=== PATIENT | male | born 1955 | race Two or more races ===

== ENCOUNTER 2016-03-08 10:57 | Inpatient (IN) | payer OTHER, BC ==
--- NOTE | 2016-03-08 11:03 | PDOC ---
History of Present Illness - General History Source: Family Exam Limitations: Dementia - History of Present Illness Initial Comments: 03/08/16 11:40 Patient is a 60-year-old male with history of Ulcerative Colitis, dementia, advanced Parkinson's, nonverbal and bedbound, who presents to the ED accompanied with family, for shortness of breath. Patient was on Levaquin for 7 days and is now on day 3 of prednisone. History is limited because patient is nonverbal at baseline. Patient is DNR/DNI Patient is a former smoker. PCP: Dr. East <Jose Luis Westbrook - Last Filed: 03/08/16 12:18> <Kirti Koroma - Last Filed: 03/08/16 17:04> - General Chief Complaint: Shortness of Breath Stated Complaint: SOB Time Seen by Provider: 03/08/16 11:01 Past History <Jose Luis Westbrook - Last Filed: 03/08/16 12:18> - Past Medical History CVA: No Dementia: Yes GI Disorders: Yes (colitis) Disorders: Yes (BPH w/ urinary retention) Seizures: Yes - Psycho/Social/Smoking Cessation Hx Anxiety: No Suicidal Ideation: No Smoking Status: No Smoking History: Former smoker Have you smoked in the past 12 months: No Number of Cigarettes Smoked Daily: 0 Hx Alcohol Use: No Drug/Substance Use Hx: No Substance Use Type: None Hx Substance Use Treatment: No <Kirti Koroma - Last Filed: 03/08/16 17:04> - Past Medical History Allergies/Adverse Reactions: Allergies Allergy/AdvReac Type Severity Reaction Status Date / Time No Known Allergies Allergy Verified 03/08/16 11:04 Home Medications: Ambulatory Orders Azathioprine 150 mg GT DAILY 06/29/13 Amino Acids/Protein Hydrolys [Prostat Sugar-Free Packet -] 30 ml GT BID Ascorbic Acid [Vitamin C -] 250 mg GT DAILY #30 tablet 02/12/15 Miscellaneous Medical Supply [Outpatient Order] 1 each ASDIR #1 misc Escitalopram Oxalate [Lexapro 5mg/5mL Oral Solution -] 10 mg GT DAILY 05/17/15 Lactobacillus Acidophilus [Bacid -] 1 tab GT DAILY 05/17/15 Levetiracetam [Keppra Oral Solution -] 250 mg GT BID 05/17/15 Polyethylene Glycol 3350 [Miralax 119 gm Btl -] 17 gm GT DAILY 05/17/15 Senna Oral Solution - [Senokot Oral Solution -] 8.8 mg GT BID 05/17/15 Levetiracetam [Keppra] 250 mg PO BID 03/08/16 Levofloxacin [Levaquin] 500 mg PO DAILY 03/08/16 Prednisone [Deltasone -] 40 mg PO DAILY 03/08/16 Zinc Oxide [Triple Paste] 56.7 gm TP DAILY 03/08/16 Review of Systems - Review of Systems Able to Perform ROS?: No Comments:: 03/08/16 11:40 Patient is nonverbal at baseline. <Jose Luis Westbrook - Last Filed: 03/08/16 12:18> *Physical Exam - Vital Signs Last Vital Signs Temp Pulse Resp BP Pulse Ox 101.2 F H 125 H 28 H 111/93 87 L 03/08/16 11:00 03/08/16 11:00 03/08/16 11:00 03/08/16 11:00 03/08/16 11:00 <Jose Luis Westbrook - Last Filed: 03/08/16 12:18> - Physical Exam Comments: GENERAL: Nonverbal. +Tachypnea. Appears ill. HEAD: No signs of trauma EYES: PERRLA, EOMI, sclera anicteric, conjunctiva clear ENT: Auricles normal inspection, hearing grossly normal, nares patent, oropharynx clear without exudates. Moist mucosa NECK: Normal ROM, supple, no lymphadenopathy, JVD, or masses LUNGS: Diffuse rhonchi, retractions. Labored breathing. HEART: Tachycardic. ABDOMEN: Soft, nontender, normoactive bowel sounds. No guarding, no rebound. No masses EXTREMITIES: Normal range of motion, no edema. No clubbing or cyanosis. No cords, erythema, or tenderness NEUROLOGICAL: Limited by dementia. SKIN: Warm, Dry, normal turgor, no rashes or lesions noted. <Kirti Koroma - Last Filed: 03/08/16 17:04> Heart Score/ECG Review - ECG Impressions Comment:: EKG read 11:23- Sinus tach 124 bpm, no acute ST/T changes <Kirti Koroma - Last Filed: 03/08/16 17:04> ED Treatment Course - LABORATORY CBC & Chemistry Diagram: 03/08/16 11:30 03/08/16 11:30 - RADIOLOGY Radiology Studies Ordered: 03/08/16 12:18 Chest x-ray: History Provided: Rule out pneumonia. A single frontal portable projection of the chest at 11:17 AM is submitted. The study is limited due to a very poor inspiration effort. Patchy consolidation/atelectasis is noted at the left lung base. There could be some pleural fluid present as well. There is elevation the right hemidiaphragm with a mild degree of atelectasis. Impression: Limited study with left basilar consilidation. <Jose Luis Westbrook - Last Filed: 03/08/16 12:18> - LABORATORY CBC & Chemistry Diagram: 03/08/16 11:30 03/08/16 11:30 <Kirti Koroma - Last Filed: 03/08/16 17:04> Medical Decision Making - Medical Decision Making 03/08/16 11:[address] East (PCP). Discussed case with Dr. Vitale. <Jose Luis Westbrook - Last Filed: 03/08/16 12:18> - Medical Decision Making 03/08/16 11:37 Discussed with Winifred Hdez, and Claritza. I have written for broad spectrum antibiotic coverage. I have placed patient on BiPAP for comfort, to decrease work of breathing. I have started nebs as well. Will admit to the ICU. <Kirti Koroma - Last Filed: 03/08/16 17:04> *DC/Admit/Observation/Transfer - Attestations Scribe Attestion: 03/08/16 11:41 Documentation prepared by Jose Luis Westbrook, acting as medical assistant internal medicine for Kirti Koroma MD, MD. <Jose Luis Westbrook - Last Filed: 03/08/16 12:18> - Discharge Dispostion Admit: Yes <Kirti Koroma - Last Filed: 03/08/16 17:04> Diagnosis at time of Disposition: Pneumonia Qualifiers: Pneumonia type: due to unspecified organism Laterality: unspecified laterality Lung location: unspecified part of lung Qualified Code(s): J18.9 - Pneumonia, unspecified organism - Discharge Dispostion Condition at time of disposition: Critical - Referrals
[2016-03-08] MEDS ORDERED: ALBUTEROL SO4 2.5/IPRATROPIUM 0.5 INH SOL 3 ML VIAL.NEB. NEB ONE (11:35)
[2016-03-08] MEDS ORDERED: CEFEPIME HCL 2 GM VIAL (RESTRICTED TO ID) IVPB ONE (11:36)
[2016-03-08] MEDS ORDERED: VANCOMYCIN 1,000 MG in DEXTROSE 5%-WATER - 250 ML IVPB ONE (11:36)
[2016-03-08] MEDS ORDERED: LEVOFLOXACIN 750 MG IVPB 150 ML IVPB ONE (11:37)
[2016-03-08 11:45] LABS: BASOPHIL 0.8 % (0-2.0); EOSINOPHIL 0.2 % (0-4.5); MCH 29.9 pg (25.7-33.7); MCHC 32.3 g/dl (32.0-35.9); MEAN CELL VOLUME 92.7 fl (80-96); MEAN PLT VOLUME 10.5 fl (7.5-11.1); NEUTROPHILS 85.8 % (42.8-82.8); PLATELET COUNT 353 K/MM3 (134-434); RDW 15.5 % (11.9-15.9)
[2016-03-08] MEDS: ALBUTEROL SO4 2.5/IPRATROPIUM 0.5 INH SOL 3 ML VIAL.NEB. NEB SCH ×3 (11:45→12:15)
[2016-03-08] MEDS ORDERED: ACETAMINOPHEN 1000 MG/100 ML VIAL (NON FORMULARY) IVPB ONE (11:47)
[2016-03-08] MEDS ORDERED: ACETAMINOPHEN INJECTION 100 ML IVPB ONE (11:48)
[2016-03-08] MEDS ORDERED: PIPERACILLIN/TAZOB 4.5 GM 4.5 GM in DEXTROSE 5%-WATER - 100 ML IVPB ONE (11:59)
--- NOTE | 2016-03-08 12:07 | PN ---
Progress Note, Physician Chief Complaint: ID Consult full noted dictated - Current Medication List Current Medications: Active Medications Albuterol/Ipratropium (Duoneb -) 1 amp NEB Q15M TALHA Stop: 03/08/16 12:16 Vancomycin HCl 1,000 mg/ (Dextrose) 250 mls @ 250 mls/hr IVPB ONCE ONE Stop: 03/08/16 12:35 Piperacillin Sod/Tazobactam (Sod 4.5 gm/ Dextrose) 100 mls @ 200 mls/hr IVPB ONCE ONE Stop: 03/08/16 12:28 - Objective Vital Signs: Vital Signs Temperature 101.2 F H 03/08/16 11:00 Pulse Rate 125 H 03/08/16 11:00 Respiratory Rate 28 H 03/08/16 11:00 Blood Pressure 111/93 03/08/16 11:00 O2 Sat by Pulse Oximetry (%) 87 L 03/08/16 11:00 Cardiovascular: Yes: S1, S2 Respiratory: Yes: Diminished Gastrointestinal: Yes: Soft Edema: No Labs: CBC, BMP 03/08/16 11:30 Problem List - Problems (1) Pneumonia Code(s): J18.9 - PNEUMONIA, UNSPECIFIED ORGANISM Qualifiers: Pneumonia type: due to unspecified organism Laterality: unspecified laterality Lung location: unspecified part of lung Qualified Code(s): J18.9 - Pneumonia, unspecified organism (2) Lewy body dementia Code(s): G31.83 - DEMENTIA WITH LEWY BODIES F02.80 - DEMENTIA IN OTH DISEASES CLASSD ELSWHR W/O BEHAVRL DISTURB Assessment/Plan Laboratory Tests 03/08/16 11:30 WBC 17.0 H D Hgb 15.5 D Plt Count 353 Assessment Pneumonia with aspiration of mouth bartolo ? tooth Recent Levoflox Plan Cultures Influenza screening Vanco and Zosyn to cover the mouth Claritza EISENBERG
[2016-03-08 12:22] LABS: ANION GAP 10 (8-16); CALCIUM 9.6 mg/dL (8.5-10.1); CO2 31 mmol/L (21-32); CREATININE 1.2 mg/dL (0.7-1.3); GLUCOSE,RANDOM 191 mg/dL (74-106); SGOT/AST 36 U/L (15-37); SGPT/ALT 44 U/L (12-78); TOT PROT 7.6 g/dl (6.4-8.2)
[2016-03-08 12:23] LABS: ALK PHOS 70 U/L (45-117)
--- NOTE | 2016-03-08 12:30 | EKG ---
Test Reason : Blood Pressure : / mmHG Vent. Rate : 124 BPM Atrial Rate : 124 BPM P-R Int : 152 ms QRS Dur : 080 ms QT Int : 310 ms P-R-T Axes : 041 -21 -10 degrees QTc Int : 445 ms SINUS TACHYCARDIA OTHERWISE NORMAL ECG WHEN COMPARED WITH ECG OF 17-MAY-2015 18:59, NO SIGNIFICANT CHANGE WAS FOUND Confirmed by ANGIE CARLSON MD ([id number]) on 03/08/2016 12:30:22 PM Referred By: Confirmed By:ANGIE CARLSON MD
[2016-03-08] MEDS ORDERED: PIPERACILLIN/TAZOB 4.5 GM 100 ML IVPB ONE (12:40)
[2016-03-08] MEDS ORDERED: VANCOMYCIN 1 GRAM (PRE-DOCKED) 250 ML IVPB ONE (12:41)
[2016-03-08] MEDS: VANCOMYCIN 1,250 MG in DEXTROSE 5%-WATER - 250 ML IVPB SCH ×2 (13:57→16:56)
[2016-03-08 15:45] LABS: URINE APPEARANCE SLCLOUDY; URINE BILIRUBIN NEGATIVE (NEGATIVE); URINE BLOOD NEGATIVE (NEGATIVE); URINE COLOR AMBER; URINE GLUCOSE (UA) NEGATIVE (NEGATIVE); URINE KETONE TRACE (NEGATIVE); URINE LEUK ESTERASE NEGATIVE (NEGATIVE); URINE NITRITE NEGATIVE (NEGATIVE); URINE UROBILINOGEN NEGATIVE E.U./dl (0.2-1.0)
[2016-03-08 15:51] LABS: URINE PROTEIN 2+ (NEGATIVE)
[2016-03-08 15:52] LABS: URINE BACTERIA RARE /hpf (NONE SEEN); URINE RBC 31 /hpf (0-3); URINE WBC 15 /hpf (3-5)
--- NOTE | 2016-03-08 16:15 | CONSULT ---
Consult Consult Specialty:: PULM/CCM Referred by:: HARVEY Reason for Consultation:: Respiratory distress - History of Present Illness Chief Complaint: Fever / SOB / respiratory distress History of Present Illness: 61 M, well known to me from multiple previous admissions. Previous multiple episodes of PNA and aspiration. Recent suspected respiratory tract infection. 7 days of Levaquin 500mg. Prednisone over the past few days. Today, developed worsening SOB, hypoxemia, and respiratory distress. In the ER placed on NIPPV with some improvement in his respiratory distress. There is also a concern of his poor dentition / (?) aspiration. Patient is not able to provide a history. 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 Gastrointestinal: Yes: Ulcerative Colitis Musculoskeletal: Yes: Other (HISTORY IF B/L HIP FRACTURES) - Alcohol/Substance Use Hx Alcohol Use: No - Smoking History Smoking history: Former smoker Have you smoked in the past 12 months: No Aproximately how many cigarettes per day: 0 Home Medications - Allergies Allergies/Adverse Reactions: Allergies Allergy/AdvReac Type Severity Reaction Status Date / Time No Known Allergies Allergy Verified 03/08/16 11:04 - Home Medications Home Medications: Ambulatory Orders Azathioprine 150 mg GT DAILY 06/29/13 Amino Acids/Protein Hydrolys [Prostat Sugar-Free Packet -] 30 ml GT BID Ascorbic Acid [Vitamin C -] 250 mg GT DAILY #30 tablet 02/12/15 Miscellaneous Medical Supply [Outpatient Order] 1 each ASDIR #1 misc Escitalopram Oxalate [Lexapro 5mg/5mL Oral Solution -] 10 mg GT DAILY 05/17/15 Lactobacillus Acidophilus [Bacid -] 1 tab GT DAILY 05/17/15 Levetiracetam [Keppra Oral Solution -] 250 mg GT BID 05/17/15 Polyethylene Glycol 3350 [Miralax 119 gm Btl -] 17 gm GT DAILY 05/17/15 Senna Oral Solution - [Senokot Oral Solution -] 8.8 mg GT BID 05/17/15 Levetiracetam [Keppra] 250 mg PO BID 03/08/16 Levofloxacin [Levaquin] 500 mg PO DAILY 03/08/16 Prednisone [Deltasone -] 40 mg PO DAILY 03/08/16 Zinc Oxide [Triple Paste] 56.7 gm TP DAILY 03/08/16 Review of Systems Unable to obtain ROS, reason: Not able to provide Physical Exam Vital Signs: Vital Signs Temperature 101.2 F H 03/08/16 11:00 Pulse Rate 118 H 03/08/16 15:17 Respiratory Rate 21 03/08/16 13:00 Blood Pressure 124/96 03/08/16 13:00 O2 Sat by Pulse Oximetry (%) 100 03/08/16 15:17 Constitutional: Yes: Severe Distress Eyes: Yes: Conjunctiva Clear HENT: Yes: Atraumatic, Normocephalic Neck: Yes: Supple, Trachea Midline Cardiovascular: Yes: Tachycardia Respiratory: Yes: Accessory Muscle Use, Cough, On BiPap, Poor Air Entry, Rhonchi , Tachypnea. No: Stridor, Wheezes Gastrointestinal: Yes: Normal Bowel Sounds, Soft, Other (PEG) ...Rectal Exam: Yes: Deferred Renal/: Yes: WNL Musculoskeletal: Yes: Joint Stiffness, Muscle Weakness Extremities: Yes: Cool Edema: No Peripheral Pulses WNL: Yes Integumentary: Yes: WNL Neurological: Yes: Confusion. No: Seizure Imaging - Results Chest X-ray: Report Reviewed, Image Reviewed (LLL consolidation) Problem List - Problems (1) Pneumonia Code(s): J18.9 - PNEUMONIA, UNSPECIFIED ORGANISM Qualifiers: Pneumonia type: due to unspecified organism Laterality: unspecified laterality Lung location: unspecified part of lung Qualified Code(s): J18.9 - Pneumonia, unspecified organism (2) BPH (benign prostatic hypertrophy) Code(s): N40.0 - BENIGN PROSTATIC HYPERPLASIA WITHOUT LOWER URINRY TRACT SYMP Qualifiers: Prostatic enlargement morphology: unspecified morphology Lower urinary tract symptom presence: symptoms present Qualified Code(s): N40.1 - Enlarged prostate with lower urinary tract symptoms (3) CVA (cerebrovascular accident) Code(s): I63.9 - CEREBRAL INFARCTION, UNSPECIFIED (4) Colitis Code(s): K52.9 - NONINFECTIVE GASTROENTERITIS AND COLITIS, UNSPECIFIED (5) Dehydration Code(s): E86.0 - DEHYDRATION (6) Dementia Code(s): F03.90 - UNSPECIFIED DEMENTIA WITHOUT BEHAVIORAL DISTURBANCE (7) Dysphagia Code(s): R13.10 - DYSPHAGIA, UNSPECIFIED (8) Foreign body alimentary tract Code(s): T18.9XXA - FOREIGN BODY OF ALIMENTARY TRACT, PART UNSP, INIT ENCNTR Qualifiers: Encounter type: initial encounter Qualified Code(s): T18.9XXA - Foreign body of alimentary tract, part unspecified, initial encounter (9) History of ulcerative colitis Code(s): Z87.19 - PERSONAL HISTORY OF OTHER DISEASES OF THE DIGESTIVE SYSTEM (10) Hypoxemia Code(s): R09.02 - HYPOXEMIA (11) Lewy body dementia Code(s): G31.83 - DEMENTIA WITH LEWY BODIES F02.80 - DEMENTIA IN OTH DISEASES CLASSD ELSWHR W/O BEHAVRL DISTURB (12) Respiratory failure Code(s): J96.90 - RESPIRATORY FAILURE, UNSP, UNSP W HYPOXIA OR HYPERCAPNIA (13) Sepsis Code(s): A41.9 - SEPSIS, UNSPECIFIED ORGANISM Qualifiers: Sepsis type: sepsis due to unspecified organism Qualified Code(s): A41.9 - Sepsis, unspecified organism Assessment/Plan PLAN: NIPPV Le-culture Broad ABX BD TX IVF HOB elevation Oral care ICU monitoring DNR/DNI Thank you. Dr Vitale CCTime 35"
[2016-03-08] MEDS ORDERED: ACETAMINOPHEN 325 MG TABLET (FP) PO PRN (17:17)
--- NOTE | 2016-03-08 18:28 | CONS ---
DATE OF CONSULTATION: DATE OF DICTATION: 03/08/2016 INFECTIOUS DISEASE CONSULTATION HISTORY OF PRESENT ILLNESS: This is a 61-year-old male with multiple prior admissions, a known diagnosis of Parkinson disease and Lewy body disease, admitted for shortness of breath and fever to 101. [address] East, he had been seen over a week ago by Dr. Vitale for respiratory symptoms. Concern was raised for possible aspiration, even aspiration of a tooth, as the patient is known to have poor dental hygiene. He was given levofloxacin, which he took for a week. He was also given prednisone. He has been hospitalized in the past for treatment of pneumonia. Here he was 101, and I am asked to see him for further evaluation and treatment. PAST MEDICAL HISTORY: Includes ulcerative colitis, dementia, and advanced Parkinson disease. MEDICATION: At home include azathioprine, lexapro, Miralax, Reglan. ALLERGIES: None known. SOCIAL HISTORY: Former smoker. No history of alcohol. Lives with his family at home, well cared for. FAMILY HISTORY: Reviewed and noncontributory. REVIEW OF SYSTEMS: Respiratory: Shortness of breath. No cough noted, no hemoptysis. Cardiac: No history of chest pain, palpitations, syncope, heart murmur. Gastrointestinal: History of ulcerative colitis. No abdominal pain. Appetite has been good. No vomiting, diarrhea. Genitourinary: Incontinent of urine. No gross hematuria noted. PHYSICAL EXAMINATION: Vital signs: Temperature 101.2, pulse 125, blood pressure 111/93, respirations 28, and O2 oximetry 87%, and 93% on a BiPAP mask. Neck: Limited range of motion. Lungs: Diminished breath sounds bilaterally. Heart: S1, S2. Regular rhythm. Tachycardic. No murmur. Abdomen: Soft. Nontender. No hepatosplenomegaly. Extremities: Without clubbing, cyanosis, or edema. LABORATORY: The white count is 17,000. Hemoglobin 15.5, platelets of 353. Chest x-ray reviewed, with increased markings at the left base. ASSESSMENT: A 61-year-old male with Parkinson disease, Lewy body disease, and history of pneumonia in the past, admitted now with respiratory distress and sepsis syndrome. After recent course of levofloxacin, the possibility of aspiration pneumonia is considered. The patient's dental hygiene is poor. Must consider aspiration of mouth floor including anaerobes. As discussed with Dr. Vitale and Dr. Koroma in the emergency room, he will be given vancomycin and Zosyn pending cultures, influenza screening will be done. He already appears more comfortable as compared to when he first arrived, according to the inspector penetrant, and the case was discussed with his family. TOYA CARVALHO M.D. HIRAM/[id number]
[2016-03-08] MEDS: LACTATED RINGERS SOLUTION 1,000 ML IV SCH (20:55)
[2016-03-08] MEDS: PIPERACILLIN/TAZOB 4.5 GM 100 ML IVPB SCH (21:00)
[2016-03-08 21:22] LABS: ALLENS TEST POSITIVE; ART PUNCT SITE RIGHT RADIAL; ARTERIAL BLD GAS O2 SATURATION 99.6 % (90-98.9); ARTERIAL BLOOD GAS BASE EXCESS 2.8 meq/l (-2-2); ARTERIAL BLOOD GAS HCO3 26.9 meq/L (22-26); ARTERIAL BLOOD GAS pH 7.43 (7.35-7.45); LPM/O2% 100%; PT. ON O2? YES; TYPE OF O2 BIPAP; VENT RATE 14
[2016-03-08 21:31] VITALS: BMI 25.5
[2016-03-08 21:49] LABS: BASOPHIL 0.4 % (0-2.0); MCH 29.1 pg (25.7-33.7); MCHC 31.7 g/dl (32.0-35.9); MEAN CELL VOLUME 91.9 fl (80-96); MEAN PLT VOLUME 10.7 fl (7.5-11.1); NEUTROPHILS 84.9 % (42.8-82.8); PLATELET COUNT 359 K/MM3 (134-434); RDW 15.4 % (11.9-15.9); WHITE BLOOD COUNT 17.2 K/mm3 (4.0-10.0)
[2016-03-08] MEDS ORDERED: levETIRAcetam 250 MG TABLET (FP) PO SCH (22:00)
[2016-03-08] MEDS: AMINO ACIDS/PROTEIN HYDROLYS SUGAR-FREE 30 ML PACKET GT SCH (22:02)
[2016-03-08] MEDS: levETIRAcetam 500 MG/5 ML ORAL SOLUTION (UNIT-DOSE CUPS) GT SCH (22:02)
[2016-03-08] MEDS: SENNOSIDES 8.8 MG/5 ML BULK BOTTLE GT SCH (22:03)
[2016-03-08 22:08] LABS: INR 1.25 (0.82-1.09); PROTHROMBIN TIME (PATIENT) 13.8 SEC (9.98-11.88)
[2016-03-08 22:10] LABS: ACTIVATED PTT 25.7 SECONDS (26.9-34.4)
[2016-03-08 22:39] LABS: ALBUMIN 2.5 g/dl (3.4-5.0); ANION GAP 9 (8-16); CALCIUM 8.4 mg/dL (8.5-10.1); CO2 29 mmol/L (21-32); GLUCOSE,RANDOM 207 mg/dL (74-106); MAGNESIUM 2.4 mg/dL (1.8-2.4)
[2016-03-08 22:43] LABS: ALK PHOS 66 U/L (45-117); CREATININE 1.2 mg/dL (0.7-1.3); SGOT/AST 25 U/L (15-37); SGPT/ALT 39 U/L (12-78); TOT PROT 6.9 g/dl (6.4-8.2); TROPONIN I < 0.02 ng/ml (0.00-0.05)
[2016-03-08] MEDS ORDERED: SODIUM CHLORIDE 250 ML IV STA (23:11)
[2016-03-08] MEDS ORDERED: LACTATED RINGERS SOLUTION 250 ML IV STA (23:24)
[2016-03-09] MEDS: VANCOMYCIN 1,250 MG in DEXTROSE 5%-WATER - 250 ML IVPB SCH ×2 (02:57→14:41)
[2016-03-09] MEDS: PIPERACILLIN/TAZOB 4.5 GM 100 ML IVPB SCH ×3 (02:59→16:59)
[2016-03-09 06:09] LABS: BASOPHIL 0.4 % (0-2.0); EOSINOPHIL 0.2 % (0-4.5); MCH 29.3 pg (25.7-33.7); MCHC 31.5 g/dl (32.0-35.9); MEAN CELL VOLUME 92.9 fl (80-96); MEAN PLT VOLUME 10.9 fl (7.5-11.1); NEUTROPHILS 82.4 % (42.8-82.8); PLATELET COUNT 357 K/MM3 (134-434); RDW 15.7 % (11.9-15.9); WHITE BLOOD COUNT 16.8 K/mm3 (4.0-10.0)
[2016-03-09 06:42] LABS: ALBUMIN 2.4 g/dl (3.4-5.0); ANION GAP 8 (8-16); CALCIUM 8.8 mg/dL (8.5-10.1); CO2 31 mmol/L (21-32); CREATININE 1.2 mg/dL (0.7-1.3); GLUCOSE,RANDOM 211 mg/dL (74-106); SGOT/AST 24 U/L (15-37); SGPT/ALT 33 U/L (12-78)
[2016-03-09 06:43] LABS: ALK PHOS 58 U/L (45-117); BILIRUBIN,TOTAL 1.4 mg/dL (0.2-1.0); TOT PROT 6.6 g/dl (6.4-8.2)
[2016-03-09] MEDS: LACTATED RINGERS SOLUTION 1,000 ML IV SCH (09:45)
[2016-03-09] MEDS: AMINO ACIDS/PROTEIN HYDROLYS SUGAR-FREE 30 ML PACKET GT SCH ×2 (09:49→22:24)
[2016-03-09] MEDS: ESCITALOPRAM OXALATE 5 MG/5 ML GT SCH (09:49)
[2016-03-09] MEDS: levETIRAcetam 500 MG/5 ML ORAL SOLUTION (UNIT-DOSE CUPS) GT SCH ×2 (09:51→22:25)
[2016-03-09] MEDS: LACTOBACILLUS ACIDOPHILUS 1 EACH TAB (FP) GT SCH (09:51)
[2016-03-09] MEDS: BACITRACIN 30 GM TUBE TOPICAL OINTMENT TP SCH (09:52)
[2016-03-09] MEDS: POLYETHYLENE GLYCOL 3350 119 GM BTL GT SCH (09:52)
[2016-03-09] MEDS: SENNOSIDES 8.8 MG/5 ML BULK BOTTLE GT SCH ×2 (09:53→22:25)
[2016-03-09] MEDS ORDERED: ASCORBIC ACID 250 MG TABLET (FP) GT SCH (10:00)
[2016-03-09] MEDS ORDERED: predniSONE 20 MG TABLET (UD) GT SCH (10:00)
[2016-03-09] MEDS ORDERED: ASCORBIC ACID 500 MG/5 ML UNIT DOSE CUP GT SCH (10:29)
--- NOTE | 2016-03-09 11:18 | PN ---
Progress Note, Physician History of Present Illness: Awake on bipap Breathing non-labored Temps down- afebrile WBC slightly improved Influenza swab negative Blod c/s pending - Current Medication List Current Medications: Active Medications Acetaminophen (Tylenol -) 650 mg PO Q6H PRN PRN Reason: FEVER OR PAIN Amino Acids (Prostat Sugar-Free Packet -) 30 ml GT BID [facility] Last Admin: 03/09/16 09:49 Dose: 30 ml Ascorbic Acid (Vitamin C Oral Solution -) 250 mg GT DAILY [facility] Azathioprine (Imuran -) 150 mg GT DAILY [facility] Bacitracin (Bacitracin -) 1 applic TP DAILY [facility] Last Admin: 03/09/16 09:52 Dose: 1 applic Escitalopram Oxalate (Lexapro Oral Solution -) 10 mg GT DAILY [facility] Last Admin: 03/09/16 09:49 Dose: 10 mg Vancomycin HCl 1,250 mg/ (Dextrose) 250 mls @ 166.667 mls/hr IVPB BID@0100, 1300 [facility] Last Admin: 03/09/16 02:57 Dose: 166.667 mls/hr Piperacillin Sod/Tazobactam Sod (Zosyn 4.5gm Ivpb (Pre-Docked)) 100 mls @ 200 mls/hr IVPB Q8H-IV [facility] Last Admin: 03/09/16 09:44 Dose: 200 mls/hr Lactated Ringer's (Lactated Ringers Solution) 1,000 mls @ 50 mls/hr IV ASDIR [facility] Last Admin: 03/09/16 09:45 Dose: 50 mls/hr Lactobacillus Acidophilus (Bacid -) 1 tab GT DAILY [facility] Last Admin: 03/09/16 09:51 Dose: 1 tab Levetiracetam (Keppra Oral Solution -) 250 mg GT BID [facility] Last Admin: 03/09/16 09:51 Dose: 250 mg Multi-Ingredient Ointment (Zinc Oxide) 1 applic TP DAILY [facility] Polyethylene Glycol (Miralax (For Daily Use) -) 17 gm GT DAILY [facility] Last Admin: 03/09/16 09:52 Dose: 17 gm Prednisone (Deltasone -) 40 mg GT DAILY [facility] Last Admin: 03/09/16 09:51 Dose: 40 mg Senna (Senna Oral Solution -) 8.8 mg GT BID [facility] Last Admin: 03/09/16 09:53 Dose: 8.8 mg - Objective Vital Signs: Vital Signs Temperature 99.6 F 03/09/16 10:00 Pulse Rate 96 H 03/09/16 10:00 Respiratory Rate 15 03/09/16 10:00 Blood Pressure 105/72 03/09/16 10:00 O2 Sat by Pulse Oximetry (%) 96 03/09/16 10:00 Constitutional: Yes: No Distress Eyes: Yes: Conjunctiva Clear Cardiovascular: Yes: Regular Rate and Rhythm, S1, S2 Respiratory: Yes: Diminished Gastrointestinal: Yes: Normal Bowel Sounds, Soft. No: Tenderness Edema: No Labs: CBC, BMP 03/09/16 05:05 03/09/16 05:05 INR, PTT INR 1.25 (0.82-1.09) H 03/08/16 20:30 Assessment/Plan Resp insufficiency Possible aspiration pneumonia Fever/ leukocytosis- improved Lewy body dementia Continue empiric zosyn/ vancomycin Discussed with family at bedside
--- NOTE | 2016-03-09 12:58 | CONSULT ---
Consult Consult Specialty:: Nephrology Reason for Consultation:: BREANA - History of Present Illness Chief Complaint: shortness of breath History of Present Illness: Pt is a 61 year old gentleman with history of ulcerative colitis, lewy body dementia, dysphagia, and parkinsons who was admitted with fever and shortness of breath. He was treated with levofloxacin and prednisone as outpt without improvement. He was admitted to the ICU for possible aspiration PNA. I was called was called to evaluate him for BREANA and lactic acidosis. He is non verbal and unable to give history. Pt is well known to me. 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 Gastrointestinal: Yes: Ulcerative Colitis Musculoskeletal: Yes: Other (HISTORY IF B/L HIP FRACTURES) - Past Surgical History Additional Surgical History: peg tube - Alcohol/Substance Use Hx Alcohol Use: No - Smoking History Smoking history: Former smoker Have you smoked in the past 12 months: No Aproximately how many cigarettes per day: 0 Home Medications - Allergies Allergies/Adverse Reactions: Allergies Allergy/AdvReac Type Severity Reaction Status Date / Time No Known Allergies Allergy Verified 03/08/16 11:04 - Home Medications Home Medications: Ambulatory Orders Azathioprine 150 mg GT DAILY 06/29/13 Amino Acids/Protein Hydrolys [Prostat Sugar-Free Packet -] 30 ml GT BID Ascorbic Acid [Vitamin C -] 250 mg GT DAILY #30 tablet 02/12/15 Miscellaneous Medical Supply [Outpatient Order] 1 each ASDIR #1 misc Escitalopram Oxalate [Lexapro 5mg/5mL Oral Solution -] 10 mg GT DAILY 05/17/15 Lactobacillus Acidophilus [Bacid -] 1 tab GT DAILY 05/17/15 Levetiracetam [Keppra Oral Solution -] 250 mg GT BID 05/17/15 Polyethylene Glycol 3350 [Miralax 119 gm Btl -] 17 gm GT DAILY 05/17/15 Senna Oral Solution - [Senokot Oral Solution -] 8.8 mg GT BID 05/17/15 Levetiracetam [Keppra] 250 mg PO BID 03/08/16 Levofloxacin [Levaquin] 500 mg PO DAILY 03/08/16 Prednisone [Deltasone -] 40 mg PO DAILY 03/08/16 Zinc Oxide [Triple Paste] 56.7 gm TP DAILY 03/08/16 Family Disease History - Family Disease History Family History: Unremarkable Review of Systems Unable to obtain ROS, reason: pt has dementia Physical Exam Vital Signs: Vital Signs Temperature 99.6 F 03/09/16 10:00 Pulse Rate 98 H 03/09/16 12:00 Respiratory Rate 15 03/09/16 12:00 Blood Pressure 104/73 03/09/16 12:00 O2 Sat by Pulse Oximetry (%) 97 03/09/16 11:45 Constitutional: Yes: Calm Eyes: Yes: Conjunctiva Clear HENT: Yes: Atraumatic Neck: Yes: Supple Cardiovascular: Yes: S1, S2 Respiratory: Yes: On BiPap Gastrointestinal: Yes: Soft Renal/: Yes: Incontinence Musculoskeletal: Yes: Muscle Weakness Edema: No Neurological: Yes: Pre-Existing Deficit Labs: CBC, BMP 03/09/16 05:05 03/09/16 05:05 Laboratory Tests 05/21/15 05/28/15 03/08/16 06:20 07:00 11:30 WBC 17.0 H D Hgb ABG pH ABG pCO2 at Pt Temp ABG pO2 at Pt Temp ABG HCO3 ABG O2 Sat (Measured) Sodium Potassium Chloride Carbon Dioxide Anion Gap BUN Creatinine 0.7 Lactic Acid Magnesium 2.0 Total Bilirubin Creatine Kinase Urine Color Urine Appearance Urine pH Ur Specific [place] Urine Protein Urine Glucose (UA) Urine Ketones Urine Blood Urine Nitrite Urine Bilirubin Urine Urobilinogen Ur Leukocyte Esterase 03/08/16 03/08/16 03/08/16 11:30 15:30 20:30 WBC 17.2 H Hgb ABG pH ABG pCO2 at Pt Temp ABG pO2 at Pt Temp ABG HCO3 ABG O2 Sat (Measured) Sodium Potassium Chloride Carbon Dioxide Anion Gap BUN Creatinine 1.2 D Lactic Acid Magnesium Total Bilirubin Creatine Kinase Urine Color No Urine Appearance Slcloudy Urine pH 5.0 D Ur Specific [place] 1.044 H Urine Protein 2+ H Urine Glucose (UA) Negative Urine Ketones Trace H Urine Blood Negative Urine Nitrite Negative Urine Bilirubin Negative Urine Urobilinogen Negative Ur Leukocyte Esterase Negative 03/08/16 03/08/16 03/08/16 20:30 20:30 20:30 WBC Hgb ABG pH ABG pCO2 at Pt Temp ABG pO2 at Pt Temp ABG HCO3 ABG O2 Sat (Measured) Sodium 156 H Potassium 4.1 Chloride 118 H Carbon Dioxide 29 Anion Gap 9 BUN 31 H D Creatinine 1.2 Lactic Acid 4.126 H* Magnesium Total Bilirubin Creatine Kinase 477 H D Urine Color Urine Appearance Urine pH Ur Specific [place] Urine Protein Urine Glucose (UA) Urine Ketones Urine Blood Urine Nitrite Urine Bilirubin Urine Urobilinogen Ur Leukocyte Esterase 03/08/16 03/09/16 03/09/16 21:09 05:05 05:05 WBC 16.8 H Hgb 13.1 ABG pH 7.43 ABG pCO2 at Pt Temp 41.2 ABG pO2 at Pt Temp 246.0 H* ABG HCO3 26.9 H ABG O2 Sat (Measured) 99.6 H* Sodium 154 H Potassium 3.4 L Chloride 115 H Carbon Dioxide 31 Anion Gap 8 BUN 33 H Creatinine 1.2 Lactic Acid Magnesium Total Bilirubin 1.4 H D Creatine Kinase Urine Color Urine Appearance Urine pH Ur Specific [place] Urine Protein Urine Glucose (UA) Urine Ketones Urine Blood Urine Nitrite Urine Bilirubin Urine Urobilinogen Ur Leukocyte Esterase 03/09/16 05:05 WBC Hgb ABG pH ABG pCO2 at Pt Temp ABG pO2 at Pt Temp ABG HCO3 ABG O2 Sat (Measured) Sodium Potassium Chloride Carbon Dioxide Anion Gap BUN Creatinine Lactic Acid 3.387 H* Magnesium Total Bilirubin Creatine Kinase Urine Color Urine Appearance Urine pH Ur Specific [place] Urine Protein Urine Glucose (UA) Urine Ketones Urine Blood Urine Nitrite Urine Bilirubin Urine Urobilinogen Ur Leukocyte Esterase Imaging - Results Chest X-ray: Report Reviewed (small pleural effusion) Problem List - Problems (1) Pneumonia Code(s): J18.9 - PNEUMONIA, UNSPECIFIED ORGANISM Qualifiers: Pneumonia type: due to unspecified organism Laterality: unspecified laterality Lung location: unspecified part of lung Qualified Code(s): J18.9 - Pneumonia, unspecified organism (2) BPH (benign prostatic hypertrophy) Code(s): N40.0 - BENIGN PROSTATIC HYPERPLASIA WITHOUT LOWER URINRY TRACT SYMP Qualifiers: Prostatic enlargement morphology: unspecified morphology Lower urinary tract symptom presence: symptoms present Qualified Code(s): N40.1 - Enlarged prostate with lower urinary tract symptoms (3) Hypokalemia Code(s): E87.6 - HYPOKALEMIA (4) Respiratory failure Code(s): J96.90 - RESPIRATORY FAILURE, UNSP, UNSP W HYPOXIA OR HYPERCAPNIA (5) Seizure disorder Code(s): G40.909 - EPILEPSY, UNSP, NOT INTRACTABLE, WITHOUT STATUS EPILEPTICUS (6) Sepsis Code(s): A41.9 - SEPSIS, UNSPECIFIED ORGANISM Qualifiers: Sepsis type: sepsis due to unspecified organism Qualified Code(s): A41.9 - Sepsis, unspecified organism (7) BREANA (acute kidney injury) Code(s): N17.9 - ACUTE KIDNEY FAILURE, UNSPECIFIED Assessment/Plan Current Medications Generic Name Dose Route Start Last Admin Trade Name Freq PRN Reason Stop Dose Admin Acetaminophen 650 mg 03/08/16 17:17 Tylenol - PO Q6H PRN FEVER OR PAIN Albuterol/Ipratropium 1 amp 03/09/16 18:00 Duoneb - NEB QIDR TALHA Amino Acids 30 ml 03/08/16 22:00 03/09/16 09:49 Prostat Sugar-Free Packet - GT 30 ml BID TALHA Administration Ascorbic Acid 250 mg 03/09/16 10:29 Vitamin C Oral Solution - GT DAILY T[facility]HA Azathioprine 150 mg 03/09/16 10:00 Imuran - GT DAILY T[facility]HA Bacitracin 1 applic 03/09/16 10:00 03/09/16 09:52 Bacitracin - TP 1 applic DAILY TALHA Administration Escitalopram Oxalate 10 mg 03/09/16 10:00 03/09/16 09:49 Lexapro Oral Solution - GT 10 mg DAILY TALHA Administration Vancomycin HCl 1,250 mg/ 250 mls @ 166.667 mls/hr 03/08/16 13:00 03/09/16 02:57 Dextrose IVPB 166.667 mls/hr BID@0100,1300 TALHA Administration Piperacillin Sod/Tazobactam Sod 100 mls @ 200 mls/hr 03/08/16 18:00 03/09/16 09 :44 Zosyn 4.5gm Ivpb (Pre-Docked) IVPB 200 mls/hr Q8H-IV TALHA Administration Lactobacillus Acidophilus 1 tab 03/09/16 10:00 03/09/16 09:51 Bacid - GT 1 tab DAILY [facility]ALHA Administration Levetiracetam 250 mg 03/08/16 22:00 03/09/16 09:51 Keppra Oral Solution - GT 250 mg BID TALHA Administration Multi-Ingredient Ointment 1 applic 03/09/16 10:00 Zinc Oxide TP DAILY [facility] Polyethylene Glycol 17 gm 03/09/16 10:00 03/09/16 09:52 Miralax (For Daily Use) - GT 17 gm DAILY [facility] Administration Prednisone 40 mg 03/09/16 10:00 03/09/16 09:51 Deltasone - GT 40 mg DAILY TALHA Administration Senna 8.8 mg 03/08/16 22:00 03/09/16 09:53 Senna Oral Solution - GT 8.8 mg BID TALHA Administration Impression 1. BREANA - pt has a baseline creatinine of about 0.7 2. respiratory failure requiring BiPap 3. parkinsons 4. ulcerative colitis 5. dementia 6. aspiration PNA 7. sepsis 8. hypernatremia 9. 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
--- NOTE | 2016-03-09 13:27 | PN ---
Teaching Attending Note Name of Resident: Abdiel Cuevas ATTENDING PHYSICIAN STATEMENT I saw and evaluated the patient. I reviewed the resident's note and discussed the case with the resident. I agree with the resident's findings and plan as documented. SUBJECTIVE: Patient seen and examined in the ICU. More awake and responsive. Remains on NIPPV support. No pressors. Intake & Output 03/06/16 03/07/16 03/08/16 03/09/16 23:59 23:59 23:59 23:59 Intake Total 450 700 Balance 450 700 Weight 173 lb 173 lb Last Vital Signs Temp Pulse Resp BP Pulse Ox 99.6 F 98 H 15 104/73 97 03/09/16 10:00 03/09/16 12:00 03/09/16 12:00 03/09/16 12:00 03/09/16 11:45 Active Medications Acetaminophen (Tylenol -) 650 mg PO Q6H PRN PRN Reason: FEVER OR PAIN Albuterol/Ipratropium (Duoneb -) 1 amp NEB QIDR [facility] Amino Acids (Prostat Sugar-Free Packet -) 30 ml GT BID [facility] Last Admin: 03/09/16 09:49 Dose: 30 ml Ascorbic Acid (Vitamin C Oral Solution -) 250 mg GT DAILY [facility] Azathioprine (Imuran -) 150 mg GT DAILY [facility] Bacitracin (Bacitracin -) 1 applic TP DAILY [facility] Last Admin: 03/09/16 09:52 Dose: 1 applic Escitalopram Oxalate (Lexapro Oral Solution -) 10 mg GT DAILY [facility] Last Admin: 03/09/16 09:49 Dose: 10 mg Vancomycin HCl 1,250 mg/ (Dextrose) 250 mls @ 166.667 mls/hr IVPB BID@0100, 1300 [facility] Last Admin: 03/09/16 02:57 Dose: 166.667 mls/hr Piperacillin Sod/Tazobactam Sod (Zosyn 4.5gm Ivpb (Pre-Docked)) 100 mls @ 200 mls/hr IVPB Q8H-IV [facility] Last Admin: 03/09/16 09:44 Dose: 200 mls/hr Lactobacillus Acidophilus (Bacid -) 1 tab GT DAILY [facility] Last Admin: 03/09/16 09:51 Dose: 1 tab Levetiracetam (Keppra Oral Solution -) 250 mg GT BID [facility] Last Admin: 03/09/16 09:51 Dose: 250 mg Multi-Ingredient Ointment (Zinc Oxide) 1 applic TP DAILY [facility] Polyethylene Glycol (Miralax (For Daily Use) -) 17 gm GT DAILY [facility] Last Admin: 03/09/16 09:52 Dose: 17 gm Prednisone (Deltasone -) 40 mg GT DAILY [facility] Last Admin: 03/09/16 09:51 Dose: 40 mg Senna (Senna Oral Solution -) 8.8 mg GT BID [facility] Last Admin: 03/09/16 09:53 Dose: 8.8 mg Constitutional: Yes: NAD on NIPPV Eyes: Yes: Conjunctiva Clear HENT: Yes: Atraumatic, Normocephalic Neck: Yes: Supple, Trachea Midline Cardiovascular: Yes: Tachycardia Respiratory: Yes: Accessory Muscle Use, Cough, On BiPap, Poor Air Entry, Rhonchi , Tachypnea. No: Stridor, Wheezes Gastrointestinal: Yes: Normal Bowel Sounds, Soft, Other (PEG) ...Rectal Exam: Yes: Deferred Renal/: Yes: WNL Musculoskeletal: Yes: Joint Stiffness, Muscle Weakness Extremities: Yes: Cool Edema: No Peripheral Pulses WNL: Yes Integumentary: Yes: WNL Neurological: Yes: Confusion. No: Seizure Laboratory Results - last 24 hr 03/08/16 03/08/16 03/08/16 15:30 16:40 20:30 WBC 17.2 H RBC 4.70 Hgb 13.7 D Hct 43.2 MCV 91.9 MCHC 31.7 L RDW 15.4 Plt Count 359 MPV 10.7 Neutrophils % 84.9 H Lymphocytes % 10.8 Monocytes % 3.9 Eosinophils % 0.0 D Basophils % 0.4 INR PTT (Actin FS) Puncture Site ABG pH ABG pCO2 at Pt Temp ABG pO2 at Pt Temp ABG HCO3 ABG O2 Sat (Measured) ABG O2 Content ABG Base Excess Kelvin Test O2 Delivery Device Oxygen Flow Rate Vent Mode Vent Rate PEEP Pressure Support Vent Sodium Potassium Chloride Carbon Dioxide Anion Gap BUN Creatinine Creat Clearance w eGFR Random Glucose Lactic Acid 4.641 H* Calcium Phosphorus Magnesium Total Bilirubin AST ALT Alkaline Phosphatase Creatine Kinase Creatine Kinase Index CK-MB (CK-2) CK-MB (CK-2) Rel Index Troponin I Total Protein Albumin Urine Color No Urine Appearance Slcloudy Urine pH 5.0 D Ur Specific [place] 1.044 H Urine Protein 2+ H Urine Glucose (UA) Negative Urine Ketones Trace H Urine Blood Negative Urine Nitrite Negative Urine Bilirubin Negative Urine Urobilinogen Negative Ur Leukocyte Esterase Negative Urine RBC 31 Urine WBC 15 Urine Bacteria Rare 03/08/16 03/08/16 03/08/16 20:30 20:30 20:30 WBC RBC Hgb Hct MCV MCHC RDW Plt Count MPV Neutrophils % Lymphocytes % Monocytes % Eosinophils % Basophils % INR 1.25 H PTT (Actin FS) 25.7 L Puncture Site ABG pH ABG pCO2 at Pt Temp ABG pO2 at Pt Temp ABG HCO3 ABG O2 Sat (Measured) ABG O2 Content ABG Base Excess Kelvin Test O2 Delivery Device Oxygen Flow Rate Vent Mode Vent Rate PEEP Pressure Support Vent Sodium 156 H Potassium 4.1 Chloride 118 H Carbon Dioxide 29 Anion Gap 9 BUN 31 H D Creatinine 1.2 Creat Clearance w eGFR > 60 Random Glucose 207 H Lactic Acid 4.126 H* Calcium 8.4 L Phosphorus Magnesium Total Bilirubin 1.0 AST 25 D ALT 39 Alkaline Phosphatase 66 Creatine Kinase Creatine Kinase Index CK-MB (CK-2) CK-MB (CK-2) Rel Index Troponin I Total Protein 6.9 Albumin 2.5 L Urine Color Urine Appearance Urine pH Ur Specific [place] Urine Protein Urine Glucose (UA) Urine Ketones Urine Blood Urine Nitrite Urine Bilirubin Urine Urobilinogen Ur Leukocyte Esterase Urine RBC Urine WBC Urine Bacteria 03/08/16 03/08/16 03/08/16 20:30 20:30 21:09 WBC RBC Hgb Hct MCV MCHC RDW Plt Count MPV Neutrophils % Lymphocytes % Monocytes % Eosinophils % Basophils % INR PTT (Actin FS) Puncture Site Right radial ABG pH 7.43 ABG pCO2 at Pt Temp 41.2 ABG pO2 at Pt Temp 246.0 H* ABG HCO3 26.9 H ABG O2 Sat (Measured) 99.6 H* ABG O2 Content 19.4 ABG Base Excess 2.8 H Kelvin Test Positive O2 Delivery Device Bipap Oxygen Flow Rate 100% Vent Mode S/t Vent Rate 14 PEEP 0.0 Pressure Support Vent 10/6 Sodium Potassium Chloride Carbon Dioxide Anion Gap BUN Creatinine Creat Clearance w eGFR Random Glucose Lactic Acid Calcium Phosphorus 3.0 Magnesium 2.4 Total Bilirubin AST ALT Alkaline Phosphatase Creatine Kinase 477 H D Creatine Kinase Index Cancelled CK-MB (CK-2) < 1.000 CK-MB (CK-2) Rel Index Cancelled Troponin I < 0.02 Total Protein Albumin Urine Color Urine Appearance Urine pH Ur Specific [place] Urine Protein Urine Glucose (UA) Urine Ketones Urine Blood Urine Nitrite Urine Bilirubin Urine Urobilinogen Ur Leukocyte Esterase Urine RBC Urine WBC Urine Bacteria 03/09/16 03/09/16 03/09/16 05:05 05:05 05:05 WBC 16.8 H RBC 4.49 Hgb 13.1 Hct 41.7 MCV 92.9 MCHC 31.5 L RDW 15.7 Plt Count 357 MPV 10.9 Neutrophils % 82.4 Lymphocytes % 13.6 D Monocytes % 3.4 L Eosinophils % 0.2 D Basophils % 0.4 INR PTT (Actin FS) Puncture Site ABG pH ABG pCO2 at Pt Temp ABG pO2 at Pt Temp ABG HCO3 ABG O2 Sat (Measured) ABG O2 Content ABG Base Excess Kelvin Test O2 Delivery Device Oxygen Flow Rate Vent Mode Vent Rate PEEP Pressure Support Vent Sodium 154 H Potassium 3.4 L Chloride 115 H Carbon Dioxide 31 Anion Gap 8 BUN 33 H Creatinine 1.2 Creat Clearance w eGFR > 60 Random Glucose 211 H Lactic Acid 3.387 H* Calcium 8.8 Phosphorus Magnesium Total Bilirubin 1.4 H D AST 24 ALT 33 Alkaline Phosphatase 58 Creatine Kinase Creatine Kinase Index CK-MB (CK-2) CK-MB (CK-2) Rel Index Troponin I Total Protein 6.6 Albumin 2.4 L Urine Color Urine Appearance Urine pH Ur Specific [place] Urine Protein Urine Glucose (UA) Urine Ketones Urine Blood Urine Nitrite Urine Bilirubin Urine Urobilinogen Ur Leukocyte Esterase Urine RBC Urine WBC Urine Bacteria Problem List - Problems (1) Pneumonia Code(s): J18.9 - PNEUMONIA, UNSPECIFIED ORGANISM Qualifiers: Pneumonia type: due to unspecified organism Laterality: unspecified laterality Lung location: unspecified part of lung Qualified Code(s): J18.9 - Pneumonia, unspecified organism (2) BPH (benign prostatic hypertrophy) Code(s): N40.0 - BENIGN PROSTATIC HYPERPLASIA WITHOUT LOWER URINRY TRACT SYMP Qualifiers: Prostatic enlargement morphology: unspecified morphology Lower urinary tract symptom presence: symptoms present Qualified Code(s): N40.1 - Enlarged prostate with lower urinary tract symptoms (3) CVA (cerebrovascular accident) Code(s): I63.9 - CEREBRAL INFARCTION, UNSPECIFIED (4) Colitis Code(s): K52.9 - NONINFECTIVE GASTROENTERITIS AND COLITIS, UNSPECIFIED (5) Dehydration Code(s): E86.0 - DEHYDRATION (6) Dementia Code(s): F03.90 - UNSPECIFIED DEMENTIA WITHOUT BEHAVIORAL DISTURBANCE (7) Dysphagia Code(s): R13.10 - DYSPHAGIA, UNSPECIFIED (8) Foreign body alimentary tract Code(s): T18.9XXA - FOREIGN BODY OF ALIMENTARY TRACT, PART UNSP, INIT ENCNTR Qualifiers: Encounter type: initial encounter Qualified Code(s): T18.9XXA - Foreign body of alimentary tract, part unspecified, initial encounter (9) History of ulcerative colitis Code(s): Z87.19 - PERSONAL HISTORY OF OTHER DISEASES OF THE DIGESTIVE SYSTEM (10) Hypoxemia Code(s): R09.02 - HYPOXEMIA (11) Lewy body dementia Code(s): G31.83 - DEMENTIA WITH LEWY BODIES F02.80 - DEMENTIA IN OTH DISEASES CLASSD ELSWHR W/O BEHAVRL DISTURB (12) Respiratory failure Code(s): J96.90 - RESPIRATORY FAILURE, UNSP, UNSP W HYPOXIA OR HYPERCAPNIA (13) Sepsis Code(s): A41.9 - SEPSIS, UNSPECIFIED ORGANISM Qualifiers: Sepsis type: sepsis due to unspecified organism Qualified Code(s): A41.9 - Sepsis, unspecified organism Assessment/Plan VM O2 as tolerated NIPPV as needed Follow cultures ABX per ID BD TX IVF HOB elevation Oral care DNR/DNI Dr Vitale CCTime 35" Problem List - Problems (1) Pneumonia Code(s): J18.9 - PNEUMONIA, UNSPECIFIED ORGANISM Qualifiers: Pneumonia type: due to unspecified organism Laterality: unspecified laterality Lung location: unspecified part of lung Qualified Code(s): J18.9 - Pneumonia, unspecified organism (2) BPH (benign prostatic hypertrophy) Code(s): N40.0 - BENIGN PROSTATIC HYPERPLASIA WITHOUT LOWER URINRY TRACT SYMP Qualifiers: Prostatic enlargement morphology: unspecified morphology Lower urinary tract symptom presence: symptoms present Qualified Code(s): N40.1 - Enlarged prostate with lower urinary tract symptoms (3) CVA (cerebrovascular accident) Code(s): I63.9 - CEREBRAL INFARCTION, UNSPECIFIED (4) Colitis Code(s): K52.9 - NONINFECTIVE GASTROENTERITIS AND COLITIS, UNSPECIFIED (5) Dehydration Code(s): E86.0 - DEHYDRATION (6) Dementia Code(s): F03.90 - UNSPECIFIED DEMENTIA WITHOUT BEHAVIORAL DISTURBANCE (7) Dysphagia Code(s): R13.10 - DYSPHAGIA, UNSPECIFIED (8) Foreign body alimentary tract Code(s): T18.9XXA - FOREIGN BODY OF ALIMENTARY TRACT, PART UNSP, INIT ENCNTR Qualifiers: Encounter type: initial encounter Qualified Code(s): T18.9XXA - Foreign body of alimentary tract, part unspecified, initial encounter (9) History of ulcerative colitis Code(s): Z87.19 - PERSONAL HISTORY OF OTHER DISEASES OF THE DIGESTIVE SYSTEM (10) Hypoxemia Code(s): R09.02 - HYPOXEMIA (11) Lewy body dementia Code(s): G31.83 - DEMENTIA WITH LEWY BODIES F02.80 - DEMENTIA IN OTH DISEASES CLASSD ELSWHR W/O BEHAVRL DISTURB (12) Respiratory failure Code(s): J96.90 - RESPIRATORY FAILURE, UNSP, UNSP W HYPOXIA OR HYPERCAPNIA (13) Sepsis Code(s): A41.9 - SEPSIS, UNSPECIFIED ORGANISM Qualifiers: Sepsis type: sepsis due to unspecified organism Qualified Code(s): A41.9 - Sepsis, unspecified organism
[2016-03-09] MEDS: ZINC OXIDE 20% TOPICAL OINTMENT 30 GM TUBE TP SCH ×2 (14:27→14:42)
[2016-03-09] MEDS: azaTHIOprine 50 MG TABLET GT SCH (14:43)
--- NOTE | 2016-03-09 15:25 | PN ---
Physical Exam: SUBJECTIVE: Patient seen and examined at bedside. Patient is non-verbal at baseline. Currently more awake and alert than yesterday. On BiPap OBJECTIVE: Vital Signs Period Temp Pulse Resp BP Sys/Martinez Pulse Ox Last 24 Hr 98.3 F-100 F 92-118 15-21 92-125/64-98 96-100 GENERAL: The patient is awake, alert, on BIpap HEAD: Normal with no signs of trauma. EYES: PERRL,sclera anicteric, conjunctiva clear. No ptosis. ENT: nares patent, moist mucous membranes. NECK: supple no JVD LUNGS: On BiPap, Tachypnea, poor inspirtory effort. Some use of accessory muscles. HEART: Tachycardic, S1, S2 without murmur, rub or gallop. ABDOMEN: Soft, nontender, nondistended, PEG (patent) EXTREMITIES:Contracted and weak. NEUROLOGICAL: awake , some jerking movement PSYCH: unable to assess SKIN: Warm, dry, normal turgor, no rashes or lesions noted Laboratory Results - last 24 hr 03/08/16 03/08/16 03/08/16 15:30 16:40 20:30 WBC 17.2 H RBC 4.70 Hgb 13.7 D Hct 43.2 MCV 91.9 MCHC 31.7 L RDW 15.4 Plt Count 359 MPV 10.7 Neutrophils % 84.9 H Lymphocytes % 10.8 Monocytes % 3.9 Eosinophils % 0.0 D Basophils % 0.4 INR PTT (Actin FS) Puncture Site ABG pH ABG pCO2 at Pt Temp ABG pO2 at Pt Temp ABG HCO3 ABG O2 Sat (Measured) ABG O2 Content ABG Base Excess Kelvin Test O2 Delivery Device Oxygen Flow Rate Vent Mode Vent Rate PEEP Pressure Support Vent Sodium Potassium Chloride Carbon Dioxide Anion Gap BUN Creatinine Creat Clearance w eGFR Random Glucose Lactic Acid 4.641 H* Calcium Phosphorus Magnesium Total Bilirubin AST ALT Alkaline Phosphatase Creatine Kinase Creatine Kinase Index CK-MB (CK-2) CK-MB (CK-2) Rel Index Troponin I Total Protein Albumin Urine Color No Urine Appearance Slcloudy Urine pH 5.0 D Ur Specific [place] 1.044 H Urine Protein 2+ H Urine Glucose (UA) Negative Urine Ketones Trace H Urine Blood Negative Urine Nitrite Negative Urine Bilirubin Negative Urine Urobilinogen Negative Ur Leukocyte Esterase Negative Urine RBC 31 Urine WBC 15 Urine Bacteria Rare 03/08/16 03/08/16 03/08/16 20:30 20:30 20:30 WBC RBC Hgb Hct MCV MCHC RDW Plt Count MPV Neutrophils % Lymphocytes % Monocytes % Eosinophils % Basophils % INR 1.25 H PTT (Actin FS) 25.7 L Puncture Site ABG pH ABG pCO2 at Pt Temp ABG pO2 at Pt Temp ABG HCO3 ABG O2 Sat (Measured) ABG O2 Content ABG Base Excess Kelvin Test O2 Delivery Device Oxygen Flow Rate Vent Mode Vent Rate PEEP Pressure Support Vent Sodium 156 H Potassium 4.1 Chloride 118 H Carbon Dioxide 29 Anion Gap 9 BUN 31 H D Creatinine 1.2 Creat Clearance w eGFR > 60 Random Glucose 207 H Lactic Acid 4.126 H* Calcium 8.4 L Phosphorus Magnesium Total Bilirubin 1.0 AST 25 D ALT 39 Alkaline Phosphatase 66 Creatine Kinase Creatine Kinase Index CK-MB (CK-2) CK-MB (CK-2) Rel Index Troponin I Total Protein 6.9 Albumin 2.5 L Urine Color Urine Appearance Urine pH Ur Specific [place] Urine Protein Urine Glucose (UA) Urine Ketones Urine Blood Urine Nitrite Urine Bilirubin Urine Urobilinogen Ur Leukocyte Esterase Urine RBC Urine WBC Urine Bacteria 03/08/16 03/08/16 03/08/16 20:30 20:30 21:09 WBC RBC Hgb Hct MCV MCHC RDW Plt Count MPV Neutrophils % Lymphocytes % Monocytes % Eosinophils % Basophils % INR PTT (Actin FS) Puncture Site Right radial ABG pH 7.43 ABG pCO2 at Pt Temp 41.2 ABG pO2 at Pt Temp 246.0 H* ABG HCO3 26.9 H ABG O2 Sat (Measured) 99.6 H* ABG O2 Content 19.4 ABG Base Excess 2.8 H Kelvin Test Positive O2 Delivery Device Bipap Oxygen Flow Rate 100% Vent Mode S/t Vent Rate 14 PEEP 0.0 Pressure Support Vent 10/6 Sodium Potassium Chloride Carbon Dioxide Anion Gap BUN Creatinine Creat Clearance w eGFR Random Glucose Lactic Acid Calcium Phosphorus 3.0 Magnesium 2.4 Total Bilirubin AST ALT Alkaline Phosphatase Creatine Kinase 477 H D Creatine Kinase Index Cancelled CK-MB (CK-2) < 1.000 CK-MB (CK-2) Rel Index Cancelled Troponin I < 0.02 Total Protein Albumin Urine Color Urine Appearance Urine pH Ur Specific [place] Urine Protein Urine Glucose (UA) Urine Ketones Urine Blood Urine Nitrite Urine Bilirubin Urine Urobilinogen Ur Leukocyte Esterase Urine RBC Urine WBC Urine Bacteria 03/09/16 03/09/16 03/09/16 05:05 05:05 05:05 WBC 16.8 H RBC 4.49 Hgb 13.1 Hct 41.7 MCV 92.9 MCHC 31.5 L RDW 15.7 Plt Count 357 MPV 10.9 Neutrophils % 82.4 Lymphocytes % 13.6 D Monocytes % 3.4 L Eosinophils % 0.2 D Basophils % 0.4 INR PTT (Actin FS) Puncture Site ABG pH ABG pCO2 at Pt Temp ABG pO2 at Pt Temp ABG HCO3 ABG O2 Sat (Measured) ABG O2 Content ABG Base Excess Kelvin Test O2 Delivery Device Oxygen Flow Rate Vent Mode Vent Rate PEEP Pressure Support Vent Sodium 154 H Potassium 3.4 L Chloride 115 H Carbon Dioxide 31 Anion Gap 8 BUN 33 H Creatinine 1.2 Creat Clearance w eGFR > 60 Random Glucose 211 H Lactic Acid 3.387 H* Calcium 8.8 Phosphorus Magnesium Total Bilirubin 1.4 H D AST 24 ALT 33 Alkaline Phosphatase 58 Creatine Kinase Creatine Kinase Index CK-MB (CK-2) CK-MB (CK-2) Rel Index Troponin I Total Protein 6.6 Albumin 2.4 L Urine Color Urine Appearance Urine pH Ur Specific [place] Urine Protein Urine Glucose (UA) Urine Ketones Urine Blood Urine Nitrite Urine Bilirubin Urine Urobilinogen Ur Leukocyte Esterase Urine RBC Urine WBC Urine Bacteria Active Medications Generic Name Dose Route Start Last Admin Trade Name Freq PRN Reason Stop Dose Admin Acetaminophen 650 mg 03/08/16 17:17 Tylenol - PO Q6H PRN FEVER OR PAIN Albuterol/Ipratropium 1 amp 03/09/16 18:00 Duoneb - NEB QIDR TALHA Amino Acids 30 ml 03/08/16 22:00 03/09/16 09:49 Prostat Sugar-Free Packet - GT 30 ml BID TALHA Administration Ascorbic Acid 250 mg 03/09/16 10:29 Vitamin C Oral Solution - GT DAILY TALHA Azathioprine 150 mg 03/09/16 10:00 03/09/16 14:43 Imuran - GT 150 mg DAILY TALHA Administration Bacitracin 1 applic 03/09/16 10:00 03/09/16 09:52 Bacitracin - TP 1 applic DAILY TALHA Administration Escitalopram Oxalate 10 mg 03/09/16 10:00 03/09/16 09:49 Lexapro Oral Solution - GT 10 mg DAILY TALHA Administration Vancomycin HCl 1,250 mg/ 250 mls @ 166.667 mls/hr 03/08/16 13:00 03/09/16 14:41 Dextrose IVPB 166.667 mls/hr BID@0100,1300 TALHA Administration Piperacillin Sod/Tazobactam Sod 100 mls @ 200 mls/hr 03/08/16 18:00 03/09/16 09 :44 Zosyn 4.5gm Ivpb (Pre-Docked) IVPB 200 mls/hr Q8H-IV TALHA Administration Lactobacillus Acidophilus 1 tab 03/09/16 10:00 03/09/16 09:51 Bacid - GT 1 tab DAILY TALHA Administration Levetiracetam 250 mg 03/08/16 22:00 03/09/16 09:51 Keppra Oral Solution - GT 250 mg BID TALHA Administration Methylprednisolone Sodium Succinate 40 mg 03/10/16 10:00 Solu-Medrol - IVPB DAILY T[facility] Multi-Ingredient Ointment 1 applic 03/09/16 10:00 03/09/16 14:42 Zinc Oxide TP 1 applic DAILY [facility] Administration Polyethylene Glycol 17 gm 03/09/16 10:00 03/09/16 09:52 Miralax (For Daily Use) - GT 17 gm DAILY [facility] Administration Senna 8.8 mg 03/08/16 22:00 03/09/16 09:53 Senna Oral Solution - GT 8.8 mg BID TALHA Administration ASSESSMENT/PLAN: 61 yo M with advanced parkinson's, Ulcerative Colitis, dementia, nonverbal and bedbound admitted to ICU for management of acute respiratory failure requiring NIPPV. Neuro: * patient is non verbal at baseline * more awake and alert today. * Siezure prophylax- Levetiracetam (Keppra Oral Solution -) 250 mg GT BID * will continue to monitor Pulm: * NAD on BiPap * will switch to 50% Venti Mask * HOB elevated * Oral care. * Maintain O2 > 90% * Duonebs QID and albuterol PRN * Solumedrol 40mg daily * Urine antigen pending. * Repeat ABG and CXR in AM CV: * Continue BP monitoring ID: * C/S pending * Started on zosyn and vanco. GI: Ulcerative Colitis. * Azathioprine (Imuran -) 150 mg GT Prophylaxis: * Heparin SQ 5000 U BID * Protonix 40 mg IV HS F/E/N * NO IVF at this time * Repeat AM labs. * will start Volume by PEG. DISPO: Will continue to monitor in ICU. Visit type - Emergency Visit Emergency Visit: Yes ED Registration Date: 03/08/16 Care time: The patient presented to the Emergency Department on the above date and was hospitalized for further evaluation of their emergent condition. - New Patient This patient is new to me today: Yes Date on this admission: 03/09/16 - Critical Care Critical Care patient: Yes Total Critical Care Time (in minutes): 33 Critical Care Statement: The care of this patient involved high complexity decision making to prevent further life threatening deterioration of the patient 's condition and/or to evalute & treat vital organ system(s) failure or risk of failure.
--- NOTE | 2016-03-09 15:50 | HP ---
Admitting History and Physical - Primary Care Physician PCP: [facility] - Admission Chief Complaint: dyspnea/resp distress History of Present Illness: 61 Y/O MALE WITH PARKINSON'S DEMENTIA/BPH/S/P HIP FRACTURE AND PELVIC FRACTURE NON-AMBULATORY, HERE WITH PNEUMONIA FAILED ON PO ABX OUTPATIENT FOR 7 DAYS, HERE WITH 02 SATURATION OF 81%. STARTED ON BIPAP AND SENT TO ICU. History Source: Family Member, Medical Record - Past Medical History CREDIT AUTHORIZER: Yes: Dementia, Parkinson's Gastrointestinal: Yes: Ulcerative Colitis Musculoskeletal: Yes: Other (HISTORY IF B/L HIP FRACTURES) - Smoking History Smoking history: Former smoker Have you smoked in the past 12 months: No Aproximately how many cigarettes per day: 0 - Alcohol/Substance Use Hx Alcohol Use: No Home Medications - Allergies Allergies/Adverse Reactions: Allergies Allergy/AdvReac Type Severity Reaction Status Date / Time No Known Allergies Allergy Verified 03/08/16 11:04 - Home Medications Home Medications: Ambulatory Orders Azathioprine 150 mg GT DAILY 06/29/13 Amino Acids/Protein Hydrolys [Prostat Sugar-Free Packet -] 30 ml GT BID Ascorbic Acid [Vitamin C -] 250 mg GT DAILY #30 tablet 02/12/15 Miscellaneous Medical Supply [Outpatient Order] 1 each ASDIR #1 misc Escitalopram Oxalate [Lexapro 5mg/5mL Oral Solution -] 10 mg GT DAILY 05/17/15 Lactobacillus Acidophilus [Bacid -] 1 tab GT DAILY 05/17/15 Levetiracetam [Keppra Oral Solution -] 250 mg GT BID 05/17/15 Polyethylene Glycol 3350 [Miralax 119 gm Btl -] 17 gm GT DAILY 05/17/15 Senna Oral Solution - [Senokot Oral Solution -] 8.8 mg GT BID 05/17/15 Levetiracetam [Keppra] 250 mg PO BID 03/08/16 Levofloxacin [Levaquin] 500 mg PO DAILY 03/08/16 Prednisone [Deltasone -] 40 mg PO DAILY 03/08/16 Zinc Oxide [Triple Paste] 56.7 gm TP DAILY 03/08/16 Review of Systems Findings/Remarks: RESP DISTRESS NON-VERBAL - Review of Systems Constitutional: reports: Loss of Appetite, Weakness Eyes: reports: No Symptoms HENT: reports: No Symptoms Neck: reports: No Symptoms Cardiovascular: reports: Shortness of Breath Respiratory: reports: SOB Gastrointestinal: reports: No Symptoms Genitourinary: reports: No Symptoms Musculoskeletal: reports: Muscle Weakness Neurological: reports: Confusion, Pre-Existing Deficit Endocrine: reports: No Symptoms Hematology/Lymphatic: reports: No Symptoms Psychiatric: reports: Other Physical Examination Vital Signs: Vital Signs Temperature 100 F H 03/09/16 14:00 Pulse Rate 101 H 03/09/16 14:00 Respiratory Rate 16 03/09/16 14:00 Blood Pressure 92/64 03/09/16 14:00 O2 Sat by Pulse Oximetry (%) 97 03/09/16 11:45 Constitutional: Yes: Moderate Distress Eyes: Yes: WNL HENT: Yes: WNL Neck: Yes: WNL Cardiovascular: Yes: WNL Respiratory: Yes: Cough, On BiPap, Rhonchi Gastrointestinal: Yes: WNL Renal/: Yes: Incontinence Musculoskeletal: Yes: Muscle Weakness Extremities: Yes: Deformity Edema: No Peripheral Pulses WNL: Yes Integumentary: Yes: WNL Wound/Incision: Yes: Clean/Dry, Open to air Neurological: Yes: Pre-Existing Deficit ...Motor Strength: LLE, RLE Psychiatric: Yes: Other Labs: CBC, BMP 03/09/16 05:05 03/09/16 05:05 Imaging - Results Chest X-ray: Report Reviewed Problem List - Problems (1) Pneumonia Code(s): J18.9 - PNEUMONIA, UNSPECIFIED ORGANISM Qualifiers: Pneumonia type: due to unspecified organism Laterality: unspecified laterality Lung location: unspecified part of lung Qualified Code(s): J18.9 - Pneumonia, unspecified organism (2) BPH (benign prostatic hypertrophy) Code(s): N40.0 - BENIGN PROSTATIC HYPERPLASIA WITHOUT LOWER URINRY TRACT SYMP Qualifiers: Prostatic enlargement morphology: unspecified morphology Lower urinary tract symptom presence: symptoms present Qualified Code(s): N40.1 - Enlarged prostate with lower urinary tract symptoms (3) Dementia Code(s): F03.90 - UNSPECIFIED DEMENTIA WITHOUT BEHAVIORAL DISTURBANCE (4) Dysphagia Code(s): R13.10 - DYSPHAGIA, UNSPECIFIED (5) Foreign body alimentary tract Code(s): T18.9XXA - FOREIGN BODY OF ALIMENTARY TRACT, PART UNSP, INIT ENCNTR Qualifiers: Encounter type: initial encounter Qualified Code(s): T18.9XXA - Foreign body of alimentary tract, part unspecified, initial encounter (6) History of ulcerative colitis Code(s): Z87.19 - PERSONAL HISTORY OF OTHER DISEASES OF THE DIGESTIVE SYSTEM (7) Lewy body dementia Code(s): G31.83 - DEMENTIA WITH LEWY BODIES F02.80 - DEMENTIA IN OTH DISEASES CLASSD ELSWHR W/O BEHAVRL DISTURB (8) Malnutrition Code(s): E46 - UNSPECIFIED PROTEIN-CALORIE MALNUTRITION (9) Parkinson disease Code(s): G20 - PARKINSON'S DISEASE (10) Respiratory failure Code(s): J96.90 - RESPIRATORY FAILURE, UNSP, UNSP W HYPOXIA OR HYPERCAPNIA (11) Seizure disorder Code(s): G40.909 - EPILEPSY, UNSP, NOT INTRACTABLE, WITHOUT STATUS EPILEPTICUS (12) Sepsis Code(s): A41.9 - SEPSIS, UNSPECIFIED ORGANISM Qualifiers: Sepsis type: sepsis due to unspecified organism Qualified Code(s): A41.9 - Sepsis, unspecified organism Assessment/Plan AGREE WITH BIPAP FOR RESP SUPPORT CAN CHANGE TO 02 MASK NEEDED IV ABX TUBE FEEDS RESTARTED DVT PROPHYLAXIS ID AND PULM EVAL APPRECIATED CHECK LABS DENTAL CONSULT
[2016-03-09] MEDS: ALBUTEROL SO4 2.5/IPRATROPIUM 0.5 INH SOL 3 ML VIAL.NEB. NEB SCH (17:38)
[2016-03-09] MEDS ORDERED: PANTOPRAZOLE SODIUM 100 ML IVPB SCH (22:00)
[2016-03-09] MEDS: HEPARIN NA (PORCINE) 5,000 UNITS/ML 1ML VIAL SQ SCH (22:24)
[2016-03-10] MEDS: PIPERACILLIN/TAZOB 4.5 GM 100 ML IVPB SCH ×3 (01:18→17:43)
[2016-03-10] MEDS: VANCOMYCIN 1,250 MG in DEXTROSE 5%-WATER - 250 ML IVPB SCH (01:19)
[2016-03-10] MEDS: ALBUTEROL SO4 2.5/IPRATROPIUM 0.5 INH SOL 3 ML VIAL.NEB. NEB SCH ×5 (06:51→23:54)
[2016-03-10 07:01] LABS: BASOPHIL 0.4 % (0-2.0); EOSINOPHIL 1.4 % (0-4.5); MCH 29.8 pg (25.7-33.7); MCHC 32.1 g/dl (32.0-35.9); MEAN CELL VOLUME 92.8 fl (80-96); NEUTROPHILS 75.5 % (42.8-82.8); PLATELET COUNT 337 K/MM3 (134-434); RDW 15.5 % (11.9-15.9); WHITE BLOOD COUNT 14.8 K/mm3 (4.0-10.0)
--- NOTE | 2016-03-10 07:13 | PN ---
Progress Note, Physician Chief Complaint: ID ID/ICU follow up for this 61 year old spanish man with Lewy body dementia brought to ER with respiratory distress. Previously had been seen at home visit with trial of Levofloxacin and steroids given. Concern raised about possible aspiration of a tooth given poor dental condition of teeth. Seen originally in Er with diagnosis of sepsis syndrome and pneumonia and brought to ICU. Currently doing better. Antibiotics include Vancomycina and Zosyn - Current Medication List Current Medications: Active Medications Acetaminophen (Tylenol -) 650 mg PO Q6H PRN PRN Reason: FEVER OR PAIN Last Admin: 03/09/16 23:19 Dose: 650 mg Albuterol/Ipratropium (Duoneb -) 1 amp NEB QIDR [facility] Last Admin: 03/10/16 06:51 Dose: 1 amp Amino Acids (Prostat Sugar-Free Packet -) 30 ml GT BID [facility] Last Admin: 03/09/16 22:24 Dose: 30 ml Ascorbic Acid (Vitamin C Oral Solution -) 250 mg GT DAILY [facility] Azathioprine (Imuran -) 150 mg GT DAILY [facility] Last Admin: 03/09/16 14:43 Dose: 150 mg Bacitracin (Bacitracin -) 1 applic TP DAILY [facility] Last Admin: 03/09/16 09:52 Dose: 1 applic Escitalopram Oxalate (Lexapro Oral Solution -) 10 mg GT DAILY [facility] Last Admin: 03/09/16 09:49 Dose: 10 mg Heparin Sodium (Porcine) (Heparin -) 5,000 unit SQ BID [facility] Last Admin: 03/09/16 22:24 Dose: 5,000 unit Vancomycin HCl 1,250 mg/ (Dextrose) 250 mls @ 166.667 mls/hr IVPB BID@0100, 1300 [facility] Last Admin: 03/10/16 01:19 Dose: 166.667 mls/hr Piperacillin Sod/Tazobactam Sod (Zosyn 4.5gm Ivpb (Pre-Docked)) 100 mls @ 200 mls/hr IVPB Q8H-IV [facility] Last Admin: 03/10/16 01:18 Dose: 200 mls/hr Pantoprazole Sodium (Protonix 40mg Ivpb (Pre-Docked)) 100 mls @ 200 mls/hr IVPB HS [facility] Last Admin: 03/09/16 22:25 Dose: 200 mls/hr Lactobacillus Acidophilus (Bacid -) 1 tab GT DAILY [facility] Last Admin: 03/09/16 09:51 Dose: 1 tab Levetiracetam (Keppra Oral Solution -) 250 mg GT BID [facility] Last Admin: 03/09/16 22:25 Dose: 250 mg Methylprednisolone Sodium Succinate (Solu-Medrol -) 40 mg IVPB DAILY [facility] Multi-Ingredient Ointment (Zinc Oxide) 1 applic TP DAILY [facility] Last Admin: 03/09/16 14:42 Dose: 1 applic Polyethylene Glycol (Miralax (For Daily Use) -) 17 gm GT DAILY [facility] Last Admin: 03/09/16 09:52 Dose: 17 gm Senna (Senna Oral Solution -) 8.8 mg GT BID [facility] Last Admin: 03/09/16 22:25 Dose: 8.8 mg - Objective Vital Signs: Vital Signs Temperature 98.3 F 03/10/16 05:00 Pulse Rate 95 H 03/10/16 06:00 Respiratory Rate 15 03/10/16 06:00 Blood Pressure 98/66 03/10/16 06:00 O2 Sat by Pulse Oximetry (%) 97 03/09/16 22:00 Constitutional: Yes: No Distress Cardiovascular: Yes: Regular Rate and Rhythm, S1, S2. No: Murmur Respiratory: Yes: WNL, Regular, CTA Bilaterally. No: Rhonchi Gastrointestinal: Yes: WNL, Normal Bowel Sounds, Soft, Distention. No: Tenderness, Tenderness, Rebound Extremities: No: Cool, Cyanosis, Erythema Edema: No Labs: INR, PTT INR 1.25 (0.82-1.09) H 03/08/16 20:30 Problem List - Problems (1) Pneumonia Code(s): J18.9 - PNEUMONIA, UNSPECIFIED ORGANISM Qualifiers: Pneumonia type: due to unspecified organism Laterality: unspecified laterality Lung location: unspecified part of lung Qualified Code(s): J18.9 - Pneumonia, unspecified organism (2) Lewy body dementia Code(s): G31.83 - DEMENTIA WITH LEWY BODIES F02.80 - DEMENTIA IN OTH DISEASES CLASSD ELSWHR W/O BEHAVRL DISTURB (3) Parkinson disease Code(s): G20 - PARKINSON'S DISEASE Assessment/Plan Microbiology 03/08/16 12:00 Nasopharyngeal Swab Influenza Types A,B Antigen (JONA) - Final 03/08/16 12:00 Nasopharyngeal Swab - Final 03/08/16 12:00 Nasopharyngeal Swab Respiratory Virus Panel - Preliminary 03/08/16 11:30 Blood - Peripheral Venous Blood Culture - Preliminary NO GROWTH OBTAINED AFTER 24 HOURS, INCUBATION TO CONTINUE FOR 4 DAYS. 03/08/16 11:30 Blood - Peripheral Venous Blood Culture - Preliminary NO GROWTH OBTAINED AFTER 24 HOURS, INCUBATION TO CONTINUE FOR 4 DAYS. Laboratory Tests 03/08/16 03/08/16 03/08/16 20:30 20:30 21:09 WBC Hgb Hct Plt Count INR 1.25 H ABG pH 7.43 ABG pCO2 at Pt Temp 41.2 ABG pO2 at Pt Temp 246.0 H* Oxygen Flow Rate 100% BUN Creatinine Lactic Acid 4.126 H* ALT Alkaline Phosphatase 03/09/16 03/09/16 03/09/16 05:05 05:05 05:05 WBC 16.8 H Hgb 13.1 Hct 41.7 Plt Count 357 INR ABG pH ABG pCO2 at Pt Temp ABG pO2 at Pt Temp Oxygen Flow Rate BUN 33 H Creatinine 1.2 Lactic Acid 3.387 H* ALT 33 Alkaline Phosphatase 58 03/10/16 05:20 WBC Hgb Hct Plt Count INR ABG pH ABG pCO2 at Pt Temp ABG pO2 at Pt Temp Oxygen Flow Rate BUN Pending Creatinine Pending Lactic Acid ALT Alkaline Phosphatase Assessment Lewy body disease/ dementia Respiratory distress improved Sepsis syndrome Pneumonia thus far unspecified History of CVA Poor dentition Plan At this point can stop vancomycin while continueing Zosyn day 3 as ordered Critical care time spent in ICU reviewing above Claritza EISENBER[facility]
[2016-03-10 07:21] LABS: ALBUMIN 2.3 g/dl (3.4-5.0); ANION GAP 9 (8-16); BILIRUBIN,TOTAL 0.8 mg/dL (0.2-1.0); CALCIUM 8.2 mg/dL (8.5-10.1); CO2 31 mmol/L (21-32); CREATININE 1.2 mg/dL (0.7-1.3); GLUCOSE,RANDOM 150 mg/dL (74-106); MAGNESIUM 2.7 mg/dL (1.8-2.4); PHOSPHOROUS 2.5 mg/dL (2.5-4.9); SGOT/AST 26 U/L (15-37); SGPT/ALT 29 U/L (12-78); TOT PROT 6.6 g/dl (6.4-8.2)
[2016-03-10 07:22] LABS: ALK PHOS 63 U/L (45-117)
[2016-03-10 07:27] LABS: ALLENS TEST POSITIVE; ART PUNCT SITE RIGHT RADIAL; ARTERIAL BLD GAS O2 SATURATION 97.9 % (90-98.9); ARTERIAL BLOOD GAS BASE EXCESS 5.1 meq/l (-2-2); ARTERIAL BLOOD GAS HCO3 29.6 meq/L (22-26); ARTERIAL BLOOD GAS pH 7.43 (7.35-7.45); LPM/O2% 50%; PT. ON O2? YES; TYPE OF O2 VENTI MASK
[2016-03-10] MEDS ORDERED: D5-1/2NS+40 MEQ KCL - 1,000 ML IV SCH (08:30)
[2016-03-10] MEDS ORDERED: PT OWN MED DRAWER 7, Y5N ONE (09:22)
[2016-03-10] MEDS: LACTOBACILLUS ACIDOPHILUS 1 EACH TAB (FP) GT SCH (09:23)
[2016-03-10] MEDS: azaTHIOprine 50 MG TABLET GT SCH (09:25)
[2016-03-10] MEDS: levETIRAcetam 500 MG/5 ML ORAL SOLUTION (UNIT-DOSE CUPS) GT SCH ×2 (09:30→22:17)
[2016-03-10] MEDS: ESCITALOPRAM OXALATE 5 MG/5 ML GT SCH (09:32)
[2016-03-10] MEDS: AMINO ACIDS/PROTEIN HYDROLYS SUGAR-FREE 30 ML PACKET GT SCH (09:33)
[2016-03-10] MEDS: POLYETHYLENE GLYCOL 3350 119 GM BTL GT SCH (09:33)
[2016-03-10] MEDS: SENNOSIDES 8.8 MG/5 ML BULK BOTTLE GT SCH ×2 (09:34→22:17)
[2016-03-10] MEDS ORDERED: methylPREDNISolone NA SUCC 40 MG/1 ML VIAL IVPB SCH (10:00)
--- NOTE | 2016-03-10 10:19 | PN ---
Progress Note, Physician Chief Complaint: NONVERBAL NO DISTRESS - Current Medication List Current Medications: Active Medications Acetaminophen (Tylenol -) 650 mg PO Q6H PRN PRN Reason: FEVER OR PAIN Last Admin: 03/09/16 23:19 Dose: 650 mg Albuterol/Ipratropium (Duoneb -) 1 amp NEB QIDR [facility] Last Admin: 03/10/16 06:51 Dose: 1 amp Amino Acids (Prostat Sugar-Free Packet -) 30 ml GT BID [facility] Last Admin: 03/10/16 09:33 Dose: 30 ml Ascorbic Acid (Vitamin C Oral Solution -) 250 mg GT DAILY [facility] Last Admin: 03/10/16 09:35 Dose: 250 mg Azathioprine (Imuran -) 150 mg GT DAILY [facility] Last Admin: 03/10/16 09:25 Dose: 150 mg Bacitracin (Bacitracin -) 1 applic TP DAILY [facility] Last Admin: 03/09/16 09:52 Dose: 1 applic Escitalopram Oxalate (Lexapro Oral Solution -) 10 mg GT DAILY [facility] Last Admin: 03/10/16 09:32 Dose: 10 mg Heparin Sodium (Porcine) (Heparin -) 5,000 unit SQ BID [facility] Last Admin: 03/09/16 22:24 Dose: 5,000 unit Piperacillin Sod/Tazobactam Sod (Zosyn 4.5gm Ivpb (Pre-Docked)) 100 mls @ 200 mls/hr IVPB Q8H-IV [facility] Last Admin: 03/10/16 09:35 Dose: 200 mls/hr Pantoprazole Sodium (Protonix 40mg Ivpb (Pre-Docked)) 100 mls @ 200 mls/hr IVPB HS [facility] Last Admin: 03/09/16 22:25 Dose: 200 mls/hr Dextrose/Sodium Chloride (D5-1/2ns+40 Meq Kcl -) 1,000 mls @ 75 mls/hr IV ASDIR [facility] Last Admin: 03/10/16 09:10 Dose: 75 mls/hr Lactobacillus Acidophilus (Bacid -) 1 tab GT DAILY [facility] Last Admin: 03/10/16 09:23 Dose: 1 tab Levetiracetam (Keppra Oral Solution -) 250 mg GT BID [facility] Last Admin: 03/10/16 09:30 Dose: 250 mg Methylprednisolone Sodium Succinate (Solu-Medrol -) 40 mg IVPB DAILY [facility] Last Admin: 03/10/16 10:01 Dose: 40 mg Multi-Ingredient Ointment (Zinc Oxide) 1 applic TP DAILY [facility] Last Admin: 03/09/16 14:42 Dose: 1 applic Polyethylene Glycol (Miralax (For Daily Use) -) 17 gm GT DAILY [facility] Last Admin: 03/10/16 09:33 Dose: 17 gm Senna (Senna Oral Solution -) 8.8 mg GT BID [facility] Last Admin: 03/10/16 09:34 Dose: 8.8 mg - Objective Vital Signs: Vital Signs Temperature 98.9 F 03/10/16 08:00 Pulse Rate 87 03/10/16 09:30 Respiratory Rate 15 03/10/16 08:00 Blood Pressure 104/71 03/10/16 08:00 O2 Sat by Pulse Oximetry (%) 93 L 03/10/16 09:35 Constitutional: Yes: Calm Cardiovascular: Yes: Regular Rate and Rhythm, S1, S2 Respiratory: Yes: CTA Bilaterally Gastrointestinal: Yes: Normal Bowel Sounds, Soft Edema: No Labs: CBC, BMP 03/10/16 05:20 03/10/16 05:20 INR, PTT INR 1.25 (0.82-1.09) H 03/08/16 20:30 Problem List - Problems (1) BPH (benign prostatic hypertrophy) Code(s): N40.0 - BENIGN PROSTATIC HYPERPLASIA WITHOUT LOWER URINRY TRACT SYMP Qualifiers: Prostatic enlargement morphology: unspecified morphology Lower urinary tract symptom presence: symptoms present Qualified Code(s): N40.1 - Enlarged prostate with lower urinary tract symptoms (2) Dementia Code(s): F03.90 - UNSPECIFIED DEMENTIA WITHOUT BEHAVIORAL DISTURBANCE (3) Dysphagia Code(s): R13.10 - DYSPHAGIA, UNSPECIFIED (4) Foreign body alimentary tract Code(s): T18.9XXA - FOREIGN BODY OF ALIMENTARY TRACT, PART UNSP, INIT ENCNTR Qualifiers: Encounter type: initial encounter Qualified Code(s): T18.9XXA - Foreign body of alimentary tract, part unspecified, initial encounter (5) History of ulcerative colitis Code(s): Z87.19 - PERSONAL HISTORY OF OTHER DISEASES OF THE DIGESTIVE SYSTEM (6) Malnutrition Code(s): E46 - UNSPECIFIED PROTEIN-CALORIE MALNUTRITION (7) Parkinson disease Code(s): G20 - PARKINSON'S DISEASE (8) Pneumonia Code(s): J18.9 - PNEUMONIA, UNSPECIFIED ORGANISM Qualifiers: Pneumonia type: due to unspecified organism Laterality: unspecified laterality Lung location: unspecified part of lung Qualified Code(s): J18.9 - Pneumonia, unspecified organism (9) Respiratory failure Code(s): J96.90 - RESPIRATORY FAILURE, UNSP, UNSP W HYPOXIA OR HYPERCAPNIA (10) Seizure disorder Code(s): G40.909 - EPILEPSY, UNSP, NOT INTRACTABLE, WITHOUT STATUS EPILEPTICUS (11) Sepsis Code(s): A41.9 - SEPSIS, UNSPECIFIED ORGANISM Qualifiers: Sepsis type: sepsis due to unspecified organism Qualified Code(s): A41.9 - Sepsis, unspecified organism Assessment/Plan (1) Pneumonia Code(s): J18.9 - PNEUMONIA, UNSPECIFIED ORGANISM Qualifiers: Pneumonia type: due to unspecified organism Laterality: unspecified laterality Lung location: unspecified part of lung Qualified Code(s): J18.9 - Pneumonia, unspecified organism (2) BPH (benign prostatic hypertrophy) Code(s): N40.0 - BENIGN PROSTATIC HYPERPLASIA WITHOUT LOWER URINRY TRACT SYMP Qualifiers: Prostatic enlargement morphology: unspecified morphology Lower urinary tract symptom presence: symptoms present Qualified Code(s): N40.1 - Enlarged prostate with lower urinary tract symptoms (3) Dementia Code(s): F03.90 - UNSPECIFIED DEMENTIA WITHOUT BEHAVIORAL DISTURBANCE (4) Dysphagia Code(s): R13.10 - DYSPHAGIA, UNSPECIFIED (5) Foreign body alimentary tract Code(s): T18.9XXA - FOREIGN BODY OF ALIMENTARY TRACT, PART UNSP, INIT ENCNTR Qualifiers: Encounter type: initial encounter Qualified Code(s): T18.9XXA - Foreign body of alimentary tract, part unspecified, initial encounter (6) History of ulcerative colitis Code(s): Z87.19 - PERSONAL HISTORY OF OTHER DISEASES OF THE DIGESTIVE SYSTEM (7) Lewy body dementia Code(s): G31.83 - DEMENTIA WITH LEWY BODIES F02.80 - DEMENTIA IN OTH DISEASES CLASSD ELSWHR W/O BEHAVRL DISTURB (8) Malnutrition Code(s): E46 - UNSPECIFIED PROTEIN-CALORIE MALNUTRITION (9) Parkinson disease Code(s): G20 - PARKINSON'S DISEASE (10) Respiratory failure Code(s): J96.90 - RESPIRATORY FAILURE, UNSP, UNSP W HYPOXIA OR HYPERCAPNIA (11) Seizure disorder Code(s): G40.909 - EPILEPSY, UNSP, NOT INTRACTABLE, WITHOUT STATUS EPILEPTICUS (12) Sepsis Code(s): A41.9 - SEPSIS, UNSPECIFIED ORGANISM Qualifiers: Sepsis type: sepsis due to unspecified organism Qualified Code(s): A41.9 - Sepsis, unspecified organism Assessment/Plan AGREE WITH BIPAP FOR RESP SUPPORT CAN CHANGE TO 02 MASK NEEDED IV ABX TUBE FEEDS RESTARTED DVT PROPHYLAXIS ID AND PULM EVAL APPRECIATED DENTAL CONSULT HYPERNATREMIA & ABNL LYTES CORRECTED -> F/U LABS RENAL ON CASE PASTOR ESTRADA
[2016-03-10] MEDS: HEPARIN NA (PORCINE) 5,000 UNITS/ML 1ML VIAL SQ SCH ×2 (10:30→22:09)
[2016-03-10] MEDS: ZINC OXIDE 20% TOPICAL OINTMENT 30 GM TUBE TP SCH (10:30)
[2016-03-10 12:45] LABS: BASOPHIL 0.5 % (0-2.0); EOSINOPHIL 0.8 % (0-4.5); MCH 29.6 pg (25.7-33.7); MEAN CELL VOLUME 92.5 fl (80-96); MEAN PLT VOLUME 10.3 fl (7.5-11.1); NEUTROPHILS 84.6 % (42.8-82.8); PLATELET COUNT 286 K/MM3 (134-434); RDW 15.7 % (11.9-15.9); WHITE BLOOD COUNT 12.7 K/mm3 (4.0-10.0)
--- NOTE | 2016-03-10 12:58 | PN ---
Teaching Attending Note Name of Resident: Abdiel Cuevas ATTENDING PHYSICIAN STATEMENT I saw and evaluated the patient. I reviewed the resident's note and discussed the case with the resident. I agree with the resident's findings and plan as documented. SUBJECTIVE: Pt seen and examined in the ICU. Saturating well on 50% ventimask. No fevers recorded. Pt nonverbal. OBJECTIVE: Last Vital Signs Temp Pulse Resp BP Pulse Ox 98.6 F 87 16 114/75 96 03/10/16 09:58 03/10/16 11:55 03/10/16 09:58 03/10/16 09:58 03/10/16 11:55 Intake & Output 03/07/16 03/08/16 03/09/16 03/10/16 23:59 23:59 23:59 23:59 Intake Total 450 1560 350 Balance 450 1560 350 Weight 173 lb 173 lb 160 lb 2 oz Gen: breathing nonlabored Heart: RRR Lung: scattered rhonchi Abd: soft, nontender Ext: no edema CBC, BMP 03/10/16 12:30 03/10/16 05:20 Active Medications Acetaminophen (Tylenol -) 650 mg PO Q6H PRN PRN Reason: FEVER OR PAIN Last Admin: 03/09/16 23:19 Dose: 650 mg Albuterol/Ipratropium (Duoneb -) 1 amp NEB QIDR [facility] Last Admin: 03/10/16 11:35 Dose: 1 amp Amino Acids (Prostat Sugar-Free Packet -) 30 ml GT BID [facility] Last Admin: 03/10/16 09:33 Dose: 30 ml Ascorbic Acid (Vitamin C Oral Solution -) 250 mg GT DAILY [facility] Last Admin: 03/10/16 09:35 Dose: 250 mg Azathioprine (Imuran -) 150 mg GT DAILY [facility] Last Admin: 03/10/16 09:25 Dose: 150 mg Bacitracin (Bacitracin -) 1 applic TP DAILY [facility] Last Admin: 03/09/16 09:52 Dose: 1 applic Escitalopram Oxalate (Lexapro Oral Solution -) 10 mg GT DAILY [facility] Last Admin: 03/10/16 09:32 Dose: 10 mg Heparin Sodium (Porcine) (Heparin -) 5,000 unit SQ BID [facility] Last Admin: 03/09/16 22:24 Dose: 5,000 unit Piperacillin Sod/Tazobactam Sod (Zosyn 4.5gm Ivpb (Pre-Docked)) 100 mls @ 200 mls/hr IVPB Q8H-IV [facility] Last Admin: 03/10/16 09:35 Dose: 200 mls/hr Pantoprazole Sodium (Protonix 40mg Ivpb (Pre-Docked)) 100 mls @ 200 mls/hr IVPB HS [facility] Last Admin: 03/09/16 22:25 Dose: 200 mls/hr Dextrose/Sodium Chloride (D5-1/2ns+40 Meq Kcl -) 1,000 mls @ 75 mls/hr IV ASDIR [facility] Last Admin: 03/10/16 09:10 Dose: 75 mls/hr Lactobacillus Acidophilus (Bacid -) 1 tab GT DAILY [facility] Last Admin: 03/10/16 09:23 Dose: 1 tab Levetiracetam (Keppra Oral Solution -) 250 mg GT BID [facility] Last Admin: 03/10/16 09:30 Dose: 250 mg Methylprednisolone Sodium Succinate (Solu-Medrol -) 40 mg IVPB DAILY [facility] Last Admin: 03/10/16 10:01 Dose: 40 mg Multi-Ingredient Ointment (Zinc Oxide) 1 applic TP DAILY [facility] Last Admin: 03/09/16 14:42 Dose: 1 applic Polyethylene Glycol (Miralax (For Daily Use) -) 17 gm GT DAILY [facility] Last Admin: 03/10/16 09:33 Dose: 17 gm Senna (Senna Oral Solution -) 8.8 mg GT BID [facility] Last Admin: 03/10/16 09:34 Dose: 8.8 mg ASSESSMENT AND PLAN: Lewy Body Dementia Pneumonia likely Aspiration Acute Hypoxic Respiratory Failure improving Ulcerative Colitis COPD - continue antibiotics - f/u cultures - resume enteral feeds - replete lytes - replace free water via GT - taper FiO2 to keep SpO2 >90% - taper steroids - inhaled bronchodilators - aspiration precautions - DVT/GI prophylaxis - can monitor on
[2016-03-10] MEDS ORDERED: POTASSIUM CHLORIDE TABS 20 MEQ TABLET.ER (FP) PO ONE (13:35)
--- NOTE | 2016-03-10 13:42 | PN ---
Progress Note, Physician History of Present Illness: Pt seen and examined at bedside. He is off of the bipap. - Current Medication List Current Medications: Active Medications Acetaminophen (Tylenol -) 650 mg PO Q6H PRN PRN Reason: FEVER OR PAIN Last Admin: 03/09/16 23:19 Dose: 650 mg Albuterol/Ipratropium (Duoneb -) 1 amp NEB QIDR [facility] Last Admin: 03/10/16 11:35 Dose: 1 amp Amino Acids (Prostat Sugar-Free Packet -) 30 ml GT BID [facility] Last Admin: 03/10/16 09:33 Dose: 30 ml Ascorbic Acid (Vitamin C Oral Solution -) 250 mg GT DAILY [facility] Last Admin: 03/10/16 09:35 Dose: 250 mg Azathioprine (Imuran -) 150 mg GT DAILY [facility] Last Admin: 03/10/16 09:25 Dose: 150 mg Bacitracin (Bacitracin -) 1 applic TP DAILY [facility] Last Admin: 03/09/16 09:52 Dose: 1 applic Escitalopram Oxalate (Lexapro Oral Solution -) 10 mg GT DAILY [facility] Last Admin: 03/10/16 09:32 Dose: 10 mg Heparin Sodium (Porcine) (Heparin -) 5,000 unit SQ BID [facility] Last Admin: 03/09/16 22:24 Dose: 5,000 unit Piperacillin Sod/Tazobactam Sod (Zosyn 4.5gm Ivpb (Pre-Docked)) 100 mls @ 200 mls/hr IVPB Q8H-IV [facility] Last Admin: 03/10/16 09:35 Dose: 200 mls/hr Pantoprazole Sodium (Protonix 40mg Ivpb (Pre-Docked)) 100 mls @ 200 mls/hr IVPB HS [facility] Last Admin: 03/09/16 22:25 Dose: 200 mls/hr Dextrose/Sodium Chloride (D5-1/2ns+40 Meq Kcl -) 1,000 mls @ 75 mls/hr IV ASDIR [facility] Last Admin: 03/10/16 09:10 Dose: 75 mls/hr Lactobacillus Acidophilus (Bacid -) 1 tab GT DAILY [facility] Last Admin: 03/10/16 09:23 Dose: 1 tab Levetiracetam (Keppra Oral Solution -) 250 mg GT BID [facility] Last Admin: 03/10/16 09:30 Dose: 250 mg Methylprednisolone Sodium Succinate (Solu-Medrol -) 40 mg IVPB DAILY [facility] Last Admin: 03/10/16 10:01 Dose: 40 mg Multi-Ingredient Ointment (Zinc Oxide) 1 applic TP DAILY [facility] Last Admin: 03/09/16 14:42 Dose: 1 applic Polyethylene Glycol (Miralax (For Daily Use) -) 17 gm GT DAILY [facility] Last Admin: 03/10/16 09:33 Dose: 17 gm Potassium Chloride (K-Dur -) 40 meq PO ONCE ONE Stop: 03/10/16 13:36 Senna (Senna Oral Solution -) 8.8 mg GT BID [facility] Last Admin: 03/10/16 09:34 Dose: 8.8 mg - Objective Vital Signs: Vital Signs Temperature 98 F 03/10/16 13:26 Pulse Rate 80 03/10/16 13:26 Respiratory Rate 18 03/10/16 13:26 Blood Pressure 83/60 03/10/16 13:26 O2 Sat by Pulse Oximetry (%) 96 03/10/16 11:55 Constitutional: Yes: Calm Eyes: Yes: Conjunctiva Clear HENT: Yes: Atraumatic Cardiovascular: Yes: S1, S2 Respiratory: Yes: On Nasal O2 Gastrointestinal: Yes: Soft Musculoskeletal: Yes: Muscle Weakness Edema: No Neurological: Yes: Pre-Existing Deficit Labs: CBC, BMP 03/10/16 12:30 03/10/16 05:20 INR, PTT INR 1.25 (0.82-1.09) H 03/08/16 20:30 Problem List - Problems (1) Pneumonia Code(s): J18.9 - PNEUMONIA, UNSPECIFIED ORGANISM Qualifiers: Pneumonia type: due to unspecified organism Laterality: unspecified laterality Lung location: unspecified part of lung Qualified Code(s): J18.9 - Pneumonia, unspecified organism (2) BPH (benign prostatic hypertrophy) Code(s): N40.0 - BENIGN PROSTATIC HYPERPLASIA WITHOUT LOWER URINRY TRACT SYMP Qualifiers: Prostatic enlargement morphology: unspecified morphology Lower urinary tract symptom presence: symptoms present Qualified Code(s): N40.1 - Enlarged prostate with lower urinary tract symptoms (3) Hypokalemia Code(s): E87.6 - HYPOKALEMIA (4) Respiratory failure Code(s): J96.90 - RESPIRATORY FAILURE, UNSP, UNSP W HYPOXIA OR HYPERCAPNIA (5) Seizure disorder Code(s): G40.909 - EPILEPSY, UNSP, NOT INTRACTABLE, WITHOUT STATUS EPILEPTICUS (6) Sepsis Code(s): A41.9 - SEPSIS, UNSPECIFIED ORGANISM Qualifiers: Sepsis type: sepsis due to unspecified organism Qualified Code(s): A41.9 - Sepsis, unspecified organism (7) BREANA (acute kidney injury) Code(s): N17.9 - ACUTE KIDNEY FAILURE, UNSPECIFIED Assessment/Plan Current Medications Generic Name Dose Route Start Last Admin Trade Name Freq PRN Reason Stop Dose Admin Acetaminophen 650 mg 03/08/16 17:17 03/09/16 23:19 Tylenol - PO 650 mg Q6H PRN Administration FEVER OR PAIN Albuterol/Ipratropium 1 amp 03/09/16 18:00 03/10/16 11:35 Duoneb - NEB 1 amp QIDR [facility] Administration Amino Acids 30 ml 03/08/16 22:00 03/10/16 09:33 Prostat Sugar-Free Packet - GT 30 ml BID [facility] Administration Ascorbic Acid 250 mg 03/09/16 10:29 03/10/16 09:35 Vitamin C Oral Solution - GT 250 mg DAILY [facility] Administration Azathioprine 150 mg 03/09/16 10:00 03/10/16 09:25 Imuran - GT 150 mg DAILY [facility] Administration Bacitracin 1 applic 03/09/16 10:00 03/09/16 09:52 Bacitracin - TP 1 applic DAILY [facility] Administration Escitalopram Oxalate 10 mg 03/09/16 10:00 03/10/16 09:32 Lexapro Oral Solution - GT 10 mg DAILY [facility] Administration Heparin Sodium (Porcine) 5,000 unit 03/09/16 22:00 03/09/16 22:24 Heparin - SQ 5,000 unit BID [facility] Administration Piperacillin Sod/Tazobactam Sod 100 mls @ 200 mls/hr 03/08/16 18:00 03/10/16 09 :35 Zosyn 4.5gm Ivpb (Pre-Docked) IVPB 200 mls/hr Q8H-IV [facility] Administration Pantoprazole Sodium 100 mls @ 200 mls/hr 03/09/16 22:00 03/09/16 22:25 Protonix 40mg Ivpb (Pre-Docked) IVPB 200 mls/hr HS [facility] Administration Dextrose/Sodium Chloride 1,000 mls @ 75 mls/hr 03/10/16 08:30 03/10/16 09:10 D5-1/2ns+40 Meq Kcl - IV 75 mls/hr ASDIR [facility] Administration Lactobacillus Acidophilus 1 tab 03/09/16 10:00 03/10/16 09:23 Bacid - GT 1 tab DAILY [facility] Administration Levetiracetam 250 mg 03/08/16 22:00 03/10/16 09:30 Keppra Oral Solution - GT 250 mg BID [facility] Administration Methylprednisolone Sodium Succinate 40 mg 03/10/16 10:00 03/10/16 10:01 Solu-Medrol - IVPB 40 mg DAILY [facility] Administration Multi-Ingredient Ointment 1 applic 03/09/16 10:00 03/09/16 14:42 Zinc Oxide TP 1 applic DAILY [facility] Administration Polyethylene Glycol 17 gm 03/09/16 10:00 03/10/16 09:33 Miralax (For Daily Use) - GT 17 gm DAILY [facility] Administration Potassium Chloride 40 meq 03/10/16 13:35 K-Dur - PO 03/10/16 13:36 ONCE ONE Senna 8.8 mg 03/08/16 22:00 03/10/16 09:34 Senna Oral Solution - GT 8.8 mg BID [facility] Administration Impression 1. BREANA - pt has a baseline creatinine of about 0.7 2. respiratory failure requiring BiPap 3. parkinsons 4. ulcerative colitis 5. dementia 6. aspiration PNA 7. sepsis 8. hypernatremia 9. hypokalemia Plan - discussed with ICU team - will restart feeds - add free water to tube feeds - replace potassium - cont with antibiotics - monitor pulse ox and bipap as needed - follow cultures - abx per ID - kidneys appear normal on ultrasound - baseline creatinine is about 0.7 - pt was hypertensive and this can contribute to renal failure - will follow Dr Cardoso
[2016-03-10] MEDS ORDERED: POTASSIUM CHLORIDE 40 MEQ/30 ML UNIT DOSE CUP PO ONE (13:52)
--- NOTE | 2016-03-10 16:18 | PN ---
Physical Exam: SUBJECTIVE: Patient seen and examined at bedside. Patient is non-verbal at baseline. No overnight events. OBJECTIVE: Vital Signs Period Temp Pulse Resp BP Sys/Martinez Pulse Ox Last 24 Hr 98.2 F-99.2 F 77-108 15-23 79-114/59-82 93-100 GENERAL: The patient is awake, alert, comfortable HEAD: Normal with no signs of trauma. EYES: PERRL,sclera anicteric, conjunctiva clear. No ptosis. ENT: nares patent, moist mucous membranes. NECK: supple no JVD LUNGS: Currently on 3L NC, scattered rhonchi HEART: Tachycardic, S1, S2 without murmur, rub or gallop. ABDOMEN: Soft, nontender, nondistended, PEG (patent) EXTREMITIES:Contracted and weak. NEUROLOGICAL: awake , some jerking movement PSYCH: unable to assess SKIN: Warm, dry, normal turgor, no rashes or lesions noted Laboratory Results - last 24 hr 03/10/16 03/10/16 03/10/16 05:20 05:20 07:10 WBC 14.8 H RBC 4.33 Hgb 12.9 Hct 40.2 MCV 92.8 MCHC 32.1 RDW 15.5 Plt Count 337 MPV 11.0 Neutrophils % 75.5 Lymphocytes % 19.0 D Monocytes % 3.7 L Eosinophils % 1.4 D Basophils % 0.4 Anticoagulation Therapy Y Puncture Site Right radial ABG pH 7.43 ABG pCO2 at Pt Temp 44.9 ABG pO2 at Pt Temp 100.0 D ABG HCO3 29.6 H ABG O2 Sat (Measured) 97.9 ABG O2 Content 16.7 ABG Base Excess 5.1 H Kelvin Test Positive O2 Delivery Device Venti mask Oxygen Flow Rate 50% Vent Mode Y Vent Rate Y Mechanical Rate Y PEEP 0.0 Pressure Support Vent Y Sodium 156 H Potassium 3.0 L Chloride 116 H Carbon Dioxide 31 Anion Gap 9 BUN 28 H Creatinine 1.2 Creat Clearance w eGFR > 60 Random Glucose 150 H D Calcium 8.2 L Phosphorus 2.5 Magnesium 2.7 H Total Bilirubin 0.8 D AST 26 ALT 29 Alkaline Phosphatase 63 Total Protein 6.6 Albumin 2.3 L Vancomycin Trough 03/10/16 03/10/16 12:30 12:30 WBC 12.7 H RBC 4.09 Hgb 12.1 Hct 37.8 MCV 92.5 MCHC 32.0 RDW 15.7 Plt Count 286 MPV 10.3 Neutrophils % 84.6 H Lymphocytes % 11.5 D Monocytes % 2.6 L Eosinophils % 0.8 Basophils % 0.5 Anticoagulation Therapy Puncture Site ABG pH ABG pCO2 at Pt Temp ABG pO2 at Pt Temp ABG HCO3 ABG O2 Sat (Measured) ABG O2 Content ABG Base Excess Kelvin Test O2 Delivery Device Oxygen Flow Rate Vent Mode Vent Rate Mechanical Rate PEEP Pressure Support Vent Sodium Potassium Chloride Carbon Dioxide Anion Gap BUN Creatinine Creat Clearance w eGFR Random Glucose Calcium Phosphorus Magnesium Total Bilirubin AST ALT Alkaline Phosphatase Total Protein Albumin Vancomycin Trough 23.471 H* Active Medications Generic Name Dose Route Start Last Admin Trade Name Freq PRN Reason Stop Dose Admin Acetaminophen 650 mg 03/08/16 17:17 03/09/16 23:19 Tylenol - PO 650 mg Q6H PRN Administration FEVER OR PAIN Albuterol/Ipratropium 1 amp 03/09/16 18:00 03/10/16 11:35 Duoneb - NEB 1 amp QIDR [facility] Administration Amino Acids 30 ml 03/08/16 22:00 03/10/16 09:33 Prostat Sugar-Free Packet - GT 30 ml BID [facility] Administration Ascorbic Acid 250 mg 03/09/16 10:29 03/10/16 09:35 Vitamin C Oral Solution - GT 250 mg DAILY [facility] Administration Azathioprine 150 mg 03/09/16 10:00 03/10/16 09:25 Imuran - GT 150 mg DAILY [facility] Administration Bacitracin 1 applic 03/09/16 10:00 03/09/16 09:52 Bacitracin - TP 1 applic DAILY [facility] Administration Escitalopram Oxalate 10 mg 03/09/16 10:00 03/10/16 09:32 Lexapro Oral Solution - GT 10 mg DAILY [facility] Administration Heparin Sodium (Porcine) 5,000 unit 03/09/16 22:00 03/10/16 10:30 Heparin - SQ 5,000 unit BID [facility] Administration Piperacillin Sod/Tazobactam Sod 100 mls @ 200 mls/hr 03/08/16 18:00 03/10/16 09 :35 Zosyn 4.5gm Ivpb (Pre-Docked) IVPB 200 mls/hr Q8H-IV [facility] Administration Pantoprazole Sodium 100 mls @ 200 mls/hr 03/09/16 22:00 03/09/16 22:25 Protonix 40mg Ivpb (Pre-Docked) IVPB 200 mls/hr HS [facility] Administration Dextrose/Sodium Chloride 1,000 mls @ 75 mls/hr 03/10/16 08:30 03/10/16 09:10 D5-1/2ns+40 Meq Kcl - IV 75 mls/hr ASDIR [facility] Administration Lactobacillus Acidophilus 1 tab 03/09/16 10:00 03/10/16 09:23 Bacid - GT 1 tab DAILY [facility] Administration Levetiracetam 250 mg 03/08/16 22:00 03/10/16 09:30 Keppra Oral Solution - GT 250 mg BID [facility] Administration Methylprednisolone Sodium Succinate 40 mg 03/10/16 10:00 03/10/16 10:01 Solu-Medrol - IVPB 40 mg DAILY [facility] Administration Multi-Ingredient Ointment 1 applic 03/09/16 10:00 03/10/16 10:30 Zinc Oxide TP 1 applic DAILY [facility] Administration Polyethylene Glycol 17 gm 03/09/16 10:00 03/10/16 09:33 Miralax (For Daily Use) - GT 17 gm DAILY [facility] Administration Senna 8.8 mg 03/08/16 22:00 03/10/16 09:34 Senna Oral Solution - GT 8.8 mg BID [facility] Administration ASSESSMENT/PLAN: 61 yo M with advanced parkinson's, Ulcerative Colitis, dementia, nonverbal and bedbound admitted to ICU for management of acute respiratory failure requiring NIPPV. Currently doing well on 3L NC Neuro: * patient is non verbal at baseline * more awake and alert today. * Siezure prophylax- Levetiracetam (Keppra Oral Solution -) 250 mg GT BID * will continue to monitor Pulm: * placed on 3L N * HOB elevated * Oral care. * Maintain O2 > 90% * Duonebs QID and albuterol PRN * Solumedrol 40mg daily * Urine antigen pending. * Repeat ABG and CXR in AM CV: * Continue BP monitoring ID: * C/S pending * Started on zosyn and vanco. GI: Ulcerative Colitis. * Azathioprine (Imuran -) 150 mg GT Prophylaxis: * Heparin SQ 5000 U BID * Protonix 40 mg IV HS F/E/N * NO IVF at this time * Repeat AM labs. * will start Volume by PEG Ariannaty 1.5 @40cc/hr and 20 of free water. DISPO: Transfer to Med/surg Visit type - Emergency Visit Emergency Visit: Yes ED Registration Date: 03/08/16 Care time: The patient presented to the Emergency Department on the above date and was hospitalized for further evaluation of their emergent condition. - New Patient This patient is new to me today: No - Critical Care Critical Care patient: Yes Total Critical Care Time (in minutes): 33 Critical Care Statement: The care of this patient involved high complexity decision making to prevent further life threatening deterioration of the patient 's condition and/or to evalute & treat vital organ system(s) failure or risk of failure.
[2016-03-10] MEDS: BACITRACIN 30 GM TUBE TOPICAL OINTMENT TP SCH (18:39)
[2016-03-10] MEDS ORDERED: ACETAMINOPHEN 325 MG TABLET (FP) PO PRN (19:02)
[2016-03-10] MEDS: PANTOPRAZOLE SODIUM 100 ML IVPB SCH (22:09)
[2016-03-10] MEDS ORDERED: ALBUTEROL SO4 2.5/IPRATROPIUM 0.5 INH SOL 3 ML VIAL.NEB. NEB ONE (22:54)
[2016-03-11] MEDS: PIPERACILLIN/TAZOB 4.5 GM 100 ML IVPB SCH ×3 (02:20→17:47)
[2016-03-11] MEDS: ALBUTEROL SO4 2.5/IPRATROPIUM 0.5 INH SOL 3 ML VIAL.NEB. NEB SCH ×4 (05:41→23:18)
[2016-03-11 06:53] LABS: BASOPHIL 0.2 % (0-2.0); MCHC 32.4 g/dl (32.0-35.9); MEAN CELL VOLUME 92.6 fl (80-96); MEAN PLT VOLUME 11.1 fl (7.5-11.1); NEUTROPHILS 70.6 % (42.8-82.8); PLATELET COUNT 330 K/MM3 (134-434); RDW 15.5 % (11.9-15.9); WHITE BLOOD COUNT 10.1 K/mm3 (4.0-10.0)
[2016-03-11 07:20] LABS: MAGNESIUM 2.7 mg/dL (1.8-2.4)
[2016-03-11 07:26] LABS: PHOSPHOROUS 1.8 mg/dL (2.5-4.9); TROPONIN I 0.02 ng/ml (0.00-0.05)
--- NOTE | 2016-03-11 07:30 | PN ---
Progress Note, Physician Chief Complaint: YUDY Martin doing well Day 3 therapy in the ICU Remains stable - Current Medication List Current Medications: Active Medications Acetaminophen (Tylenol -) 650 mg PO Q6H PRN PRN Reason: FEVER OR PAIN Albuterol/Ipratropium (Duoneb -) 1 amp NEB QIDR [facility] Last Admin: 03/11/16 05:41 Dose: 1 amp Amino Acids (Prostat Sugar-Free Packet -) 30 ml GT BIDWM [facility] Ascorbic Acid (Vitamin C Oral Solution -) 250 mg GT DAILY [facility] Azathioprine (Imuran -) 150 mg GT DAILY [facility] Bacitracin (Bacitracin -) 1 applic TP DAILY [facility] Escitalopram Oxalate (Lexapro Oral Solution -) 10 mg GT DAILY [facility] Heparin Sodium (Porcine) (Heparin -) 5,000 unit SQ BID [facility] Last Admin: 03/10/16 22:09 Dose: 5,000 unit Pantoprazole Sodium (Protonix 40mg Ivpb (Pre-Docked)) 100 mls @ 200 mls/hr IVPB HS [facility] Last Admin: 03/10/16 22:09 Dose: 200 mls/hr Piperacillin Sod/Tazobactam Sod (Zosyn 4.5gm Ivpb (Pre-Docked)) 100 mls @ 200 mls/hr IVPB Q8H-IV [facility] Last Admin: 03/11/16 02:20 Dose: 200 mls/hr Lactobacillus Acidophilus (Bacid -) 1 tab GT DAILY [facility] Levetiracetam (Keppra Oral Solution -) 250 mg GT BID [facility] Last Admin: 03/10/16 22:17 Dose: 250 mg Methylprednisolone Sodium Succinate (Solu-Medrol -) 40 mg IVPB DAILY [facility] Multi-Ingredient Ointment (Zinc Oxide) 1 applic TP DAILY [facility] Polyethylene Glycol (Miralax (For Daily Use) -) 17 gm GT DAILY [facility] Senna (Senna Oral Solution -) 8.8 mg GT BID [facility] Last Admin: 03/10/16 22:17 Dose: 8.8 mg - Objective Vital Signs: Vital Signs Temperature 98.5 F 03/11/16 05:00 Pulse Rate 99 H 03/11/16 05:00 Respiratory Rate 13 03/11/16 05:00 Blood Pressure 91/78 03/11/16 05:00 O2 Sat by Pulse Oximetry (%) 97 03/10/16 22:00 Constitutional: Yes: No Distress HENT: Yes: WNL, Atraumatic Neck: Yes: WNL, Supple Cardiovascular: Yes: Regular Rate and Rhythm, S1, S2 Respiratory: Yes: WNL, Regular, CTA Bilaterally, Diminished Gastrointestinal: Yes: WNL, Normal Bowel Sounds, Soft, Distention. No: Tenderness, Tenderness, Epigastrium Edema: No Labs: CBC, BMP 03/11/16 05:15 INR, PTT INR 1.25 (0.82-1.09) H 03/08/16 20:30 Problem List - Problems (1) Pneumonia Code(s): J18.9 - PNEUMONIA, UNSPECIFIED ORGANISM Qualifiers: Pneumonia type: due to unspecified organism Laterality: unspecified laterality Lung location: unspecified part of lung Qualified Code(s): J18.9 - Pneumonia, unspecified organism (2) Lewy body dementia Code(s): G31.83 - DEMENTIA WITH LEWY BODIES F02.80 - DEMENTIA IN OTH DISEASES CLASSD ELSWHR W/O BEHAVRL DISTURB (3) Parkinson disease Code(s): G20 - PARKINSON'S DISEASE Assessment/Plan Microbiology 03/08/16 15:00 Urine - Urine Clean Catch Urine Culture - Final NO GROWTH OBTAINED 03/08/16 12:00 Nasopharyngeal Swab Influenza Types A,B Antigen (JONA) - Final 03/08/16 12:00 Nasopharyngeal Swab - Final 03/08/16 12:00 Nasopharyngeal Swab Respiratory Virus Panel - Preliminary 03/08/16 11:30 Blood - Peripheral Venous Blood Culture - Preliminary NO GROWTH OBTAINED AFTER 48 HOURS, INCUBATION TO CONTINUE FOR 3 DAYS. 03/08/16 11:30 Blood - Peripheral Venous Blood Culture - Preliminary NO GROWTH OBTAINED AFTER 48 HOURS, INCUBATION TO CONTINUE FOR 3 DAYS. Laboratory Tests 03/09/16 03/10/16 03/11/16 05:05 05:20 05:15 WBC 10.1 H Hgb 12.4 Hct 38.2 Plt Count 330 BUN 28 H Creatinine 1.2 Creat Clearance w eGFR > 60 Lactic Acid 3.387 H* Assessment Lewy body dementia with complicating pneumonia unspecified Plan Continue current therapy Claritza EISENBERG
[2016-03-11 07:40] LABS: ALBUMIN 2.3 g/dl (3.4-5.0); ALK PHOS 60 U/L (45-117); ANION GAP 11 (8-16); BILIRUBIN,TOTAL 0.5 mg/dL (0.2-1.0); CALCIUM 8.7 mg/dL (8.5-10.1); CO2 31 mmol/L (21-32); CREATININE 1.2 mg/dL (0.7-1.3); GLUCOSE,RANDOM 206 mg/dL (74-106); SGOT/AST 21 U/L (15-37); SGPT/ALT 27 U/L (12-78); TOT PROT 6.4 g/dl (6.4-8.2)
[2016-03-11] MEDS ORDERED: PT OWN MED DRAWER 7, Y5N ONE ×3 (09:17→22:22)
[2016-03-11] MEDS: AMINO ACIDS/PROTEIN HYDROLYS SUGAR-FREE 30 ML PACKET GT SCH ×2 (09:19→17:47)
[2016-03-11] MEDS: BACITRACIN 30 GM TUBE TOPICAL OINTMENT TP SCH (09:19)
[2016-03-11] MEDS: LACTOBACILLUS ACIDOPHILUS 1 EACH TAB (FP) GT SCH (09:19)
[2016-03-11] MEDS: methylPREDNISolone NA SUCC 40 MG/1 ML VIAL IVPB SCH (09:20)
[2016-03-11] MEDS: HEPARIN NA (PORCINE) 5,000 UNITS/ML 1ML VIAL SQ SCH ×2 (09:20→22:26)
[2016-03-11] MEDS: azaTHIOprine 50 MG TABLET GT SCH (09:21)
[2016-03-11] MEDS: POLYETHYLENE GLYCOL 3350 119 GM BTL GT SCH (09:22)
[2016-03-11] MEDS: levETIRAcetam 500 MG/5 ML ORAL SOLUTION (UNIT-DOSE CUPS) GT SCH ×2 (09:22→22:26)
[2016-03-11] MEDS: ASCORBIC ACID 500 MG/5 ML UNIT DOSE CUP GT SCH (09:23)
[2016-03-11] MEDS: ESCITALOPRAM OXALATE 5 MG/5 ML GT SCH (09:23)
[2016-03-11] MEDS: SENNOSIDES 8.8 MG/5 ML BULK BOTTLE GT SCH ×2 (09:23→22:20)
[2016-03-11] MEDS: ZINC OXIDE 20% TOPICAL OINTMENT 30 GM TUBE TP SCH (09:24)
[2016-03-11] MEDS ORDERED: SODIUM CHLORIDE 0.45%/POT 1,000 ML IV SCH ×3 (11:15→15:52)
--- NOTE | 2016-03-11 11:19 | PN ---
Teaching Attending Note Name of Resident: Abdiel Cuevas ATTENDING PHYSICIAN STATEMENT I saw and evaluated the patient. I reviewed the resident's note and discussed the case with the resident. I agree with the resident's findings and plan as documented. SUBJECTIVE: Patient seen and examined in the ICU. More awake and responsive. Did not require NIPPV overnight. No pressors. CXR: Expiratory film / no gross change in residual LLL infiltrate/atelectasis Intake & Output 03/08/16 03/09/16 03/10/16 03/11/16 23:59 23:59 23:59 23:59 Intake Total 450 1560 1500 Balance 450 1560 1500 Weight 173 lb 173 lb 160 lb 14.4 oz Last Vital Signs Temp Pulse Resp BP Pulse Ox 98.5 F 101 H 18 101/70 97 03/11/16 05:00 03/11/16 07:00 03/11/16 07:00 03/11/16 07:00 03/10/16 22:00 Active Medications Acetaminophen (Tylenol -) 650 mg PO Q6H PRN PRN Reason: FEVER OR PAIN Albuterol/Ipratropium (Duoneb -) 1 amp NEB QIDR [facility] Last Admin: 03/11/16 05:41 Dose: 1 amp Amino Acids (Prostat Sugar-Free Packet -) 30 ml GT BIDWM [facility] Last Admin: 03/11/16 09:19 Dose: 30 ml Ascorbic Acid (Vitamin C Oral Solution -) 250 mg GT DAILY [facility] Last Admin: 03/11/16 09:23 Dose: 250 mg Azathioprine (Imuran -) 150 mg GT DAILY [facility] Last Admin: 03/11/16 09:21 Dose: 150 mg Bacitracin (Bacitracin -) 1 applic TP DAILY [facility] Last Admin: 03/11/16 09:19 Dose: 1 applic Escitalopram Oxalate (Lexapro Oral Solution -) 10 mg GT DAILY [facility] Last Admin: 03/11/16 09:23 Dose: 10 mg Heparin Sodium (Porcine) (Heparin -) 5,000 unit SQ BID [facility] Last Admin: 03/11/16 09:20 Dose: 5,000 unit Pantoprazole Sodium (Protonix 40mg Ivpb (Pre-Docked)) 100 mls @ 200 mls/hr IVPB HS [facility] Last Admin: 03/10/16 22:09 Dose: 200 mls/hr Piperacillin Sod/Tazobactam Sod (Zosyn 4.5gm Ivpb (Pre-Docked)) 100 mls @ 200 mls/hr IVPB Q8H-IV [facility] Last Admin: 03/11/16 09:24 Dose: 200 mls/hr Potassium Chloride/Sodium Chloride (1/2ns+20meq Kcl) 1,000 mls @ 50 mls/hr IV [facility] Lactobacillus Acidophilus (Bacid -) 1 tab GT DAILY [facility] Last Admin: 03/11/16 09:19 Dose: 1 tab Levetiracetam (Keppra Oral Solution -) 250 mg GT BID [facility] Last Admin: 03/11/16 09:22 Dose: 250 mg Methylprednisolone Sodium Succinate (Solu-Medrol -) 40 mg IVPB DAILY [facility] Last Admin: 03/11/16 09:20 Dose: 40 mg Multi-Ingredient Ointment (Zinc Oxide) 1 applic TP DAILY [facility] Last Admin: 03/11/16 09:24 Dose: 1 applic Polyethylene Glycol (Miralax (For Daily Use) -) 17 gm GT DAILY [facility] Last Admin: 03/11/16 09:22 Dose: Not Given Senna (Senna Oral Solution -) 8.8 mg GT BID [facility] Last Admin: 03/11/16 09:23 Dose: Not Given Constitutional: Yes: Awake on NC O2 Eyes: Yes: Conjunctiva Clear HENT: Yes: Atraumatic, Normocephalic Neck: Yes: Supple, Trachea Midline Cardiovascular: Yes: Tachycardia Respiratory: Yes: Bibasilar rhonchi Left > right, No: Stridor, Wheezes Gastrointestinal: Yes: Normal Bowel Sounds, Soft, Other (PEG) ...Rectal Exam: Yes: Deferred Renal/: Yes: WNL Musculoskeletal: Yes: Joint Stiffness, Muscle Weakness Extremities: Yes: Cool Edema: No Peripheral Pulses WNL: Yes Integumentary: Yes: WNL Neurological: Yes: Confusion. No: Seizure Laboratory Results - last 24 hr 03/10/16 03/10/16 03/11/16 12:30 12:30 05:15 WBC 12.7 H 10.1 H RBC 4.09 4.12 Hgb 12.1 12.4 Hct 37.8 38.2 MCV 92.5 92.6 MCHC 32.0 32.4 RDW 15.7 15.5 Plt Count 286 330 MPV 10.3 11.1 Neutrophils % 84.6 H 70.6 Lymphocytes % 11.5 D 22.8 D Monocytes % 2.6 L 4.4 Eosinophils % 0.8 2.0 D Basophils % 0.5 0.2 Sodium Potassium Chloride Carbon Dioxide Anion Gap BUN Creatinine Creat Clearance w eGFR Random Glucose Lactic Acid Calcium Phosphorus Magnesium Total Bilirubin AST ALT Alkaline Phosphatase Creatine Kinase Creatine Kinase Index CK-MB (CK-2) CK-MB (CK-2) Rel Index Troponin I Total Protein Albumin Vancomycin Trough 23.471 H* 03/11/16 03/11/16 03/11/16 05:15 05:15 05:15 WBC RBC Hgb Hct MCV MCHC RDW Plt Count MPV Neutrophils % Lymphocytes % Monocytes % Eosinophils % Basophils % Sodium 157 H Potassium 3.3 L Chloride 115 H Carbon Dioxide 31 Anion Gap 11 BUN 25 H Creatinine 1.2 Creat Clearance w eGFR > 60 Random Glucose 206 H D Lactic Acid 2.860 H* Calcium 8.7 Phosphorus 1.8 L D Magnesium 2.7 H Total Bilirubin 0.5 D AST 21 ALT 27 Alkaline Phosphatase 60 Creatine Kinase 340 H D Creatine Kinase Index 0.3 CK-MB (CK-2) < 1.000 CK-MB (CK-2) Rel Index Troponin I 0.02 Total Protein 6.4 Albumin 2.3 L Vancomycin Trough 03/11/16 05:15 WBC RBC Hgb Hct MCV MCHC RDW Plt Count MPV Neutrophils % Lymphocytes % Monocytes % Eosinophils % Basophils % Sodium Potassium Chloride Carbon Dioxide Anion Gap BUN Creatinine Creat Clearance w eGFR Random Glucose Lactic Acid Calcium Phosphorus Magnesium Total Bilirubin AST ALT Alkaline Phosphatase Creatine Kinase Creatine Kinase Index CK-MB (CK-2) CK-MB (CK-2) Rel Index Cancelled Troponin I Total Protein Albumin Vancomycin Trough Problem List - Problems (1) Pneumonia Code(s): J18.9 - PNEUMONIA, UNSPECIFIED ORGANISM Qualifiers: Pneumonia type: due to unspecified organism Laterality: unspecified laterality Lung location: unspecified part of lung Qualified Code(s): J18.9 - Pneumonia, unspecified organism (2) BPH (benign prostatic hypertrophy) Code(s): N40.0 - BENIGN PROSTATIC HYPERPLASIA WITHOUT LOWER URINRY TRACT SYMP Qualifiers: Prostatic enlargement morphology: unspecified morphology Lower urinary tract symptom presence: symptoms present Qualified Code(s): N40.1 - Enlarged prostate with lower urinary tract symptoms (3) CVA (cerebrovascular accident) Code(s): I63.9 - CEREBRAL INFARCTION, UNSPECIFIED (4) Colitis Code(s): K52.9 - NONINFECTIVE GASTROENTERITIS AND COLITIS, UNSPECIFIED (5) Dehydration Code(s): E86.0 - DEHYDRATION (6) Dementia Code(s): F03.90 - UNSPECIFIED DEMENTIA WITHOUT BEHAVIORAL DISTURBANCE (7) Dysphagia Code(s): R13.10 - DYSPHAGIA, UNSPECIFIED (8) Foreign body alimentary tract Code(s): T18.9XXA - FOREIGN BODY OF ALIMENTARY TRACT, PART UNSP, INIT ENCNTR Qualifiers: Encounter type: initial encounter Qualified Code(s): T18.9XXA - Foreign body of alimentary tract, part unspecified, initial encounter (9) History of ulcerative colitis Code(s): Z87.19 - PERSONAL HISTORY OF OTHER DISEASES OF THE DIGESTIVE SYSTEM (10) Hypoxemia Code(s): R09.02 - HYPOXEMIA (11) Lewy body dementia Code(s): G31.83 - DEMENTIA WITH LEWY BODIES F02.80 - DEMENTIA IN OTH DISEASES CLASSD ELSWHR W/O BEHAVRL DISTURB (12) Respiratory failure Code(s): J96.90 - RESPIRATORY FAILURE, UNSP, UNSP W HYPOXIA OR HYPERCAPNIA (13) Sepsis Code(s): A41.9 - SEPSIS, UNSPECIFIED ORGANISM Qualifiers: Sepsis type: sepsis due to unspecified organism Qualified Code(s): A41.9 - Sepsis, unspecified organism Assessment/Plan NC O2 as tolerated NIPPV only as needed ABX per ID BD TX IVF HOB elevation Oral care DNR/DNI 4W/4S monitoring Dr Vitale CCTime 35" Problem List - Problems (1) Pneumonia Code(s): J18.9 - PNEUMONIA, UNSPECIFIED ORGANISM Qualifiers: Pneumonia type: due to unspecified organism Laterality: unspecified laterality Lung location: unspecified part of lung Qualified Code(s): J18.9 - Pneumonia, unspecified organism (2) BPH (benign prostatic hypertrophy) Code(s): N40.0 - BENIGN PROSTATIC HYPERPLASIA WITHOUT LOWER URINRY TRACT SYMP Qualifiers: Prostatic enlargement morphology: unspecified morphology Lower urinary tract symptom presence: symptoms present Qualified Code(s): N40.1 - Enlarged prostate with lower urinary tract symptoms (3) CVA (cerebrovascular accident) Code(s): I63.9 - CEREBRAL INFARCTION, UNSPECIFIED (4) Colitis Code(s): K52.9 - NONINFECTIVE GASTROENTERITIS AND COLITIS, UNSPECIFIED (5) Dehydration Code(s): E86.0 - DEHYDRATION (6) Dementia Code(s): F03.90 - UNSPECIFIED DEMENTIA WITHOUT BEHAVIORAL DISTURBANCE (7) Dysphagia Code(s): R13.10 - DYSPHAGIA, UNSPECIFIED (8) Foreign body alimentary tract Code(s): T18.9XXA - FOREIGN BODY OF ALIMENTARY TRACT, PART UNSP, INIT ENCNTR Qualifiers: Encounter type: initial encounter Qualified Code(s): T18.9XXA - Foreign body of alimentary tract, part unspecified, initial encounter (9) History of ulcerative colitis Code(s): Z87.19 - PERSONAL HISTORY OF OTHER DISEASES OF THE DIGESTIVE SYSTEM (10) Hypoxemia Code(s): R09.02 - HYPOXEMIA (11) Lewy body dementia Code(s): G31.83 - DEMENTIA WITH LEWY BODIES F02.80 - DEMENTIA IN OTH DISEASES CLASSD ELSWHR W/O BEHAVRL DISTURB (12) Respiratory failure Code(s): J96.90 - RESPIRATORY FAILURE, UNSP, UNSP W HYPOXIA OR HYPERCAPNIA (13) Sepsis Code(s): A41.9 - SEPSIS, UNSPECIFIED ORGANISM Qualifiers: Sepsis type: sepsis due to unspecified organism Qualified Code(s): A41.9 - Sepsis, unspecified organism
[2016-03-11] MEDS ORDERED: POTASSIUM CHLORIDE 40 MEQ/30 ML UNIT DOSE CUP PO ONE (11:30)
--- NOTE | 2016-03-11 12:54 | PN ---
Progress Note, Physician Chief Complaint: AWAKE CONFUSED EVENTS AND CHARTS REVIEWED - Current Medication List Current Medications: Active Medications Acetaminophen (Tylenol -) 650 mg PO Q6H PRN PRN Reason: FEVER OR PAIN Last Admin: 03/11/16 11:38 Dose: 650 mg Albuterol/Ipratropium (Duoneb -) 1 amp NEB QIDR [facility] Last Admin: 03/11/16 11:24 Dose: 1 amp Amino Acids (Prostat Sugar-Free Packet -) 30 ml GT BIDWM [facility] Last Admin: 03/11/16 09:19 Dose: 30 ml Ascorbic Acid (Vitamin C Oral Solution -) 250 mg GT DAILY [facility] Last Admin: 03/11/16 09:23 Dose: 250 mg Azathioprine (Imuran -) 150 mg GT DAILY [facility] Last Admin: 03/11/16 09:21 Dose: 150 mg Bacitracin (Bacitracin -) 1 applic TP DAILY [facility] Last Admin: 03/11/16 09:19 Dose: 1 applic Escitalopram Oxalate (Lexapro Oral Solution -) 10 mg GT DAILY [facility] Last Admin: 03/11/16 09:23 Dose: 10 mg Heparin Sodium (Porcine) (Heparin -) 5,000 unit SQ BID [facility] Last Admin: 03/11/16 09:20 Dose: 5,000 unit Pantoprazole Sodium (Protonix 40mg Ivpb (Pre-Docked)) 100 mls @ 200 mls/hr IVPB HS [facility] Last Admin: 03/10/16 22:09 Dose: 200 mls/hr Piperacillin Sod/Tazobactam Sod (Zosyn 4.5gm Ivpb (Pre-Docked)) 100 mls @ 200 mls/hr IVPB Q8H-IV [facility] Last Admin: 03/11/16 09:24 Dose: 200 mls/hr Potassium Chloride/Sodium Chloride (1/2ns+20meq Kcl) 1,000 mls @ 50 mls/hr IV ASDIR [facility] Stop: 03/12/16 07:14 Last Admin: 03/11/16 11:34 Dose: 50 mls/hr Lactobacillus Acidophilus (Bacid -) 1 tab GT DAILY [facility] Last Admin: 03/11/16 09:19 Dose: 1 tab Levetiracetam (Keppra Oral Solution -) 250 mg GT BID [facility] Last Admin: 03/11/16 09:22 Dose: 250 mg Methylprednisolone Sodium Succinate (Solu-Medrol -) 40 mg IVPB DAILY [facility] Last Admin: 03/11/16 09:20 Dose: 40 mg Multi-Ingredient Ointment (Zinc Oxide) 1 applic TP DAILY [facility] Last Admin: 03/11/16 09:24 Dose: 1 applic Polyethylene Glycol (Miralax (For Daily Use) -) 17 gm GT DAILY [facility] Last Admin: 03/11/16 09:22 Dose: Not Given Senna (Senna Oral Solution -) 8.8 mg GT BID [facility] Last Admin: 03/11/16 09:23 Dose: Not Given - Objective Vital Signs: Vital Signs Temperature 99.4 F 03/11/16 10:00 Pulse Rate 106 H 03/11/16 10:00 Respiratory Rate 18 03/11/16 10:00 Blood Pressure 108/70 03/11/16 10:00 O2 Sat by Pulse Oximetry (%) 99 03/11/16 10:00 Constitutional: Yes: Mild Distress Eyes: Yes: WNL HENT: Yes: WNL Neck: Yes: WNL Cardiovascular: Yes: WNL Respiratory: Yes: On Nasal O2, Rhonchi Gastrointestinal: Yes: WNL Musculoskeletal: Yes: Muscle Weakness Extremities: Yes: WNL Edema: No Peripheral Pulses WNL: Yes Integumentary: Yes: Erythema, Rash Wound/Incision: Yes: Other Neurological: Yes: Confusion ...Motor Strength: LLE, RLE Psychiatric: Yes: Other Labs: CBC, BMP 03/11/16 05:15 03/11/16 05:15 INR, PTT INR 1.25 (0.82-1.09) H 03/08/16 20:30 Problem List - Problems (1) Pneumonia Code(s): J18.9 - PNEUMONIA, UNSPECIFIED ORGANISM Qualifiers: Pneumonia type: due to unspecified organism Laterality: unspecified laterality Lung location: unspecified part of lung Qualified Code(s): J18.9 - Pneumonia, unspecified organism (2) BPH (benign prostatic hypertrophy) Code(s): N40.0 - BENIGN PROSTATIC HYPERPLASIA WITHOUT LOWER URINRY TRACT SYMP Qualifiers: Prostatic enlargement morphology: unspecified morphology Lower urinary tract symptom presence: symptoms present Qualified Code(s): N40.1 - Enlarged prostate with lower urinary tract symptoms (3) Dementia Code(s): F03.90 - UNSPECIFIED DEMENTIA WITHOUT BEHAVIORAL DISTURBANCE (4) Dysphagia Code(s): R13.10 - DYSPHAGIA, UNSPECIFIED (5) Foreign body alimentary tract Code(s): T18.9XXA - FOREIGN BODY OF ALIMENTARY TRACT, PART UNSP, INIT ENCNTR Qualifiers: Encounter type: initial encounter Qualified Code(s): T18.9XXA - Foreign body of alimentary tract, part unspecified, initial encounter (6) History of ulcerative colitis Code(s): Z87.19 - PERSONAL HISTORY OF OTHER DISEASES OF THE DIGESTIVE SYSTEM (7) Lewy body dementia Code(s): G31.83 - DEMENTIA WITH LEWY BODIES F02.80 - DEMENTIA IN OTH DISEASES CLASSD ELSWHR W/O BEHAVRL DISTURB (8) Malnutrition Code(s): E46 - UNSPECIFIED PROTEIN-CALORIE MALNUTRITION (9) Parkinson disease Code(s): G20 - PARKINSON'S DISEASE (10) Respiratory failure Code(s): J96.90 - RESPIRATORY FAILURE, UNSP, UNSP W HYPOXIA OR HYPERCAPNIA (11) Seizure disorder Code(s): G40.909 - EPILEPSY, UNSP, NOT INTRACTABLE, WITHOUT STATUS EPILEPTICUS (12) Sepsis Code(s): A41.9 - SEPSIS, UNSPECIFIED ORGANISM Qualifiers: Sepsis type: sepsis due to unspecified organism Qualified Code(s): A41.9 - Sepsis, unspecified organism Assessment/Plan AGREE WITH BIPAP FOR RESP SUPPORT CAN CHANGE TO 02 MASK NEEDED IV ABX TUBE FEEDS RESTARTED DVT PROPHYLAXIS ID AND PULM EVAL APPRECIATED CHECK LABS DENTAL CONSULT DEFFEREED OUTPATIENT HYPERNATREMIA, RENAL F/U, IVF
[2016-03-11] MEDS ORDERED: ACETAMINOPHEN 650 MG/20.3 ML ORAL SOLUTION (CUPS) PO PRN (13:29)
[2016-03-11] MEDS: NAPH,MB-DB/K PH,MBDB POWDER PACKET PO SCH ×2 (14:42→22:25)
--- NOTE | 2016-03-11 15:43 | PN ---
Physical Exam: SUBJECTIVE: Patient seen and examined at bedside. No overnight events. Comfortable. Breathing non-labored. Non-verbal at baseline. OBJECTIVE: Vital Signs Period Temp Pulse Resp BP Sys/Martinez Pulse Ox Last 24 Hr 98.0 F-100.4 F 73-106 13-20 80-115/59-80 97-100 GENERAL: The patient is awake, alert, comfortable HEAD: Normal with no signs of trauma. EYES: PERRL,sclera anicteric, conjunctiva clear. No ptosis. ENT: nares patent, moist mucous membranes. NECK: supple no JVD LUNGS: Currently on 3L NC, scattered rhonchi HEART: Tachycardic, S1, S2 without murmur, rub or gallop. ABDOMEN: Soft, nontender, nondistended, PEG (patent) EXTREMITIES:Contracted and weak. NEUROLOGICAL: awake , some jerking movement PSYCH: unable to assess SKIN: Warm, dry, normal turgor, no rashes or lesions noted Laboratory Results - last 24 hr 03/11/16 03/11/16 03/11/16 05:15 05:15 05:15 WBC 10.1 H RBC 4.12 Hgb 12.4 Hct 38.2 MCV 92.6 MCHC 32.4 RDW 15.5 Plt Count 330 MPV 11.1 Neutrophils % 70.6 Lymphocytes % 22.8 D Monocytes % 4.4 Eosinophils % 2.0 D Basophils % 0.2 Sodium 157 H Potassium 3.3 L Chloride 115 H Carbon Dioxide 31 Anion Gap 11 BUN 25 H Creatinine 1.2 Creat Clearance w eGFR > 60 Random Glucose 206 H D Lactic Acid Calcium 8.7 Phosphorus 1.8 L D Magnesium 2.7 H Total Bilirubin 0.5 D AST 21 ALT 27 Alkaline Phosphatase 60 Creatine Kinase 340 H D Creatine Kinase Index 0.3 CK-MB (CK-2) < 1.000 CK-MB (CK-2) Rel Index Troponin I 0.02 Total Protein 6.4 Albumin 2.3 L 03/11/16 03/11/16 05:15 05:15 WBC RBC Hgb Hct MCV MCHC RDW Plt Count MPV Neutrophils % Lymphocytes % Monocytes % Eosinophils % Basophils % Sodium Potassium Chloride Carbon Dioxide Anion Gap BUN Creatinine Creat Clearance w eGFR Random Glucose Lactic Acid 2.860 H* Calcium Phosphorus Magnesium Total Bilirubin AST ALT Alkaline Phosphatase Creatine Kinase Creatine Kinase Index CK-MB (CK-2) CK-MB (CK-2) Rel Index Cancelled Troponin I Total Protein Albumin Active Medications Generic Name Dose Route Start Last Admin Trade Name Freq PRN Reason Stop Dose Admin Acetaminophen 650 mg 03/11/16 13:29 Tylenol Oral Solution - PO Q6H PRN FEVER OR PAIN Albuterol/Ipratropium 1 amp 03/11/16 00:00 03/11/16 11:24 Duoneb - NEB 1 amp QIDR [facility] Administration Amino Acids 30 ml 03/11/16 08:00 03/11/16 09:19 Prostat Sugar-Free Packet - GT 30 ml BIDWM [facility] Administration Ascorbic Acid 250 mg 03/11/16 10:00 03/11/16 09:23 Vitamin C Oral Solution - GT 250 mg DAILY [facility] Administration Azathioprine 150 mg 03/11/16 10:00 03/11/16 09:21 Imuran - GT 150 mg DAILY [facility] Administration Bacitracin 1 applic 03/11/16 10:00 03/11/16 09:19 Bacitracin - TP 1 applic DAILY [facility] Administration Escitalopram Oxalate 10 mg 03/11/16 10:00 03/11/16 09:23 Lexapro Oral Solution - GT 10 mg DAILY [facility] Administration Heparin Sodium (Porcine) 5,000 unit 03/10/16 22:00 03/11/16 09:20 Heparin - SQ 5,000 unit BID [facility] Administration Pantoprazole Sodium 100 mls @ 200 mls/hr 03/10/16 22:00 03/10/16 22:09 Protonix 40mg Ivpb (Pre-Docked) IVPB 200 mls/hr HS [facility] Administration Piperacillin Sod/Tazobactam Sod 100 mls @ 200 mls/hr 03/11/16 02:00 03/11/16 09 :24 Zosyn 4.5gm Ivpb (Pre-Docked) IVPB 200 mls/hr Q8H-IV [facility] Administration Potassium Chloride/Sodium Chloride 1,000 mls @ 50 mls/hr 03/11/16 11:16 11:34 1/2ns+20meq Kcl IV 03/12/16 07:14 50 mls/hr ASDIR [facility] Administration Lactobacillus Acidophilus 1 tab 03/11/16 10:00 03/11/16 09:19 Bacid - GT 1 tab DAILY [facility] Administration Levetiracetam 250 mg 03/10/16 22:00 03/11/16 09:22 Keppra Oral Solution - GT 250 mg BID [facility] Administration Methylprednisolone Sodium Succinate 40 mg 03/11/16 10:00 03/11/16 09:20 Solu-Medrol - IVPB 40 mg DAILY [facility] Administration Multi-Ingredient Ointment 1 applic 03/11/16 10:00 03/11/16 09:24 Zinc Oxide TP 1 applic DAILY [facility] Administration Polyethylene Glycol 17 gm 03/11/16 10:00 03/11/16 09:22 Miralax (For Daily Use) - GT Not Given DAILY [facility] Potassium Phos/Sodium Phos 1 packet 03/11/16 13:30 03/11/16 14:42 Phos-Nak Packet - PO 1 packet BID [facility] Administration Senna 8.8 mg 03/10/16 22:00 03/11/16 09:23 Senna Oral Solution - GT Not Given BID [facility] ASSESSMENT/PLAN: 61 yo M with advanced parkinson's, Ulcerative Colitis, dementia, nonverbal and bedbound admitted to ICU for management of acute respiratory failure requiring NIPPV. Currently doing well on 3L NC Neuro: * patient is non verbal at baseline * Siezure prophylax- Levetiracetam (Keppra Oral Solution -) 250 mg GT BID * will continue to monitor Pulm: * placed on 3L N * HOB elevated * Oral care. * Maintain O2 > 90% * Duonebs QID and albuterol PRN * Solumedrol 40mg daily * Urine antigen pending. * Repeat ABG and CXR in AM CV: * Continue BP monitoring ID: * C/S pending * Started on zosyn and vanco. GI: Ulcerative Colitis. * Azathioprine (Imuran -) 150 mg GT Prophylaxis: * Heparin SQ 5000 U BID * Protonix 40 mg IV HS F/E/N * NO IVF at this time * replace lytes and Repeat AM labs. * will start Volume by PEG Jenty 1.5 @40cc/hr and 20 of free water. DISPO: Transfer to Med/surg Visit type - Emergency Visit Emergency Visit: Yes ED Registration Date: 03/08/16 Care time: The patient presented to the Emergency Department on the above date and was hospitalized for further evaluation of their emergent condition. - New Patient This patient is new to me today: No - Critical Care Critical Care patient: Yes Total Critical Care Time (in minutes): 32 Critical Care Statement: The care of this patient involved high complexity decision making to prevent further life threatening deterioration of the patient 's condition and/or to evalute & treat vital organ system(s) failure or risk of failure.
--- NOTE | 2016-03-11 15:51 | PN ---
Progress Note, Physician History of Present Illness: Pt seen and examined at bedside. Mental status is at baseline. He is tolerating feeds so far. - Current Medication List Current Medications: Active Medications Acetaminophen (Tylenol Oral Solution -) 650 mg PO Q6H PRN PRN Reason: FEVER OR PAIN Albuterol/Ipratropium (Duoneb -) 1 amp NEB QIDR [facility] Last Admin: 03/11/16 11:24 Dose: 1 amp Amino Acids (Prostat Sugar-Free Packet -) 30 ml GT BIDWM [facility] Last Admin: 03/11/16 09:19 Dose: 30 ml Ascorbic Acid (Vitamin C Oral Solution -) 250 mg GT DAILY [facility] Last Admin: 03/11/16 09:23 Dose: 250 mg Azathioprine (Imuran -) 150 mg GT DAILY [facility] Last Admin: 03/11/16 09:21 Dose: 150 mg Bacitracin (Bacitracin -) 1 applic TP DAILY [facility] Last Admin: 03/11/16 09:19 Dose: 1 applic Escitalopram Oxalate (Lexapro Oral Solution -) 10 mg GT DAILY [facility] Last Admin: 03/11/16 09:23 Dose: 10 mg Heparin Sodium (Porcine) (Heparin -) 5,000 unit SQ BID [facility] Last Admin: 03/11/16 09:20 Dose: 5,000 unit Pantoprazole Sodium (Protonix 40mg Ivpb (Pre-Docked)) 100 mls @ 200 mls/hr IVPB HS [facility] Last Admin: 03/10/16 22:09 Dose: 200 mls/hr Piperacillin Sod/Tazobactam Sod (Zosyn 4.5gm Ivpb (Pre-Docked)) 100 mls @ 200 mls/hr IVPB Q8H-IV [facility] Last Admin: 03/11/16 09:24 Dose: 200 mls/hr Potassium Chloride/Sodium Chloride (1/2ns+20meq Kcl) 1,000 mls @ 50 mls/hr IV ASDIR [facility] Stop: 03/12/16 07:14 Last Admin: 03/11/16 11:34 Dose: 50 mls/hr Lactobacillus Acidophilus (Bacid -) 1 tab GT DAILY [facility] Last Admin: 03/11/16 09:19 Dose: 1 tab Levetiracetam (Keppra Oral Solution -) 250 mg GT BID [facility] Last Admin: 01/26/17 09:22 Dose: 250 mg Methylprednisolone Sodium Succinate (Solu-Medrol -) 40 mg IVPB DAILY [facility] Last Admin: 03/11/16 09:20 Dose: 40 mg Multi-Ingredient Ointment (Zinc Oxide) 1 applic TP DAILY [facility] Last Admin: 03/11/16 09:24 Dose: 1 applic Polyethylene Glycol (Miralax (For Daily Use) -) 17 gm GT DAILY [facility] Last Admin: 03/11/16 09:22 Dose: Not Given Potassium Phos/Sodium Phos (Phos-Nak Packet -) 1 packet PO BID [facility] Last Admin: 03/11/16 14:42 Dose: 1 packet Senna (Senna Oral Solution -) 8.8 mg GT BID [facility] Last Admin: 03/11/16 09:23 Dose: Not Given - Objective Vital Signs: Vital Signs Temperature 100.4 F H 03/11/16 13:28 Pulse Rate 94 H 03/11/16 14:02 Respiratory Rate 18 03/11/16 14:02 Blood Pressure 115/80 03/11/16 14:02 O2 Sat by Pulse Oximetry (%) 98 03/11/16 13:52 Constitutional: Yes: Calm Eyes: Yes: Conjunctiva Clear HENT: Yes: Atraumatic Neck: Yes: Supple Cardiovascular: Yes: S1, S2 Respiratory: Yes: On Nasal O2 Gastrointestinal: Yes: Other (peg) Genitourinary: Yes: Incontinence Musculoskeletal: Yes: Muscle Weakness Edema: No Neurological: Yes: Pre-Existing Deficit Labs: CBC, BMP 03/11/16 05:15 03/11/16 05:15 INR, PTT INR 1.25 (0.82-1.09) H 03/08/16 20:30 Problem List - Problems (1) Pneumonia Code(s): J18.9 - PNEUMONIA, UNSPECIFIED ORGANISM Qualifiers: Pneumonia type: due to unspecified organism Laterality: unspecified laterality Lung location: unspecified part of lung Qualified Code(s): J18.9 - Pneumonia, unspecified organism (2) BPH (benign prostatic hypertrophy) Code(s): N40.0 - BENIGN PROSTATIC HYPERPLASIA WITHOUT LOWER URINRY TRACT SYMP Qualifiers: Prostatic enlargement morphology: unspecified morphology Lower urinary tract symptom presence: symptoms present Qualified Code(s): N40.1 - Enlarged prostate with lower urinary tract symptoms (3) Hypokalemia Code(s): E87.6 - HYPOKALEMIA (4) Respiratory failure Code(s): J96.90 - RESPIRATORY FAILURE, UNSP, UNSP W HYPOXIA OR HYPERCAPNIA (5) Seizure disorder Code(s): G40.909 - EPILEPSY, UNSP, NOT INTRACTABLE, WITHOUT STATUS EPILEPTICUS (6) Sepsis Code(s): A41.9 - SEPSIS, UNSPECIFIED ORGANISM Qualifiers: Sepsis type: sepsis due to unspecified organism Qualified Code(s): A41.9 - Sepsis, unspecified organism (7) BREANA (acute kidney injury) Code(s): N17.9 - ACUTE KIDNEY FAILURE, UNSPECIFIED Assessment/Plan Current Medications Generic Name Dose Route Start Last Admin Trade Name Freq PRN Reason Stop Dose Admin Acetaminophen 650 mg 03/11/16 13:29 Tylenol Oral Solution - PO Q6H PRN FEVER OR PAIN Albuterol/Ipratropium 1 amp 03/11/16 00:00 03/11/16 11:24 Duoneb - NEB 1 amp QIDR [facility] Administration Amino Acids 30 ml 03/11/16 08:00 03/11/16 09:19 Prostat Sugar-Free Packet - GT 30 ml BIDWM [facility] Administration Ascorbic Acid 250 mg 03/11/16 10:00 03/11/16 09:23 Vitamin C Oral Solution - GT 250 mg DAILY [facility] Administration Azathioprine 150 mg 03/11/16 10:00 03/11/16 09:21 Imuran - GT 150 mg DAILY [facility] Administration Bacitracin 1 applic 03/11/16 10:00 03/11/16 09:19 Bacitracin - TP 1 applic DAILY [facility] Administration Escitalopram Oxalate 10 mg 03/11/16 10:00 03/11/16 09:23 Lexapro Oral Solution - GT 10 mg DAILY [facility] Administration Heparin Sodium (Porcine) 5,000 unit 03/10/16 22:00 03/11/16 09:20 Heparin - SQ 5,000 unit BID [facility] Administration Pantoprazole Sodium 100 mls @ 200 mls/hr 03/10/16 22:00 03/10/16 22:09 Protonix 40mg Ivpb (Pre-Docked) IVPB 200 mls/hr HS [facility] Administration Piperacillin Sod/Tazobactam Sod 100 mls @ 200 mls/hr 03/11/16 02:00 03/11/16 09 :24 Zosyn 4.5gm Ivpb (Pre-Docked) IVPB 200 mls/hr Q8H-IV [facility] Administration Potassium Chloride/Sodium Chloride 1,000 mls @ 50 mls/hr 03/11/16 11:16 11:34 1/2ns+20meq Kcl IV 03/12/16 07:14 50 mls/hr ASDIR [facility] Administration Lactobacillus Acidophilus 1 tab 03/11/16 10:00 03/11/16 09:19 Bacid - GT 1 tab DAILY [facility] Administration Levetiracetam 250 mg 03/10/16 22:00 03/11/16 09:22 Keppra Oral Solution - GT 250 mg BID [facility] Administration Methylprednisolone Sodium Succinate 40 mg 03/11/16 10:00 03/11/16 09:20 Solu-Medrol - IVPB 40 mg DAILY [facility] Administration Multi-Ingredient Ointment 1 applic 03/11/16 10:00 03/11/16 09:24 Zinc Oxide TP 1 applic DAILY [facility] Administration Polyethylene Glycol 17 gm 03/11/16 10:00 03/11/16 09:22 Miralax (For Daily Use) - GT Not Given DAILY [facility] Potassium Phos/Sodium Phos 1 packet 03/11/16 13:30 03/11/16 14:42 Phos-Nak Packet - PO 1 packet BID [facility] Administration Senna 8.8 mg 03/10/16 22:00 03/11/16 09:23 Senna Oral Solution - GT Not Given BID [facility] Impression 1. BREANA - pt has a baseline creatinine of about 0.7 2. respiratory failure requiring BiPap 3. parkinsons 4. ulcerative colitis 5. dementia 6. aspiration PNA 7. sepsis 8. hypernatremia 9. hypokalemia Plan - change fluids to d5w - add free water to feeds - replace potassiun - check mag - cont with antibiotics - monitor pulse ox and bipap as needed - follow cultures - abx per ID - baseline creatinine is about 0.7 Dr Cardoso
[2016-03-11] MEDS: PANTOPRAZOLE SODIUM 100 ML IVPB SCH (22:25)
[2016-03-12] MEDS: PIPERACILLIN/TAZOB 4.5 GM 100 ML IVPB SCH ×3 (01:10→17:37)
[2016-03-12] MEDS: ALBUTEROL SO4 2.5/IPRATROPIUM 0.5 INH SOL 3 ML VIAL.NEB. NEB SCH ×4 (07:02→23:09)
[2016-03-12 08:12] LABS: MCH 30.1 pg (25.7-33.7); MCHC 32.6 g/dl (32.0-35.9); MEAN CELL VOLUME 92.3 fl (80-96); MEAN PLT VOLUME 10.6 fl (7.5-11.1); PLATELET COUNT 260 K/MM3 (134-434); RDW 14.9 % (11.9-15.9); WHITE BLOOD COUNT 7.8 K/mm3 (4.0-10.0)
[2016-03-12 09:07] LABS: ALK PHOS 55 U/L (45-117); ANION GAP 10 (8-16); BILIRUBIN,TOTAL 0.4 mg/dL (0.2-1.0); CALCIUM 7.5 mg/dL (8.5-10.1); CO2 27 mmol/L (21-32); CREATININE 0.8 mg/dL (0.7-1.3); GLUCOSE,RANDOM 149 mg/dL (74-106); MAGNESIUM 2.4 mg/dL (1.8-2.4); PHOSPHOROUS 2.1 mg/dL (2.5-4.9); SGOT/AST 27 U/L (15-37); SGPT/ALT 30 U/L (12-78); TOT PROT 5.6 g/dl (6.4-8.2)
[2016-03-12] MEDS ORDERED: PT OWN MED DRAWER 7, Y5N ONE (10:15)
[2016-03-12] MEDS: ZINC OXIDE 20% TOPICAL OINTMENT 30 GM TUBE TP SCH (10:27)
[2016-03-12] MEDS: levETIRAcetam 500 MG/5 ML ORAL SOLUTION (UNIT-DOSE CUPS) GT SCH ×2 (10:28→22:27)
[2016-03-12] MEDS: BACITRACIN 30 GM TUBE TOPICAL OINTMENT TP SCH (10:29)
[2016-03-12] MEDS: LACTOBACILLUS ACIDOPHILUS 1 EACH TAB (FP) GT SCH (10:29)
[2016-03-12] MEDS: HEPARIN NA (PORCINE) 5,000 UNITS/ML 1ML VIAL SQ SCH ×2 (10:29→22:27)
[2016-03-12] MEDS: AMINO ACIDS/PROTEIN HYDROLYS SUGAR-FREE 30 ML PACKET GT SCH ×2 (10:29→17:37)
[2016-03-12] MEDS: ESCITALOPRAM OXALATE 5 MG/5 ML GT SCH (10:32)
[2016-03-12] MEDS: NAPH,MB-DB/K PH,MBDB POWDER PACKET PO SCH ×2 (10:33→22:28)
[2016-03-12] MEDS: SENNOSIDES 8.8 MG/5 ML BULK BOTTLE GT SCH ×2 (10:33→22:28)
[2016-03-12] MEDS: POLYETHYLENE GLYCOL 3350 119 GM BTL GT SCH (10:34)
[2016-03-12] MEDS: methylPREDNISolone NA SUCC 40 MG/1 ML VIAL IVPB SCH (10:34)
[2016-03-12] MEDS: ASCORBIC ACID 500 MG/5 ML UNIT DOSE CUP GT SCH (10:35)
[2016-03-12] MEDS: azaTHIOprine 50 MG TABLET GT SCH (10:36)
--- NOTE | 2016-03-12 11:00 | PN ---
Progress Note, Physician - Current Medication List Current Medications: Active Medications Acetaminophen (Tylenol Oral Solution -) 650 mg PO Q6H PRN PRN Reason: FEVER OR PAIN Albuterol/Ipratropium (Duoneb -) 1 amp NEB QIDR [facility] Last Admin: 03/12/16 07:02 Dose: 1 amp Amino Acids (Prostat Sugar-Free Packet -) 30 ml GT BIDWM [facility] Last Admin: 03/12/16 10:29 Dose: 30 ml Ascorbic Acid (Vitamin C Oral Solution -) 250 mg GT DAILY [facility] Last Admin: 03/12/16 10:35 Dose: 250 mg Azathioprine (Imuran -) 150 mg GT DAILY [facility] Last Admin: 03/12/16 10:36 Dose: 150 mg Bacitracin (Bacitracin -) 1 applic TP DAILY [facility] Last Admin: 03/12/16 10:29 Dose: 1 applic Escitalopram Oxalate (Lexapro Oral Solution -) 10 mg GT DAILY [facility] Last Admin: 03/12/16 10:32 Dose: 10 mg Heparin Sodium (Porcine) (Heparin -) 5,000 unit SQ BID [facility] Last Admin: 03/12/16 10:29 Dose: 5,000 unit Pantoprazole Sodium (Protonix 40mg Ivpb (Pre-Docked)) 100 mls @ 200 mls/hr IVPB HS [facility] Last Admin: 03/11/16 22:25 Dose: 200 mls/hr Piperacillin Sod/Tazobactam Sod (Zosyn 4.5gm Ivpb (Pre-Docked)) 100 mls @ 200 mls/hr IVPB Q8H-IV [facility] Last Admin: 03/12/16 10:27 Dose: 200 mls/hr Lactobacillus Acidophilus (Bacid -) 1 tab GT DAILY [facility] Last Admin: 03/12/16 10:29 Dose: 1 tab Levetiracetam (Keppra Oral Solution -) 250 mg GT BID [facility] Last Admin: 03/12/16 10:28 Dose: 250 mg Methylprednisolone Sodium Succinate (Solu-Medrol -) 40 mg IVPB DAILY [facility] Last Admin: 03/12/16 10:34 Dose: 40 mg Multi-Ingredient Ointment (Zinc Oxide) 1 applic TP DAILY [facility] Last Admin: 03/12/16 10:27 Dose: 1 applic Polyethylene Glycol (Miralax (For Daily Use) -) 17 gm GT DAILY [facility] Last Admin: 03/12/16 10:34 Dose: Not Given Potassium Phos/Sodium Phos (Phos-Nak Packet -) 1 packet PO BID [facility] Last Admin: 03/12/16 10:33 Dose: 1 packet Senna (Senna Oral Solution -) 8.8 mg GT BID [facility] Last Admin: 03/12/16 10:33 Dose: Not Given - Objective Vital Signs: Vital Signs Temperature 97.9 F 03/12/16 06:00 Pulse Rate 87 03/12/16 06:00 Respiratory Rate 20 03/12/16 06:00 Blood Pressure 108/78 03/12/16 06:00 O2 Sat by Pulse Oximetry (%) 98 03/11/16 20:26 Constitutional: Yes: Calm Cardiovascular: Yes: Regular Rate and Rhythm, S1, S2 Respiratory: Yes: CTA Bilaterally Gastrointestinal: Yes: Normal Bowel Sounds, Soft Edema: No Labs: CBC, BMP 03/12/16 06:50 03/12/16 06:50 INR, PTT INR 1.25 (0.82-1.09) H 03/08/16 20:30 Problem List - Problems (1) BPH (benign prostatic hypertrophy) Code(s): N40.0 - BENIGN PROSTATIC HYPERPLASIA WITHOUT LOWER URINRY TRACT SYMP Qualifiers: Prostatic enlargement morphology: unspecified morphology Lower urinary tract symptom presence: symptoms present Qualified Code(s): N40.1 - Enlarged prostate with lower urinary tract symptoms (2) Dementia Code(s): F03.90 - UNSPECIFIED DEMENTIA WITHOUT BEHAVIORAL DISTURBANCE (3) Dysphagia Code(s): R13.10 - DYSPHAGIA, UNSPECIFIED (4) Foreign body alimentary tract Code(s): T18.9XXA - FOREIGN BODY OF ALIMENTARY TRACT, PART UNSP, INIT ENCNTR Qualifiers: Encounter type: initial encounter Qualified Code(s): T18.9XXA - Foreign body of alimentary tract, part unspecified, initial encounter (5) History of ulcerative colitis Code(s): Z87.19 - PERSONAL HISTORY OF OTHER DISEASES OF THE DIGESTIVE SYSTEM (6) Malnutrition Code(s): E46 - UNSPECIFIED PROTEIN-CALORIE MALNUTRITION (7) Parkinson disease Code(s): G20 - PARKINSON'S DISEASE (8) Pneumonia Code(s): J18.9 - PNEUMONIA, UNSPECIFIED ORGANISM Qualifiers: Pneumonia type: due to unspecified organism Laterality: unspecified laterality Lung location: unspecified part of lung Qualified Code(s): J18.9 - Pneumonia, unspecified organism (9) Respiratory failure Code(s): J96.90 - RESPIRATORY FAILURE, UNSP, UNSP W HYPOXIA OR HYPERCAPNIA (10) Seizure disorder Code(s): G40.909 - EPILEPSY, UNSP, NOT INTRACTABLE, WITHOUT STATUS EPILEPTICUS (11) Sepsis Code(s): A41.9 - SEPSIS, UNSPECIFIED ORGANISM Qualifiers: Sepsis type: sepsis due to unspecified organism Qualified Code(s): A41.9 - Sepsis, unspecified organism Assessment/Plan (1) Pneumonia Code(s): J18.9 - PNEUMONIA, UNSPECIFIED ORGANISM Qualifiers: Pneumonia type: due to unspecified organism Laterality: unspecified laterality Lung location: unspecified part of lung Qualified Code(s): J18.9 - Pneumonia, unspecified organism AGREE WITH BIPAP FOR RESP SUPPORT CAN CHANGE TO 02 MASK NEEDED IV ABX/STEROIDS ID AND PULM EVAL APPRECIATED (2) BPH (benign prostatic hypertrophy) Code(s): N40.0 - BENIGN PROSTATIC HYPERPLASIA WITHOUT LOWER URINRY TRACT SYMP Qualifiers: Prostatic enlargement morphology: unspecified morphology Lower urinary tract symptom presence: symptoms present Qualified Code(s): N40.1 - Enlarged prostate with lower urinary tract symptoms (3) Dementia Code(s): F03.90 - UNSPECIFIED DEMENTIA WITHOUT BEHAVIORAL DISTURBANCE (4) Dysphagia Code(s): R13.10 - DYSPHAGIA, UNSPECIFIED TUBE FEEDS RESTARTED (5) Foreign body alimentary tract Code(s): T18.9XXA - FOREIGN BODY OF ALIMENTARY TRACT, PART UNSP, INIT ENCNTR Qualifiers: Encounter type: initial encounter Qualified Code(s): T18.9XXA - Foreign body of alimentary tract, part unspecified, initial encounter (6) History of ulcerative colitis Code(s): Z87.19 - PERSONAL HISTORY OF OTHER DISEASES OF THE DIGESTIVE SYSTEM (7) Lewy body dementia Code(s): G31.83 - DEMENTIA WITH LEWY BODIES F02.80 - DEMENTIA IN OTH DISEASES CLASSD ELSWHR W/O BEHAVRL DISTURB (8) Malnutrition Code(s): E46 - UNSPECIFIED PROTEIN-CALORIE MALNUTRITION DENTAL CONSULT DEFFEREED OUTPATIENT HYPERNATREMIA, RENAL F/U, IVF (9) Parkinson disease Code(s): G20 - PARKINSON'S DISEASE (10) Respiratory failure Code(s): J96.90 - RESPIRATORY FAILURE, UNSP, UNSP W HYPOXIA OR HYPERCAPNIA (11) Seizure disorder Code(s): G40.909 - EPILEPSY, UNSP, NOT INTRACTABLE, WITHOUT STATUS EPILEPTICUS (12) Sepsis Code(s): A41.9 - SEPSIS, UNSPECIFIED ORGANISM Qualifiers: Sepsis type: sepsis due to unspecified organism Qualified Code(s): A41.9 - Sepsis, unspecified organism [employer]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
--- NOTE | 2016-03-12 11:33 | PN ---
Progress Note (short form) - Note Progress Note: PULMONARY VSS/AFEBRILE ANICTERIC SCATTERED CRACKLES S1S2 BS+ NO EDEMA CXR/LABS/MEDS/NOTES/MICRO REVIEWED (1) Pneumonia Code(s): J18.9 - PNEUMONIA, UNSPECIFIED ORGANISM Qualifiers: Pneumonia type: due to unspecified organism Laterality: unspecified laterality Lung location: unspecified part of lung Qualified Code(s): J18.9 - Pneumonia, unspecified organism (2) BPH (benign prostatic hypertrophy) Code(s): N40.0 - BENIGN PROSTATIC HYPERPLASIA WITHOUT LOWER URINRY TRACT SYMP Qualifiers: Prostatic enlargement morphology: unspecified morphology Lower urinary tract symptom presence: symptoms present Qualified Code(s): N40.1 - Enlarged prostate with lower urinary tract symptoms (3) CVA (cerebrovascular accident) Code(s): I63.9 - CEREBRAL INFARCTION, UNSPECIFIED (4) Colitis Code(s): K52.9 - NONINFECTIVE GASTROENTERITIS AND COLITIS, UNSPECIFIED (5) Dehydration Code(s): E86.0 - DEHYDRATION (6) Dementia Code(s): F03.90 - UNSPECIFIED DEMENTIA WITHOUT BEHAVIORAL DISTURBANCE (7) Dysphagia Code(s): R13.10 - DYSPHAGIA, UNSPECIFIED (8) Foreign body alimentary tract Code(s): T18.9XXA - FOREIGN BODY OF ALIMENTARY TRACT, PART UNSP, INIT ENCNTR Qualifiers: Encounter type: initial encounter Qualified Code(s): T18.9XXA - Foreign body of alimentary tract, part unspecified, initial encounter (9) History of ulcerative colitis Code(s): Z87.19 - PERSONAL HISTORY OF OTHER DISEASES OF THE DIGESTIVE SYSTEM (10) Hypoxemia Code(s): R09.02 - HYPOXEMIA (11) Lewy body dementia Code(s): G31.83 - DEMENTIA WITH LEWY BODIES F02.80 - DEMENTIA IN OTH DISEASES CLASSD ELSWHR W/O BEHAVRL DISTURB (12) Respiratory failure Code(s): J96.90 - RESPIRATORY FAILURE, UNSP, UNSP W HYPOXIA OR HYPERCAPNIA (13) Sepsis Code(s): A41.9 - SEPSIS, UNSPECIFIED ORGANISM Qualifiers: Sepsis type: sepsis due to unspecified organism Qualified Code(s): A41.9 - Sepsis, unspecified organism Assessment/Plan NC O2 as tolerated NIPPV only as needed ABX per ID BD TX IVF HOB elevation Oral care DNR/DNI 4W/4S monitoring R GEOVANNA EISENBERG
--- NOTE | 2016-03-12 11:43 | PN ---
Progress Note, Physician History of Present Illness: Awake. No acute distress Breathing non-labored Low grade temp 100.4 noted - Current Medication List Current Medications: Active Medications Acetaminophen (Tylenol Oral Solution -) 650 mg PO Q6H PRN PRN Reason: FEVER OR PAIN Albuterol/Ipratropium (Duoneb -) 1 amp NEB QIDR [facility] Last Admin: 03/12/16 07:02 Dose: 1 amp Amino Acids (Prostat Sugar-Free Packet -) 30 ml GT BIDWM [facility] Last Admin: 03/12/16 10:29 Dose: 30 ml Ascorbic Acid (Vitamin C Oral Solution -) 250 mg GT DAILY [facility] Last Admin: 03/12/16 10:35 Dose: 250 mg Azathioprine (Imuran -) 150 mg GT DAILY [facility] Last Admin: 03/12/16 10:36 Dose: 150 mg Bacitracin (Bacitracin -) 1 applic TP DAILY [facility] Last Admin: 03/12/16 10:29 Dose: 1 applic Escitalopram Oxalate (Lexapro Oral Solution -) 10 mg GT DAILY [facility] Last Admin: 03/12/16 10:32 Dose: 10 mg Heparin Sodium (Porcine) (Heparin -) 5,000 unit SQ BID [facility] Last Admin: 03/12/16 10:29 Dose: 5,000 unit Pantoprazole Sodium (Protonix 40mg Ivpb (Pre-Docked)) 100 mls @ 200 mls/hr IVPB HS [facility] Last Admin: 03/11/16 22:25 Dose: 200 mls/hr Piperacillin Sod/Tazobactam Sod (Zosyn 4.5gm Ivpb (Pre-Docked)) 100 mls @ 200 mls/hr IVPB Q8H-IV [facility] Last Admin: 03/12/16 10:27 Dose: 200 mls/hr Lactobacillus Acidophilus (Bacid -) 1 tab GT DAILY [facility] Last Admin: 03/12/16 10:29 Dose: 1 tab Levetiracetam (Keppra Oral Solution -) 250 mg GT BID [facility] Last Admin: 03/12/16 10:28 Dose: 250 mg Methylprednisolone Sodium Succinate (Solu-Medrol -) 40 mg IVPB DAILY [facility] Last Admin: 03/12/16 10:34 Dose: 40 mg Multi-Ingredient Ointment (Zinc Oxide) 1 applic TP DAILY [facility] Last Admin: 01/27/17 10:27 Dose: 1 applic Polyethylene Glycol (Miralax (For Daily Use) -) 17 gm GT DAILY [facility] Last Admin: 03/12/16 10:34 Dose: Not Given Potassium Phos/Sodium Phos (Phos-Nak Packet -) 1 packet PO BID [facility] Last Admin: 03/12/16 10:33 Dose: 1 packet Senna (Senna Oral Solution -) 8.8 mg GT BID [facility] Last Admin: 03/12/16 10:33 Dose: Not Given - Objective Vital Signs: Vital Signs Temperature 97.9 F 03/12/16 06:00 Pulse Rate 87 03/12/16 06:00 Respiratory Rate 20 03/12/16 06:00 Blood Pressure 108/78 03/12/16 06:00 O2 Sat by Pulse Oximetry (%) 98 03/11/16 20:26 Constitutional: Yes: No Distress Eyes: Yes: Conjunctiva Clear Cardiovascular: Yes: Regular Rate and Rhythm, S1, S2 Respiratory: Yes: Rhonchi Gastrointestinal: Yes: Normal Bowel Sounds, Soft. No: Tenderness Edema: No Labs: CBC, BMP 03/12/16 06:50 03/12/16 06:50 INR, PTT INR 1.25 (0.82-1.09) H 03/08/16 20:30 Assessment/Plan Resp insufficiency Possible aspiration pneumonia Fever/ leukocytosis- improved Lewy body dementia Continue empiric zosyn
--- NOTE | 2016-03-12 12:38 | PN ---
Progress Note, Physician History of Present Illness: Pt seen and examined at bedside. No acute changes overnight. He is tolerating feeds. - Current Medication List Current Medications: Active Medications Acetaminophen (Tylenol Oral Solution -) 650 mg PO Q6H PRN PRN Reason: FEVER OR PAIN Albuterol/Ipratropium (Duoneb -) 1 amp NEB QIDR [facility] Last Admin: 03/12/16 07:02 Dose: 1 amp Amino Acids (Prostat Sugar-Free Packet -) 30 ml GT BIDWM [facility] Last Admin: 03/12/16 10:29 Dose: 30 ml Ascorbic Acid (Vitamin C Oral Solution -) 250 mg GT DAILY [facility] Last Admin: 03/12/16 10:35 Dose: 250 mg Azathioprine (Imuran -) 150 mg GT DAILY [facility] Last Admin: 03/12/16 10:36 Dose: 150 mg Bacitracin (Bacitracin -) 1 applic TP DAILY [facility] Last Admin: 03/12/16 10:29 Dose: 1 applic Escitalopram Oxalate (Lexapro Oral Solution -) 10 mg GT DAILY [facility] Last Admin: 03/12/16 10:32 Dose: 10 mg Heparin Sodium (Porcine) (Heparin -) 5,000 unit SQ BID [facility] Last Admin: 03/12/16 10:29 Dose: 5,000 unit Pantoprazole Sodium (Protonix 40mg Ivpb (Pre-Docked)) 100 mls @ 200 mls/hr IVPB HS [facility] Last Admin: 03/11/16 22:25 Dose: 200 mls/hr Piperacillin Sod/Tazobactam Sod (Zosyn 4.5gm Ivpb (Pre-Docked)) 100 mls @ 200 mls/hr IVPB Q8H-IV [facility] Last Admin: 03/12/16 10:27 Dose: 200 mls/hr Lactobacillus Acidophilus (Bacid -) 1 tab GT DAILY [facility] Last Admin: 03/12/16 10:29 Dose: 1 tab Levetiracetam (Keppra Oral Solution -) 250 mg GT BID [facility] Last Admin: 03/12/16 10:28 Dose: 250 mg Methylprednisolone Sodium Succinate (Solu-Medrol -) 40 mg IVPB DAILY [facility] Last Admin: 03/12/16 10:34 Dose: 40 mg Multi-Ingredient Ointment (Zinc Oxide) 1 applic TP DAILY [facility] Last Admin: 01/27/17 10:27 Dose: 1 applic Polyethylene Glycol (Miralax (For Daily Use) -) 17 gm GT DAILY [facility] Last Admin: 03/12/16 10:34 Dose: Not Given Potassium Phos/Sodium Phos (Phos-Nak Packet -) 1 packet PO BID [facility] Last Admin: 03/12/16 10:33 Dose: 1 packet Senna (Senna Oral Solution -) 8.8 mg GT BID [facility] Last Admin: 03/12/16 10:33 Dose: Not Given - Objective Vital Signs: Vital Signs Temperature 98.2 F 03/12/16 10:00 Pulse Rate 77 03/12/16 10:00 Respiratory Rate 20 03/12/16 10:00 Blood Pressure 103/64 03/12/16 10:00 O2 Sat by Pulse Oximetry (%) 98 03/11/16 20:26 Constitutional: Yes: Calm Eyes: Yes: Conjunctiva Clear HENT: Yes: Atraumatic Cardiovascular: Yes: S1, S2 Respiratory: Yes: On Nasal O2, Rhonchi Gastrointestinal: Yes: Soft Genitourinary: Yes: Incontinence Musculoskeletal: Yes: Muscle Weakness Edema: No Neurological: Yes: Pre-Existing Deficit Labs: CBC, BMP 03/12/16 06:50 03/12/16 06:50 INR, PTT INR 1.25 (0.82-1.09) H 03/08/16 20:30 Problem List - Problems (1) Pneumonia Code(s): J18.9 - PNEUMONIA, UNSPECIFIED ORGANISM Qualifiers: Pneumonia type: due to unspecified organism Laterality: unspecified laterality Lung location: unspecified part of lung Qualified Code(s): J18.9 - Pneumonia, unspecified organism (2) BPH (benign prostatic hypertrophy) Code(s): N40.0 - BENIGN PROSTATIC HYPERPLASIA WITHOUT LOWER URINRY TRACT SYMP Qualifiers: Prostatic enlargement morphology: unspecified morphology Lower urinary tract symptom presence: symptoms present Qualified Code(s): N40.1 - Enlarged prostate with lower urinary tract symptoms (3) Hypokalemia Code(s): E87.6 - HYPOKALEMIA (4) Respiratory failure Code(s): J96.90 - RESPIRATORY FAILURE, UNSP, UNSP W HYPOXIA OR HYPERCAPNIA (5) Seizure disorder Code(s): G40.909 - EPILEPSY, UNSP, NOT INTRACTABLE, WITHOUT STATUS EPILEPTICUS (6) Sepsis Code(s): A41.9 - SEPSIS, UNSPECIFIED ORGANISM Qualifiers: Sepsis type: sepsis due to unspecified organism Qualified Code(s): A41.9 - Sepsis, unspecified organism (7) BREANA (acute kidney injury) Code(s): N17.9 - ACUTE KIDNEY FAILURE, UNSPECIFIED Assessment/Plan Current Medications Generic Name Dose Route Start Last Admin Trade Name Freq PRN Reason Stop Dose Admin Acetaminophen 650 mg 03/11/16 13:29 Tylenol Oral Solution - PO Q6H PRN FEVER OR PAIN Albuterol/Ipratropium 1 amp 03/11/16 00:00 03/12/16 07:02 Duoneb - NEB 1 amp QIDR [facility] Administration Amino Acids 30 ml 03/11/16 08:00 03/12/16 10:29 Prostat Sugar-Free Packet - GT 30 ml BIDWM [facility] Administration Ascorbic Acid 250 mg 03/11/16 10:00 03/12/16 10:35 Vitamin C Oral Solution - GT 250 mg DAILY [facility] Administration Azathioprine 150 mg 03/11/16 10:00 03/12/16 10:36 Imuran - GT 150 mg DAILY [facility] Administration Bacitracin 1 applic 03/11/16 10:00 03/12/16 10:29 Bacitracin - TP 1 applic DAILY [facility] Administration Escitalopram Oxalate 10 mg 03/11/16 10:00 03/12/16 10:32 Lexapro Oral Solution - GT 10 mg DAILY [facility] Administration Heparin Sodium (Porcine) 5,000 unit 03/10/16 22:00 03/12/16 10:29 Heparin - SQ 5,000 unit BID [facility] Administration Pantoprazole Sodium 100 mls @ 200 mls/hr 03/10/16 22:00 03/11/16 22:25 Protonix 40mg Ivpb (Pre-Docked) IVPB 200 mls/hr HS [facility] Administration Piperacillin Sod/Tazobactam Sod 100 mls @ 200 mls/hr 03/11/16 02:00 03/12/16 10 :27 Zosyn 4.5gm Ivpb (Pre-Docked) IVPB 200 mls/hr Q8H-IV [facility] Administration Lactobacillus Acidophilus 1 tab 03/11/16 10:00 03/12/16 10:29 Bacid - GT 1 tab DAILY [facility] Administration Levetiracetam 250 mg 03/10/16 22:00 03/12/16 10:28 Keppra Oral Solution - GT 250 mg BID [facility] Administration Methylprednisolone Sodium Succinate 40 mg 03/11/16 10:00 03/12/16 10:34 Solu-Medrol - IVPB 40 mg DAILY [facility] Administration Multi-Ingredient Ointment 1 applic 03/11/16 10:00 03/12/16 10:27 Zinc Oxide TP 1 applic DAILY [facility] Administration Polyethylene Glycol 17 gm 03/11/16 10:00 03/12/16 10:34 Miralax (For Daily Use) - GT Not Given DAILY [facility] Potassium Phos/Sodium Phos 1 packet 03/11/16 13:30 03/12/16 10:33 Phos-Nak Packet - PO 1 packet BID [facility] Administration Senna 8.8 mg 03/10/16 22:00 03/12/16 10:33 Senna Oral Solution - GT Not Given BID [facility] Laboratory Tests 03/12/16 06:50 Magnesium 2.4 Impression 1. BREANA - pt has a baseline creatinine of about 0.7 2. respiratory failure requiring BiPap 3. parkinsons 4. ulcerative colitis 5. dementia 6. aspiration PNA 7. sepsis 8. hypernatremia 9. hypokalemia Plan - sodium is improving - cont with feeds and free water - renal function is stabilizing - cont with antibiotics - monitor pulse ox and bipap as needed - follow cultures - abx per ID - baseline creatinine is about 0.7 Dr Cardoso
[2016-03-12] MEDS: PANTOPRAZOLE SODIUM 100 ML IVPB SCH (22:27)
[2016-03-13] MEDS: PIPERACILLIN/TAZOB 4.5 GM 100 ML IVPB SCH ×3 (02:01→17:31)
[2016-03-13] MEDS: ALBUTEROL SO4 2.5/IPRATROPIUM 0.5 INH SOL 3 ML VIAL.NEB. NEB SCH ×4 (07:08→23:17)
[2016-03-13 07:24] LABS: BASOPHIL 0.6 % (0-2.0); EOSINOPHIL 2.6 % (0-4.5); MCH 30.1 pg (25.7-33.7); MCHC 32.5 g/dl (32.0-35.9); MEAN CELL VOLUME 92.9 fl (80-96); MEAN PLT VOLUME 10.6 fl (7.5-11.1); NEUTROPHILS 66.6 % (42.8-82.8); PLATELET COUNT 273 K/MM3 (134-434); RDW 15.2 % (11.9-15.9); WHITE BLOOD COUNT 9.5 K/mm3 (4.0-10.0)
--- NOTE | 2016-03-13 08:29 | PN ---
Progress Note, Physician - Current Medication List Current Medications: Active Medications Acetaminophen (Tylenol Oral Solution -) 650 mg PO Q6H PRN PRN Reason: FEVER OR PAIN Albuterol/Ipratropium (Duoneb -) 1 amp NEB QIDR [facility] Last Admin: 03/13/16 07:08 Dose: 1 amp Amino Acids (Prostat Sugar-Free Packet -) 30 ml GT BIDWM [facility] Last Admin: 03/12/16 17:37 Dose: 30 ml Ascorbic Acid (Vitamin C Oral Solution -) 250 mg GT DAILY [facility] Last Admin: 03/12/16 10:35 Dose: 250 mg Azathioprine (Imuran -) 150 mg GT DAILY [facility] Last Admin: 03/12/16 10:36 Dose: 150 mg Bacitracin (Bacitracin -) 1 applic TP DAILY [facility] Last Admin: 03/12/16 10:29 Dose: 1 applic Escitalopram Oxalate (Lexapro Oral Solution -) 10 mg GT DAILY [facility] Last Admin: 03/12/16 10:32 Dose: 10 mg Heparin Sodium (Porcine) (Heparin -) 5,000 unit SQ BID [facility] Last Admin: 03/12/16 22:27 Dose: 5,000 unit Pantoprazole Sodium (Protonix 40mg Ivpb (Pre-Docked)) 100 mls @ 200 mls/hr IVPB HS [facility] Last Admin: 03/12/16 22:27 Dose: 200 mls/hr Piperacillin Sod/Tazobactam Sod (Zosyn 4.5gm Ivpb (Pre-Docked)) 100 mls @ 200 mls/hr IVPB Q8H-IV [facility] Last Admin: 03/13/16 02:01 Dose: 200 mls/hr Lactobacillus Acidophilus (Bacid -) 1 tab GT DAILY [facility] Last Admin: 03/12/16 10:29 Dose: 1 tab Levetiracetam (Keppra Oral Solution -) 250 mg GT BID [facility] Last Admin: 03/12/16 22:27 Dose: 250 mg Methylprednisolone Sodium Succinate (Solu-Medrol -) 40 mg IVPB DAILY [facility] Last Admin: 03/12/16 10:34 Dose: 40 mg Multi-Ingredient Ointment (Zinc Oxide) 1 applic TP DAILY [facility] Last Admin: 03/12/16 10:27 Dose: 1 applic Polyethylene Glycol (Miralax (For Daily Use) -) 17 gm GT DAILY [facility] Last Admin: 03/12/16 10:34 Dose: Not Given Potassium Phos/Sodium Phos (Phos-Nak Packet -) 1 packet PO BID [facility] Last Admin: 03/12/16 22:28 Dose: 1 packet Senna (Senna Oral Solution -) 8.8 mg GT BID [facility] Last Admin: 03/12/16 22:28 Dose: Not Given - Objective Vital Signs: Vital Signs Temperature 98.5 F 03/13/16 06:00 Pulse Rate 65 03/13/16 06:00 Respiratory Rate 18 03/13/16 06:00 Blood Pressure 102/64 03/13/16 06:00 O2 Sat by Pulse Oximetry (%) 99 03/12/16 10:00 Cardiovascular: Yes: S1, S2 Respiratory: Yes: CTA Bilaterally, Diminished Gastrointestinal: Yes: Normal Bowel Sounds, Soft, Other (PEG IN PLACE) Labs: CBC, BMP 03/13/16 06:00 INR, PTT INR 1.25 (0.82-1.09) H 03/08/16 20:30 Problem List - Problems (1) Pneumonia Assessment/Plan: IV ABX OXYGEN NEBS Code(s): J18.9 - PNEUMONIA, UNSPECIFIED ORGANISM Qualifiers: Pneumonia type: due to unspecified organism Laterality: unspecified laterality Lung location: unspecified part of lung Qualified Code(s): J18.9 - Pneumonia, unspecified organism (2) Lewy body dementia Assessment/Plan: MONITOR ON MEDS Code(s): G31.83 - DEMENTIA WITH LEWY BODIES F02.80 - DEMENTIA IN OTH DISEASES CLASSD ELSWHR W/O BEHAVRL DISTURB (3) Parkinson disease Code(s): G20 - PARKINSON'S DISEASE (4) Seizure disorder Assessment/Plan: - Orders Levetiracetam [Keppra Oral Solution -] 250 mg GT BID Code(s): G40.909 - EPILEPSY, UNSP, NOT INTRACTABLE, WITHOUT STATUS EPILEPTICUS (5) Sepsis Assessment/Plan: IV ABX MONITOR LABS Code(s): A41.9 - SEPSIS, UNSPECIFIED ORGANISM Qualifiers: Sepsis type: sepsis due to unspecified organism Qualified Code(s): A41.9 - Sepsis, unspecified organism
[2016-03-13 08:49] LABS: ALBUMIN 2.1 g/dl (3.4-5.0); ALK PHOS 53 U/L (45-117); ANION GAP 13 (8-16); BILIRUBIN,TOTAL 0.5 mg/dL (0.2-1.0); CALCIUM 8.3 mg/dL (8.5-10.1); CO2 30 mmol/L (21-32); CREATININE 0.9 mg/dL (0.7-1.3); GLUCOSE,RANDOM 141 mg/dL (74-106); SGOT/AST 29 U/L (15-37); SGPT/ALT 35 U/L (12-78); TOT PROT 5.5 g/dl (6.4-8.2)
[2016-03-13] MEDS: AMINO ACIDS/PROTEIN HYDROLYS SUGAR-FREE 30 ML PACKET GT SCH ×2 (10:24→17:29)
[2016-03-13] MEDS: HEPARIN NA (PORCINE) 5,000 UNITS/ML 1ML VIAL SQ SCH ×2 (10:25→22:26)
[2016-03-13] MEDS: BACITRACIN 30 GM TUBE TOPICAL OINTMENT TP SCH (10:25)
[2016-03-13] MEDS: levETIRAcetam 500 MG/5 ML ORAL SOLUTION (UNIT-DOSE CUPS) GT SCH ×2 (10:26→22:26)
[2016-03-13] MEDS: LACTOBACILLUS ACIDOPHILUS 1 EACH TAB (FP) GT SCH (10:26)
[2016-03-13] MEDS: ESCITALOPRAM OXALATE 5 MG/5 ML GT SCH (10:28)
[2016-03-13] MEDS: azaTHIOprine 50 MG TABLET GT SCH (10:28)
[2016-03-13] MEDS: POLYETHYLENE GLYCOL 3350 119 GM BTL GT SCH (10:28)
[2016-03-13] MEDS: ASCORBIC ACID 500 MG/5 ML UNIT DOSE CUP GT SCH (10:29)
[2016-03-13] MEDS: NAPH,MB-DB/K PH,MBDB POWDER PACKET PO SCH ×2 (10:29→22:26)
[2016-03-13] MEDS: SENNOSIDES 8.8 MG/5 ML BULK BOTTLE GT SCH ×2 (10:29→22:28)
--- NOTE | 2016-03-13 10:43 | PN ---
Progress Note (short form) - Note Progress Note: afebrile loose stool today sent for cdiff awake NAD Vital Signs Period Temp Pulse Resp BP Sys/Martinez Pulse Ox Last 24 Hr 98.2 F-98.5 F 56-65 16-18 95-111/60-73 cor-rrr lungs clear abd soft,nt +GT ext no edema CBC, BMP 03/13/16 06:00 03/13/16 06:00 Microbiology 03/09/16 11:30 Sputum - Expectorated Gram Stain - Final 03/09/16 11:30 Sputum - Expectorated Sputum Culture - Final 03/08/16 11:30 Blood - Peripheral Venous Blood Culture - Preliminary NO GROWTH OBTAINED AFTER 96 HOURS, INCUBATION TO CONTINUE FOR 1 DAYS. 03/08/16 11:30 Blood - Peripheral Venous Blood Culture - Preliminary NO GROWTH OBTAINED AFTER 96 HOURS, INCUBATION TO CONTINUE FOR 1 DAYS. 03/08/16 15:00 Urine - Urine Clean Catch Urine Culture - Final NO GROWTH OBTAINED 03/08/16 12:00 Nasopharyngeal Swab Respiratory Virus Panel - Preliminary 03/08/16 12:00 Nasopharyngeal Swab Influenza Types A,B Antigen (JONA) - Final 03/08/16 12:00 Nasopharyngeal Swab - Final cxray left base atelectasis a/p resolving aspiration pnemonia- day #5 antibiotics continue zosyn stool cdiff pending lewy body dementia
[2016-03-13] MEDS: methylPREDNISolone NA SUCC 40 MG/1 ML VIAL IVPB SCH (11:02)
[2016-03-13] MEDS: ZINC OXIDE 20% TOPICAL OINTMENT 30 GM TUBE TP SCH (11:02)
--- NOTE | 2016-03-13 12:51 | PN ---
Progress Note, Physician Chief Complaint: Renal F/U Pt in no distress PEG feeds in progress - Current Medication List Current Medications: Active Medications Acetaminophen (Tylenol Oral Solution -) 650 mg PO Q6H PRN PRN Reason: FEVER OR PAIN Albuterol/Ipratropium (Duoneb -) 1 amp NEB QIDR [facility] Last Admin: 03/13/16 12:33 Dose: 1 amp Amino Acids (Prostat Sugar-Free Packet -) 30 ml GT BIDWM [facility] Last Admin: 03/13/16 10:24 Dose: 30 ml Ascorbic Acid (Vitamin C Oral Solution -) 250 mg GT DAILY [facility] Last Admin: 03/13/16 10:29 Dose: 250 mg Azathioprine (Imuran -) 150 mg GT DAILY [facility] Last Admin: 03/13/16 10:28 Dose: 150 mg Bacitracin (Bacitracin -) 1 applic TP DAILY [facility] Last Admin: 03/13/16 10:25 Dose: 1 applic Escitalopram Oxalate (Lexapro Oral Solution -) 10 mg GT DAILY [facility] Last Admin: 03/13/16 10:28 Dose: 10 mg Heparin Sodium (Porcine) (Heparin -) 5,000 unit SQ BID [facility] Last Admin: 03/13/16 10:25 Dose: 5,000 unit Pantoprazole Sodium (Protonix 40mg Ivpb (Pre-Docked)) 100 mls @ 200 mls/hr IVPB HS [facility] Last Admin: 03/12/16 22:27 Dose: 200 mls/hr Piperacillin Sod/Tazobactam Sod (Zosyn 4.5gm Ivpb (Pre-Docked)) 100 mls @ 200 mls/hr IVPB Q8H-IV [facility] Last Admin: 03/13/16 10:29 Dose: 200 mls/hr Lactobacillus Acidophilus (Bacid -) 1 tab GT DAILY [facility] Last Admin: 03/13/16 10:26 Dose: 1 tab Levetiracetam (Keppra Oral Solution -) 250 mg GT BID [facility] Last Admin: 03/13/16 10:26 Dose: 250 mg Methylprednisolone Sodium Succinate (Solu-Medrol -) 40 mg IVPB DAILY [facility] Last Admin: 03/13/16 11:02 Dose: 40 mg Multi-Ingredient Ointment (Zinc Oxide) 1 applic TP DAILY [facility] Last Admin: 03/13/16 11:02 Dose: 1 applic Polyethylene Glycol (Miralax (For Daily Use) -) 17 gm GT DAILY [facility] Last Admin: 03/13/16 10:28 Dose: Not Given Potassium Phos/Sodium Phos (Phos-Nak Packet -) 1 packet PO BID [facility] Last Admin: 03/13/16 10:29 Dose: 1 packet Senna (Senna Oral Solution -) 8.8 mg GT BID [facility] Last Admin: 03/13/16 10:29 Dose: Not Given - Objective Vital Signs: Vital Signs Temperature 98.2 F 03/13/16 10:00 Pulse Rate 75 03/13/16 10:00 Respiratory Rate 20 03/13/16 10:00 Blood Pressure 107/68 03/13/16 10:00 O2 Sat by Pulse Oximetry (%) 99 03/12/16 10:00 Constitutional: Yes: No Distress Cardiovascular: Yes: S1, S2 Respiratory: Yes: CTA Bilaterally Gastrointestinal: Yes: Soft Edema: No Neurological: Yes: Pre-Existing Deficit Labs: CBC, BMP 03/13/16 06:00 03/13/16 06:00 INR, PTT INR 1.25 (0.82-1.09) H 03/08/16 20:30 Assessment/Plan Impression BREANA and hypernatremia improving Respiratory failure requiring BiPap Lewy Body dementia Aspiration PNA Sepsis Plan Continue with present feeds and free water Abx as per ID Rpt labs in am Dr Segura
[2016-03-13] MEDS ORDERED: levETIRAcetam 500 MG/5 ML INJECTION VIAL IVPB ONE (22:13)
[2016-03-13] MEDS ORDERED: PT OWN MED DRAWER 7, Y5N ONE (22:16)
[2016-03-13] MEDS: PANTOPRAZOLE SODIUM 100 ML IVPB SCH (22:23)
[2016-03-14] MEDS: PIPERACILLIN/TAZOB 4.5 GM 100 ML IVPB SCH ×3 (02:09→17:51)
[2016-03-14] MEDS: ALBUTEROL SO4 2.5/IPRATROPIUM 0.5 INH SOL 3 ML VIAL.NEB. NEB SCH ×4 (06:00→23:15)
[2016-03-14 07:06] LABS: MCH 30.3 pg (25.7-33.7); MEAN CELL VOLUME 91.8 fl (80-96); MEAN PLT VOLUME 10.7 fl (7.5-11.1); PLATELET COUNT 306 K/MM3 (134-434); RDW 15.1 % (11.9-15.9); WHITE BLOOD COUNT 10.8 K/mm3 (4.0-10.0)
[2016-03-14 07:41] LABS: ALBUMIN 2.4 g/dl (3.4-5.0); ANION GAP 12 (8-16); CALCIUM 8.4 mg/dL (8.5-10.1); CO2 30 mmol/L (21-32); GLUCOSE,RANDOM 160 mg/dL (74-106)
[2016-03-14 07:45] LABS: ALK PHOS 62 U/L (45-117); BILIRUBIN,TOTAL 0.6 mg/dL (0.2-1.0); CREATININE 0.9 mg/dL (0.7-1.3); PHOSPHOROUS 2.6 mg/dL (2.5-4.9); SGOT/AST 42 U/L (15-37); SGPT/ALT 48 U/L (12-78); TOT PROT 6.4 g/dl (6.4-8.2)
--- NOTE | 2016-03-14 09:13 | PN ---
Progress Note, Physician - Current Medication List Current Medications: Active Medications Acetaminophen (Tylenol Oral Solution -) 650 mg PO Q6H PRN PRN Reason: FEVER OR PAIN Albuterol/Ipratropium (Duoneb -) 1 amp NEB QIDR [facility] Last Admin: 03/14/16 06:00 Dose: Not Given Amino Acids (Prostat Sugar-Free Packet -) 30 ml GT BIDWM [facility] Last Admin: 03/13/16 17:29 Dose: 30 ml Ascorbic Acid (Vitamin C Oral Solution -) 250 mg GT DAILY [facility] Last Admin: 03/13/16 10:29 Dose: 250 mg Azathioprine (Imuran -) 150 mg GT DAILY [facility] Last Admin: 03/13/16 10:28 Dose: 150 mg Bacitracin (Bacitracin -) 1 applic TP DAILY [facility] Last Admin: 03/13/16 10:25 Dose: 1 applic Escitalopram Oxalate (Lexapro Oral Solution -) 10 mg GT DAILY [facility] Last Admin: 03/13/16 10:28 Dose: 10 mg Heparin Sodium (Porcine) (Heparin -) 5,000 unit SQ BID [facility] Last Admin: 03/13/16 22:26 Dose: 5,000 unit Pantoprazole Sodium (Protonix 40mg Ivpb (Pre-Docked)) 100 mls @ 200 mls/hr IVPB HS [facility] Last Admin: 03/13/16 22:23 Dose: 200 mls/hr Piperacillin Sod/Tazobactam Sod (Zosyn 4.5gm Ivpb (Pre-Docked)) 100 mls @ 200 mls/hr IVPB Q8H-IV [facility] Last Admin: 03/14/16 02:09 Dose: 200 mls/hr Lactobacillus Acidophilus (Bacid -) 1 tab GT DAILY [facility] Last Admin: 03/13/16 10:26 Dose: 1 tab Levetiracetam (Keppra Oral Solution -) 250 mg GT BID [facility] Last Admin: 03/13/16 22:26 Dose: 250 mg Methylprednisolone Sodium Succinate (Solu-Medrol -) 40 mg IVPB DAILY [facility] Last Admin: 03/13/16 11:02 Dose: 40 mg Multi-Ingredient Ointment (Zinc Oxide) 1 applic TP DAILY [facility] Last Admin: 03/13/16 11:02 Dose: 1 applic Polyethylene Glycol (Miralax (For Daily Use) -) 17 gm GT DAILY [facility] Last Admin: 03/13/16 10:28 Dose: Not Given Potassium Phos/Sodium Phos (Phos-Nak Packet -) 1 packet PO BID [facility] Last Admin: 03/13/16 22:26 Dose: 1 packet Senna (Senna Oral Solution -) 8.8 mg GT BID [facility] Last Admin: 03/13/16 22:28 Dose: Not Given - Objective Vital Signs: Vital Signs Temperature 98.9 F 03/14/16 06:00 Pulse Rate 85 03/14/16 06:00 Respiratory Rate 20 03/14/16 06:00 Blood Pressure 109/73 03/14/16 06:00 O2 Sat by Pulse Oximetry (%) 97 03/13/16 21:00 Labs: CBC, BMP 03/14/16 06:00 03/14/16 06:00 INR, PTT INR 1.25 (0.82-1.09) H 03/08/16 20:30 Problem List - Problems (1) Pneumonia Code(s): J18.9 - PNEUMONIA, UNSPECIFIED ORGANISM Qualifiers: Pneumonia type: due to unspecified organism Laterality: unspecified laterality Lung location: unspecified part of lung Qualified Code(s): J18.9 - Pneumonia, unspecified organism (2) Lewy body dementia Code(s): G31.83 - DEMENTIA WITH LEWY BODIES F02.80 - DEMENTIA IN OTH DISEASES CLASSD ELSWHR W/O BEHAVRL DISTURB (3) Parkinson disease Code(s): G20 - PARKINSON'S DISEASE (4) Seizure disorder Code(s): G40.909 - EPILEPSY, UNSP, NOT INTRACTABLE, WITHOUT STATUS EPILEPTICUS (5) Sepsis Code(s): A41.9 - SEPSIS, UNSPECIFIED ORGANISM Qualifiers: Sepsis type: sepsis due to unspecified organism Qualified Code(s): A41.9 - Sepsis, unspecified organism
[2016-03-14] MEDS: AMINO ACIDS/PROTEIN HYDROLYS SUGAR-FREE 30 ML PACKET GT SCH ×2 (10:29→17:51)
[2016-03-14] MEDS: HEPARIN NA (PORCINE) 5,000 UNITS/ML 1ML VIAL SQ SCH ×2 (10:30→22:49)
[2016-03-14] MEDS: LACTOBACILLUS ACIDOPHILUS 1 EACH TAB (FP) GT SCH (10:30)
[2016-03-14] MEDS: BACITRACIN 30 GM TUBE TOPICAL OINTMENT TP SCH (10:30)
[2016-03-14] MEDS: azaTHIOprine 50 MG TABLET GT SCH (10:31)
[2016-03-14] MEDS: levETIRAcetam 500 MG/5 ML ORAL SOLUTION (UNIT-DOSE CUPS) GT SCH ×2 (10:31→22:49)
[2016-03-14] MEDS: POLYETHYLENE GLYCOL 3350 119 GM BTL GT SCH (10:32)
[2016-03-14] MEDS: ESCITALOPRAM OXALATE 5 MG/5 ML GT SCH (10:32)
[2016-03-14] MEDS: ZINC OXIDE 20% TOPICAL OINTMENT 30 GM TUBE TP SCH (10:33)
[2016-03-14] MEDS: NAPH,MB-DB/K PH,MBDB POWDER PACKET PO SCH ×2 (10:33→22:50)
[2016-03-14] MEDS: SENNOSIDES 8.8 MG/5 ML BULK BOTTLE GT SCH ×2 (10:33→22:50)
[2016-03-14] MEDS: methylPREDNISolone NA SUCC 40 MG/1 ML VIAL IVPB SCH (10:33)
[2016-03-14] MEDS: ASCORBIC ACID 500 MG/5 ML UNIT DOSE CUP GT SCH (10:34)
--- NOTE | 2016-03-14 10:48 | PN ---
Progress Note, Physician Chief Complaint: Renal F/U Pt remains in no distress Serum Na is lower and pt also hypokalemic - Current Medication List Current Medications: Active Medications Acetaminophen (Tylenol Oral Solution -) 650 mg PO Q6H PRN PRN Reason: FEVER OR PAIN Albuterol/Ipratropium (Duoneb -) 1 amp NEB [facility] Last Admin: 03/14/16 06:00 Dose: Not Given Amino Acids (Prostat Sugar-Free Packet -) 30 ml GT BIDWM [facility] Last Admin: 03/14/16 10:29 Dose: 30 ml Ascorbic Acid (Vitamin C Oral Solution -) 250 mg GT DAILY [facility] Last Admin: 03/14/16 10:34 Dose: 250 mg Azathioprine (Imuran -) 150 mg GT DAILY [facility] Last Admin: 03/14/16 10:31 Dose: 150 mg Bacitracin (Bacitracin -) 1 applic TP DAILY [facility] Last Admin: 03/14/16 10:30 Dose: 1 applic Escitalopram Oxalate (Lexapro Oral Solution -) 10 mg GT DAILY [facility] Last Admin: 03/14/16 10:32 Dose: 10 mg Heparin Sodium (Porcine) (Heparin -) 5,000 unit SQ BID [facility] Last Admin: 03/14/16 10:30 Dose: 5,000 unit Pantoprazole Sodium (Protonix 40mg Ivpb (Pre-Docked)) 100 mls @ 200 mls/hr IVPB HS [facility] Last Admin: 03/13/16 22:23 Dose: 200 mls/hr Piperacillin Sod/Tazobactam Sod (Zosyn 4.5gm Ivpb (Pre-Docked)) 100 mls @ 200 mls/hr IVPB Q8H-IV [facility] Last Admin: 03/14/16 10:33 Dose: 200 mls/hr Lactobacillus Acidophilus (Bacid -) 1 tab GT DAILY [facility] Last Admin: 03/14/16 10:30 Dose: 1 tab Levetiracetam (Keppra Oral Solution -) 250 mg GT BID [facility] Last Admin: 03/14/16 10:31 Dose: 250 mg Methylprednisolone Sodium Succinate (Solu-Medrol -) 40 mg IVPB DAILY [facility] Last Admin: 03/14/16 10:33 Dose: 40 mg Multi-Ingredient Ointment (Zinc Oxide) 1 applic TP DAILY [facility] Last Admin: 01/29/17 10:33 Dose: 1 applic Polyethylene Glycol (Miralax (For Daily Use) -) 17 gm GT DAILY [facility] Last Admin: 03/14/16 10:32 Dose: Not Given Potassium Phos/Sodium Phos (Phos-Nak Packet -) 1 packet PO BID [facility] Last Admin: 03/14/16 10:33 Dose: 1 packet Senna (Senna Oral Solution -) 8.8 mg GT BID [facility] Last Admin: 03/14/16 10:33 Dose: Not Given - Objective Vital Signs: Vital Signs Temperature 98.9 F 03/14/16 06:00 Pulse Rate 85 03/14/16 06:00 Respiratory Rate 20 03/14/16 06:00 Blood Pressure 109/73 03/14/16 06:00 O2 Sat by Pulse Oximetry (%) 97 03/13/16 21:00 Constitutional: Yes: No Distress Cardiovascular: Yes: S1, S2 Respiratory: Yes: CTA Bilaterally Gastrointestinal: Yes: Normal Bowel Sounds, Soft Edema: LLE: Trace, RLE: Trace Labs: CBC, BMP 03/14/16 06:00 03/14/16 06:00 INR, PTT INR 1.25 (0.82-1.09) H 03/08/16 20:30 Assessment/Plan Impression BREANA and hypernatremia improving Hypokalemia Respiratory failure requiring BiPap Lewy Body dementia Aspiration PNA Sepsis Plan Decrease the Free water via PEG Replace K Abx as per ID Rpt labs in am Dr Segura
[2016-03-14] MEDS ORDERED: POTASSIUM CHLORIDE 40 MEQ/30 ML UNIT DOSE CUP GT ONE (10:50)
--- NOTE | 2016-03-14 11:27 | PN ---
Progress Note (short form) - Note Progress Note: PULMONARY VSS/AFEBRILE ANICTERIC SCATTERED CRACKLES S1S2 BS+ NO EDEMA CXR/LABS/MEDS/NOTES/MICRO REVIEWED LACTIC ACID TRENDING UP (1) Pneumonia Code(s): J18.9 - PNEUMONIA, UNSPECIFIED ORGANISM Qualifiers: Pneumonia type: due to unspecified organism Laterality: unspecified laterality Lung location: unspecified part of lung Qualified Code(s): J18.9 - Pneumonia, unspecified organism (2) BPH (benign prostatic hypertrophy) Code(s): N40.0 - BENIGN PROSTATIC HYPERPLASIA WITHOUT LOWER URINRY TRACT SYMP Qualifiers: Prostatic enlargement morphology: unspecified morphology Lower urinary tract symptom presence: symptoms present Qualified Code(s): N40.1 - Enlarged prostate with lower urinary tract symptoms (3) CVA (cerebrovascular accident) Code(s): I63.9 - CEREBRAL INFARCTION, UNSPECIFIED (4) Colitis Code(s): K52.9 - NONINFECTIVE GASTROENTERITIS AND COLITIS, UNSPECIFIED (5) Dehydration Code(s): E86.0 - DEHYDRATION (6) Dementia Code(s): F03.90 - UNSPECIFIED DEMENTIA WITHOUT BEHAVIORAL DISTURBANCE (7) Dysphagia Code(s): R13.10 - DYSPHAGIA, UNSPECIFIED (8) Foreign body alimentary tract Code(s): T18.9XXA - FOREIGN BODY OF ALIMENTARY TRACT, PART UNSP, INIT ENCNTR Qualifiers: Encounter type: initial encounter Qualified Code(s): T18.9XXA - Foreign body of alimentary tract, part unspecified, initial encounter (9) History of ulcerative colitis Code(s): Z87.19 - PERSONAL HISTORY OF OTHER DISEASES OF THE DIGESTIVE SYSTEM (10) Hypoxemia Code(s): R09.02 - HYPOXEMIA (11) Lewy body dementia Code(s): G31.83 - DEMENTIA WITH LEWY BODIES F02.80 - DEMENTIA IN OTH DISEASES CLASSD ELSWHR W/O BEHAVRL DISTURB (12) Respiratory failure Code(s): J96.90 - RESPIRATORY FAILURE, UNSP, UNSP W HYPOXIA OR HYPERCAPNIA (13) Sepsis Code(s): A41.9 - SEPSIS, UNSPECIFIED ORGANISM Qualifiers: Sepsis type: sepsis due to unspecified organism Qualified Code(s): A41.9 - Sepsis, unspecified organism NC O2 as tolerated NIPPV only as needed ABX per ID BD TX IVF HOB elevation Oral care DNR/DNI 4W/4S monitoring trend lactic acid/ID follow up Adam AUSTIN MD
--- NOTE | 2016-03-14 11:39 | PN ---
Progress Note, Physician History of Present Illness: IN BED NAD AFEBRILE - Current Medication List Current Medications: Active Medications Acetaminophen (Tylenol Oral Solution -) 650 mg PO Q6H PRN PRN Reason: FEVER OR PAIN Albuterol/Ipratropium (Duoneb -) 1 amp NEB QIDR [facility] Last Admin: 03/14/16 06:00 Dose: Not Given Amino Acids (Prostat Sugar-Free Packet -) 30 ml GT BIDWM [facility] Last Admin: 03/14/16 10:29 Dose: 30 ml Ascorbic Acid (Vitamin C Oral Solution -) 250 mg GT DAILY [facility] Last Admin: 03/14/16 10:34 Dose: 250 mg Azathioprine (Imuran -) 150 mg GT DAILY [facility] Last Admin: 03/14/16 10:31 Dose: 150 mg Bacitracin (Bacitracin -) 1 applic TP DAILY [facility] Last Admin: 03/14/16 10:30 Dose: 1 applic Escitalopram Oxalate (Lexapro Oral Solution -) 10 mg GT DAILY [facility] Last Admin: 03/14/16 10:32 Dose: 10 mg Heparin Sodium (Porcine) (Heparin -) 5,000 unit SQ BID [facility] Last Admin: 03/14/16 10:30 Dose: 5,000 unit Pantoprazole Sodium (Protonix 40mg Ivpb (Pre-Docked)) 100 mls @ 200 mls/hr IVPB HS [facility] Last Admin: 03/13/16 22:23 Dose: 200 mls/hr Piperacillin Sod/Tazobactam Sod (Zosyn 4.5gm Ivpb (Pre-Docked)) 100 mls @ 200 mls/hr IVPB Q8H-IV [facility] Last Admin: 03/14/16 10:33 Dose: 200 mls/hr Lactobacillus Acidophilus (Bacid -) 1 tab GT DAILY [facility] Last Admin: 03/14/16 10:30 Dose: 1 tab Levetiracetam (Keppra Oral Solution -) 250 mg GT BID [facility] Last Admin: 03/14/16 10:31 Dose: 250 mg Methylprednisolone Sodium Succinate (Solu-Medrol -) 40 mg IVPB DAILY [facility] Last Admin: 03/14/16 10:33 Dose: 40 mg Multi-Ingredient Ointment (Zinc Oxide) 1 applic TP DAILY [facility] Last Admin: 03/14/16 10:33 Dose: 1 applic Polyethylene Glycol (Miralax (For Daily Use) -) 17 gm GT DAILY [facility] Last Admin: 03/14/16 10:32 Dose: Not Given Potassium Phos/Sodium Phos (Phos-Nak Packet -) 1 packet PO BID [facility] Last Admin: 03/14/16 10:33 Dose: 1 packet Senna (Senna Oral Solution -) 8.8 mg GT BID [facility] Last Admin: 03/14/16 10:33 Dose: Not Given - Objective Vital Signs: Vital Signs Temperature 98.1 F 03/14/16 10:00 Pulse Rate 73 03/14/16 10:00 Respiratory Rate 20 03/14/16 10:00 Blood Pressure 114/74 03/14/16 10:00 O2 Sat by Pulse Oximetry (%) 97 03/13/16 21:00 Cardiovascular: Yes: Regular Rate and Rhythm Respiratory: Yes: Regular, CTA Bilaterally Gastrointestinal: Yes: Normal Bowel Sounds, Soft, Distention (MILD), Other (PEG IN PLAVE) Labs: CBC, BMP 03/14/16 06:00 03/14/16 06:00 INR, PTT INR 1.25 (0.82-1.09) H 03/08/16 20:30 Problem List - Problems (1) Pneumonia Assessment/Plan: LACTIC ACID RISING--AFEBRILE--D/W ID--MONITOR IV ABX OXYGEN NEBS Code(s): J18.9 - PNEUMONIA, UNSPECIFIED ORGANISM Qualifiers: Pneumonia type: due to unspecified organism Laterality: unspecified laterality Lung location: unspecified part of lung Qualified Code(s): J18.9 - Pneumonia, unspecified organism (2) Lewy body dementia Assessment/Plan: MONITOR ON MEDS Code(s): G31.83 - DEMENTIA WITH LEWY BODIES F02.80 - DEMENTIA IN OTH DISEASES CLASSD ELSWHR W/O BEHAVRL DISTURB (3) Parkinson disease Code(s): G20 - PARKINSON'S DISEASE (4) Seizure disorder Code(s): G40.909 - EPILEPSY, UNSP, NOT INTRACTABLE, WITHOUT STATUS EPILEPTICUS (5) Sepsis Assessment/Plan: LACTIC ACID RISING IV ABX MONITOR LABS Code(s): A41.9 - SEPSIS, UNSPECIFIED ORGANISM Qualifiers: Sepsis type: sepsis due to unspecified organism Qualified Code(s): A41.9 - Sepsis, unspecified organism
[2016-03-14] MEDS ORDERED: POTASSIUM CHLORIDE 40 MEQ/30 ML UNIT DOSE CUP ONE (13:23)
--- NOTE | 2016-03-14 22:33 | PN ---
Progress Note, Physician - Current Medication List Current Medications: Active Medications Acetaminophen (Tylenol Oral Solution -) 650 mg PO Q6H PRN PRN Reason: FEVER OR PAIN Albuterol/Ipratropium (Duoneb -) 1 amp NEB QIDR [facility] Last Admin: 03/14/16 17:54 Dose: 1 amp Amino Acids (Prostat Sugar-Free Packet -) 30 ml GT BIDWM [facility] Last Admin: 03/14/16 17:51 Dose: 30 ml Ascorbic Acid (Vitamin C Oral Solution -) 250 mg GT DAILY [facility] Last Admin: 03/14/16 10:34 Dose: 250 mg Azathioprine (Imuran -) 150 mg GT DAILY [facility] Last Admin: 03/14/16 10:31 Dose: 150 mg Bacitracin (Bacitracin -) 1 applic TP DAILY [facility] Last Admin: 03/14/16 10:30 Dose: 1 applic Escitalopram Oxalate (Lexapro Oral Solution -) 10 mg GT DAILY [facility] Last Admin: 03/14/16 10:32 Dose: 10 mg Heparin Sodium (Porcine) (Heparin -) 5,000 unit SQ BID [facility] Last Admin: 03/14/16 10:30 Dose: 5,000 unit Pantoprazole Sodium (Protonix 40mg Ivpb (Pre-Docked)) 100 mls @ 200 mls/hr IVPB HS [facility] Last Admin: 03/13/16 22:23 Dose: 200 mls/hr Piperacillin Sod/Tazobactam Sod (Zosyn 4.5gm Ivpb (Pre-Docked)) 100 mls @ 200 mls/hr IVPB Q8H-IV [facility] Last Admin: 03/14/16 17:51 Dose: 200 mls/hr Lactobacillus Acidophilus (Bacid -) 1 tab GT DAILY [facility] Last Admin: 03/14/16 10:30 Dose: 1 tab Levetiracetam (Keppra Oral Solution -) 250 mg GT BID [facility] Last Admin: 03/14/16 10:31 Dose: 250 mg Methylprednisolone Sodium Succinate (Solu-Medrol -) 40 mg IVPB DAILY [facility] Last Admin: 03/14/16 10:33 Dose: 40 mg Multi-Ingredient Ointment (Zinc Oxide) 1 applic TP DAILY [facility] Last Admin: 03/14/16 10:33 Dose: 1 applic Polyethylene Glycol (Miralax (For Daily Use) -) 17 gm GT DAILY [facility] Last Admin: 03/14/16 10:32 Dose: Not Given Potassium Phos/Sodium Phos (Phos-Nak Packet -) 1 packet PO BID [facility] Last Admin: 03/14/16 10:33 Dose: 1 packet Senna (Senna Oral Solution -) 8.8 mg GT BID [facility] Last Admin: 03/14/16 10:33 Dose: Not Given - Objective Vital Signs: Vital Signs Temperature 98.2 F 03/14/16 22:05 Pulse Rate 88 03/14/16 22:05 Respiratory Rate 18 03/14/16 22:05 Blood Pressure 113/76 03/14/16 22:05 O2 Sat by Pulse Oximetry (%) 93 L 03/14/16 10:00 Labs: CBC, BMP 03/14/16 06:00 03/14/16 06:00 INR, PTT INR 1.25 (0.82-1.09) H 03/08/16 20:30 Problem List - Problems (1) Pneumonia Code(s): J18.9 - PNEUMONIA, UNSPECIFIED ORGANISM Qualifiers: Pneumonia type: due to unspecified organism Laterality: unspecified laterality Lung location: unspecified part of lung Qualified Code(s): J18.9 - Pneumonia, unspecified organism (2) BPH (benign prostatic hypertrophy) Code(s): N40.0 - BENIGN PROSTATIC HYPERPLASIA WITHOUT LOWER URINRY TRACT SYMP Qualifiers: Prostatic enlargement morphology: unspecified morphology Lower urinary tract symptom presence: symptoms present Qualified Code(s): N40.1 - Enlarged prostate with lower urinary tract symptoms (3) Dementia Code(s): F03.90 - UNSPECIFIED DEMENTIA WITHOUT BEHAVIORAL DISTURBANCE (4) Dysphagia Code(s): R13.10 - DYSPHAGIA, UNSPECIFIED (5) Foreign body alimentary tract Code(s): T18.9XXA - FOREIGN BODY OF ALIMENTARY TRACT, PART UNSP, INIT ENCNTR Qualifiers: Encounter type: initial encounter Qualified Code(s): T18.9XXA - Foreign body of alimentary tract, part unspecified, initial encounter (6) History of ulcerative colitis Code(s): Z87.19 - PERSONAL HISTORY OF OTHER DISEASES OF THE DIGESTIVE SYSTEM (7) Lewy body dementia Code(s): G31.83 - DEMENTIA WITH LEWY BODIES F02.80 - DEMENTIA IN OTH DISEASES CLASSD ELSWHR W/O BEHAVRL DISTURB (8) Malnutrition Code(s): E46 - UNSPECIFIED PROTEIN-CALORIE MALNUTRITION (9) Parkinson disease Code(s): G20 - PARKINSON'S DISEASE (10) Respiratory failure Code(s): J96.90 - RESPIRATORY FAILURE, UNSP, UNSP W HYPOXIA OR HYPERCAPNIA (11) Seizure disorder Code(s): G40.909 - EPILEPSY, UNSP, NOT INTRACTABLE, WITHOUT STATUS EPILEPTICUS (12) Sepsis Code(s): A41.9 - SEPSIS, UNSPECIFIED ORGANISM Qualifiers: Sepsis type: sepsis due to unspecified organism Qualified Code(s): A41.9 - Sepsis, unspecified organism (13) Quadriplegia Assessment/Plan: QUADRIPLEGIA WITH NO FUNCTION OF LIMBS WITH DEPENDENCE OF OTHER PEOPLE FOR ASSISTANCE AND 24 HOUR CARE FOR ORAL CARE, FEEDING THROUGH GTUBE AND WOUND , SKIN CARE, POSITION TURNING, MONITORING. Code(s): G82.50 - QUADRIPLEGIA, UNSPECIFIED
[2016-03-14] MEDS: PANTOPRAZOLE SODIUM 100 ML IVPB SCH (22:49)
[2016-03-15] MEDS: PIPERACILLIN/TAZOB 4.5 GM 100 ML IVPB SCH ×3 (02:02→17:45)
[2016-03-15] MEDS: ALBUTEROL SO4 2.5/IPRATROPIUM 0.5 INH SOL 3 ML VIAL.NEB. NEB SCH ×3 (06:22→17:20)
[2016-03-15 07:35] LABS: BASOPHIL 0.4 % (0-2.0); EOSINOPHIL 1.2 % (0-4.5); MCH 30.2 pg (25.7-33.7); MCHC 32.7 g/dl (32.0-35.9); MEAN CELL VOLUME 92.3 fl (80-96); MEAN PLT VOLUME 10.3 fl (7.5-11.1); NEUTROPHILS 66.1 % (42.8-82.8); PLATELET COUNT 306 K/MM3 (134-434); RDW 14.8 % (11.9-15.9); WHITE BLOOD COUNT 12.2 K/mm3 (4.0-10.0)
[2016-03-15 08:19] LABS: ALBUMIN 2.4 g/dl (3.4-5.0); ALK PHOS 69 U/L (45-117); ANION GAP 10 (8-16); BILIRUBIN,TOTAL 0.6 mg/dL (0.2-1.0); CO2 31 mmol/L (21-32); CREATININE 0.8 mg/dL (0.7-1.3); GLUCOSE,RANDOM 167 mg/dL (74-106); SGOT/AST 36 U/L (15-37); SGPT/ALT 52 U/L (12-78); TOT PROT 6.4 g/dl (6.4-8.2)
[2016-03-15] MEDS ORDERED: PT OWN MED DRAWER 7, Y5N ONE ×3 (11:05→23:26)
[2016-03-15] MEDS: AMINO ACIDS/PROTEIN HYDROLYS SUGAR-FREE 30 ML PACKET GT SCH ×2 (11:18→17:45)
[2016-03-15] MEDS: LACTOBACILLUS ACIDOPHILUS 1 EACH TAB (FP) GT SCH (11:19)
[2016-03-15] MEDS: NAPH,MB-DB/K PH,MBDB POWDER PACKET PO SCH ×2 (11:19→22:27)
[2016-03-15] MEDS: BACITRACIN 30 GM TUBE TOPICAL OINTMENT TP SCH (11:21)
[2016-03-15] MEDS: POLYETHYLENE GLYCOL 3350 119 GM BTL GT SCH (11:21)
[2016-03-15] MEDS: HEPARIN NA (PORCINE) 5,000 UNITS/ML 1ML VIAL SQ SCH ×2 (11:22→22:26)
[2016-03-15] MEDS: azaTHIOprine 50 MG TABLET GT SCH (11:23)
[2016-03-15] MEDS: ESCITALOPRAM OXALATE 5 MG/5 ML GT SCH (11:25)
[2016-03-15] MEDS: levETIRAcetam 500 MG/5 ML ORAL SOLUTION (UNIT-DOSE CUPS) GT SCH ×2 (11:25→22:27)
[2016-03-15] MEDS: SENNOSIDES 8.8 MG/5 ML BULK BOTTLE GT SCH ×2 (11:26→23:05)
[2016-03-15] MEDS: ZINC OXIDE 20% TOPICAL OINTMENT 30 GM TUBE TP SCH (11:27)
[2016-03-15] MEDS: methylPREDNISolone NA SUCC 40 MG/1 ML VIAL IVPB SCH (11:27)
[2016-03-15] MEDS: ASCORBIC ACID 500 MG/5 ML UNIT DOSE CUP GT SCH (11:27)
--- NOTE | 2016-03-15 11:43 | PN ---
Progress Note, Physician Chief Complaint: ID Day 7 therapy Zosyn Remains stable - Current Medication List Current Medications: Active Medications Acetaminophen (Tylenol Oral Solution -) 650 mg PO Q6H PRN PRN Reason: FEVER OR PAIN Albuterol/Ipratropium (Duoneb -) 1 amp NEB QIDR [facility] Last Admin: 03/15/16 11:05 Dose: 1 amp Amino Acids (Prostat Sugar-Free Packet -) 30 ml GT BIDWM [facility] Last Admin: 03/15/16 11:18 Dose: 30 ml Ascorbic Acid (Vitamin C Oral Solution -) 250 mg GT DAILY [facility] Last Admin: 03/15/16 11:27 Dose: 250 mg Azathioprine (Imuran -) 150 mg GT DAILY [facility] Last Admin: 03/15/16 11:23 Dose: 150 mg Bacitracin (Bacitracin -) 1 applic TP DAILY [facility] Last Admin: 03/15/16 11:21 Dose: 1 applic Escitalopram Oxalate (Lexapro Oral Solution -) 10 mg GT DAILY [facility] Last Admin: 03/15/16 11:25 Dose: 10 mg Heparin Sodium (Porcine) (Heparin -) 5,000 unit SQ BID [facility] Last Admin: 03/15/16 11:22 Dose: 5,000 unit Pantoprazole Sodium (Protonix 40mg Ivpb (Pre-Docked)) 100 mls @ 200 mls/hr IVPB HS [facility] Last Admin: 03/14/16 22:49 Dose: 200 mls/hr Piperacillin Sod/Tazobactam Sod (Zosyn 4.5gm Ivpb (Pre-Docked)) 100 mls @ 200 mls/hr IVPB Q8H-IV [facility] Last Admin: 03/15/16 11:18 Dose: 200 mls/hr Lactobacillus Acidophilus (Bacid -) 1 tab GT DAILY [facility] Last Admin: 03/15/16 11:19 Dose: 1 tab Levetiracetam (Keppra Oral Solution -) 250 mg GT BID [facility] Last Admin: 03/15/16 11:25 Dose: 250 mg Methylprednisolone Sodium Succinate (Solu-Medrol -) 40 mg IVPB DAILY [facility] Last Admin: 03/15/16 11:27 Dose: 40 mg Multi-Ingredient Ointment (Zinc Oxide) 1 applic TP DAILY [facility] Last Admin: 03/15/16 11:27 Dose: 1 applic Polyethylene Glycol (Miralax (For Daily Use) -) 17 gm GT DAILY [facility] Last Admin: 03/15/16 11:21 Dose: Not Given Potassium Phos/Sodium Phos (Phos-Nak Packet -) 1 packet PO BID [facility] Last Admin: 03/15/16 11:19 Dose: 1 packet Senna (Senna Oral Solution -) 8.8 mg GT BID [facility] Last Admin: 03/15/16 11:26 Dose: 8.8 mg - Objective Vital Signs: Vital Signs Temperature 97.7 F 03/15/16 06:00 Pulse Rate 76 03/15/16 11:17 Respiratory Rate 18 03/15/16 06:00 Blood Pressure 111/71 03/15/16 06:00 O2 Sat by Pulse Oximetry (%) 98 03/15/16 11:17 Constitutional: Yes: Well Nourished, No Distress HENT: Yes: Other (Dentition poor) Cardiovascular: Yes: Regular Rate and Rhythm, S1, S2. No: Murmur Respiratory: Yes: WNL, Regular, CTA Bilaterally, Diminished Gastrointestinal: Yes: WNL, Normal Bowel Sounds, Soft. No: Tenderness Edema: No Labs: CBC, BMP 03/15/16 06:30 03/15/16 06:30 INR, PTT INR 1.25 (0.82-1.09) H 03/08/16 20:30 Problem List - Problems (1) Pneumonia Code(s): J18.9 - PNEUMONIA, UNSPECIFIED ORGANISM Qualifiers: Pneumonia type: due to unspecified organism Laterality: unspecified laterality Lung location: unspecified part of lung Qualified Code(s): J18.9 - Pneumonia, unspecified organism (2) Lewy body dementia Code(s): G31.83 - DEMENTIA WITH LEWY BODIES F02.80 - DEMENTIA IN OTH DISEASES CLASSD ELSWHR W/O BEHAVRL DISTURB (3) Parkinson disease Code(s): G20 - PARKINSON'S DISEASE Assessment/Plan Microbiology 03/12/16 19:30 Stool Clostridium difficile Antigen (JONA) - Final 03/12/16 19:30 Stool Clostridium difficile Toxin Assay - Final 03/09/16 11:30 Sputum - Expectorated Gram Stain - Final 03/09/16 11:30 Sputum - Expectorated Sputum Culture - Final 03/08/16 15:00 Urine - Urine Clean Catch Urine Culture - Final NO GROWTH OBTAINED 03/08/16 12:00 Nasopharyngeal Swab Influenza Types A,B Antigen (JONA) - Final 03/08/16 12:00 Nasopharyngeal Swab - Final 03/08/16 11:30 Blood - Peripheral Venous Blood Culture - Final NO GROWTH AFTER 5 DAYS INCUBATION 03/08/16 11:30 Blood - Peripheral Venous Blood Culture - Final NO GROWTH AFTER 5 DAYS INCUBATION 03/08/16 12:00 Nasopharyngeal Swab Respiratory Virus Panel - Preliminary Laboratory Tests 03/15/16 03/15/16 06:30 06:30 WBC 12.2 H Hgb 13.1 Hct 40.0 Plt Count 306 BUN 20 H Creatinine 0.8 Assessment Aspiration PNA poor dental repair Lewy body dementia C diff negative Plan STOP ANTIBIOTIC AFTER TODAY DISCHARGE PLANNING DENTAL FOLLOW UP Claritza EISENBERG
--- NOTE | 2016-03-15 12:19 | PN ---
Progress Note, Physician History of Present Illness: pulmonary awake,-resp distress,-congestion - Current Medication List Current Medications: Active Medications Acetaminophen (Tylenol Oral Solution -) 650 mg PO Q6H PRN PRN Reason: FEVER OR PAIN Albuterol/Ipratropium (Duoneb -) 1 amp NEB QIDR [facility] Last Admin: 03/15/16 11:05 Dose: 1 amp Amino Acids (Prostat Sugar-Free Packet -) 30 ml GT BIDWM [facility] Last Admin: 03/15/16 11:18 Dose: 30 ml Ascorbic Acid (Vitamin C Oral Solution -) 250 mg GT DAILY [facility] Last Admin: 03/15/16 11:27 Dose: 250 mg Azathioprine (Imuran -) 150 mg GT DAILY [facility] Last Admin: 03/15/16 11:23 Dose: 150 mg Bacitracin (Bacitracin -) 1 applic TP DAILY [facility] Last Admin: 03/15/16 11:21 Dose: 1 applic Escitalopram Oxalate (Lexapro Oral Solution -) 10 mg GT DAILY [facility] Last Admin: 03/15/16 11:25 Dose: 10 mg Heparin Sodium (Porcine) (Heparin -) 5,000 unit SQ BID [facility] Last Admin: 03/15/16 11:22 Dose: 5,000 unit Pantoprazole Sodium (Protonix 40mg Ivpb (Pre-Docked)) 100 mls @ 200 mls/hr IVPB HS [facility] Last Admin: 03/14/16 22:49 Dose: 200 mls/hr Piperacillin Sod/Tazobactam Sod (Zosyn 4.5gm Ivpb (Pre-Docked)) 100 mls @ 200 mls/hr IVPB Q8H-IV [facility] Last Admin: 03/15/16 11:18 Dose: 200 mls/hr Lactobacillus Acidophilus (Bacid -) 1 tab GT DAILY [facility] Last Admin: 03/15/16 11:19 Dose: 1 tab Levetiracetam (Keppra Oral Solution -) 250 mg GT BID [facility] Last Admin: 03/15/16 11:25 Dose: 250 mg Methylprednisolone Sodium Succinate (Solu-Medrol -) 40 mg IVPB DAILY [facility] Last Admin: 03/15/16 11:27 Dose: 40 mg Multi-Ingredient Ointment (Zinc Oxide) 1 applic TP DAILY [facility] Last Admin: 03/15/16 11:27 Dose: 1 applic Polyethylene Glycol (Miralax (For Daily Use) -) 17 gm GT DAILY [facility] Last Admin: 03/15/16 11:21 Dose: Not Given Potassium Phos/Sodium Phos (Phos-Nak Packet -) 1 packet PO BID [facility] Last Admin: 03/15/16 11:19 Dose: 1 packet Senna (Senna Oral Solution -) 8.8 mg GT BID [facility] Last Admin: 03/15/16 11:26 Dose: 8.8 mg - Objective Vital Signs: Vital Signs Temperature 97.7 F 03/15/16 06:00 Pulse Rate 76 03/15/16 11:17 Respiratory Rate 18 03/15/16 06:00 Blood Pressure 111/71 03/15/16 06:00 O2 Sat by Pulse Oximetry (%) 98 03/15/16 11:17 Constitutional: Yes: Well Nourished, Calm Eyes: Yes: WNL HENT: Yes: WNL Neck: Yes: WNL Cardiovascular: Yes: Regular Rate and Rhythm, S1, S2 Respiratory: Yes: Diminished (poor inspiratory effort) Gastrointestinal: Yes: Normal Bowel Sounds, Soft Extremities: Yes: WNL Edema: No Labs: Laboratory Tests 03/15/16 06:30 Lactic Acid 4.554 H* Assessment/Plan (1) Pneumonia Code(s): J18.9 - PNEUMONIA, UNSPECIFIED ORGANISM Qualifiers: Pneumonia type: due to unspecified organism Laterality: unspecified laterality Lung location: unspecified part of lung Qualified Code(s): J18.9 - Pneumonia, unspecified organism (2) BPH (benign prostatic hypertrophy) Code(s): N40.0 - BENIGN PROSTATIC HYPERPLASIA WITHOUT LOWER URINRY TRACT SYMP Qualifiers: Prostatic enlargement morphology: unspecified morphology Lower urinary tract symptom presence: symptoms present Qualified Code(s): N40.1 - Enlarged prostate with lower urinary tract symptoms (3) CVA (cerebrovascular accident) Code(s): I63.9 - CEREBRAL INFARCTION, UNSPECIFIED (4) Colitis Code(s): K52.9 - NONINFECTIVE GASTROENTERITIS AND COLITIS, UNSPECIFIED (5) Dehydration Code(s): E86.0 - DEHYDRATION (6) Dementia Code(s): F03.90 - UNSPECIFIED DEMENTIA WITHOUT BEHAVIORAL DISTURBANCE (7) Dysphagia Code(s): R13.10 - DYSPHAGIA, UNSPECIFIED (8) Foreign body alimentary tract Code(s): T18.9XXA - FOREIGN BODY OF ALIMENTARY TRACT, PART UNSP, INIT ENCNTR Qualifiers: Encounter type: initial encounter Qualified Code(s): T18.9XXA - Foreign body of alimentary tract, part unspecified, initial encounter (9) History of ulcerative colitis Code(s): Z87.19 - PERSONAL HISTORY OF OTHER DISEASES OF THE DIGESTIVE SYSTEM (10) Hypoxemia Code(s): R09.02 - HYPOXEMIA (11) Lewy body dementia Code(s): G31.83 - DEMENTIA WITH LEWY BODIES F02.80 - DEMENTIA IN OTH DISEASES CLASSD ELSWHR W/O BEHAVRL DISTURB (12) Respiratory failure Code(s): J96.90 - RESPIRATORY FAILURE, UNSP, UNSP W HYPOXIA OR HYPERCAPNIA (13) Sepsis Code(s): A41.9 - SEPSIS, UNSPECIFIED ORGANISM Qualifiers: Sepsis type: sepsis due to unspecified organism Qualified Code(s): A41.9 - Sepsis, unspecified organism 14 ELEVATED LACTATE LEVEL Assessment/Plan NC O2 as tolerated NIPPV only as needed ABX per ID BD TX IVF HOB elevation Oral care DNR/DNI Fluids trend lactate DR MANCILLA
--- NOTE | 2016-03-15 14:13 | PN ---
Progress Note, Physician History of Present Illness: Pt seen and examined at bedside. He is at baseline. - Current Medication List Current Medications: Active Medications Acetaminophen (Tylenol Oral Solution -) 650 mg PO Q6H PRN PRN Reason: FEVER OR PAIN Albuterol/Ipratropium (Duoneb -) 1 amp NEB QIDR [facility] Last Admin: 03/15/16 11:05 Dose: 1 amp Amino Acids (Prostat Sugar-Free Packet -) 30 ml GT BIDWM [facility] Last Admin: 03/15/16 11:18 Dose: 30 ml Ascorbic Acid (Vitamin C Oral Solution -) 250 mg GT DAILY [facility] Last Admin: 03/15/16 11:27 Dose: 250 mg Azathioprine (Imuran -) 150 mg GT DAILY [facility] Last Admin: 03/15/16 11:23 Dose: 150 mg Bacitracin (Bacitracin -) 1 applic TP DAILY [facility] Last Admin: 03/15/16 11:21 Dose: 1 applic Escitalopram Oxalate (Lexapro Oral Solution -) 10 mg GT DAILY [facility] Last Admin: 03/15/16 11:25 Dose: 10 mg Heparin Sodium (Porcine) (Heparin -) 5,000 unit SQ BID [facility] Last Admin: 03/15/16 11:22 Dose: 5,000 unit Pantoprazole Sodium (Protonix 40mg Ivpb (Pre-Docked)) 100 mls @ 200 mls/hr IVPB HS [facility] Last Admin: 03/14/16 22:49 Dose: 200 mls/hr Piperacillin Sod/Tazobactam Sod (Zosyn 4.5gm Ivpb (Pre-Docked)) 100 mls @ 200 mls/hr IVPB Q8H-IV [facility] Last Admin: 03/15/16 11:18 Dose: 200 mls/hr Lactobacillus Acidophilus (Bacid -) 1 tab GT DAILY [facility] Last Admin: 03/15/16 11:19 Dose: 1 tab Levetiracetam (Keppra Oral Solution -) 250 mg GT BID [facility] Last Admin: 03/15/16 11:25 Dose: 250 mg Methylprednisolone Sodium Succinate (Solu-Medrol -) 40 mg IVPB DAILY [facility] Last Admin: 03/15/16 11:27 Dose: 40 mg Multi-Ingredient Ointment (Zinc Oxide) 1 applic TP DAILY [facility] Last Admin: 03/15/16 11:27 Dose: 1 applic Polyethylene Glycol (Miralax (For Daily Use) -) 17 gm GT DAILY [facility] Last Admin: 03/15/16 11:21 Dose: Not Given Potassium Phos/Sodium Phos (Phos-Nak Packet -) 1 packet PO BID [facility] Last Admin: 03/15/16 11:19 Dose: 1 packet Senna (Senna Oral Solution -) 8.8 mg GT BID [facility] Last Admin: 03/15/16 11:26 Dose: 8.8 mg - Objective Vital Signs: Vital Signs Temperature 97.7 F 03/15/16 06:00 Pulse Rate 76 03/15/16 11:17 Respiratory Rate 18 03/15/16 06:00 Blood Pressure 111/71 03/15/16 06:00 O2 Sat by Pulse Oximetry (%) 98 03/15/16 11:17 Constitutional: Yes: Calm Eyes: Yes: Conjunctiva Clear HENT: Yes: Atraumatic Neck: Yes: Supple Cardiovascular: Yes: S1, S2 Respiratory: Yes: CTA Bilaterally, On Nasal O2 Gastrointestinal: Yes: Normal Bowel Sounds, Soft Genitourinary: Yes: Incontinence Musculoskeletal: Yes: Muscle Weakness Edema: No Neurological: Yes: Pre-Existing Deficit Labs: CBC, BMP 03/15/16 06:30 03/15/16 06:30 INR, PTT INR 1.25 (0.82-1.09) H 03/08/16 20:30 Problem List - Problems (1) Pneumonia Code(s): J18.9 - PNEUMONIA, UNSPECIFIED ORGANISM Qualifiers: Pneumonia type: due to unspecified organism Laterality: unspecified laterality Lung location: unspecified part of lung Qualified Code(s): J18.9 - Pneumonia, unspecified organism (2) BPH (benign prostatic hypertrophy) Code(s): N40.0 - BENIGN PROSTATIC HYPERPLASIA WITHOUT LOWER URINRY TRACT SYMP Qualifiers: Prostatic enlargement morphology: unspecified morphology Lower urinary tract symptom presence: symptoms present Qualified Code(s): N40.1 - Enlarged prostate with lower urinary tract symptoms (3) Hypokalemia Code(s): E87.6 - HYPOKALEMIA (4) Respiratory failure Code(s): J96.90 - RESPIRATORY FAILURE, UNSP, UNSP W HYPOXIA OR HYPERCAPNIA (5) Seizure disorder Code(s): G40.909 - EPILEPSY, UNSP, NOT INTRACTABLE, WITHOUT STATUS EPILEPTICUS (6) Sepsis Code(s): A41.9 - SEPSIS, UNSPECIFIED ORGANISM Qualifiers: Sepsis type: sepsis due to unspecified organism Qualified Code(s): A41.9 - Sepsis, unspecified organism (7) BREANA (acute kidney injury) Code(s): N17.9 - ACUTE KIDNEY FAILURE, UNSPECIFIED Assessment/Plan Current Medications Generic Name Dose Route Start Last Admin Trade Name Freq PRN Reason Stop Dose Admin Acetaminophen 650 mg 03/11/16 13:29 Tylenol Oral Solution - PO Q6H PRN FEVER OR PAIN Albuterol/Ipratropium 1 amp 03/11/16 00:00 03/15/16 11:05 Duoneb - NEB 1 amp QIDR [facility] Administration Amino Acids 30 ml 03/11/16 08:00 03/15/16 11:18 Prostat Sugar-Free Packet - GT 30 ml BIDWM [facility] Administration Ascorbic Acid 250 mg 03/11/16 10:00 03/15/16 11:27 Vitamin C Oral Solution - GT 250 mg DAILY [facility] Administration Azathioprine 150 mg 03/11/16 10:00 03/15/16 11:23 Imuran - GT 150 mg DAILY [facility] Administration Bacitracin 1 applic 03/11/16 10:00 03/15/16 11:21 Bacitracin - TP 1 applic DAILY [facility] Administration Escitalopram Oxalate 10 mg 03/11/16 10:00 03/15/16 11:25 Lexapro Oral Solution - GT 10 mg DAILY [facility] Administration Heparin Sodium (Porcine) 5,000 unit 03/10/16 22:00 03/15/16 11:22 Heparin - SQ 5,000 unit BID [facility] Administration Pantoprazole Sodium 100 mls @ 200 mls/hr 03/10/16 22:00 03/14/16 22:49 Protonix 40mg Ivpb (Pre-Docked) IVPB 200 mls/hr HS [facility] Administration Piperacillin Sod/Tazobactam Sod 100 mls @ 200 mls/hr 03/11/16 02:00 03/15/16 11 :18 Zosyn 4.5gm Ivpb (Pre-Docked) IVPB 200 mls/hr Q8H-IV [facility] Administration Lactobacillus Acidophilus 1 tab 03/11/16 10:00 03/15/16 11:19 Bacid - GT 1 tab DAILY [facility] Administration Levetiracetam 250 mg 03/10/16 22:00 03/15/16 11:25 Keppra Oral Solution - GT 250 mg BID [facility] Administration Methylprednisolone Sodium Succinate 40 mg 03/11/16 10:00 03/15/16 11:27 Solu-Medrol - IVPB 40 mg DAILY [facility] Administration Multi-Ingredient Ointment 1 applic 03/11/16 10:00 03/15/16 11:27 Zinc Oxide TP 1 applic DAILY [facility] Administration Polyethylene Glycol 17 gm 03/11/16 10:00 03/15/16 11:21 Miralax (For Daily Use) - GT Not Given DAILY [facility] Potassium Phos/Sodium Phos 1 packet 03/11/16 13:30 03/15/16 11:19 Phos-Nak Packet - PO 1 packet BID [facility] Administration Senna 8.8 mg 03/10/16 22:00 03/15/16 11:26 Senna Oral Solution - GT 8.8 mg BID [facility] Administration Laboratory Tests 03/13/16 03/14/16 03/15/16 06:00 06:00 06:30 Lactic Acid 2.753 H* 3.104 H* 4.554 H* Impression 1. BREANA - pt has a baseline creatinine of about 0.7 2. respiratory failure requiring BiPap 3. parkinsons 4. ulcerative colitis 5. dementia 6. aspiration PNA 7. sepsis 8. hypernatremia 9. hypokalemia Plan - renal function improved - sodium is stable - will restart fluids - lactic acid is rising - pulmonary input appreciated - monitor pulse ox and bipap as needed - abx per ID - baseline creatinine is about 0.7 Dr Cardoso
--- NOTE | 2016-03-15 14:28 | PN ---
Progress Note, Physician Chief Complaint: HAD D/W FAMILY MEMBER MORE ALERT - Current Medication List Current Medications: Active Medications Acetaminophen (Tylenol Oral Solution -) 650 mg PO Q6H PRN PRN Reason: FEVER OR PAIN Albuterol/Ipratropium (Duoneb -) 1 amp NEB QIDR [facility] Last Admin: 03/15/16 11:05 Dose: 1 amp Amino Acids (Prostat Sugar-Free Packet -) 30 ml GT BIDWM [facility] Last Admin: 03/15/16 11:18 Dose: 30 ml Ascorbic Acid (Vitamin C Oral Solution -) 250 mg GT DAILY [facility] Last Admin: 03/15/16 11:27 Dose: 250 mg Azathioprine (Imuran -) 150 mg GT DAILY [facility] Last Admin: 03/15/16 11:23 Dose: 150 mg Bacitracin (Bacitracin -) 1 applic TP DAILY [facility] Last Admin: 03/15/16 11:21 Dose: 1 applic Escitalopram Oxalate (Lexapro Oral Solution -) 10 mg GT DAILY [facility] Last Admin: 03/15/16 11:25 Dose: 10 mg Heparin Sodium (Porcine) (Heparin -) 5,000 unit SQ BID [facility] Last Admin: 03/15/16 11:22 Dose: 5,000 unit Pantoprazole Sodium (Protonix 40mg Ivpb (Pre-Docked)) 100 mls @ 200 mls/hr IVPB HS [facility] Last Admin: 03/14/16 22:49 Dose: 200 mls/hr Piperacillin Sod/Tazobactam Sod (Zosyn 4.5gm Ivpb (Pre-Docked)) 100 mls @ 200 mls/hr IVPB Q8H-IV [facility] Last Admin: 03/15/16 11:18 Dose: 200 mls/hr Potassium Chloride 10 meq/ (Sodium Chloride) 1,005 mls @ 42 mls/hr IVPB Q24H [facility] Lactobacillus Acidophilus (Bacid -) 1 tab GT DAILY [facility] Last Admin: 03/15/16 11:19 Dose: 1 tab Levetiracetam (Keppra Oral Solution -) 250 mg GT BID [facility] Last Admin: 03/15/16 11:25 Dose: 250 mg Methylprednisolone Sodium Succinate (Solu-Medrol -) 40 mg IVPB DAILY [facility] Last Admin: 03/15/16 11:27 Dose: 40 mg Multi-Ingredient Ointment (Zinc Oxide) 1 applic TP DAILY [facility] Last Admin: 03/15/16 11:27 Dose: 1 applic Polyethylene Glycol (Miralax (For Daily Use) -) 17 gm GT DAILY [facility] Last Admin: 03/15/16 11:21 Dose: Not Given Potassium Phos/Sodium Phos (Phos-Nak Packet -) 1 packet PO BID [facility] Last Admin: 03/15/16 11:19 Dose: 1 packet Senna (Senna Oral Solution -) 8.8 mg GT BID [facility] Last Admin: 03/15/16 11:26 Dose: 8.8 mg - Objective Vital Signs: Vital Signs Temperature 97.7 F 03/15/16 06:00 Pulse Rate 76 03/15/16 11:17 Respiratory Rate 18 03/15/16 06:00 Blood Pressure 111/71 03/15/16 06:00 O2 Sat by Pulse Oximetry (%) 98 03/15/16 11:17 Cardiovascular: Yes: Regular Rate and Rhythm, S1, S2 Respiratory: Yes: CTA Bilaterally Gastrointestinal: Yes: Normal Bowel Sounds, Soft Edema: No Labs: CBC, BMP 03/15/16 06:30 03/15/16 06:30 INR, PTT INR 1.25 (0.82-1.09) H 03/08/16 20:30 Problem List - Problems (1) BPH (benign prostatic hypertrophy) Code(s): N40.0 - BENIGN PROSTATIC HYPERPLASIA WITHOUT LOWER URINRY TRACT SYMP Qualifiers: Prostatic enlargement morphology: unspecified morphology Lower urinary tract symptom presence: symptoms present Qualified Code(s): N40.1 - Enlarged prostate with lower urinary tract symptoms (2) Dementia Code(s): F03.90 - UNSPECIFIED DEMENTIA WITHOUT BEHAVIORAL DISTURBANCE (3) Dysphagia Code(s): R13.10 - DYSPHAGIA, UNSPECIFIED (4) Foreign body alimentary tract Code(s): T18.9XXA - FOREIGN BODY OF ALIMENTARY TRACT, PART UNSP, INIT ENCNTR Qualifiers: Encounter type: initial encounter Qualified Code(s): T18.9XXA - Foreign body of alimentary tract, part unspecified, initial encounter (5) History of ulcerative colitis Code(s): Z87.19 - PERSONAL HISTORY OF OTHER DISEASES OF THE DIGESTIVE SYSTEM (6) Malnutrition Code(s): E46 - UNSPECIFIED PROTEIN-CALORIE MALNUTRITION (7) Parkinson disease Code(s): G20 - PARKINSON'S DISEASE (8) Pneumonia Code(s): J18.9 - PNEUMONIA, UNSPECIFIED ORGANISM Qualifiers: Pneumonia type: due to unspecified organism Laterality: unspecified laterality Lung location: unspecified part of lung Qualified Code(s): J18.9 - Pneumonia, unspecified organism (9) Respiratory failure Code(s): J96.90 - RESPIRATORY FAILURE, UNSP, UNSP W HYPOXIA OR HYPERCAPNIA (10) Seizure disorder Code(s): G40.909 - EPILEPSY, UNSP, NOT INTRACTABLE, WITHOUT STATUS EPILEPTICUS (11) Sepsis Code(s): A41.9 - SEPSIS, UNSPECIFIED ORGANISM Qualifiers: Sepsis type: sepsis due to unspecified organism Qualified Code(s): A41.9 - Sepsis, unspecified organism Assessment/Plan (1) Pneumonia Code(s): J18.9 - PNEUMONIA, UNSPECIFIED ORGANISM Qualifiers: Pneumonia type: due to unspecified organism Laterality: unspecified laterality Lung location: unspecified part of lung Qualified Code(s): J18.9 - Pneumonia, unspecified organism APPRECIATE ID CONSULT STOP ABx -> OBSERVE F/U LACTIC ACID (2) BPH (benign prostatic hypertrophy) Code(s): N40.0 - BENIGN PROSTATIC HYPERPLASIA WITHOUT LOWER URINRY TRACT SYMP Qualifiers: Prostatic enlargement morphology: unspecified morphology Lower urinary tract symptom presence: symptoms present Qualified Code(s): N40.1 - Enlarged prostate with lower urinary tract symptoms (3) Dementia Code(s): F03.90 - UNSPECIFIED DEMENTIA WITHOUT BEHAVIORAL DISTURBANCE (4) Dysphagia Code(s): R13.10 - DYSPHAGIA, UNSPECIFIED (5) Foreign body alimentary tract Code(s): T18.9XXA - FOREIGN BODY OF ALIMENTARY TRACT, PART UNSP, INIT ENCNTR Qualifiers: Encounter type: initial encounter Qualified Code(s): T18.9XXA - Foreign body of alimentary tract, part unspecified, initial encounter (6) History of ulcerative colitis Code(s): Z87.19 - PERSONAL HISTORY OF OTHER DISEASES OF THE DIGESTIVE SYSTEM (7) Lewy body dementia Code(s): G31.83 - DEMENTIA WITH LEWY BODIES F02.80 - DEMENTIA IN OTH DISEASES CLASSD ELSWHR W/O BEHAVRL DISTURB (8) Malnutrition Code(s): E46 - UNSPECIFIED PROTEIN-CALORIE MALNUTRITION (9) Parkinson disease Code(s): G20 - PARKINSON'S DISEASE (10) Respiratory failure Code(s): J96.90 - RESPIRATORY FAILURE, UNSP, UNSP W HYPOXIA OR HYPERCAPNIA (11) Seizure disorder Code(s): G40.909 - EPILEPSY, UNSP, NOT INTRACTABLE, WITHOUT STATUS EPILEPTICUS (12) Sepsis Code(s): A41.9 - SEPSIS, UNSPECIFIED ORGANISM Qualifiers: Sepsis type: sepsis due to unspecified organism Qualified Code(s): A41.9 - Sepsis, unspecified organism (13) Quadriplegia Assessment/Plan: QUADRIPLEGIA WITH NO FUNCTION OF LIMBS WITH DEPENDENCE OF OTHER PEOPLE FOR ASSISTANCE AND 24 HOUR CARE FOR ORAL CARE, FEEDING THROUGH GTUBE AND WOUND , SKIN CARE, POSITION TURNING, MONITORING. Code(s): G82.50 - QUADRIPLEGIA, UNSPECIFIED DISCHARGE PLANNING SSN/SSBN [employer]IST[employer] SE[employer]
[2016-03-15] MEDS: POTASSIUM CHLORIDE 10 MEQ in SODIUM CHLORIDE 0.45% 1,000 ML IVPB SCH (17:44)
[2016-03-15] MEDS: PANTOPRAZOLE SODIUM 100 ML IVPB SCH (22:27)
[2016-03-16] MEDS: PIPERACILLIN/TAZOB 4.5 GM 100 ML IVPB SCH ×2 (02:26→14:16)
[2016-03-16 06:23] LABS: BASOPHIL 0.2 % (0-2.0); EOSINOPHIL 0.8 % (0-4.5); MCH 30.3 pg (25.7-33.7); MCHC 33.2 g/dl (32.0-35.9); MEAN CELL VOLUME 91.3 fl (80-96); MEAN PLT VOLUME 10.6 fl (7.5-11.1); NEUTROPHILS 77.8 % (42.8-82.8); PLATELET COUNT 328 K/MM3 (134-434); RDW 15.7 % (11.9-15.9); WHITE BLOOD COUNT 12.1 K/mm3 (4.0-10.0)
[2016-03-16 06:42] LABS: ALBUMIN 2.3 g/dl (3.4-5.0); ALK PHOS 68 U/L (45-117); ANION GAP 12 (8-16); BILIRUBIN,TOTAL 0.6 mg/dL (0.2-1.0); CALCIUM 8.6 mg/dL (8.5-10.1); CO2 29 mmol/L (21-32); CREATININE 0.9 mg/dL (0.7-1.3); GLUCOSE,RANDOM 215 mg/dL (74-106); SGOT/AST 27 U/L (15-37); SGPT/ALT 49 U/L (12-78); TOT PROT 5.7 g/dl (6.4-8.2)
--- NOTE | 2016-03-16 13:05 | PN ---
Progress Note (short form) - Note Progress Note: Resting in NAD on 3 L NC O2. No acute events overnight. Noted persistent lactic acid Intake & Output 03/13/16 03/14/16 03/15/16 03/16/16 23:59 23:59 23:59 23:59 Intake Total 3410 2910 4041 Balance 3410 2910 4041 Weight 160 lb 163 lb 8 oz Last Vital Signs Temp Pulse Resp BP Pulse Ox 97.9 F 99 H 18 102/65 98 03/16/16 06:00 03/16/16 06:00 03/16/16 06:00 03/16/16 06:00 03/16/16 05:53 Active Medications Acetaminophen (Tylenol Oral Solution -) 650 mg PO Q6H PRN PRN Reason: FEVER OR PAIN Amino Acids (Prostat Sugar-Free Packet -) 30 ml GT BIDWM [facility] Last Admin: 03/15/16 17:45 Dose: 30 ml Ascorbic Acid (Vitamin C Oral Solution -) 250 mg GT DAILY [facility] Last Admin: 03/15/16 11:27 Dose: 250 mg Azathioprine (Imuran -) 150 mg GT DAILY [facility] Last Admin: 03/15/16 11:23 Dose: 150 mg Bacitracin (Bacitracin -) 1 applic TP DAILY [facility] Last Admin: 03/15/16 11:21 Dose: 1 applic Escitalopram Oxalate (Lexapro Oral Solution -) 10 mg GT DAILY [facility] Last Admin: 03/15/16 11:25 Dose: 10 mg Heparin Sodium (Porcine) (Heparin -) 5,000 unit SQ BID [facility] Last Admin: 03/15/16 22:26 Dose: 5,000 unit Pantoprazole Sodium (Protonix 40mg Ivpb (Pre-Docked)) 100 mls @ 200 mls/hr IVPB HS [facility] Last Admin: 03/15/16 22:27 Dose: 200 mls/hr Piperacillin Sod/Tazobactam Sod (Zosyn 4.5gm Ivpb (Pre-Docked)) 100 mls @ 200 mls/hr IVPB Q8H-IV [facility] Last Admin: 03/16/16 02:26 Dose: 200 mls/hr Potassium Chloride 10 meq/ (Sodium Chloride) 1,005 mls @ 42 mls/hr IVPB Q24H [facility] Last Admin: 03/15/16 17:44 Dose: 42 mls/hr Lactobacillus Acidophilus (Bacid -) 1 tab GT DAILY [facility] Last Admin: 03/15/16 11:19 Dose: 1 tab Levetiracetam (Keppra Oral Solution -) 250 mg GT BID [facility] Last Admin: 03/15/16 22:27 Dose: 250 mg Methylprednisolone Sodium Succinate (Solu-Medrol -) 40 mg IVPB DAILY [facility] Last Admin: 03/15/16 11:27 Dose: 40 mg Multi-Ingredient Ointment (Zinc Oxide) 1 applic TP DAILY [facility] Last Admin: 03/15/16 11:27 Dose: 1 applic Polyethylene Glycol (Miralax (For Daily Use) -) 17 gm GT DAILY [facility] Last Admin: 03/15/16 11:21 Dose: Not Given Potassium Phos/Sodium Phos (Phos-Nak Packet -) 1 packet PO BID [facility] Last Admin: 03/15/16 22:27 Dose: 1 packet Senna (Senna Oral Solution -) 8.8 mg GT BID [facility] Last Admin: 03/15/16 23:05 Dose: 8.8 mg Constitutional: Yes: Awake on NC O2 Eyes: Yes: Conjunctiva Clear HENT: Yes: Atraumatic, Normocephalic Neck: Yes: Supple, Trachea Midline Cardiovascular: Yes: S1S2 Respiratory: Yes: Bibasilar rhonchi Left > right, No: Stridor, Wheezes Gastrointestinal: Yes: Normal Bowel Sounds, Soft, Other (PEG) ...Rectal Exam: Yes: Deferred Renal/: Yes: WNL Musculoskeletal: Yes: Joint Stiffness, Muscle Weakness Extremities: Yes: Cool Edema: No Peripheral Pulses WNL: Yes Integumentary: Yes: WNL Neurological: Yes: Confusion. No: Seizure Laboratory Results - last 24 hr 03/16/16 03/16/16 03/16/16 05:35 05:35 05:35 WBC 12.1 H RBC 4.06 Hgb 12.3 Hct 37.1 MCV 91.3 MCHC 33.2 RDW 15.7 Plt Count 328 MPV 10.6 Neutrophils % 77.8 Lymphocytes % 16.7 D Monocytes % 4.5 Eosinophils % 0.8 Basophils % 0.2 Sodium 142 Potassium 3.9 Chloride 101 Carbon Dioxide 29 Anion Gap 12 BUN 17 Creatinine 0.9 Creat Clearance w eGFR > 60 Random Glucose 215 H D Lactic Acid 3.812 H* Calcium 8.6 Total Bilirubin 0.6 AST 27 D ALT 49 Alkaline Phosphatase 68 Total Protein 5.7 L Albumin 2.3 L Problem List - Problems (1) Pneumonia Code(s): J18.9 - PNEUMONIA, UNSPECIFIED ORGANISM Qualifiers: Pneumonia type: due to unspecified organism Laterality: unspecified laterality Lung location: unspecified part of lung Qualified Code(s): J18.9 - Pneumonia, unspecified organism (2) BPH (benign prostatic hypertrophy) Code(s): N40.0 - BENIGN PROSTATIC HYPERPLASIA WITHOUT LOWER URINRY TRACT SYMP Qualifiers: Prostatic enlargement morphology: unspecified morphology Lower urinary tract symptom presence: symptoms present Qualified Code(s): N40.1 - Enlarged prostate with lower urinary tract symptoms (3) CVA (cerebrovascular accident) Code(s): I63.9 - CEREBRAL INFARCTION, UNSPECIFIED (4) Colitis Code(s): K52.9 - NONINFECTIVE GASTROENTERITIS AND COLITIS, UNSPECIFIED (5) Dehydration Code(s): E86.0 - DEHYDRATION (6) Dementia Code(s): F03.90 - UNSPECIFIED DEMENTIA WITHOUT BEHAVIORAL DISTURBANCE (7) Dysphagia Code(s): R13.10 - DYSPHAGIA, UNSPECIFIED (8) Foreign body alimentary tract Code(s): T18.9XXA - FOREIGN BODY OF ALIMENTARY TRACT, PART UNSP, INIT ENCNTR Qualifiers: Encounter type: initial encounter Qualified Code(s): T18.9XXA - Foreign body of alimentary tract, part unspecified, initial encounter (9) History of ulcerative colitis Code(s): Z87.19 - PERSONAL HISTORY OF OTHER DISEASES OF THE DIGESTIVE SYSTEM (10) Hypoxemia Code(s): R09.02 - HYPOXEMIA (11) Lewy body dementia Code(s): G31.83 - DEMENTIA WITH LEWY BODIES F02.80 - DEMENTIA IN OTH DISEASES CLASSD ELSWHR W/O BEHAVRL DISTURB (12) Respiratory failure Code(s): J96.90 - RESPIRATORY FAILURE, UNSP, UNSP W HYPOXIA OR HYPERCAPNIA (13) Sepsis Code(s): A41.9 - SEPSIS, UNSPECIFIED ORGANISM Qualifiers: Sepsis type: sepsis due to unspecified organism Qualified Code(s): A41.9 - Sepsis, unspecified organism Assessment/Plan Etiology of the persistent lactic acidosis is not clear -> (?) related to myoclonus / tissue hypoperfusion NC O2 as tolerated ABX per ID BD TX IVF HOB elevation Oral care D/C planning Dr Vitale Problem List - Problems (1) Pneumonia Code(s): J18.9 - PNEUMONIA, UNSPECIFIED ORGANISM Qualifiers: Pneumonia type: due to unspecified organism Laterality: unspecified laterality Lung location: unspecified part of lung Qualified Code(s): J18.9 - Pneumonia, unspecified organism (2) BPH (benign prostatic hypertrophy) Code(s): N40.0 - BENIGN PROSTATIC HYPERPLASIA WITHOUT LOWER URINRY TRACT SYMP Qualifiers: Prostatic enlargement morphology: unspecified morphology Lower urinary tract symptom presence: symptoms present Qualified Code(s): N40.1 - Enlarged prostate with lower urinary tract symptoms (3) CVA (cerebrovascular accident) Code(s): I63.9 - CEREBRAL INFARCTION, UNSPECIFIED (4) Colitis Code(s): K52.9 - NONINFECTIVE GASTROENTERITIS AND COLITIS, UNSPECIFIED (5) Dehydration Code(s): E86.0 - DEHYDRATION (6) Dementia Code(s): F03.90 - UNSPECIFIED DEMENTIA WITHOUT BEHAVIORAL DISTURBANCE (7) Dysphagia Code(s): R13.10 - DYSPHAGIA, UNSPECIFIED (8) Foreign body alimentary tract Code(s): T18.9XXA - FOREIGN BODY OF ALIMENTARY TRACT, PART UNSP, INIT ENCNTR Qualifiers: Encounter type: initial encounter Qualified Code(s): T18.9XXA - Foreign body of alimentary tract, part unspecified, initial encounter (9) History of ulcerative colitis Code(s): Z87.19 - PERSONAL HISTORY OF OTHER DISEASES OF THE DIGESTIVE SYSTEM (10) Hypoxemia Code(s): R09.02 - HYPOXEMIA (11) Lewy body dementia Code(s): G31.83 - DEMENTIA WITH LEWY BODIES F02.80 - DEMENTIA IN OTH DISEASES CLASSD ELSWHR W/O BEHAVRL DISTURB (12) Respiratory failure Code(s): J96.90 - RESPIRATORY FAILURE, UNSP, UNSP W HYPOXIA OR HYPERCAPNIA (13) Sepsis Code(s): A41.9 - SEPSIS, UNSPECIFIED ORGANISM Qualifiers: Sepsis type: sepsis due to unspecified organism Qualified Code(s): A41.9 - Sepsis, unspecified organism
[2016-03-16] MEDS ORDERED: PT OWN MED DRAWER 7, Y5N ONE ×2 (13:50→20:54)
--- NOTE | 2016-03-16 13:54 | PN ---
Progress Note, Physician Chief Complaint: ASLEEP RELAXED +TWITCHES ELEVATED LACTIC ACID LEVEL - Current Medication List Current Medications: Active Medications Acetaminophen (Tylenol Oral Solution -) 650 mg PO Q6H PRN PRN Reason: FEVER OR PAIN Amino Acids (Prostat Sugar-Free Packet -) 30 ml GT BIDWM [facility] [place] Last Admin: 03/15/16 17:45 Dose: 30 ml Ascorbic Acid (Vitamin C Oral Solution -) 250 mg GT DAILY [facility] [place] Last Admin: 03/15/16 11:27 Dose: 250 mg Azathioprine (Imuran -) 150 mg GT DAILY [facility] [place] Last Admin: 03/15/16 11:23 Dose: 150 mg Bacitracin (Bacitracin -) 1 applic TP DAILY [facility] [place] Last Admin: 03/15/16 11:21 Dose: 1 applic Escitalopram Oxalate (Lexapro Oral Solution -) 10 mg GT DAILY [facility] [place] Last Admin: 03/15/16 11:25 Dose: 10 mg Heparin Sodium (Porcine) (Heparin -) 5,000 unit SQ BID [facility] [place] Last Admin: 03/15/16 22:26 Dose: 5,000 unit Pantoprazole Sodium (Protonix 40mg Ivpb (Pre-Docked)) 100 mls @ 200 mls/hr IVPB HS [facility] [place] Last Admin: 03/15/16 22:27 Dose: 200 mls/hr Piperacillin Sod/Tazobactam Sod (Zosyn 4.5gm Ivpb (Pre-Docked)) 100 mls @ 200 mls/hr IVPB Q8H-IV [facility] [place] Last Admin: 03/16/16 02:26 Dose: 200 mls/hr Potassium Chloride 10 meq/ (Sodium Chloride) 1,005 mls @ 42 mls/hr IVPB Q24H [facility] [place] Last Admin: 03/15/16 17:44 Dose: 42 mls/hr Lactobacillus Acidophilus (Bacid -) 1 tab GT DAILY [facility] [place] Last Admin: 03/15/16 11:19 Dose: 1 tab Levetiracetam (Keppra Oral Solution -) 250 mg GT BID [facility] [place] Last Admin: 03/15/16 22:27 Dose: 250 mg Methylprednisolone Sodium Succinate (Solu-Medrol -) 40 mg IVPB DAILY [facility] [place] Last Admin: 03/15/16 11:27 Dose: 40 mg Multi-Ingredient Ointment (Zinc Oxide) 1 applic TP DAILY [facility] [place] Last Admin: 01/30/17 11:27 Dose: 1 applic Polyethylene Glycol (Miralax (For Daily Use) -) 17 gm GT DAILY [facility] [place] Last Admin: 03/15/16 11:21 Dose: Not Given Potassium Phos/Sodium Phos (Phos-Nak Packet -) 1 packet PO BID [facility] [place] Last Admin: 03/15/16 22:27 Dose: 1 packet Senna (Senna Oral Solution -) 8.8 mg GT BID [facility] [place] Last Admin: 03/15/16 23:05 Dose: 8.8 mg - Objective Vital Signs: Vital Signs Temperature 97.9 F 03/16/16 06:00 Pulse Rate 99 H 03/16/16 06:00 Respiratory Rate 18 03/16/16 06:00 Blood Pressure 102/65 03/16/16 06:00 O2 Sat by Pulse Oximetry (%) 98 03/16/16 05:53 Constitutional: Yes: Mild Distress Eyes: Yes: WNL HENT: Yes: WNL Neck: Yes: WNL Cardiovascular: Yes: WNL Respiratory: Yes: On Nasal O2, Rhonchi Gastrointestinal: Yes: WNL Genitourinary: Yes: Incontinence Musculoskeletal: Yes: Joint Stiffness, Muscle Weakness Extremities: Yes: Other Edema: No Peripheral Pulses WNL: Yes Integumentary: Yes: Pressure Ulcer, Rash Wound/Incision: Yes: Dressing Dry and Intact Neurological: Yes: Aphasia, Confusion, Pre-Existing Deficit, Unsteady Gait, Weakness ...Motor Strength: LUE, LLE, RUE, RLE Psychiatric: Yes: Other Labs: CBC, BMP 03/16/16 05:35 03/16/16 05:35 INR, PTT INR 1.25 (0.82-1.09) H 03/08/16 20:30 Problem List - Problems (1) Pneumonia Code(s): J18.9 - PNEUMONIA, UNSPECIFIED ORGANISM Qualifiers: Pneumonia type: due to unspecified organism Laterality: unspecified laterality Lung location: unspecified part of lung Qualified Code(s): J18.9 - Pneumonia, unspecified organism (2) BPH (benign prostatic hypertrophy) Code(s): N40.0 - BENIGN PROSTATIC HYPERPLASIA WITHOUT LOWER URINRY TRACT SYMP Qualifiers: Prostatic enlargement morphology: unspecified morphology Lower urinary tract symptom presence: symptoms present Qualified Code(s): N40.1 - Enlarged prostate with lower urinary tract symptoms (3) Dementia Code(s): F03.90 - UNSPECIFIED DEMENTIA WITHOUT BEHAVIORAL DISTURBANCE (4) Dysphagia Code(s): R13.10 - DYSPHAGIA, UNSPECIFIED (5) Foreign body alimentary tract Code(s): T18.9XXA - FOREIGN BODY OF ALIMENTARY TRACT, PART UNSP, INIT ENCNTR Qualifiers: Encounter type: initial encounter Qualified Code(s): T18.9XXA - Foreign body of alimentary tract, part unspecified, initial encounter (6) History of ulcerative colitis Code(s): Z87.19 - PERSONAL HISTORY OF OTHER DISEASES OF THE DIGESTIVE SYSTEM (7) Lewy body dementia Code(s): G31.83 - DEMENTIA WITH LEWY BODIES F02.80 - DEMENTIA IN OTH DISEASES CLASSD ELSWHR W/O BEHAVRL DISTURB (8) Malnutrition Code(s): E46 - UNSPECIFIED PROTEIN-CALORIE MALNUTRITION (9) Parkinson disease Code(s): G20 - PARKINSON'S DISEASE (10) Respiratory failure Code(s): J96.90 - RESPIRATORY FAILURE, UNSP, UNSP W HYPOXIA OR HYPERCAPNIA (11) Seizure disorder Code(s): G40.909 - EPILEPSY, UNSP, NOT INTRACTABLE, WITHOUT STATUS EPILEPTICUS (12) Sepsis Code(s): A41.9 - SEPSIS, UNSPECIFIED ORGANISM Qualifiers: Sepsis type: sepsis due to unspecified organism Qualified Code(s): A41.9 - Sepsis, unspecified organism (13) Quadriplegia Code(s): G82.50 - QUADRIPLEGIA, UNSPECIFIED Assessment/Plan AGREE WITH BIPAP FOR RESP SUPPORT CAN CHANGE TO 02 MASK NEEDED IV ABX PER ID TUBE FEEDS RESTARTED DVT PROPHYLAXIS ID AND PULM EVAL APPRECIATED CHECK LABS DENTAL CONSULT DEFFEREED OUTPATIENT HYPERNATREMIA RESOLVING , RENAL F/U, IVF LACTIC ACID ELEVATED DISCUSSED WITH DR LIMON, EEG AND SEIZURE WORKUP
[2016-03-16] MEDS: NAPH,MB-DB/K PH,MBDB POWDER PACKET PO SCH ×2 (14:17→21:45)
[2016-03-16] MEDS: SENNOSIDES 8.8 MG/5 ML BULK BOTTLE GT SCH ×2 (14:17→21:46)
[2016-03-16] MEDS: LACTOBACILLUS ACIDOPHILUS 1 EACH TAB (FP) GT SCH (14:18)
[2016-03-16] MEDS: BACITRACIN 30 GM TUBE TOPICAL OINTMENT TP SCH (14:18)
[2016-03-16] MEDS: HEPARIN NA (PORCINE) 5,000 UNITS/ML 1ML VIAL SQ SCH ×2 (14:19→21:44)
[2016-03-16] MEDS: AMINO ACIDS/PROTEIN HYDROLYS SUGAR-FREE 30 ML PACKET GT SCH ×2 (14:19→18:58)
[2016-03-16] MEDS: azaTHIOprine 50 MG TABLET GT SCH (14:22)
[2016-03-16] MEDS: levETIRAcetam 500 MG/5 ML ORAL SOLUTION (UNIT-DOSE CUPS) GT SCH ×2 (14:24→21:44)
[2016-03-16] MEDS: ESCITALOPRAM OXALATE 5 MG/5 ML GT SCH (14:25)
[2016-03-16] MEDS: ASCORBIC ACID 500 MG/5 ML UNIT DOSE CUP GT SCH (14:26)
[2016-03-16] MEDS: ZINC OXIDE 20% TOPICAL OINTMENT 30 GM TUBE TP SCH (14:26)
[2016-03-16] MEDS: POLYETHYLENE GLYCOL 3350 119 GM BTL GT SCH (14:27)
[2016-03-16] MEDS: methylPREDNISolone NA SUCC 40 MG/1 ML VIAL IVPB SCH (14:28)
[2016-03-16] MEDS: POTASSIUM CHLORIDE 10 MEQ in SODIUM CHLORIDE 0.45% 1,000 ML IVPB SCH (15:18)
--- NOTE | 2016-03-16 16:00 | PN ---
Progress Note, Physician History of Present Illness: No acute distress Afebrile WBC slightly elevated No diarrhea reported - Current Medication List Current Medications: Active Medications Acetaminophen (Tylenol Oral Solution -) 650 mg PO Q6H PRN PRN Reason: FEVER OR PAIN Amino Acids (Prostat Sugar-Free Packet -) 30 ml GT BIDWM [facility] [place] Last Admin: 03/16/16 14:19 Dose: 30 ml Ascorbic Acid (Vitamin C Oral Solution -) 250 mg GT DAILY [facility] Last Admin: 03/16/16 14:26 Dose: 250 mg Azathioprine (Imuran -) 150 mg GT DAILY [facility] [place] Last Admin: 03/16/16 14:22 Dose: 150 mg Bacitracin (Bacitracin -) 1 applic TP DAILY [facility] Last Admin: 03/16/16 14:18 Dose: 1 applic Escitalopram Oxalate (Lexapro Oral Solution -) 10 mg GT DAILY [facility] Last Admin: 03/16/16 14:25 Dose: 10 mg Heparin Sodium (Porcine) (Heparin -) 5,000 unit SQ BID [facility] Last Admin: 03/16/16 14:19 Dose: 5,000 unit Pantoprazole Sodium (Protonix 40mg Ivpb (Pre-Docked)) 100 mls @ 200 mls/hr IVPB HS [facility] [place] Last Admin: 03/15/16 22:27 Dose: 200 mls/hr Potassium Chloride 10 meq/ (Sodium Chloride) 1,005 mls @ 42 mls/hr IVPB Q24H [facility] Last Admin: 03/16/16 15:18 Dose: 42 mls/hr Lactobacillus Acidophilus (Bacid -) 1 tab GT DAILY [facility] Last Admin: 03/16/16 14:18 Dose: 1 tab Levetiracetam (Keppra Oral Solution -) 250 mg GT BID [facility] Last Admin: 03/16/16 14:24 Dose: 250 mg Methylprednisolone Sodium Succinate (Solu-Medrol -) 40 mg IVPB DAILY [facility] Last Admin: 03/16/16 14:28 Dose: 40 mg Multi-Ingredient Ointment (Zinc Oxide) 1 applic TP DAILY [facility] Last Admin: 03/16/16 14:26 Dose: 1 applic Polyethylene Glycol (Miralax (For Daily Use) -) 17 gm GT DAILY [facility] Last Admin: 03/16/16 14:27 Dose: 17 grams Potassium Phos/Sodium Phos (Phos-Nak Packet -) 1 packet PO BID [facility] Last Admin: 03/16/16 14:17 Dose: 1 packet Senna (Senna Oral Solution -) 8.8 mg GT BID [facility] Last Admin: 03/16/16 14:17 Dose: 8.8 mg - Objective Vital Signs: Vital Signs Temperature 98.5 F 03/16/16 14:00 Pulse Rate 98 H 03/16/16 14:00 Respiratory Rate 20 03/16/16 14:00 Blood Pressure 123/78 03/16/16 14:00 O2 Sat by Pulse Oximetry (%) 98 03/16/16 05:53 Constitutional: Yes: No Distress Cardiovascular: Yes: Regular Rate and Rhythm, S1, S2 Respiratory: Yes: Diminished Gastrointestinal: Yes: Normal Bowel Sounds, Soft. No: Tenderness Edema: No Labs: CBC, BMP 03/16/16 05:35 03/16/16 05:35 INR, PTT INR 1.25 (0.82-1.09) H 03/08/16 20:30 Assessment/Plan Resp insufficiency Possible aspiration pneumonia Lewy body dementia Completed 7d course of zosyn D/C antibiotics, observe
--- NOTE | 2016-03-16 18:09 | PN ---
Progress Note, Physician History of Present Illness: Pt seen and examined at bedside. No acute change. - Current Medication List Current Medications: Active Medications Acetaminophen (Tylenol Oral Solution -) 650 mg PO Q6H PRN PRN Reason: FEVER OR PAIN Amino Acids (Prostat Sugar-Free Packet -) 30 ml GT BIDWM [facility] Last Admin: 03/16/16 14:19 Dose: 30 ml Ascorbic Acid (Vitamin C Oral Solution -) 250 mg GT DAILY [facility] Last Admin: 03/16/16 14:26 Dose: 250 mg Azathioprine (Imuran -) 150 mg GT DAILY [facility] Last Admin: 03/16/16 14:22 Dose: 150 mg Bacitracin (Bacitracin -) 1 applic TP DAILY [facility] Last Admin: 03/16/16 14:18 Dose: 1 applic Escitalopram Oxalate (Lexapro Oral Solution -) 10 mg GT DAILY [facility] Last Admin: 03/16/16 14:25 Dose: 10 mg Heparin Sodium (Porcine) (Heparin -) 5,000 unit SQ BID [facility] Last Admin: 03/16/16 14:19 Dose: 5,000 unit Pantoprazole Sodium (Protonix 40mg Ivpb (Pre-Docked)) 100 mls @ 200 mls/hr IVPB HS [facility] Last Admin: 03/15/16 22:27 Dose: 200 mls/hr Potassium Chloride 10 meq/ (Sodium Chloride) 1,005 mls @ 42 mls/hr IVPB Q24H [facility] Last Admin: 03/16/16 15:18 Dose: 42 mls/hr Lactobacillus Acidophilus (Bacid -) 1 tab GT DAILY [facility] Last Admin: 03/16/16 14:18 Dose: 1 tab Levetiracetam (Keppra Oral Solution -) 250 mg GT BID [facility] Last Admin: 03/16/16 14:24 Dose: 250 mg Methylprednisolone Sodium Succinate (Solu-Medrol -) 40 mg IVPB DAILY [facility] Last Admin: 03/16/16 14:28 Dose: 40 mg Multi-Ingredient Ointment (Zinc Oxide) 1 applic TP DAILY [facility] Last Admin: 03/16/16 14:26 Dose: 1 applic Polyethylene Glycol (Miralax (For Daily Use) -) 17 gm GT DAILY [facility] Last Admin: 03/16/16 14:27 Dose: 17 grams Potassium Phos/Sodium Phos (Phos-Nak Packet -) 1 packet PO BID [facility] Last Admin: 03/16/16 14:17 Dose: 1 packet Senna (Senna Oral Solution -) 8.8 mg GT BID [facility] Last Admin: 03/16/16 14:17 Dose: 8.8 mg - Objective Vital Signs: Vital Signs Temperature 98.5 F 03/16/16 14:00 Pulse Rate 98 H 03/16/16 14:00 Respiratory Rate 20 03/16/16 14:00 Blood Pressure 123/78 03/16/16 14:00 O2 Sat by Pulse Oximetry (%) 98 03/16/16 10:00 Constitutional: Yes: Calm Eyes: Yes: Conjunctiva Clear HENT: Yes: Atraumatic Neck: Yes: Supple Cardiovascular: Yes: S1, S2 Respiratory: Yes: CTA Bilaterally Gastrointestinal: Yes: Soft Genitourinary: Yes: Incontinence Edema: No Neurological: Yes: Pre-Existing Deficit Labs: CBC, BMP 03/16/16 05:35 03/16/16 05:35 INR, PTT INR 1.25 (0.82-1.09) H 03/08/16 20:30 Problem List - Problems (1) Pneumonia Code(s): J18.9 - PNEUMONIA, UNSPECIFIED ORGANISM Qualifiers: Pneumonia type: due to unspecified organism Laterality: unspecified laterality Lung location: unspecified part of lung Qualified Code(s): J18.9 - Pneumonia, unspecified organism (2) BPH (benign prostatic hypertrophy) Code(s): N40.0 - BENIGN PROSTATIC HYPERPLASIA WITHOUT LOWER URINRY TRACT SYMP Qualifiers: Prostatic enlargement morphology: unspecified morphology Lower urinary tract symptom presence: symptoms present Qualified Code(s): N40.1 - Enlarged prostate with lower urinary tract symptoms (3) Hypokalemia Code(s): E87.6 - HYPOKALEMIA (4) Respiratory failure Code(s): J96.90 - RESPIRATORY FAILURE, UNSP, UNSP W HYPOXIA OR HYPERCAPNIA (5) Seizure disorder Code(s): G40.909 - EPILEPSY, UNSP, NOT INTRACTABLE, WITHOUT STATUS EPILEPTICUS (6) Sepsis Code(s): A41.9 - SEPSIS, UNSPECIFIED ORGANISM Qualifiers: Sepsis type: sepsis due to unspecified organism Qualified Code(s): A41.9 - Sepsis, unspecified organism (7) BREANA (acute kidney injury) Code(s): N17.9 - ACUTE KIDNEY FAILURE, UNSPECIFIED Assessment/Plan Current Medications Generic Name Dose Route Start Last Admin Trade Name Freq PRN Reason Stop Dose Admin Acetaminophen 650 mg 03/11/16 13:29 Tylenol Oral Solution - PO Q6H PRN FEVER OR PAIN Amino Acids 30 ml 03/11/16 08:00 03/16/16 14:19 Prostat Sugar-Free Packet - GT 30 ml BIDWM [facility] Administration Ascorbic Acid 250 mg 03/11/16 10:00 03/16/16 14:26 Vitamin C Oral Solution - GT 250 mg DAILY [facility] Administration Azathioprine 150 mg 03/11/16 10:00 03/16/16 14:22 Imuran - GT 150 mg DAILY [facility] Administration Bacitracin 1 applic 03/11/16 10:00 03/16/16 14:18 Bacitracin - TP 1 applic DAILY [facility] Administration Escitalopram Oxalate 10 mg 03/11/16 10:00 03/16/16 14:25 Lexapro Oral Solution - GT 10 mg DAILY [facility] Administration Heparin Sodium (Porcine) 5,000 unit 03/10/16 22:00 03/16/16 14:19 Heparin - SQ 5,000 unit BID [facility] Administration Pantoprazole Sodium 100 mls @ 200 mls/hr 03/10/16 22:00 03/15/16 22:27 Protonix 40mg Ivpb (Pre-Docked) IVPB 200 mls/hr HS [facility] Administration Potassium Chloride 10 meq/ 1,005 mls @ 42 mls/hr 03/15/16 15:30 03/16/16 15:18 Sodium Chloride IVPB 42 mls/hr Q24H [facility] Administration Lactobacillus Acidophilus 1 tab 03/11/16 10:00 03/16/16 14:18 Bacid - GT 1 tab DAILY [facility] Administration Levetiracetam 250 mg 03/10/16 22:00 03/16/16 14:24 Keppra Oral Solution - GT 250 mg BID [facility] Administration Methylprednisolone Sodium Succinate 40 mg 03/11/16 10:00 03/16/16 14:28 Solu-Medrol - IVPB 40 mg DAILY [facility] Administration Multi-Ingredient Ointment 1 applic 03/11/16 10:00 03/16/16 14:26 Zinc Oxide TP 1 applic DAILY [facility] Administration Polyethylene Glycol 17 gm 03/11/16 10:00 03/16/16 14:27 Miralax (For Daily Use) - GT 17 grams DAILY [facility] Administration Potassium Phos/Sodium Phos 1 packet 03/11/16 13:30 03/16/16 14:17 Phos-Nak Packet - PO 1 packet BID [facility] Administration Senna 8.8 mg 03/10/16 22:00 03/16/16 14:17 Senna Oral Solution - GT 8.8 mg BID [facility] Administration Impression 1. BREANA - pt has a baseline creatinine of about 0.7 2. respiratory failure requiring BiPap 3. parkinsons 4. ulcerative colitis 5. dementia 6. aspiration PNA 7. sepsis 8. hypernatremia 9. hypokalemia 10. lactic acidosis Plan - renal function is stable - lactic acid is improving - repeat labs in am - will keep on fluids for now - monitor pulse ox and bipap as needed - abx per ID - baseline creatinine is about 0.7 Dr Cardoso
--- NOTE | 2016-03-16 20:52 | CONSULT ---
Consult - text type - Consultation Consultation Note: NEUROLOGY CONSULTATION is greatly appreciated: This 61 yo RH, m man with h/o Ulcerative colitis on Azathiaprine is well know to me, over many years, with Dementia Praecox and Parkinsonian features. Bedbound and mute and fed via PEG x many years and known to have myoclonic jerks at baseline which increase when he gets infected. On levetiracem 250 mg BID via PEG. Now admitted with pneumonia. On Solumedrol and just completed a course of Piperacillin/Tazobactam. Increased jerking noted by family and attendings. Persistent, mild, lactic acidosis noted with normal pH and bicarb. YOBANY: Neck rigid in all directions. Neg Kernig. No bruits. No skin breakdown. NEURO: Stares. Follows no commands. No speech. +Glabella, snout, suck, root, palmomentals. Extremely rigid tone throughout. Frequent, scattered, Myoclonic jerks including face. Brisk reflexes except AJ's. Withdraws all fours to pinch with increased myoclonus. IMP: Severe, bilateral cerebral dysfunction. Increased Myoclonic jerks due to toxic-metabolic features (encephalopathy ) and treatment. Both steroid Rx and particularly, Piperacillin, can increase Myoclonus. Lactic acid may be from Muscle due to rigidity and tonic activity. Suggest: Observe for a few days off Piperacillin and tapering Solumedrol. If myoclonus improves I would continue levetiracetam. If it does not, I would consider changing to Valproic acid ( Depakote) elixor. (250 mg via PEG x 1 week then 500 BID and D/C levetiracetam.) Decrease escitalopram to 5 mg qd x few weeks and D/C escitalopram. Thank you very much, Tee Macias.
[2016-03-16] MEDS: PANTOPRAZOLE SODIUM 100 ML IVPB SCH (21:45)
[2016-03-16] MEDS: ALBUTEROL SO4 2.5/IPRATROPIUM 0.5 INH SOL 3 ML VIAL.NEB. NEB SCH ×2 (23:20)
[2016-03-17] MEDS: ALBUTEROL SO4 2.5/IPRATROPIUM 0.5 INH SOL 3 ML VIAL.NEB. NEB SCH ×3 (06:18→18:11)
[2016-03-17 07:33] LABS: CALCIUM 9.2 mg/dL (8.5-10.1); CREATININE 0.7 mg/dL (0.7-1.3)
--- NOTE | 2016-03-17 08:19 | PN ---
Progress Note, Physician Chief Complaint: ASLEEP, AROUSABLE WITH PHYSICAL STIMULI ONLY NON-VERBAL FEEDING TUBES CONTINUED - Current Medication List Current Medications: Active Medications Acetaminophen (Tylenol Oral Solution -) 650 mg PO Q6H PRN PRN Reason: FEVER OR PAIN Albuterol/Ipratropium (Duoneb -) 1 amp NEB QIDR [facility] Last Admin: 03/17/16 06:18 Dose: 1 amp Amino Acids (Prostat Sugar-Free Packet -) 30 ml GT BIDWM [facility] Last Admin: 03/16/16 18:58 Dose: 30 ml Ascorbic Acid (Vitamin C Oral Solution -) 250 mg GT DAILY [facility] Last Admin: 03/16/16 14:26 Dose: 250 mg Azathioprine (Imuran -) 150 mg GT DAILY [facility] Last Admin: 03/16/16 14:22 Dose: 150 mg Bacitracin (Bacitracin -) 1 applic TP DAILY [facility] Last Admin: 03/16/16 14:18 Dose: 1 applic Escitalopram Oxalate (Lexapro Oral Solution -) 10 mg GT DAILY [facility] Last Admin: 03/16/16 14:25 Dose: 10 mg Heparin Sodium (Porcine) (Heparin -) 5,000 unit SQ BID [facility] Last Admin: 03/16/16 21:44 Dose: 5,000 unit Pantoprazole Sodium (Protonix 40mg Ivpb (Pre-Docked)) 100 mls @ 200 mls/hr IVPB HS [facility] Last Admin: 03/16/16 21:45 Dose: 200 mls/hr Potassium Chloride 10 meq/ (Sodium Chloride) 1,005 mls @ 42 mls/hr IVPB Q24H [facility] Last Admin: 03/16/16 15:18 Dose: 42 mls/hr Lactobacillus Acidophilus (Bacid -) 1 tab GT DAILY [facility] Last Admin: 03/16/16 14:18 Dose: 1 tab Levetiracetam (Keppra Oral Solution -) 250 mg GT BID [facility] Last Admin: 03/16/16 21:44 Dose: 250 mg Methylprednisolone Sodium Succinate (Solu-Medrol -) 40 mg IVPB DAILY [facility] Last Admin: 03/16/16 14:28 Dose: 40 mg Multi-Ingredient Ointment (Zinc Oxide) 1 applic TP DAILY [facility] Last Admin: 03/16/16 14:26 Dose: 1 applic Polyethylene Glycol (Miralax (For Daily Use) -) 17 gm GT DAILY [facility] Last Admin: 03/16/16 14:27 Dose: 17 grams Potassium Phos/Sodium Phos (Phos-Nak Packet -) 1 packet PO BID [facility] Last Admin: 03/16/16 21:45 Dose: 1 packet Senna (Senna Oral Solution -) 8.8 mg GT BID [facility] Last Admin: 03/16/16 21:46 Dose: 8.8 mg - Objective Vital Signs: Vital Signs Temperature 97.7 F 03/17/16 06:00 Pulse Rate 81 03/17/16 06:00 Respiratory Rate 20 03/17/16 06:00 Blood Pressure 134/66 03/17/16 06:00 O2 Sat by Pulse Oximetry (%) 100 03/16/16 22:00 Constitutional: Yes: Mild Distress Eyes: Yes: WNL HENT: Yes: WNL Neck: Yes: WNL Cardiovascular: Yes: WNL Respiratory: Yes: On Nasal O2, Rhonchi Gastrointestinal: Yes: WNL Musculoskeletal: Yes: Joint Stiffness, Muscle Weakness Extremities: Yes: Deformity Edema: No Peripheral Pulses WNL: Yes Integumentary: Yes: Pressure Ulcer, Skin Tear Wound/Incision: Yes: Dressing Dry and Intact Neurological: Yes: Aphasia, Dysarthria, Pre-Existing Deficit, Weakness ...Motor Strength: LLE, RLE Psychiatric: Yes: Other Labs: CBC, BMP 03/16/16 05:35 03/17/16 06:05 INR, PTT INR 1.25 (0.82-1.09) H 03/08/16 20:30 Problem List - Problems (1) Pneumonia Code(s): J18.9 - PNEUMONIA, UNSPECIFIED ORGANISM Qualifiers: Pneumonia type: due to unspecified organism Laterality: unspecified laterality Lung location: unspecified part of lung Qualified Code(s): J18.9 - Pneumonia, unspecified organism (2) BPH (benign prostatic hypertrophy) Code(s): N40.0 - BENIGN PROSTATIC HYPERPLASIA WITHOUT LOWER URINRY TRACT SYMP Qualifiers: Prostatic enlargement morphology: unspecified morphology Lower urinary tract symptom presence: symptoms present Qualified Code(s): N40.1 - Enlarged prostate with lower urinary tract symptoms (3) Dementia Code(s): F03.90 - UNSPECIFIED DEMENTIA WITHOUT BEHAVIORAL DISTURBANCE (4) Dysphagia Code(s): R13.10 - DYSPHAGIA, UNSPECIFIED (5) Foreign body alimentary tract Code(s): T18.9XXA - FOREIGN BODY OF ALIMENTARY TRACT, PART UNSP, INIT ENCNTR Qualifiers: Encounter type: initial encounter Qualified Code(s): T18.9XXA - Foreign body of alimentary tract, part unspecified, initial encounter (6) History of ulcerative colitis Code(s): Z87.19 - PERSONAL HISTORY OF OTHER DISEASES OF THE DIGESTIVE SYSTEM (7) Lewy body dementia Code(s): G31.83 - DEMENTIA WITH LEWY BODIES F02.80 - DEMENTIA IN OTH DISEASES CLASSD ELSWHR W/O BEHAVRL DISTURB (8) Malnutrition Code(s): E46 - UNSPECIFIED PROTEIN-CALORIE MALNUTRITION (9) Parkinson disease Code(s): G20 - PARKINSON'S DISEASE (10) Respiratory failure Code(s): J96.90 - RESPIRATORY FAILURE, UNSP, UNSP W HYPOXIA OR HYPERCAPNIA (11) Seizure disorder Code(s): G40.909 - EPILEPSY, UNSP, NOT INTRACTABLE, WITHOUT STATUS EPILEPTICUS (12) Sepsis Code(s): A41.9 - SEPSIS, UNSPECIFIED ORGANISM Qualifiers: Sepsis type: sepsis due to unspecified organism Qualified Code(s): A41.9 - Sepsis, unspecified organism (13) Quadriplegia Code(s): G82.50 - QUADRIPLEGIA, UNSPECIFIED Assessment/Plan LACTIC ACID LEVEL INCREASED WITH MYOCLONIC JERKS NEUROLOGY EVAL APPRECIATED AND THIS ACTIVITY MAY HAVE BEEN INCREASED WITH IV ABX AND ACUTE MEDICAL ILLNESS PNA I HAVE ASKED DIETARY TO EVALUATE NUTRITIONAL NEEDS AND POSSIBLE CHANGE TO BOLUS FEEDS TO REDUCE ASPIRATIONS. MONITOR OFF ABX, WBC STILL ELEVATED RECULTURE NEEDED, ID F/U STOP IVF, GIVE FLUIDS VIA PEG
--- NOTE | 2016-03-17 10:56 | PN ---
Progress Note, Physician History of Present Illness: Pt seen and examined at bedside. No acute events. - Current Medication List Current Medications: Active Medications Acetaminophen (Tylenol Oral Solution -) 650 mg PO Q6H PRN PRN Reason: FEVER OR PAIN Albuterol/Ipratropium (Duoneb -) 1 amp NEB QIDR [facility] Last Admin: 03/17/16 06:18 Dose: 1 amp Amino Acids (Prostat Sugar-Free Packet -) 30 ml GT BIDWM [facility] Last Admin: 03/16/16 18:58 Dose: 30 ml Ascorbic Acid (Vitamin C Oral Solution -) 250 mg GT DAILY [facility] Last Admin: 03/16/16 14:26 Dose: 250 mg Azathioprine (Imuran -) 150 mg GT DAILY [facility] Last Admin: 03/16/16 14:22 Dose: 150 mg Bacitracin (Bacitracin -) 1 applic TP DAILY [facility] Last Admin: 03/16/16 14:18 Dose: 1 applic Escitalopram Oxalate (Lexapro -) 5 mg PO DAILY [facility] Heparin Sodium (Porcine) (Heparin -) 5,000 unit SQ BID [facility] Last Admin: 03/16/16 21:44 Dose: 5,000 unit Pantoprazole Sodium (Protonix 40mg Ivpb (Pre-Docked)) 100 mls @ 200 mls/hr IVPB HS [facility] Last Admin: 03/16/16 21:45 Dose: 200 mls/hr Lactobacillus Acidophilus (Bacid -) 1 tab GT DAILY [facility] Last Admin: 03/16/16 14:18 Dose: 1 tab Levetiracetam (Keppra Oral Solution -) 250 mg GT BID [facility] Last Admin: 03/16/16 21:44 Dose: 250 mg Multi-Ingredient Ointment (Zinc Oxide) 1 applic TP DAILY [facility] Last Admin: 03/16/16 14:26 Dose: 1 applic Polyethylene Glycol (Miralax (For Daily Use) -) 17 gm GT DAILY [facility] Last Admin: 03/16/16 14:27 Dose: 17 grams Potassium Phos/Sodium Phos (Phos-Nak Packet -) 1 packet PO BID [facility] Last Admin: 03/16/16 21:45 Dose: 1 packet Senna (Senna Oral Solution -) 8.8 mg GT BID [facility] Last Admin: 03/16/16 21:46 Dose: 8.8 mg - Objective Vital Signs: Vital Signs Temperature 97.7 F 03/17/16 06:00 Pulse Rate 81 03/17/16 06:00 Respiratory Rate 20 03/17/16 06:00 Blood Pressure 134/66 03/17/16 06:00 O2 Sat by Pulse Oximetry (%) 100 03/16/16 22:00 Constitutional: Yes: Calm Eyes: Yes: Conjunctiva Clear Cardiovascular: Yes: S1, S2 Respiratory: Yes: CTA Bilaterally Gastrointestinal: Yes: Other (peg) Genitourinary: Yes: Incontinence Musculoskeletal: Yes: Muscle Weakness Edema: No Neurological: Yes: Pre-Existing Deficit Labs: CBC, BMP 03/16/16 05:35 03/17/16 06:05 INR, PTT INR 1.25 (0.82-1.09) H 03/08/16 20:30 Problem List - Problems (1) Pneumonia Code(s): J18.9 - PNEUMONIA, UNSPECIFIED ORGANISM Qualifiers: Pneumonia type: due to unspecified organism Laterality: unspecified laterality Lung location: unspecified part of lung Qualified Code(s): J18.9 - Pneumonia, unspecified organism (2) BPH (benign prostatic hypertrophy) Code(s): N40.0 - BENIGN PROSTATIC HYPERPLASIA WITHOUT LOWER URINRY TRACT SYMP Qualifiers: Prostatic enlargement morphology: unspecified morphology Lower urinary tract symptom presence: symptoms present Qualified Code(s): N40.1 - Enlarged prostate with lower urinary tract symptoms (3) Hypokalemia Code(s): E87.6 - HYPOKALEMIA (4) Respiratory failure Code(s): J96.90 - RESPIRATORY FAILURE, UNSP, UNSP W HYPOXIA OR HYPERCAPNIA (5) Seizure disorder Code(s): G40.909 - EPILEPSY, UNSP, NOT INTRACTABLE, WITHOUT STATUS EPILEPTICUS (6) Sepsis Code(s): A41.9 - SEPSIS, UNSPECIFIED ORGANISM Qualifiers: Sepsis type: sepsis due to unspecified organism Qualified Code(s): A41.9 - Sepsis, unspecified organism (7) BREANA (acute kidney injury) Code(s): N17.9 - ACUTE KIDNEY FAILURE, UNSPECIFIED Assessment/Plan Current Medications Generic Name Dose Route Start Last Admin Trade Name Freq PRN Reason Stop Dose Admin Acetaminophen 650 mg 03/11/16 13:29 Tylenol Oral Solution - PO Q6H PRN FEVER OR PAIN Albuterol/Ipratropium 1 amp 03/17/16 00:00 03/17/16 06:18 Duoneb - NEB 1 amp QIDR [facility] Administration Amino Acids 30 ml 03/11/16 08:00 03/16/16 18:58 Prostat Sugar-Free Packet - GT 30 ml BIDWM [facility] Administration Ascorbic Acid 250 mg 03/11/16 10:00 03/16/16 14:26 Vitamin C Oral Solution - GT 250 mg DAILY [facility] Administration Azathioprine 150 mg 03/11/16 10:00 03/16/16 14:22 Imuran - GT 150 mg DAILY [facility] Administration Bacitracin 1 applic 03/11/16 10:00 03/16/16 14:18 Bacitracin - TP 1 applic DAILY [facility] Administration Escitalopram Oxalate 5 mg 03/17/16 10:00 Lexapro - PO DAILY [facility] Heparin Sodium (Porcine) 5,000 unit 03/10/16 22:00 03/16/16 21:44 Heparin - SQ 5,000 unit BID [facility] Administration Pantoprazole Sodium 100 mls @ 200 mls/hr 03/10/16 22:00 03/16/16 21:45 Protonix 40mg Ivpb (Pre-Docked) IVPB 200 mls/hr HS [facility] Administration Lactobacillus Acidophilus 1 tab 03/11/16 10:00 03/16/16 14:18 Bacid - GT 1 tab DAILY [facility] Administration Levetiracetam 250 mg 03/10/16 22:00 03/16/16 21:44 Keppra Oral Solution - GT 250 mg BID [facility] Administration Multi-Ingredient Ointment 1 applic 03/11/16 10:00 03/16/16 14:26 Zinc Oxide TP 1 applic DAILY [facility] Administration Polyethylene Glycol 17 gm 03/11/16 10:00 03/16/16 14:27 Miralax (For Daily Use) - GT 17 grams DAILY [facility] Administration Potassium Phos/Sodium Phos 1 packet 03/11/16 13:30 03/16/16 21:45 Phos-Nak Packet - PO 1 packet BID [facility] Administration Senna 8.8 mg 03/10/16 22:00 03/16/16 21:46 Senna Oral Solution - GT 8.8 mg BID [facility] Administration Impression 1. BREANA - pt has a baseline creatinine of about 0.7 2. respiratory failure requiring BiPap 3. parkinsons 4. ulcerative colitis 5. dementia 6. aspiration PNA 7. sepsis 8. hypernatremia 9. hypokalemia 10. lactic acidosis Plan - electrolytes have stabilized - care discussed with - will stop fluids - dietary eval for possible bolus feeds - lactic acid elevated - check pulse ox on and off of oxygen - abx per ID - baseline creatinine is about 0.7 Dr Cardoso
[2016-03-17] MEDS: levETIRAcetam 500 MG/5 ML ORAL SOLUTION (UNIT-DOSE CUPS) GT SCH ×2 (12:00→22:32)
[2016-03-17] MEDS: SENNOSIDES 8.8 MG/5 ML BULK BOTTLE GT SCH ×2 (12:00→22:31)
[2016-03-17] MEDS: NAPH,MB-DB/K PH,MBDB POWDER PACKET PO SCH ×2 (12:00→22:32)
[2016-03-17] MEDS: ASCORBIC ACID 500 MG/5 ML UNIT DOSE CUP GT SCH (12:00)
[2016-03-17] MEDS: azaTHIOprine 50 MG TABLET GT SCH (12:00)
[2016-03-17] MEDS: BACITRACIN 30 GM TUBE TOPICAL OINTMENT TP SCH (12:00)
[2016-03-17] MEDS: ESCITALOPRAM OXALATE 10 MG TABLET (FP) PO SCH (12:00)
[2016-03-17] MEDS: HEPARIN NA (PORCINE) 5,000 UNITS/ML 1ML VIAL SQ SCH ×2 (12:00→22:30)
[2016-03-17] MEDS: LACTOBACILLUS ACIDOPHILUS 1 EACH TAB (FP) GT SCH (12:00)
[2016-03-17] MEDS: ZINC OXIDE 20% TOPICAL OINTMENT 30 GM TUBE TP SCH (12:00)
--- NOTE | 2016-03-17 12:25 | PN ---
Progress Note, Physician History of Present Illness: pulmonary awake,-resp distress,+myoclonic jerks - Current Medication List Current Medications: Active Medications Acetaminophen (Tylenol Oral Solution -) 650 mg PO Q6H PRN PRN Reason: FEVER OR PAIN Albuterol/Ipratropium (Duoneb -) 1 amp NEB QIDR [facility] Last Admin: 03/17/16 11:57 Dose: 1 amp Amino Acids (Prostat Sugar-Free Packet -) 30 ml GT BIDWM [facility] Last Admin: 03/16/16 18:58 Dose: 30 ml Ascorbic Acid (Vitamin C Oral Solution -) 250 mg GT DAILY [facility] Last Admin: 03/16/16 14:26 Dose: 250 mg Azathioprine (Imuran -) 150 mg GT DAILY [facility] Last Admin: 03/16/16 14:22 Dose: 150 mg Bacitracin (Bacitracin -) 1 applic TP DAILY [facility] Last Admin: 03/16/16 14:18 Dose: 1 applic Escitalopram Oxalate (Lexapro -) 5 mg PO DAILY [facility] Heparin Sodium (Porcine) (Heparin -) 5,000 unit SQ BID [facility] Last Admin: 03/16/16 21:44 Dose: 5,000 unit Pantoprazole Sodium (Protonix 40mg Ivpb (Pre-Docked)) 100 mls @ 200 mls/hr IVPB HS [facility] Last Admin: 03/16/16 21:45 Dose: 200 mls/hr Lactobacillus Acidophilus (Bacid -) 1 tab GT DAILY [facility] Last Admin: 03/16/16 14:18 Dose: 1 tab Levetiracetam (Keppra Oral Solution -) 250 mg GT BID [facility] Last Admin: 03/16/16 21:44 Dose: 250 mg Multi-Ingredient Ointment (Zinc Oxide) 1 applic TP DAILY [facility] Last Admin: 03/16/16 14:26 Dose: 1 applic Polyethylene Glycol (Miralax (For Daily Use) -) 17 gm GT DAILY [facility] Last Admin: 03/16/16 14:27 Dose: 17 grams Potassium Phos/Sodium Phos (Phos-Nak Packet -) 1 packet PO BID [facility] Last Admin: 03/16/16 21:45 Dose: 1 packet Senna (Senna Oral Solution -) 8.8 mg GT BID [facility] Last Admin: 03/16/16 21:46 Dose: 8.8 mg - Objective Vital Signs: Vital Signs Temperature 97.7 F 03/17/16 06:00 Pulse Rate 81 03/17/16 11:57 Respiratory Rate 20 03/17/16 06:00 Blood Pressure 134/66 03/17/16 06:00 O2 Sat by Pulse Oximetry (%) 94 L 03/17/16 11:57 Constitutional: Yes: No Distress, Calm, Other (non-verbal) Eyes: Yes: WNL HENT: Yes: WNL Neck: Yes: WNL Cardiovascular: Yes: Regular Rate and Rhythm, S1, S2 Respiratory: Yes: Diminished (poor inspiratory effort) Gastrointestinal: Yes: Normal Bowel Sounds, Soft Extremities: Yes: WNL Labs: CBC, BMP 03/16/16 05:35 03/17/16 06:05 INR, PTT INR 1.25 (0.82-1.09) H 03/08/16 20:30 Assessment/Plan (1) Pneumonia Code(s): J18.9 - PNEUMONIA, UNSPECIFIED ORGANISM Qualifiers: Pneumonia type: due to unspecified organism Laterality: unspecified laterality Lung location: unspecified part of lung Qualified Code(s): J18.9 - Pneumonia, unspecified organism (2) BPH (benign prostatic hypertrophy) Code(s): N40.0 - BENIGN PROSTATIC HYPERPLASIA WITHOUT LOWER URINRY TRACT SYMP Qualifiers: Prostatic enlargement morphology: unspecified morphology Lower urinary tract symptom presence: symptoms present Qualified Code(s): N40.1 - Enlarged prostate with lower urinary tract symptoms (3) CVA (cerebrovascular accident) Code(s): I63.9 - CEREBRAL INFARCTION, UNSPECIFIED (4) Colitis Code(s): K52.9 - NONINFECTIVE GASTROENTERITIS AND COLITIS, UNSPECIFIED (5) Dehydration Code(s): E86.0 - DEHYDRATION (6) Dementia Code(s): F03.90 - UNSPECIFIED DEMENTIA WITHOUT BEHAVIORAL DISTURBANCE (7) Dysphagia Code(s): R13.10 - DYSPHAGIA, UNSPECIFIED (8) Foreign body alimentary tract Code(s): T18.9XXA - FOREIGN BODY OF ALIMENTARY TRACT, PART UNSP, INIT ENCNTR Qualifiers: Encounter type: initial encounter Qualified Code(s): T18.9XXA - Foreign body of alimentary tract, part unspecified, initial encounter (9) History of ulcerative colitis Code(s): Z87.19 - PERSONAL HISTORY OF OTHER DISEASES OF THE DIGESTIVE SYSTEM (10) Hypoxemia Code(s): R09.02 - HYPOXEMIA (11) Lewy body dementia Code(s): G31.83 - DEMENTIA WITH LEWY BODIES F02.80 - DEMENTIA IN OTH DISEASES CLASSD ELSWHR W/O BEHAVRL DISTURB (12) Respiratory failure Code(s): J96.90 - RESPIRATORY FAILURE, UNSP, UNSP W HYPOXIA OR HYPERCAPNIA (13) Sepsis Code(s): A41.9 - SEPSIS, UNSPECIFIED ORGANISM Qualifiers: Sepsis type: sepsis due to unspecified organism Qualified Code(s): A41.9 - Sepsis, unspecified organism 14 ELEVATED LACTATE LEVEL Assessment/Plan NC O2 as tolerated NIPPV only as needed ABX per ID BD TX IVF HOB elevation Oral care DNR/DNI Fluids trend lactate DR MANCILLA
[2016-03-17] MEDS ORDERED: PT OWN MED DRAWER 7, Y5N ONE ×2 (14:56→22:28)
[2016-03-17] MEDS: AMINO ACIDS/PROTEIN HYDROLYS SUGAR-FREE 30 ML PACKET GT SCH ×2 (14:57→18:15)
[2016-03-17] MEDS: POLYETHYLENE GLYCOL 3350 119 GM BTL GT SCH (15:02)
[2016-03-17] MEDS: PANTOPRAZOLE SODIUM 100 ML IVPB SCH (22:30)
[2016-03-18] MEDS: ALBUTEROL SO4 2.5/IPRATROPIUM 0.5 INH SOL 3 ML VIAL.NEB. NEB SCH ×5 (00:17→23:20)
[2016-03-18 07:22] LABS: MCH 30.5 pg (25.7-33.7); MCHC 33.5 g/dl (32.0-35.9); MEAN PLT VOLUME 10.1 fl (7.5-11.1); PLATELET COUNT 323 K/MM3 (134-434); RDW 16.1 % (11.9-15.9); WHITE BLOOD COUNT 11.9 K/mm3 (4.0-10.0)
--- NOTE | 2016-03-18 07:45 | PN ---
Progress Note, Physician - Current Medication List Current Medications: Active Medications Acetaminophen (Tylenol Oral Solution -) 650 mg PO Q6H PRN PRN Reason: FEVER OR PAIN Albuterol/Ipratropium (Duoneb -) 1 amp NEB QIDR [facility] Last Admin: 03/18/16 06:05 Dose: 1 amp Amino Acids (Prostat Sugar-Free Packet -) 30 ml GT BIDWM [facility] Last Admin: 03/17/16 18:15 Dose: 30 ml Ascorbic Acid (Vitamin C Oral Solution -) 250 mg GT DAILY [facility] Last Admin: 03/17/16 12:00 Dose: 250 mg Azathioprine (Imuran -) 150 mg GT DAILY [facility] Last Admin: 03/17/16 12:00 Dose: 150 mg Bacitracin (Bacitracin -) 1 applic TP DAILY [facility] Last Admin: 03/17/16 12:00 Dose: 1 applic Escitalopram Oxalate (Lexapro -) 5 mg PO DAILY [facility] Last Admin: 03/17/16 12:00 Dose: 5 mg Heparin Sodium (Porcine) (Heparin -) 5,000 unit SQ BID [facility] Last Admin: 03/17/16 22:30 Dose: 5,000 unit Pantoprazole Sodium (Protonix 40mg Ivpb (Pre-Docked)) 100 mls @ 200 mls/hr IVPB HS [facility] Last Admin: 03/17/16 22:30 Dose: 200 mls/hr Lactobacillus Acidophilus (Bacid -) 1 tab GT DAILY [facility] Last Admin: 03/17/16 12:00 Dose: 1 tab Levetiracetam (Keppra Oral Solution -) 250 mg GT BID [facility] Last Admin: 03/17/16 22:32 Dose: 250 mg Multi-Ingredient Ointment (Zinc Oxide) 1 applic TP DAILY [facility] Last Admin: 03/17/16 12:00 Dose: 1 applic Polyethylene Glycol (Miralax (For Daily Use) -) 17 gm GT DAILY [facility] Last Admin: 03/17/16 15:02 Dose: Not Given Potassium Phos/Sodium Phos (Phos-Nak Packet -) 1 packet PO BID [facility] Last Admin: 03/17/16 22:32 Dose: 1 packet Senna (Senna Oral Solution -) 8.8 mg GT BID [facility] Last Admin: 03/17/16 22:31 Dose: 8.8 mg - Objective Vital Signs: Vital Signs Temperature 98.8 F 03/18/16 06:00 Pulse Rate 102 H 03/18/16 06:00 Respiratory Rate 20 03/18/16 06:00 Blood Pressure 121/84 03/18/16 06:00 O2 Sat by Pulse Oximetry (%) 98 03/17/16 22:00 Cardiovascular: Yes: Regular Rate and Rhythm, S1, S2 Respiratory: Yes: CTA Bilaterally Gastrointestinal: Yes: Normal Bowel Sounds, Soft Edema: No Neurological: Yes: Other (OCCASIONAL UE JERKING WHILE SLEEPING) Labs: CBC, BMP 03/18/16 06:00 INR, PTT INR 1.25 (0.82-1.09) H 03/08/16 20:30 Problem List - Problems (1) BPH (benign prostatic hypertrophy) Code(s): N40.0 - BENIGN PROSTATIC HYPERPLASIA WITHOUT LOWER URINRY TRACT SYMP Qualifiers: Prostatic enlargement morphology: unspecified morphology Lower urinary tract symptom presence: symptoms present Qualified Code(s): N40.1 - Enlarged prostate with lower urinary tract symptoms (2) Dementia Code(s): F03.90 - UNSPECIFIED DEMENTIA WITHOUT BEHAVIORAL DISTURBANCE (3) Dysphagia Code(s): R13.10 - DYSPHAGIA, UNSPECIFIED (4) Foreign body alimentary tract Code(s): T18.9XXA - FOREIGN BODY OF ALIMENTARY TRACT, PART UNSP, INIT ENCNTR Qualifiers: Encounter type: initial encounter Qualified Code(s): T18.9XXA - Foreign body of alimentary tract, part unspecified, initial encounter (5) History of ulcerative colitis Code(s): Z87.19 - PERSONAL HISTORY OF OTHER DISEASES OF THE DIGESTIVE SYSTEM (6) Malnutrition Code(s): E46 - UNSPECIFIED PROTEIN-CALORIE MALNUTRITION (7) Parkinson disease Code(s): G20 - PARKINSON'S DISEASE (8) Pneumonia Code(s): J18.9 - PNEUMONIA, UNSPECIFIED ORGANISM Qualifiers: Pneumonia type: due to unspecified organism Laterality: unspecified laterality Lung location: unspecified part of lung Qualified Code(s): J18.9 - Pneumonia, unspecified organism (9) Respiratory failure Code(s): J96.90 - RESPIRATORY FAILURE, UNSP, UNSP W HYPOXIA OR HYPERCAPNIA (10) Seizure disorder Code(s): G40.909 - EPILEPSY, UNSP, NOT INTRACTABLE, WITHOUT STATUS EPILEPTICUS (11) Sepsis Code(s): A41.9 - SEPSIS, UNSPECIFIED ORGANISM Qualifiers: Sepsis type: sepsis due to unspecified organism Qualified Code(s): A41.9 - Sepsis, unspecified organism Assessment/Plan (1) Pneumonia Code(s): J18.9 - PNEUMONIA, UNSPECIFIED ORGANISM Qualifiers: Pneumonia type: due to unspecified organism Laterality: unspecified laterality Lung location: unspecified part of lung Qualified Code(s): J18.9 - Pneumonia, unspecified organism (2) BPH (benign prostatic hypertrophy) Code(s): N40.0 - BENIGN PROSTATIC HYPERPLASIA WITHOUT LOWER URINRY TRACT SYMP Qualifiers: Prostatic enlargement morphology: unspecified morphology Lower urinary tract symptom presence: symptoms present Qualified Code(s): N40.1 - Enlarged prostate with lower urinary tract symptoms (3) Dementia Code(s): F03.90 - UNSPECIFIED DEMENTIA WITHOUT BEHAVIORAL DISTURBANCE (4) Dysphagia Code(s): R13.10 - DYSPHAGIA, UNSPECIFIED (5) Foreign body alimentary tract Code(s): T18.9XXA - FOREIGN BODY OF ALIMENTARY TRACT, PART UNSP, INIT ENCNTR Qualifiers: Encounter type: initial encounter Qualified Code(s): T18.9XXA - Foreign body of alimentary tract, part unspecified, initial encounter (6) History of ulcerative colitis Code(s): Z87.19 - PERSONAL HISTORY OF OTHER DISEASES OF THE DIGESTIVE SYSTEM (7) Lewy body dementia Code(s): G31.83 - DEMENTIA WITH LEWY BODIES F02.80 - DEMENTIA IN OTH DISEASES CLASSD ELSWHR W/O BEHAVRL DISTURB (8) Malnutrition Code(s): E46 - UNSPECIFIED PROTEIN-CALORIE MALNUTRITION (9) Parkinson disease Code(s): G20 - PARKINSON'S DISEASE (10) Respiratory failure Code(s): J96.90 - RESPIRATORY FAILURE, UNSP, UNSP W HYPOXIA OR HYPERCAPNIA (11) Seizure disorder Code(s): G40.909 - EPILEPSY, UNSP, NOT INTRACTABLE, WITHOUT STATUS EPILEPTICUS (12) Sepsis Code(s): A41.9 - SEPSIS, UNSPECIFIED ORGANISM Qualifiers: Sepsis type: sepsis due to unspecified organism Qualified Code(s): A41.9 - Sepsis, unspecified organism (13) Quadriplegia Code(s): G82.50 - QUADRIPLEGIA, UNSPECIFIED Assessment/Plan NEUROLOGY EVAL APPRECIATED Observe for a few days off Piperacillin and tapering Solumedrol. If myoclonus improves I would continue levetiracetam. If it does not, I would consider changing to Valproic acid (Depakote) elixor. ( 250 mg via PEG x 1 week then 500 BID and D/C levetiracetam.) Decrease escitalopram to 5 mg qd x few weeks and D/C escitalopram. MONITOR OFF ABX, WBC IMPROVING RECULTURE NEEDED, ID F/U DISCHARGE PLANNING -> F/U NEURO W/U COMPLIANCE MANAGER FM
[2016-03-18 08:05] LABS: ALBUMIN 2.5 g/dl (3.4-5.0); ANION GAP 12 (8-16); BILIRUBIN,TOTAL 0.7 mg/dL (0.2-1.0); CALCIUM 8.4 mg/dL (8.5-10.1); CO2 27 mmol/L (21-32); CREATININE 0.7 mg/dL (0.7-1.3); GLUCOSE,RANDOM 167 mg/dL (74-106); SGOT/AST 28 U/L (15-37); SGPT/ALT 56 U/L (12-78); TOT PROT 6.1 g/dl (6.4-8.2)
[2016-03-18 08:06] LABS: ALK PHOS 74 U/L (45-117)
[2016-03-18] MEDS ORDERED: PT OWN MED DRAWER 7, Y5N ONE ×2 (10:12→21:06)
[2016-03-18] MEDS: HEPARIN NA (PORCINE) 5,000 UNITS/ML 1ML VIAL SQ SCH ×2 (10:24→21:19)
[2016-03-18] MEDS: BACITRACIN 30 GM TUBE TOPICAL OINTMENT TP SCH (10:24)
[2016-03-18] MEDS: AMINO ACIDS/PROTEIN HYDROLYS SUGAR-FREE 30 ML PACKET GT SCH ×2 (10:24→17:50)
[2016-03-18] MEDS: LACTOBACILLUS ACIDOPHILUS 1 EACH TAB (FP) GT SCH (10:24)
[2016-03-18] MEDS: azaTHIOprine 50 MG TABLET GT SCH (10:29)
[2016-03-18] MEDS: ESCITALOPRAM OXALATE 10 MG TABLET (FP) PO SCH (10:30)
[2016-03-18] MEDS: levETIRAcetam 500 MG/5 ML ORAL SOLUTION (UNIT-DOSE CUPS) GT SCH ×2 (10:30→21:19)
[2016-03-18] MEDS: NAPH,MB-DB/K PH,MBDB POWDER PACKET PO SCH ×2 (10:31→21:19)
[2016-03-18] MEDS: POLYETHYLENE GLYCOL 3350 119 GM BTL GT SCH (10:31)
[2016-03-18] MEDS: ZINC OXIDE 20% TOPICAL OINTMENT 30 GM TUBE TP SCH (10:32)
[2016-03-18] MEDS: ASCORBIC ACID 500 MG/5 ML UNIT DOSE CUP GT SCH (10:32)
[2016-03-18] MEDS: SENNOSIDES 8.8 MG/5 ML BULK BOTTLE GT SCH ×2 (10:32→21:08)
--- NOTE | 2016-03-18 12:21 | PN ---
Progress Note (short form) - Note Progress Note: Resting in NAD on NC O2. No acute events overnight. Noted lactic acid is slowly improving. Intake & Output 03/15/16 03/16/16 03/17/16 03/18/16 23:59 23:59 23:59 23:59 Intake Total 4041 410 1040 630 Balance 4041 410 1040 630 Weight 163 lb 8 oz Last Vital Signs Temp Pulse Resp BP Pulse Ox 98.4 F 95 H 20 110/73 97 03/18/16 10:00 03/18/16 10:00 03/18/16 10:00 03/18/16 10:00 03/18/16 10:00 Active Medications Acetaminophen (Tylenol Oral Solution -) 650 mg PO Q6H PRN PRN Reason: FEVER OR PAIN Albuterol/Ipratropium (Duoneb -) 1 amp NEB QIDR [facility] Last Admin: 03/18/16 06:05 Dose: 1 amp Amino Acids (Prostat Sugar-Free Packet -) 30 ml GT BIDWM [facility] Last Admin: 03/18/16 10:24 Dose: 30 ml Ascorbic Acid (Vitamin C Oral Solution -) 250 mg GT DAILY [facility] Last Admin: 03/18/16 10:32 Dose: 250 mg Azathioprine (Imuran -) 150 mg GT DAILY [facility] Last Admin: 03/18/16 10:29 Dose: 150 mg Bacitracin (Bacitracin -) 1 applic TP DAILY [facility] Last Admin: 03/18/16 10:24 Dose: 1 applic Escitalopram Oxalate (Lexapro -) 5 mg PO DAILY [facility] Last Admin: 03/18/16 10:30 Dose: 5 mg Heparin Sodium (Porcine) (Heparin -) 5,000 unit SQ BID [facility] Last Admin: 03/18/16 10:24 Dose: 5,000 unit Pantoprazole Sodium (Protonix 40mg Ivpb (Pre-Docked)) 100 mls @ 200 mls/hr IVPB HS [facility] Last Admin: 03/17/16 22:30 Dose: 200 mls/hr Lactobacillus Acidophilus (Bacid -) 1 tab GT DAILY [facility] Last Admin: 03/18/16 10:24 Dose: 1 tab Levetiracetam (Keppra Oral Solution -) 250 mg GT BID [facility] Last Admin: 03/18/16 10:30 Dose: 250 mg Multi-Ingredient Ointment (Zinc Oxide) 1 applic TP DAILY [facility] Last Admin: 03/18/16 10:32 Dose: 1 applic Polyethylene Glycol (Miralax (For Daily Use) -) 17 gm GT DAILY [facility] Last Admin: 03/18/16 10:31 Dose: Not Given Potassium Phos/Sodium Phos (Phos-Nak Packet -) 1 packet PO BID [facility] Last Admin: 03/18/16 10:31 Dose: 1 packet Senna (Senna Oral Solution -) 8.8 mg GT BID [facility] Last Admin: 03/18/16 10:32 Dose: Not Given Constitutional: Yes: Awake on NC O2 Eyes: Yes: Conjunctiva Clear HENT: Yes: Atraumatic, Normocephalic Neck: Yes: Supple, Trachea Midline Cardiovascular: Yes: S1S2 Respiratory: Yes: Bibasilar rhonchi Left > right, No: Stridor, Wheezes Gastrointestinal: Yes: Normal Bowel Sounds, Soft, Other (PEG) ...Rectal Exam: Yes: Deferred Renal/: Yes: WNL Musculoskeletal: Yes: Joint Stiffness, Muscle Weakness Extremities: Yes: Cool Edema: No Peripheral Pulses WNL: Yes Integumentary: Yes: WNL Neurological: Yes: Confusion. No: Seizure Laboratory Results - last 24 hr 03/18/16 03/18/16 03/18/16 06:00 06:00 06:00 WBC 11.9 H RBC 4.30 Hgb 13.1 Hct 39.1 MCV 91.0 MCHC 33.5 RDW 16.1 H Plt Count 323 MPV 10.1 Sodium 139 Potassium 3.8 Chloride 100 Carbon Dioxide 27 Anion Gap 12 BUN 13 D Creatinine 0.7 Creat Clearance w eGFR > 60 Random Glucose 167 H D Lactic Acid 2.968 H* Calcium 8.4 L Total Bilirubin 0.7 AST 28 ALT 56 Alkaline Phosphatase 74 Total Protein 6.1 L Albumin 2.5 L Problem List - Problems (1) Pneumonia Code(s): J18.9 - PNEUMONIA, UNSPECIFIED ORGANISM Qualifiers: Pneumonia type: due to unspecified organism Laterality: unspecified laterality Lung location: unspecified part of lung Qualified Code(s): J18.9 - Pneumonia, unspecified organism (2) BPH (benign prostatic hypertrophy) Code(s): N40.0 - BENIGN PROSTATIC HYPERPLASIA WITHOUT LOWER URINRY TRACT SYMP Qualifiers: Prostatic enlargement morphology: unspecified morphology Lower urinary tract symptom presence: symptoms present Qualified Code(s): N40.1 - Enlarged prostate with lower urinary tract symptoms (3) CVA (cerebrovascular accident) Code(s): I63.9 - CEREBRAL INFARCTION, UNSPECIFIED (4) Colitis Code(s): K52.9 - NONINFECTIVE GASTROENTERITIS AND COLITIS, UNSPECIFIED (5) Dehydration Code(s): E86.0 - DEHYDRATION (6) Dementia Code(s): F03.90 - UNSPECIFIED DEMENTIA WITHOUT BEHAVIORAL DISTURBANCE (7) Dysphagia Code(s): R13.10 - DYSPHAGIA, UNSPECIFIED (8) Foreign body alimentary tract Code(s): T18.9XXA - FOREIGN BODY OF ALIMENTARY TRACT, PART UNSP, INIT ENCNTR Qualifiers: Encounter type: initial encounter Qualified Code(s): T18.9XXA - Foreign body of alimentary tract, part unspecified, initial encounter (9) History of ulcerative colitis Code(s): Z87.19 - PERSONAL HISTORY OF OTHER DISEASES OF THE DIGESTIVE SYSTEM (10) Hypoxemia Code(s): R09.02 - HYPOXEMIA (11) Lewy body dementia Code(s): G31.83 - DEMENTIA WITH LEWY BODIES F02.80 - DEMENTIA IN OTH DISEASES CLASSD ELSWHR W/O BEHAVRL DISTURB (12) Respiratory failure Code(s): J96.90 - RESPIRATORY FAILURE, UNSP, UNSP W HYPOXIA OR HYPERCAPNIA (13) Sepsis Code(s): A41.9 - SEPSIS, UNSPECIFIED ORGANISM Qualifiers: Sepsis type: sepsis due to unspecified organism Qualified Code(s): A41.9 - Sepsis, unspecified organism Assessment/Plan Recommendations per Neuro NC O2 as tolerated Monitoring off ABX BD TX HOB elevation IVF Oral care D/C planning Dr Vitale Problem List - Problems (1) Pneumonia Code(s): J18.9 - PNEUMONIA, UNSPECIFIED ORGANISM Qualifiers: Pneumonia type: due to unspecified organism Laterality: unspecified laterality Lung location: unspecified part of lung Qualified Code(s): J18.9 - Pneumonia, unspecified organism (2) BPH (benign prostatic hypertrophy) Code(s): N40.0 - BENIGN PROSTATIC HYPERPLASIA WITHOUT LOWER URINRY TRACT SYMP Qualifiers: Prostatic enlargement morphology: unspecified morphology Lower urinary tract symptom presence: symptoms present Qualified Code(s): N40.1 - Enlarged prostate with lower urinary tract symptoms (3) CVA (cerebrovascular accident) Code(s): I63.9 - CEREBRAL INFARCTION, UNSPECIFIED (4) Colitis Code(s): K52.9 - NONINFECTIVE GASTROENTERITIS AND COLITIS, UNSPECIFIED (5) Dehydration Code(s): E86.0 - DEHYDRATION (6) Dementia Code(s): F03.90 - UNSPECIFIED DEMENTIA WITHOUT BEHAVIORAL DISTURBANCE (7) Dysphagia Code(s): R13.10 - DYSPHAGIA, UNSPECIFIED (8) Foreign body alimentary tract Code(s): T18.9XXA - FOREIGN BODY OF ALIMENTARY TRACT, PART UNSP, INIT ENCNTR Qualifiers: Encounter type: initial encounter Qualified Code(s): T18.9XXA - Foreign body of alimentary tract, part unspecified, initial encounter (9) History of ulcerative colitis Code(s): Z87.19 - PERSONAL HISTORY OF OTHER DISEASES OF THE DIGESTIVE SYSTEM (10) Hypoxemia Code(s): R09.02 - HYPOXEMIA (11) Lewy body dementia Code(s): G31.83 - DEMENTIA WITH LEWY BODIES F02.80 - DEMENTIA IN OTH DISEASES CLASSD ELSWHR W/O BEHAVRL DISTURB (12) Respiratory failure Code(s): J96.90 - RESPIRATORY FAILURE, UNSP, UNSP W HYPOXIA OR HYPERCAPNIA (13) Sepsis Code(s): A41.9 - SEPSIS, UNSPECIFIED ORGANISM Qualifiers: Sepsis type: sepsis due to unspecified organism Qualified Code(s): A41.9 - Sepsis, unspecified organism
--- NOTE | 2016-03-18 14:15 | PN ---
Progress Note, Physician History of Present Illness: Pt seen and examined at bedside. He appears at baseline. - Current Medication List Current Medications: Active Medications Acetaminophen (Tylenol Oral Solution -) 650 mg PO Q6H PRN PRN Reason: FEVER OR PAIN Albuterol/Ipratropium (Duoneb -) 1 amp NEB QIDR [facility] Last Admin: 03/18/16 11:15 Dose: 1 amp Amino Acids (Prostat Sugar-Free Packet -) 30 ml GT BIDWM [facility] Last Admin: 03/18/16 10:24 Dose: 30 ml Ascorbic Acid (Vitamin C Oral Solution -) 250 mg GT DAILY [facility] Last Admin: 03/18/16 10:32 Dose: 250 mg Azathioprine (Imuran -) 150 mg GT DAILY [facility] Last Admin: 03/18/16 10:29 Dose: 150 mg Bacitracin (Bacitracin -) 1 applic TP DAILY [facility] Last Admin: 03/18/16 10:24 Dose: 1 applic Escitalopram Oxalate (Lexapro -) 5 mg PO DAILY [facility] Last Admin: 03/18/16 10:30 Dose: 5 mg Heparin Sodium (Porcine) (Heparin -) 5,000 unit SQ BID [facility] Last Admin: 03/18/16 10:24 Dose: 5,000 unit Pantoprazole Sodium (Protonix 40mg Ivpb (Pre-Docked)) 100 mls @ 200 mls/hr IVPB HS [facility] Last Admin: 03/17/16 22:30 Dose: 200 mls/hr Lactobacillus Acidophilus (Bacid -) 1 tab GT DAILY [facility] Last Admin: 03/18/16 10:24 Dose: 1 tab Levetiracetam (Keppra Oral Solution -) 250 mg GT BID [facility] Last Admin: 03/18/16 10:30 Dose: 250 mg Multi-Ingredient Ointment (Zinc Oxide) 1 applic TP DAILY [facility] Last Admin: 03/18/16 10:32 Dose: 1 applic Polyethylene Glycol (Miralax (For Daily Use) -) 17 gm GT DAILY [facility] Last Admin: 03/18/16 10:31 Dose: Not Given Potassium Phos/Sodium Phos (Phos-Nak Packet -) 1 packet PO BID [facility] Last Admin: 03/18/16 10:31 Dose: 1 packet Senna (Senna Oral Solution -) 8.8 mg GT BID [facility] Last Admin: 03/18/16 10:32 Dose: Not Given - Objective Vital Signs: Vital Signs Temperature 98.4 F 03/18/16 10:00 Pulse Rate 95 H 03/18/16 10:00 Respiratory Rate 20 03/18/16 10:00 Blood Pressure 110/73 03/18/16 10:00 O2 Sat by Pulse Oximetry (%) 97 03/18/16 10:00 Constitutional: Yes: Calm Eyes: Yes: Conjunctiva Clear HENT: Yes: Atraumatic Cardiovascular: Yes: S1, S2 Respiratory: Yes: CTA Bilaterally Gastrointestinal: Yes: Soft, Other (peg) Genitourinary: Yes: Incontinence Musculoskeletal: Yes: Muscle Weakness Edema: No Neurological: Yes: Pre-Existing Deficit Labs: CBC, BMP 03/18/16 06:00 03/18/16 06:00 INR, PTT INR 1.25 (0.82-1.09) H 03/08/16 20:30 Problem List - Problems (1) Pneumonia Code(s): J18.9 - PNEUMONIA, UNSPECIFIED ORGANISM Qualifiers: Pneumonia type: due to unspecified organism Laterality: unspecified laterality Lung location: unspecified part of lung Qualified Code(s): J18.9 - Pneumonia, unspecified organism (2) BPH (benign prostatic hypertrophy) Code(s): N40.0 - BENIGN PROSTATIC HYPERPLASIA WITHOUT LOWER URINRY TRACT SYMP Qualifiers: Prostatic enlargement morphology: unspecified morphology Lower urinary tract symptom presence: symptoms present Qualified Code(s): N40.1 - Enlarged prostate with lower urinary tract symptoms (3) Hypokalemia Code(s): E87.6 - HYPOKALEMIA (4) Respiratory failure Code(s): J96.90 - RESPIRATORY FAILURE, UNSP, UNSP W HYPOXIA OR HYPERCAPNIA (5) Seizure disorder Code(s): G40.909 - EPILEPSY, UNSP, NOT INTRACTABLE, WITHOUT STATUS EPILEPTICUS (6) Sepsis Code(s): A41.9 - SEPSIS, UNSPECIFIED ORGANISM Qualifiers: Sepsis type: sepsis due to unspecified organism Qualified Code(s): A41.9 - Sepsis, unspecified organism (7) BREANA (acute kidney injury) Code(s): N17.9 - ACUTE KIDNEY FAILURE, UNSPECIFIED Assessment/Plan Current Medications Generic Name Dose Route Start Last Admin Trade Name Freq PRN Reason Stop Dose Admin Acetaminophen 650 mg 03/11/16 13:29 Tylenol Oral Solution - PO Q6H PRN FEVER OR PAIN Albuterol/Ipratropium 1 amp 03/17/16 00:00 03/18/16 11:15 Duoneb - NEB 1 amp QIDR [facility] Administration Amino Acids 30 ml 03/11/16 08:00 03/18/16 10:24 Prostat Sugar-Free Packet - GT 30 ml BIDWM [facility] Administration Ascorbic Acid 250 mg 03/11/16 10:00 03/18/16 10:32 Vitamin C Oral Solution - GT 250 mg DAILY [facility] Administration Azathioprine 150 mg 03/11/16 10:00 03/18/16 10:29 Imuran - GT 150 mg DAILY [facility] Administration Bacitracin 1 applic 03/11/16 10:00 03/18/16 10:24 Bacitracin - TP 1 applic DAILY [facility] Administration Escitalopram Oxalate 5 mg 03/17/16 10:00 03/18/16 10:30 Lexapro - PO 5 mg DAILY [facility] Administration Heparin Sodium (Porcine) 5,000 unit 03/10/16 22:00 03/18/16 10:24 Heparin - SQ 5,000 unit BID [facility] Administration Pantoprazole Sodium 100 mls @ 200 mls/hr 03/10/16 22:00 03/17/16 22:30 Protonix 40mg Ivpb (Pre-Docked) IVPB 200 mls/hr HS [facility] Administration Lactobacillus Acidophilus 1 tab 03/11/16 10:00 03/18/16 10:24 Bacid - GT 1 tab DAILY [facility] Administration Levetiracetam 250 mg 03/10/16 22:00 03/18/16 10:30 Keppra Oral Solution - GT 250 mg BID [facility] Administration Multi-Ingredient Ointment 1 applic 03/11/16 10:00 03/18/16 10:32 Zinc Oxide TP 1 applic DAILY [facility] Administration Polyethylene Glycol 17 gm 03/11/16 10:00 03/18/16 10:31 Miralax (For Daily Use) - GT Not Given DAILY [facility] Potassium Phos/Sodium Phos 1 packet 03/11/16 13:30 03/18/16 10:31 Phos-Nak Packet - PO 1 packet BID [facility] Administration Senna 8.8 mg 03/10/16 22:00 03/18/16 10:32 Senna Oral Solution - GT Not Given BID [facility] Impression 1. BREANA - pt has a baseline creatinine of about 0.7 2. respiratory failure requiring BiPap 3. parkinsons 4. ulcerative colitis 5. dementia 6. aspiration PNA 7. sepsis 8. hypernatremia 9. hypokalemia 10. lactic acidosis Plan - renal function is stable - cont current feeds - no acute change in management - abx per ID - baseline creatinine is about 0.7 Dr Cardoso
[2016-03-18] MEDS: PANTOPRAZOLE SODIUM 100 ML IVPB SCH (21:20)
[2016-03-19] MEDS: ALBUTEROL SO4 2.5/IPRATROPIUM 0.5 INH SOL 3 ML VIAL.NEB. NEB SCH ×2 (06:22→11:19)
[2016-03-19 07:09] LABS: BASOPHIL 0.9 % (0-2.0); EOSINOPHIL 1.8 % (0-4.5); MCH 30.5 pg (25.7-33.7); MCHC 33.4 g/dl (32.0-35.9); MEAN CELL VOLUME 91.4 fl (80-96); MEAN PLT VOLUME 9.9 fl (7.5-11.1); NEUTROPHILS 71.9 % (42.8-82.8); PLATELET COUNT 278 K/MM3 (134-434); RDW 16.1 % (11.9-15.9); WHITE BLOOD COUNT 10.8 K/mm3 (4.0-10.0)
[2016-03-19 07:30] LABS: ALBUMIN 2.5 g/dl (3.4-5.0); ALK PHOS 75 U/L (45-117); ANION GAP 9 (8-16); BILIRUBIN,TOTAL 0.8 mg/dL (0.2-1.0); CALCIUM 8.8 mg/dL (8.5-10.1); CO2 28 mmol/L (21-32); CREATININE 0.6 mg/dL (0.7-1.3); GLUCOSE,RANDOM 148 mg/dL (74-106); SGOT/AST 37 U/L (15-37); SGPT/ALT 47 U/L (12-78); TOT PROT 5.9 g/dl (6.4-8.2)
--- NOTE | 2016-03-19 09:37 | PN ---
Progress Note, Physician Chief Complaint: FOR PEG CHANGE TODAY - Current Medication List Current Medications: Active Medications Acetaminophen (Tylenol Oral Solution -) 650 mg PO Q6H PRN PRN Reason: FEVER OR PAIN Albuterol/Ipratropium (Duoneb -) 1 amp NEB QIDR [facility] Last Admin: 03/19/16 06:22 Dose: 1 amp Amino Acids (Prostat Sugar-Free Packet -) 30 ml GT BIDWM [facility] Last Admin: 03/18/16 17:50 Dose: 30 ml Ascorbic Acid (Vitamin C Oral Solution -) 250 mg GT DAILY [facility] Last Admin: 03/18/16 10:32 Dose: 250 mg Azathioprine (Imuran -) 150 mg GT DAILY [facility] Last Admin: 03/18/16 10:29 Dose: 150 mg Bacitracin (Bacitracin -) 1 applic TP DAILY [facility] Last Admin: 03/18/16 10:24 Dose: 1 applic Escitalopram Oxalate (Lexapro -) 5 mg PO DAILY [facility] Last Admin: 03/18/16 10:30 Dose: 5 mg Heparin Sodium (Porcine) (Heparin -) 5,000 unit SQ BID [facility] Last Admin: 03/18/16 21:19 Dose: 5,000 unit Pantoprazole Sodium (Protonix 40mg Ivpb (Pre-Docked)) 100 mls @ 200 mls/hr IVPB HS [facility] Last Admin: 03/18/16 21:20 Dose: 200 mls/hr Lactobacillus Acidophilus (Bacid -) 1 tab GT DAILY [facility] Last Admin: 03/18/16 10:24 Dose: 1 tab Levetiracetam (Keppra Oral Solution -) 250 mg GT BID [facility] Last Admin: 03/18/16 21:19 Dose: 250 mg Multi-Ingredient Ointment (Zinc Oxide) 1 applic TP DAILY [facility] Last Admin: 03/18/16 10:32 Dose: 1 applic Polyethylene Glycol (Miralax (For Daily Use) -) 17 gm GT DAILY [facility] Last Admin: 03/18/16 10:31 Dose: Not Given Potassium Phos/Sodium Phos (Phos-Nak Packet -) 1 packet PO BID [facility] Last Admin: 03/18/16 21:19 Dose: 1 packet Senna (Senna Oral Solution -) 8.8 mg GT BID [facility] Last Admin: 03/18/16 21:08 Dose: Not Given - Objective Vital Signs: Vital Signs Temperature 98.2 F 02/03/17 06:57 Pulse Rate 88 03/19/16 06:57 Respiratory Rate 20 03/19/16 06:57 Blood Pressure 110/53 03/19/16 06:57 O2 Sat by Pulse Oximetry (%) 96 03/18/16 21:00 Constitutional: Yes: Calm Cardiovascular: Yes: Regular Rate and Rhythm, S1, S2 Respiratory: Yes: CTA Bilaterally Gastrointestinal: Yes: Normal Bowel Sounds, Soft Labs: CBC, BMP 03/19/16 05:35 03/19/16 05:35 INR, PTT INR 1.25 (0.82-1.09) H 03/08/16 20:30 Problem List - Problems (1) BPH (benign prostatic hypertrophy) Code(s): N40.0 - BENIGN PROSTATIC HYPERPLASIA WITHOUT LOWER URINRY TRACT SYMP Qualifiers: Prostatic enlargement morphology: unspecified morphology Lower urinary tract symptom presence: symptoms present Qualified Code(s): N40.1 - Enlarged prostate with lower urinary tract symptoms (2) Dementia Code(s): F03.90 - UNSPECIFIED DEMENTIA WITHOUT BEHAVIORAL DISTURBANCE (3) Dysphagia Code(s): R13.10 - DYSPHAGIA, UNSPECIFIED (4) Foreign body alimentary tract Code(s): T18.9XXA - FOREIGN BODY OF ALIMENTARY TRACT, PART UNSP, INIT ENCNTR Qualifiers: Encounter type: initial encounter Qualified Code(s): T18.9XXA - Foreign body of alimentary tract, part unspecified, initial encounter (5) History of ulcerative colitis Code(s): Z87.19 - PERSONAL HISTORY OF OTHER DISEASES OF THE DIGESTIVE SYSTEM (6) Malnutrition Code(s): E46 - UNSPECIFIED PROTEIN-CALORIE MALNUTRITION (7) Parkinson disease Code(s): G20 - PARKINSON'S DISEASE (8) Pneumonia Code(s): J18.9 - PNEUMONIA, UNSPECIFIED ORGANISM Qualifiers: Pneumonia type: due to unspecified organism Laterality: unspecified laterality Lung location: unspecified part of lung Qualified Code(s): J18.9 - Pneumonia, unspecified organism (9) Respiratory failure Code(s): J96.90 - RESPIRATORY FAILURE, UNSP, UNSP W HYPOXIA OR HYPERCAPNIA (10) Seizure disorder Code(s): G40.909 - EPILEPSY, UNSP, NOT INTRACTABLE, WITHOUT STATUS EPILEPTICUS (11) Sepsis Code(s): A41.9 - SEPSIS, UNSPECIFIED ORGANISM Qualifiers: Sepsis type: sepsis due to unspecified organism Qualified Code(s): A41.9 - Sepsis, unspecified organism
--- NOTE | 2016-03-19 11:47 | DS ---
Physical Examination Vital Signs: Vital Signs Temperature 98.2 F 03/19/16 06:57 Pulse Rate 88 03/19/16 06:57 Respiratory Rate 20 03/19/16 06:57 Blood Pressure 110/53 03/19/16 06:57 O2 Sat by Pulse Oximetry (%) 96 03/18/16 21:00 Findings/Remarks: GTUBE CHANGED, DC HOME SEE PROGRESS NOTE Constitutional: Yes: No Distress Labs: CBC, BMP 03/19/16 05:35 03/19/16 05:35 Discharge Summary Reason For Visit: PNEUMONIA Current Active Problems BREANA (acute kidney injury) (Acute) Pneumonia (Acute) Quadriplegia (Acute) Procedures: Principal: CT SCAN Other Procedures: GTUBE CHANGE Hospital Course: IV ABX, IVF, ADMITTED FOR SEPSIS WITH ASPIRATION PNA Condition: Guarded - Instructions Diet, Activity, Other Instructions: GTUBE Referrals: Isidro East MD [Primary Care Provider] - Disposition: SNF FACILITY - Home Medications Comprehensive Discharge Medication List: Ambulatory Orders Azathioprine 150 mg GT DAILY 06/29/13 Amino Acids/Protein Hydrolys [Prostat Sugar-Free Packet -] 30 ml GT BID Ascorbic Acid [Vitamin C -] 250 mg GT DAILY #30 tablet 02/12/15 Miscellaneous Medical Supply [Outpatient Order] 1 each ASDIR #1 misc Escitalopram Oxalate [Lexapro 5mg/5mL Oral Solution -] 10 mg GT DAILY 05/17/15 Lactobacillus Acidophilus [Bacid -] 1 tab GT DAILY 05/17/15 Levetiracetam [Keppra Oral Solution -] 250 mg GT BID 05/17/15 Polyethylene Glycol 3350 [Miralax 119 gm Btl -] 17 gm GT DAILY 05/17/15 Senna Oral Solution - [Senokot Oral Solution -] 8.8 mg GT BID 05/17/15 Levetiracetam [Keppra] 250 mg PO BID 03/08/16 Levofloxacin [Levaquin] 500 mg PO DAILY 03/08/16 Prednisone [Deltasone -] 40 mg PO DAILY 03/08/16 Zinc Oxide [Triple Paste] 56.7 gm TP DAILY 03/08/16
[2016-03-19] MEDS: BACITRACIN 30 GM TUBE TOPICAL OINTMENT TP SCH (11:51)
[2016-03-19] MEDS: AMINO ACIDS/PROTEIN HYDROLYS SUGAR-FREE 30 ML PACKET GT SCH (11:51)
[2016-03-19] MEDS: LACTOBACILLUS ACIDOPHILUS 1 EACH TAB (FP) GT SCH (11:51)
[2016-03-19] MEDS: levETIRAcetam 500 MG/5 ML ORAL SOLUTION (UNIT-DOSE CUPS) GT SCH (11:52)
[2016-03-19] MEDS: azaTHIOprine 50 MG TABLET GT SCH (11:52)
[2016-03-19] MEDS: ESCITALOPRAM OXALATE 10 MG TABLET (FP) PO SCH (11:53)
[2016-03-19] MEDS: NAPH,MB-DB/K PH,MBDB POWDER PACKET PO SCH (11:54)
[2016-03-19] MEDS: ASCORBIC ACID 500 MG/5 ML UNIT DOSE CUP GT SCH (11:55)
[2016-03-19] MEDS: ZINC OXIDE 20% TOPICAL OINTMENT 30 GM TUBE TP SCH (11:55)
[2016-03-19] MEDS: HEPARIN NA (PORCINE) 5,000 UNITS/ML 1ML VIAL SQ SCH (11:56)
[2016-03-19] MEDS: POLYETHYLENE GLYCOL 3350 119 GM BTL GT SCH (11:57)
[2016-03-19] MEDS: SENNOSIDES 8.8 MG/5 ML BULK BOTTLE GT SCH (11:57)
[2016-03-19 13:31] VITALS: BP 104/62; PULSE 82; TEMP 98
== END 2016-03-19 13:39 | disposition home or self-care (01) | DRG 871 ==
LOC: JER 10:57 → JERBED 11:50 → JICU 20:22 → J4S 03-11 15:09
PROVIDERS: ADMIT Family Medicine; ATTEND Family Medicine
PROC: 5A09457 Assistance with Respiratory Ventilation, 24-96 Consecutive Hours, Continuous Positive Airway Pressure (ICD-10-PCS; 2016-03-07)
PROC: 3E0H76Z Introduction of Nutritional Substance into Lower GI, Via Natural or Artificial Opening (ICD-10-PCS; 2016-03-10)
PROC: 0D20XUZ Change Feeding Device in Upper Intestinal Tract, External Approach (ICD-10-PCS; principal; 2016-03-19)
DX: A41.9 Sepsis, unspecified organism (principal); J69.0 Pneumonitis due to inhalation of food and vomit; J96.90 Respiratory failure, unspecified, unspecified whether with hypoxia or hypercapnia; G82.50 Quadriplegia, unspecified; G92 Toxic encephalopathy; E46 Unspecified protein-calorie malnutrition; N17.9 Acute kidney failure, unspecified; J98.11 Atelectasis; E87.0 Hyperosmolality and hypernatremia; E87.2 Acidosis; G20 Parkinson's disease; J44.9 Chronic obstructive pulmonary disease, unspecified; F02.80 Dementia in other diseases classified elsewhere, unspecified severity, without behavioral disturbance, psychotic disturbance, mood disturbance, and anxiety; L89.152 Pressure ulcer of sacral region, stage 2; N40.0 Benign prostatic hyperplasia without lower urinary tract symptoms; R13.10 Dysphagia, unspecified; G40.909 Epilepsy, unspecified, not intractable, without status epilepticus; E86.0 Dehydration; E87.6 Hypokalemia; Z86.73 Personal history of transient ischemic attack (TIA), and cerebral infarction without residual deficits; Z74.01 Bed confinement status; Z66 Do not resuscitate; Z87.19 Personal history of other diseases of the digestive system; Z87.891 Personal history of nicotine dependence
CPT/HCPCS: 36415; 36600; 49450; 70110-TC; 70140-TC; 71010-TC; 76775-TC; 76856-TC; 80048; 80053; 81003; 81015; 82550; 82553; 82803; 83605; 83735; 84100; 84484; 85025; 85027; 85610; 85730; 87040; 87070; 87086; 87205; 87254; 87324; 87449; 87804; 93005; 93010; 94640; 94660; 99285-25; G0480; J1644; J3480

== ENCOUNTER → 2016-06-14 | Day surgery (SDC) | payer OTHER, BC | END | disposition home or self-care (01) | LOC: JRADIR 12:34 | PROVIDERS: ATTEND Radiology Diagnostic Radiology | PROC: 0D20XUZ Change Feeding Device in Upper Intestinal Tract, External Approach (ICD-10-PCS; principal; 2016-06-14) | DX: K94.29 Other complications of gastrostomy (principal) | CPT/HCPCS: 49440; 49450 ==

== ENCOUNTER 2016-09-22 13:09 | Inpatient (IN) | payer OTHER, BC ==
--- NOTE | 2016-09-22 13:46 | PDOC ---
History of Present Illness - General History Source: Significant Other () Exam Limitations: Dementia - History of Present Illness Initial Comments: 09/22/16 16:59 Patient is 61 year old male with significant PMHx of dementia, nonverbal at baseline, post drip colitis, and seizures who presents to the ER 1 day of non- bilious non-bloody emesis. 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 says she noticed red spec in stool 3-4 days ago As per , patient has associated symptoms of diarrhea and subjective fever for 1 day. states pt aspirated in the past. Patient is fed through g-tube. Patient's also states that pt sometimes aspirates when he vomits. HPI limited due to patient's dementia. <Bev Chawla - Last Filed: 09/22/16 16:59> <Berta Casillas - Last Filed: 09/22/16 17:15> - General Chief Complaint: Rectal Bleed Stated Complaint: Nausea/Vomiting/FEVER Time Seen by Provider: 09/22/16 13:33 Past History <Bev Chawla - Last Filed: 09/22/16 16:59> - Past Medical History CVA: No Dementia: Yes GI Disorders: Yes (colitis) Disorders: Yes (BPH w/ urinary retention) Seizures: Yes - Psycho/Social/Smoking Cessation Hx Anxiety: No Suicidal Ideation: No Smoking Status: No Smoking History: Never smoked Have you smoked in the past 12 months: No Number of Cigarettes Smoked Daily: 0 Hx Alcohol Use: No Drug/Substance Use Hx: No Substance Use Type: None Hx Substance Use Treatment: No <Berta Casillas - Last Filed: 09/22/16 17:15> - Past Medical History Allergies/Adverse Reactions: Allergies Allergy/AdvReac Type Severity Reaction Status Date / Time No Known Allergies Allergy Verified 09/22/16 13:17 Home Medications: Ambulatory Orders Azathioprine 150 mg GT DAILY 06/29/13 Amino Acids/Protein Hydrolys [Prostat Sugar-Free Packet -] 30 ml GT BID Lactobacillus Acidophilus [Bacid -] 1 tab GT DAILY 05/17/15 Levetiracetam [Keppra Oral Solution -] 250 mg GT BID 05/17/15 Albuterol 2.5/Ipratropium 0.5 [Duoneb -] 1 amp NEB QIDR amp 03/19/16 Bacitracin - [Bacitracin Topical Ointment -] 1 applic TP DAILY tube 03/19/16 Escitalopram Oxalate [Lexapro 5mg/5mL Oral Solution -] 5 mg GT DAILY #150 ml 04/30 Ascorbic Acid [Vitamin C -] 250 mg GT Q2D 09/22/16 Review of Systems - Review of Systems Able to Perform ROS?: No (Dementia) <Bev Chawla - Last Filed: 09/22/16 16:59> *Physical Exam - Vital Signs Last Vital Signs Temp Pulse Resp BP Pulse Ox 98 F 84 18 123/90 97 09/22/16 13:42 09/22/16 13:42 09/22/16 13:42 09/22/16 13:42 09/22/16 15:03 - Physical Exam Comments: 09/22/16 17:00 GENERAL:, In no acute distress. Left sided twitching of UE and LE. Nonverbal. HEAD: No signs of trauma EYES: PERRLA, EOMI, sclera anicteric, conjunctiva clear ENT: Auricles normal inspection, nares patent, moist mucosa NECK: Normal ROM, supple, no lymphadenopathy, JVD, or masses LUNGS: Right-sided coarse breath sounds. No wheezes, and no crackles HEART: Regular rate and rhythm, normal S1 and S2, no murmurs, rubs or gallops ABDOMEN: +Mildly distended. Unable to tell if tender. G-tube with no purulence or bleeding. Normoactive bowel sounds. No guarding, no rebound. No masses EXTREMITIES: Contractures of all four extremities. No edema. No clubbing or cyanosis. No cords, erythema. NEUROLOGICAL: Left gaze preference. Blinking eyes, intermittently tracks. Does not follow commands SKIN: Warm, Dry, normal turgor, no rashes or lesions noted. <Bev Chawla - Last Filed: 09/22/16 16:59> - Vital Signs Last Vital Signs Temp Pulse Resp BP Pulse Ox 98 F 84 18 123/90 84 L 09/22/16 13:42 09/22/16 13:42 09/22/16 13:42 09/22/16 13:42 09/22/16 13:42 <Berta Casillas - Last Filed: 09/22/16 17:15> ED Treatment Course - LABORATORY CBC & Chemistry Diagram: 09/22/16 14:10 09/22/16 13:49 - ADDITIONAL ORDERS Additional order review: Laboratory Results 09/22/16 09/22/16 09/22/16 14:34 14:34 14:34 INR PTT (Actin FS) Sodium Potassium Chloride Carbon Dioxide Anion Gap BUN Creatinine Creat Clearance w eGFR Random Glucose Lactic Acid 2.1 H* Calcium Magnesium Total Bilirubin AST ALT Alkaline Phosphatase Troponin I C-Reactive Protein 1.6 H B-Natriuretic Peptide Total Protein Albumin Stool Occult Blood Negative Blood Type Antibody Screen 09/22/16 09/22/16 09/22/16 14:10 14:10 13:49 INR 1.10 PTT (Actin FS) 32.7 Sodium 137 Potassium 4.6 D Chloride 101 Carbon Dioxide 28 Anion Gap 8 BUN 23 H D Creatinine 0.8 D Creat Clearance w eGFR > 60 Random Glucose 98 D Lactic Acid Calcium 9.3 Magnesium 2.6 H Total Bilirubin 0.9 AST 31 ALT 23 D Alkaline Phosphatase 83 Troponin I < 0.02 C-Reactive Protein B-Natriuretic Peptide 9.6 Total Protein 8.1 D Albumin 3.4 D Stool Occult Blood Blood Type B POSITIVE Antibody Screen Negative 09/22/16 13:49 INR PTT (Actin FS) Sodium Potassium Chloride Carbon Dioxide Anion Gap BUN Creatinine Creat Clearance w eGFR Random Glucose Lactic Acid Calcium Magnesium Total Bilirubin AST ALT Alkaline Phosphatase Troponin I C-Reactive Protein B-Natriuretic Peptide Cancelled Total Protein Albumin Stool Occult Blood Blood Type Antibody Screen 09/22/16 14:10 RBC 5.32 D MCV 88.3 MCHC 32.5 RDW 15.0 MPV 9.2 Neutrophils % 64.8 Lymphocytes % 23.9 Monocytes % 6.4 Eosinophils % 3.2 Basophils % 1.7 - Medications Given in the ED: ED Medications Discontinued Medications Generic Name Dose Route Start Last Admin Trade Name Freq PRN Reason Stop Dose Admin Sodium Chloride 500 ml 09/22/16 15:32 09/22/16 15:37 Normal Saline - IV 09/22/16 15:33 500 ml ONCE ONE Administration <Bev Chawla - Last Filed: 09/22/16 16:59> - LABORATORY CBC & Chemistry Diagram: 09/22/16 14:10 09/22/16 13:49 - RADIOLOGY Radiology Studies Ordered: Category Date Time Status CHEST X-RAY PORTABLE* [RAD] Stat Radiology 09/22/16 13:41 Ordered <Berta Casillas - Last Filed: 09/22/16 17:15> Medical Decision Making - Medical Decision Making 09/22/16 17:10 61-year-old male history of early body dementia, ulcerative colitis, aspiration pneumonia presents with 1 day of fevers at home per his as well as non- bloody and nonbilious emesis and loose stools. Concern for intra-abdominal pathology such as colitis or enteritis or intra-abdominal abscess. Given patient is nonverbal, symptoms could also reflect an alternate infection such as pneumonia especially in the setting of the patient vomiting and previous aspiration versus UTI versus bacteremia. -labs -CTAP -CXR -US -admit Dr. Allen 09/22/16 17:12 Labs remarkable for leukocytosis to 14. CT abdomen and pelvis with fecal impaction. I spoke with Dr. Allen who has already consulted the GI attending. Patient to be admitted to Dr. Ness service for further management. <Berta Casillas - Last Filed: 09/22/16 17:15> *DC/Admit/Observation/Transfer - Attestations Scribe Attestion: 09/22/16 16:54 Documentation prepared by Bev Chawla, acting as medical economics consultant for Berta Casillas MD. <Bev Chawla - Last Filed: 09/22/16 16:59> - Discharge Dispostion Admit: Yes - Attestations Physician Attestion: 09/22/16 17:15 I, Dr. Berta Casillas MD, attest that this document has been prepared under my direction and personally reviewed by me in its entirety. I further attest, that it accurately reflects all work, treatment, procedures and medical decision -making performed by me. <Berta Casillas - Last Filed: 09/22/16 17:15> Diagnosis at time of Disposition: Vomiting Qualifiers: Vomiting type: unspecified Vomiting Intractability: unspecified Nausea presence : unspecified Qualified Code(s): R11.10 - Vomiting, unspecified - Discharge Dispostion Condition at time of disposition: Stable - Referrals Referrals: Isidro East MD [Primary Care Provider] -
[2016-09-22 14:20] LABS: BASOPHIL 1.7 % (0-2.0); EOSINOPHIL 3.2 % (0-4.5); MCH 28.7 pg (25.7-33.7); MCHC 32.5 g/dl (32.0-35.9); MEAN CELL VOLUME 88.3 fl (80-96); MEAN PLT VOLUME 9.2 fl (7.5-11.1); NEUTROPHILS 64.8 % (42.8-82.8); PLATELET COUNT 456 K/MM3 (134-434); WHITE BLOOD COUNT 14.7 K/mm3 (4.0-10.0)
--- NOTE | 2016-09-22 14:34 | EKG ---
Test Reason : Blood Pressure : / mmHG Vent. Rate : 087 BPM Atrial Rate : 087 BPM P-R Int : 152 ms QRS Dur : 082 ms QT Int : 382 ms P-R-T Axes : 044 -07 028 degrees QTc Int : 459 ms SINUS RHYTHM WITH OCCASIONAL PREMATURE VENTRICULAR COMPLEXES OTHERWISE NORMAL ECG WHEN COMPARED WITH ECG OF 08-MAR-2016 11:07, PREMATURE VENTRICULAR COMPLEXES ARE NOW PRESENT NON-SPECIFIC CHANGE IN ST SEGMENT IN ANTEROLATERAL LEADS NONSPECIFIC T WAVE ABNORMALITY, IMPROVED IN INFERIOR LEADS Confirmed by RAVEN MERA MD ([id number]) on 09/22/2016 2:33:46 PM Referred By: Confirmed By:RAVEN MERA MD
[2016-09-22 14:42] LABS: INR 1.1 (0.82-1.09); PROTHROMBIN TIME (PATIENT) 12.1 SEC (9.98-11.88)
[2016-09-22 14:43] LABS: ALBUMIN 3.4 g/dl (3.4-5.0); ALK PHOS 83 U/L (45-117); ANION GAP 8 (8-16); BILIRUBIN,TOTAL 0.9 mg/dL (0.2-1.0); CALCIUM 9.3 mg/dL (8.5-10.1); CO2 28 mmol/L (21-32); CREATININE 0.8 mg/dL (0.7-1.3); GLUCOSE,RANDOM 98 mg/dL (74-106); SGPT/ALT 23 U/L (12-78); TOT PROT 8.1 g/dl (6.4-8.2)
[2016-09-22 14:45] LABS: ACTIVATED PTT 32.7 SECONDS (26.9-34.4)
[2016-09-22 14:46] LABS: MAGNESIUM 2.6 mg/dL (1.8-2.4); SGOT/AST 31 U/L (15-37); TROPONIN I < 0.02 ng/ml (0.00-0.05)
[2016-09-22] MEDS ORDERED: SODIUM CHLORIDE 0.9% 1000 ML INFUS.BAG IV ONE (15:32)
[2016-09-22] MEDS ORDERED: ACETAMINOPHEN 1000 MG/100 ML VIAL (NON FORMULARY) IVPB ONE (17:03)
[2016-09-22] MEDS: DEXTROSE 5%-NORMAL SALINE 1,000 ML IV SCH ×2 (18:00→22:01)
[2016-09-22] MEDS ORDERED: ACETAMINOPHEN INJECTION 100 ML IVPB ONE (18:24)
[2016-09-22 19:29] LABS: URINE APPEARANCE CLEAR; URINE BILIRUBIN NEGATIVE (NEGATIVE); URINE BLOOD NEGATIVE (NEGATIVE); URINE COLOR LTYELLOW; URINE GLUCOSE (UA) NEGATIVE (NEGATIVE); URINE KETONE NEGATIVE (NEGATIVE); URINE LEUK ESTERASE NEGATIVE (NEGATIVE); URINE NITRITE NEGATIVE (NEGATIVE); URINE PROTEIN NEGATIVE (NEGATIVE); URINE UROBILINOGEN NEGATIVE mg/dL (0.2-1.0)
--- NOTE | 2016-09-22 19:57 | CON.GI ---
Consult Consult Specialty:: gastroenterology Referred by:: Dr East - History of Present Illness History of Present Illness: 61-year-old male history of early body dementia, ulcerative colitis, aspiration pneumonia presents with 1 day of fevers at home per his as well as non-bloody and nonbilious emesis and loose stools. Concern for intra- abdominal pathology such as colitis or enteritis or intra-abdominal abscess. Given patient is nonverbal, symptoms could also reflect an alternate infection such as pneumonia especially in the setting of the patient vomiting and previous aspiration versus UTI versus bacteremia. His ulcerative colitis was well controlled with Immuran. 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, Parkinson's Gastrointestinal: Yes: Ulcerative Colitis Musculoskeletal: Yes: Other (HISTORY IF B/L HIP FRACTURES) - Alcohol/Substance Use Hx Alcohol Use: No - Smoking History Smoking history: Never smoked Have you smoked in the past 12 months: No Aproximately how many cigarettes per day: 0 Home Medications - Allergies Allergies/Adverse Reactions: Allergies Allergy/AdvReac Type Severity Reaction Status Date / Time No Known Allergies Allergy Verified 09/22/16 13:17 - Home Medications Home Medications: Ambulatory Orders Azathioprine 150 mg GT DAILY 06/29/13 Amino Acids/Protein Hydrolys [Prostat Sugar-Free Packet -] 30 ml GT BID Lactobacillus Acidophilus [Bacid -] 1 tab GT DAILY 05/17/15 Levetiracetam [Keppra Oral Solution -] 250 mg GT BID 05/17/15 Albuterol 2.5/Ipratropium 0.5 [Duoneb -] 1 amp NEB QIDR amp 03/19/16 Bacitracin - [Bacitracin Topical Ointment -] 1 applic TP DAILY tube 03/19/16 Escitalopram Oxalate [Lexapro 5mg/5mL Oral Solution -] 5 mg GT DAILY #150 ml 04/30 Ascorbic Acid [Vitamin C -] 250 mg GT Q2D 09/22/16 Review of Systems Unable to obtain ROS, reason: patients condition Physical Exam-GI Vital Signs: Vital Signs Temperature 98 F 09/22/16 13:42 Pulse Rate 84 09/22/16 13:42 Respiratory Rate 18 09/22/16 13:42 Blood Pressure 123/90 09/22/16 13:42 O2 Sat by Pulse Oximetry (%) 97 09/22/16 15:03 Labs: INR, PTT INR 1.10 (0.82-1.09) 09/22/16 14:10 Problem List - Problems (1) Vomiting Assessment/Plan: r/o secondary to gastroparesis and fecal impaction R> will hold off Immuran because od possible pneumonia IV Reglan and IV Protonic=x fleet enemas Code(s): R11.10 - VOMITING, UNSPECIFIED Qualifiers: Vomiting type: unspecified Vomiting Intractability: unspecified Nausea presence: unspecified Qualified Code(s): R11.10 - Vomiting, unspecified (2) Fecal impaction Assessment/Plan: R> fleet enemas once good bowel movement is achieved will give oral laxatives Code(s): K56.41 - FECAL IMPACTION
[2016-09-22] MEDS ORDERED: CEFTRIAXONE 50 ML IVPB SCH (20:00)
[2016-09-22] MEDS: SODIUM PHOSPHATE/NA BIPHOS 133 ML ENEMA PR SCH ×2 (21:04→23:26)
[2016-09-22] MEDS: METOCLOPRAMIDE HCL INJECTION 10 MG/2 ML VIAL IVPB SCH (21:05)
[2016-09-22] MEDS: PANTOPRAZOLE SODIUM 100 ML IVPB SCH (21:05)
--- NOTE | 2016-09-22 21:11 | HP ---
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, Parkinson's Gastrointestinal: Yes: Ulcerative Colitis Musculoskeletal: Yes: Other (HISTORY IF B/L HIP FRACTURES) - Smoking History Smoking history: Never smoked Have you smoked in the past 12 months: No Aproximately how many cigarettes per day: 0 - Alcohol/Substance Use Hx Alcohol Use: No Home Medications - Allergies Allergies/Adverse Reactions: Allergies Allergy/AdvReac Type Severity Reaction Status Date / Time No Known Allergies Allergy Verified 09/22/16 13:17 - Home Medications Home Medications: Ambulatory Orders Azathioprine 150 mg GT DAILY 06/29/13 Amino Acids/Protein Hydrolys [Prostat Sugar-Free Packet -] 30 ml GT BID Lactobacillus Acidophilus [Bacid -] 1 tab GT DAILY 05/17/15 Levetiracetam [Keppra Oral Solution -] 250 mg GT BID 05/17/15 Albuterol 2.5/Ipratropium 0.5 [Duoneb -] 1 amp NEB QIDR amp 03/19/16 Bacitracin - [Bacitracin Topical Ointment -] 1 applic TP DAILY tube 03/19/16 Escitalopram Oxalate [Lexapro 5mg/5mL Oral Solution -] 5 mg GT DAILY #150 ml 04/30 Ascorbic Acid [Vitamin C -] 250 mg GT Q2D 09/22/16 Review of Systems - Review of Systems Constitutional: reports: Fever, Loss of Appetite, Weakness Eyes: reports: No Symptoms HENT: reports: No Symptoms Neck: reports: No Symptoms Cardiovascular: reports: No Symptoms Respiratory: reports: No Symptoms Gastrointestinal: reports: Vomiting Genitourinary: reports: Incontinence Musculoskeletal: reports: Muscle Weakness Integumentary: reports: Erythema, Rash Neurological: reports: Confusion, Incoordination, Parasthesia, Pre-Existing Deficit, Unsteady Gait, Weakness Endocrine: reports: No Symptoms Hematology/Lymphatic: reports: No Symptoms Psychiatric: reports: Other Physical Examination Vital Signs: Vital Signs Temperature 98 F 09/22/16 13:42 Pulse Rate 84 09/22/16 13:42 Respiratory Rate 18 09/22/16 13:42 Blood Pressure 123/90 09/22/16 13:42 O2 Sat by Pulse Oximetry (%) 97 09/22/16 15:03 Constitutional: Yes: Moderate Distress, Obese HENT: Yes: WNL Neck: Yes: WNL Cardiovascular: Yes: WNL Respiratory: Yes: WNL Gastrointestinal: Yes: Distention, Tenderness, Epigastrium, Vomiting Renal/: Yes: Incontinence Musculoskeletal: Yes: Muscle Pain, Muscle Weakness Extremities: Yes: WNL Edema: No Peripheral Pulses WNL: Yes Integumentary: Yes: Rash Wound/Incision: Yes: Open to air, Unapproximated Neurological: Yes: Paresthesia, Pre-Existing Deficit, Unsteady Gait, Weakness ...Motor Strength: LLE, RLE Psychiatric: Yes: Other Imaging - Results Cat Scan: Report Reviewed Assessment/Plan IV FLUIDS PPI GI F/U PULM EVAL ID CONSULT LEUKOCYTOSIS BLOOD CX URINE CX
[2016-09-22] MEDS: ALBUTEROL SO4 2.5/IPRATROPIUM 0.5 INH SOL 3 ML VIAL.NEB. NEB SCH (22:29)
[2016-09-22] MEDS ORDERED: CEFTRIAXONE 1 GM in DEXTROSE 5%-WATER - 50 ML IVPB SCH (22:30)
[2016-09-22 23:11] VITALS: BMI 25.4
[2016-09-22] MEDS ORDERED: cefTRIAXone SODIUM 1 GM VIAL ONE (23:20)
[2016-09-22] MEDS ORDERED: DEXTROSE 5%-WATER - 50 ML IVPB ONE (23:21)
[2016-09-22] MEDS ORDERED: levETIRAcetam 500 MG/5 ML INJECTION VIAL IVPB ONE (23:47)
[2016-09-23] MEDS: METOCLOPRAMIDE HCL INJECTION 10 MG/2 ML VIAL IVPB SCH ×3 (03:16→21:00)
[2016-09-23] MEDS: SODIUM PHOSPHATE/NA BIPHOS 133 ML ENEMA PR SCH ×3 (03:29→22:26)
[2016-09-23] MEDS: ALBUTEROL SO4 2.5/IPRATROPIUM 0.5 INH SOL 3 ML VIAL.NEB. NEB SCH ×3 (06:56→22:17)
[2016-09-23 07:53] LABS: MCH 28.8 pg (25.7-33.7); MCHC 32.9 g/dl (32.0-35.9); MEAN CELL VOLUME 87.6 fl (80-96); MEAN PLT VOLUME 8.9 fl (7.5-11.1); PLATELET COUNT 431 K/MM3 (134-434); RDW 15.4 % (11.9-15.9); WHITE BLOOD COUNT 12.8 K/mm3 (4.0-10.0)
[2016-09-23 08:47] LABS: ALBUMIN 3.3 g/dl (3.4-5.0); ALK PHOS 83 U/L (45-117); ANION GAP 7 (8-16); CALCIUM 9.7 mg/dL (8.5-10.1); CO2 29 mmol/L (21-32); GLUCOSE,RANDOM 119 mg/dL (74-106); SGOT/AST 15 U/L (15-37); SGPT/ALT 19 U/L (12-78); TOT PROT 7.7 g/dl (6.4-8.2)
--- NOTE | 2016-09-23 08:55 | PN ---
Progress Note, Physician Chief Complaint: AWAKE CONFUSED NO CHANGE IN MENTAL STATUS - Current Medication List Current Medications: Active Medications Albuterol/Ipratropium (Duoneb -) 1 amp NEB TIDR [facility] Last Admin: 09/23/16 06:56 Dose: 1 amp Dextrose/Sodium Chloride (D5-Ns -) 1,000 mls @ 83 mls/hr IV ASDIR [facility] Last Admin: 09/22/16 22:01 Dose: 83 mls/hr Pantoprazole Sodium (Protonix 40mg Ivpb (Pre-Docked)) 100 mls @ 200 mls/hr IVPB DAILY [facility] Last Admin: 09/22/16 21:05 Dose: 200 mls/hr Ceftriaxone Sodium 1 gm/ (Dextrose) 50 mls @ 100 mls/hr IVPB DAILY [facility] Last Admin: 09/22/16 23:25 Dose: 100 mls/hr Metoclopramide HCl (Reglan Injection -) 10 mg IVPB Q8H [facility] Last Admin: 09/23/16 03:16 Dose: 10 mg Polyethylene Glycol (Miralax (For Daily Use) -) 17 gm PO DAILY [facility] - Objective Vital Signs: Vital Signs Temperature 96.8 F L 09/23/16 06:00 Pulse Rate 84 09/23/16 06:00 Respiratory Rate 20 09/23/16 06:00 Blood Pressure 115/50 09/23/16 06:00 O2 Sat by Pulse Oximetry (%) 97 09/22/16 22:43 Constitutional: Yes: Mild Distress Eyes: Yes: WNL HENT: Yes: WNL Neck: Yes: WNL Cardiovascular: Yes: WNL Respiratory: Yes: WNL Gastrointestinal: Yes: Distention Genitourinary: Yes: Incontinence Musculoskeletal: Yes: Muscle Weakness Extremities: Yes: Deformity Edema: No Peripheral Pulses WNL: Yes Integumentary: Yes: Pressure Ulcer (HEALED COCCYC ULCER) Wound/Incision: Yes: Clean/Dry Neurological: Yes: Confusion, Pre-Existing Deficit, Weakness ...Motor Strength: LLE, RLE Psychiatric: Yes: Other Labs: CBC, BMP 09/23/16 06:00 09/23/16 06:00 INR, PTT INR 1.10 (0.82-1.09) 09/22/16 14:10 Problem List - Problems (1) Fecal impaction Code(s): K56.41 - FECAL IMPACTION (2) Vomiting Code(s): R11.10 - VOMITING, UNSPECIFIED Qualifiers: Vomiting type: unspecified Vomiting Intractability: unspecified Nausea presence: unspecified Qualified Code(s): R11.10 - Vomiting, unspecified (3) BPH (benign prostatic hypertrophy) Code(s): N40.0 - BENIGN PROSTATIC HYPERPLASIA WITHOUT LOWER URINRY TRACT SYMP Qualifiers: Lower urinary tract symptom presence: symptoms present Qualified Code(s ): N40.1 - Benign prostatic hyperplasia with lower urinary tract symptoms; R35.0 - Frequency of micturition (4) Constipation Code(s): K59.00 - CONSTIPATION, UNSPECIFIED Qualifiers: Constipation type: unspecified constipation type Qualified Code(s): K59.00 - Constipation, unspecified (5) Dehydration Code(s): E86.0 - DEHYDRATION (6) Dysphagia Code(s): R13.10 - DYSPHAGIA, UNSPECIFIED (7) Gastroparesis Code(s): K31.84 - GASTROPARESIS (8) History of ulcerative colitis Code(s): Z87.19 - PERSONAL HISTORY OF OTHER DISEASES OF THE DIGESTIVE SYSTEM Assessment/Plan IVF HOLD FEEDS ID CONSULT LACTIC ACID ELEVATION GI F/U CONSERVATIVE MANAGEMENT ZOFRAN IV PRN
[2016-09-23 09:20] LABS: ERYTHROCYTE SEDIMENTATION RATE 57 mm/hr (0-20)
[2016-09-23] MEDS ORDERED: DEXTROSE 5%-WATER - 50 ML IVPB ONE (09:29)
[2016-09-23] MEDS ORDERED: cefTRIAXone SODIUM 1 GM VIAL ONE ×2 (09:29→18:47)
--- NOTE | 2016-09-23 09:33 | PN ---
Progress Note, Physician Chief Complaint: ID Full note dictated and discussed Ceftriaxone No fevers - Current Medication List Current Medications: Active Medications Albuterol/Ipratropium (Duoneb -) 1 amp NEB TIDR [facility] Last Admin: 09/23/16 06:56 Dose: 1 amp Bacitracin (Bacitracin -) 1 applic TP DAILY [facility] Dextrose/Sodium Chloride (D5-Ns -) 1,000 mls @ 83 mls/hr IV ASDIR [facility] Last Admin: 09/22/16 22:01 Dose: 83 mls/hr Pantoprazole Sodium (Protonix 40mg Ivpb (Pre-Docked)) 100 mls @ 200 mls/hr IVPB DAILY [facility] Last Admin: 09/22/16 21:05 Dose: 200 mls/hr Ceftriaxone Sodium 1 gm/ (Dextrose) 50 mls @ 100 mls/hr IVPB DAILY [facility] Last Admin: 09/22/16 23:25 Dose: 100 mls/hr Metoclopramide HCl (Reglan Injection -) 10 mg IVPB Q8H [facility] Last Admin: 09/23/16 03:16 Dose: 10 mg Polyethylene Glycol (Miralax (For Daily Use) -) 17 gm PO DAILY [facility] - Objective Vital Signs: Vital Signs Temperature 96.8 F L 09/23/16 06:00 Pulse Rate 84 09/23/16 06:00 Respiratory Rate 20 09/23/16 06:00 Blood Pressure 115/50 09/23/16 06:00 O2 Sat by Pulse Oximetry (%) 97 09/22/16 22:43 Labs: CBC, BMP 09/23/16 06:00 09/23/16 06:00 INR, PTT INR 1.10 (0.82-1.09) 09/22/16 14:10 Problem List - Problems (1) Fecal impaction Code(s): K56.41 - FECAL IMPACTION Assessment/Plan Microbiology Laboratory Tests 09/22/16 09/22/16 09/22/16 14:10 14:10 14:34 WBC 14.7 H D Hgb 15.3 D Hct 47.0 D Plt Count 456 H D ESR 44 H BUN Creatinine Creat Clearance w eGFR Lactic Acid 2.1 H* Total Bilirubin Alkaline Phosphatase C-Reactive Protein Ur Leukocyte Esterase 09/22/16 09/23/16 09/23/16 19:16 06:00 06:00 WBC Hgb Hct Plt Count ESR BUN 16 D Creatinine 1.0 D Creat Clearance w eGFR > 60 Lactic Acid 2.9 H* Total Bilirubin 1.0 Alkaline Phosphatase 83 C-Reactive Protein Ur Leukocyte Esterase Negative 09/23/16 06:00 WBC Hgb Hct Plt Count ESR BUN Creatinine Creat Clearance w eGFR Lactic Acid Total Bilirubin Alkaline Phosphatase C-Reactive Protein 2.2 H D Ur Leukocyte Esterase Assessment Fecal impaction noted No fever blood culture no growth Plan Observe off antibiotic Claritza EISENBERG
[2016-09-23] MEDS: BACITRACIN 15 GM TUBE TOPICAL OINTMENT TP SCH (09:40)
[2016-09-23] MEDS: POLYETHYLENE GLYCOL 3350 119 GM BTL PO SCH (09:41)
--- NOTE | 2016-09-23 10:53 | CONS ---
DATE OF CONSULTATION: DATE OF DICTATION: 09/23/2016 HISTORY OF PRESENT ILLNESS: This is a 61-year-old male with a longstanding history of severe dementia, Lewy, ulcerative colitis with a feeding tube, admitted by report with fever, vomiting, and possible dehydration. He has had multiple admissions over several years to [facility] and currently was seen in consultation by Dr. Brewer of GI. He had an abdominal CT scan done on admission which showed fecal impaction with no acute pathology. His admitting chest x-ray showed shallow inspiration, but no evidence of pneumonia. He has been afebrile, albeit with a mildly elevated lactic acid, and I am asked to see him for further antibiotic management. He had a set of blood cultures drawn on admission, which was no growth. Of course, he can offer no meaningful history, and his chest x-ray was looked at, and I would concur there were no acute infiltrates seen. He is currently on ceftriaxone. CURRENT MEDICATIONS: Include ceftriaxone, MiraLAX, Protonix. ALLERGIES: None known. SOCIAL HISTORY: Bedbound, he lives at home, is a nonsmoker, with no history of alcohol use. FAMILY HISTORY: Reviewed and noncontributory. REVIEW OF SYSTEMS: Respiratory: No cough or shortness of breath. Cardiac: No chest pain or palpitations. Gastrointestinal: No obvious abdominal pain, vomiting, or diarrhea currently. Genitourinary: Incontinent of urine. PHYSICAL EXAMINATION: Vital signs: The temperature was 96.8, pulse 84, blood pressure 115/50, respirations 20. General: He appeared in no acute distress. Lungs: Bilateral rhonchi. Heart: S1, S2, regular rhythm, no audible murmur. Abdomen: Soft. Positive bowel sounds. Distended. No obvious tenderness. Extremities: Contracted. No edema. LABORATORY DATA: The white count was 14.7, hemoglobin 15.3, platelets 456. ESR 44. BUN 16, creatinine 1.0, lactic acid 2.1, 2.9. Liver enzymes within normal limits. CRP 2.2. Urinalysis negative leukocyte esterase. Two blood cultures, no growth. ASSESSMENT: Fecal impaction. No obvious evidence for sepsis. Mildly elevated lactic acid noted, unclear etiology. Two sets of blood cultures, no growth this morning. At this point, he has no infiltrate on x-ray. I do not see reason to treat him with antibiotics. Will discontinue ceftriaxone and observe. TOYA CARVALHO M.D. HIRAM/[id number]
[2016-09-23] MEDS: PANTOPRAZOLE SODIUM 100 ML IVPB SCH (11:45)
[2016-09-23] MEDS ORDERED: SODIUM CHLORIDE 100 ML IVPB ONE (11:49)
[2016-09-23] MEDS ORDERED: PANTOPRAZOLE SODIUM 40 MG VIAL ONE (11:49)
[2016-09-23] MEDS: PANTOPRAZOLE SODIUM 40 MG in SODIUM CHLORIDE 100 ML IVPB SCH (11:53)
--- NOTE | 2016-09-23 16:36 | CONSULT ---
Consult Consult Specialty:: Nephrology Reason for Consultation:: lactic acidosis - History of Present Illness Chief Complaint: vomiting History of Present Illness: Pt is a 61 year old male with pmhx of dementia and epilepsy who presents to the ER with vomiting. Pt is not verbal and unable to give history. I was called to evaluate him for lactic acidosis. His lactic acid has been slowly increasing. He was also found to have elevated BUN. Pt also had fever before admission. 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: Yes: Dementia, Parkinson's Gastrointestinal: Yes: Ulcerative Colitis Musculoskeletal: Yes: Other (HISTORY IF B/L HIP FRACTURES) - Alcohol/Substance Use Hx Alcohol Use: No - Smoking History Smoking history: Never smoked Have you smoked in the past 12 months: No Aproximately how many cigarettes per day: 0 Home Medications - Allergies Allergies/Adverse Reactions: Allergies Allergy/AdvReac Type Severity Reaction Status Date / Time No Known Allergies Allergy Verified 09/22/16 13:17 - Home Medications Home Medications: Ambulatory Orders Azathioprine 150 mg GT DAILY 06/29/13 Amino Acids/Protein Hydrolys [Prostat Sugar-Free Packet -] 30 ml GT BID Lactobacillus Acidophilus [Bacid -] 1 tab GT DAILY 05/17/15 Levetiracetam [Keppra Oral Solution -] 250 mg GT BID 05/17/15 Albuterol 2.5/Ipratropium 0.5 [Duoneb -] 1 amp NEB QIDR amp 03/19/16 Bacitracin - [Bacitracin Topical Ointment -] 1 applic TP DAILY tube 03/19/16 Escitalopram Oxalate [Lexapro 5mg/5mL Oral Solution -] 5 mg GT DAILY #150 ml 04/30 Ascorbic Acid [Vitamin C -] 250 mg GT Q2D 09/22/16 Family Disease History - Family Disease History Family History: Unable to Obtain Review of Systems Unable to obtain ROS, reason: dementia Physical Exam Vital Signs: Vital Signs Temperature 99.2 F 09/23/16 14:57 Pulse Rate 102 H 09/23/16 14:57 Respiratory Rate 18 09/23/16 14:57 Blood Pressure 140/90 09/23/16 14:57 O2 Sat by Pulse Oximetry (%) 97 09/23/16 09:00 Constitutional: Yes: Calm Eyes: Yes: WNL Neck: Yes: WNL Cardiovascular: Yes: S1, S2 Respiratory: Yes: On Nasal O2 Gastrointestinal: Yes: Soft, Other (peg) Renal/: Yes: Incontinence Musculoskeletal: Yes: Muscle Weakness Edema: No Neurological: Yes: Pre-Existing Deficit Labs: CBC, BMP 09/23/16 06:00 09/23/16 06:00 Laboratory Tests 09/22/16 09/22/16 09/22/16 13:49 14:10 14:34 WBC 14.7 H D Sodium Potassium Chloride Carbon Dioxide Anion Gap BUN 23 H D Creatinine Creat Clearance w eGFR Random Glucose Lactic Acid 2.1 H* Urine Protein Urine Glucose (UA) Urine Ketones Urine Blood Urine Nitrite Urine Bilirubin Urine Urobilinogen Ur Leukocyte Esterase 09/22/16 09/22/16 09/23/16 19:03 19:16 06:00 WBC 12.8 H Sodium Potassium Chloride Carbon Dioxide Anion Gap BUN Creatinine Creat Clearance w eGFR Random Glucose Lactic Acid 2.4 H* Urine Protein Negative Urine Glucose (UA) Negative Urine Ketones Negative Urine Blood Negative Urine Nitrite Negative Urine Bilirubin Negative Urine Urobilinogen Negative Ur Leukocyte Esterase Negative 09/23/16 09/23/16 06:00 06:00 WBC Sodium 141 Potassium 4.4 Chloride 105 Carbon Dioxide 29 Anion Gap 7 L BUN 16 D Creatinine 1.0 D Creat Clearance w eGFR > 60 Random Glucose 119 H D Lactic Acid 2.9 H* Urine Protein Urine Glucose (UA) Urine Ketones Urine Blood Urine Nitrite Urine Bilirubin Urine Urobilinogen Ur Leukocyte Esterase Imaging - Results Cat Scan: Report Reviewed (fecal impaction) Problem List - Problems (1) Fecal impaction Code(s): K56.41 - FECAL IMPACTION (2) Vomiting Code(s): R11.10 - VOMITING, UNSPECIFIED Qualifiers: Vomiting type: unspecified Vomiting Intractability: unspecified Nausea presence: unspecified Qualified Code(s): R11.10 - Vomiting, unspecified Assessment/Plan Current Medications Generic Name Dose Route Start Last Admin Trade Name Freq PRN Reason Stop Dose Admin Albuterol/Ipratropium 1 amp 09/22/16 22:00 09/23/16 14:33 Duoneb - NEB 1 amp TIDR [facility]HA Administration Amino Acids 30 ml 09/23/16 17:30 Prosource No Carb Liquid Pkt PO BID@0800,1730 TALHA Azathioprine 150 mg 09/24/16 10:00 Imuran - GT DAILY [facility] Bacitracin 1 applic 09/23/16 10:00 09/23/16 09:40 Bacitracin - TP 1 applic DAILY [facility] Administration Escitalopram Oxalate 10 mg 09/24/16 10:00 Lexapro Oral Solution - GT DAILY [facility] Dextrose/Sodium Chloride 1,000 mls @ 83 mls/hr 09/22/16 17:15 09/22/16 22:01 D5-Ns - IV 83 mls/hr ASDIR [facility] Administration Pantoprazole Sodium 40 mg/ 100 mls @ 200 mls/hr 09/23/16 11:45 09/23/16 11:53 Sodium Chloride IVPB 200 mls/hr DAILY [facility] Administration Lactobacillus Acidophilus 1 tab 09/24/16 10:00 Bacid - GT DAILY [facility] Levetiracetam 250 mg 09/23/16 22:00 Keppra Oral Solution - GT BID T[facility]HA Metoclopramide HCl 10 mg 09/22/16 20:00 09/23/16 11:54 Reglan Injection - IVPB 10 mg Q8H [facility] Administration Polyethylene Glycol 17 gm 09/23/16 10:00 09/23/16 09:41 Miralax (For Daily Use) - PO 17 gm DAILY [facility] Administration Impression 1. fecal impaction 2. vomiting 3. parkinsons 4. ulcerative colitis 5. dementia 6. fever 7. lactic acidosis Plan - cont with fluids - azotemia likely from dehydration - repeat labs in am - cont current meds - will follow Dr Cardoso
[2016-09-23] MEDS: DEXTROSE 5%-NORMAL SALINE 1,000 ML IV SCH (17:27)
[2016-09-23] MEDS: AMINO ACIDS/PROTEIN HYDROLYS 30 ML LIQUID.PKT PO SCH (17:27)
--- NOTE | 2016-09-23 18:43 | PN ---
GI Progress Note Subjective: fecal disimpactiondone, enemas applied good results - Objective Vital Signs: Vital Signs Temperature 99.2 F 09/23/16 14:57 Pulse Rate 102 H 09/23/16 14:57 Respiratory Rate 18 09/23/16 14:57 Blood Pressure 140/90 09/23/16 14:57 O2 Sat by Pulse Oximetry (%) 97 09/23/16 09:00 Constitutional: Well Nourished Eyes: Yes: Conjunctiva Clear HENT: Yes: Atraumatic Neck: Yes: Supple Cardiovascular: Yes: Regular Rate and Rhythm Respiratory: Yes: CTA Bilaterally ...Palpate: Yes: Soft. No: Firm/Rigid, Guarding, Hepatomegaly, Mass, Pulsatile Mass, Splenomegaly, Tenderness Labs: CBC, BMP 09/23/16 06:00 09/23/16 06:00 INR, PTT INR 1.10 (0.82-1.09) 09/22/16 14:10 Problem List - Problems (1) Fecal impaction Assessment/Plan: r. continue fleet enemas Code(s): K56.41 - FECAL IMPACTION (2) Vomiting Code(s): R11.10 - VOMITING, UNSPECIFIED Qualifiers: Vomiting type: unspecified Vomiting Intractability: unspecified Nausea presence: unspecified Qualified Code(s): R11.10 - Vomiting, unspecified (3) Aspiration pneumonia Assessment/Plan: r. continue antibiotics no bolus feeding Code(s): J69.0 - PNEUMONITIS DUE TO INHALATION OF FOOD AND VOMIT
[2016-09-23] MEDS ORDERED: DEXTROSE 5%-WATER 100 ML IVPB ONE (18:47)
[2016-09-23] MEDS: CEFTRIAXONE 1 GM in DEXTROSE 5%-WATER 100 ML IVPB SCH (18:50)
[2016-09-23] MEDS ORDERED: MAGNESIUM CITRATE 300 ML BOTTLE GT ONE (18:51)
[2016-09-23] MEDS: levETIRAcetam 500 MG/5 ML ORAL SOLUTION (UNIT-DOSE CUPS) GT SCH (22:25)
[2016-09-24] MEDS: SODIUM PHOSPHATE/NA BIPHOS 133 ML ENEMA PR SCH (03:00)
[2016-09-24] MEDS: METOCLOPRAMIDE HCL INJECTION 10 MG/2 ML VIAL IVPB SCH ×3 (04:00→21:09)
[2016-09-24] MEDS: ALBUTEROL SO4 2.5/IPRATROPIUM 0.5 INH SOL 3 ML VIAL.NEB. NEB SCH ×3 (06:40→23:21)
--- NOTE | 2016-09-24 08:14 | PN ---
Progress Note, Physician History of Present Illness: ID Antibiotics restarted HE appears in no distress - Current Medication List Current Medications: Active Medications Albuterol/Ipratropium (Duoneb -) 1 amp NEB TIDR [facility] Last Admin: 09/24/16 06:40 Dose: 1 amp Amino Acids (Prosource No Carb Liquid Pkt) 30 ml PO BID@0800,1730 [facility] Last Admin: 09/23/16 17:27 Dose: 30 ml Azathioprine (Imuran -) 150 mg GT DAILY [facility] Bacitracin (Bacitracin -) 1 applic TP DAILY [facility] Last Admin: 09/23/16 09:40 Dose: 1 applic Escitalopram Oxalate (Lexapro Oral Solution -) 10 mg GT DAILY [facility] Dextrose/Sodium Chloride (D5-Ns -) 1,000 mls @ 83 mls/hr IV ASDIR [facility] Last Admin: 09/23/16 17:27 Dose: 83 mls/hr Pantoprazole Sodium 40 mg/ (Sodium Chloride) 100 mls @ 200 mls/hr IVPB DAILY [facility] Last Admin: 09/23/16 11:53 Dose: 200 mls/hr Ceftriaxone Sodium 1 gm/ (Dextrose) 100 mls @ 100 mls/hr IVPB DAILY [facility] Last Admin: 09/23/16 18:50 Dose: 100 mls/hr Metronidazole (Flagyl 500mg Premixed Ivpb -) 100 mls @ 100 mls/hr IVPB Q8H-IV [facility] Lactobacillus Acidophilus (Bacid -) 1 tab GT DAILY [facility] Levetiracetam (Keppra Oral Solution -) 250 mg GT BID [facility] Last Admin: 09/23/16 22:25 Dose: 250 mg Metoclopramide HCl (Reglan Injection -) 10 mg IVPB Q8H [facility] Last Admin: 09/24/16 04:00 Dose: 10 mg Polyethylene Glycol (Miralax (For Daily Use) -) 17 gm PO DAILY [facility] Last Admin: 09/23/16 09:41 Dose: 17 gm - Objective Vital Signs: Vital Signs Temperature 100.1 F H 09/24/16 02:42 Pulse Rate 97 H 09/24/16 02:42 Respiratory Rate 20 09/24/16 02:42 Blood Pressure 127/73 09/24/16 02:42 O2 Sat by Pulse Oximetry (%) 97 09/23/16 21:00 Constitutional: Yes: No Distress HENT: Yes: WNL, Atraumatic Neck: Yes: WNL, Supple Cardiovascular: Yes: Regular Rate and Rhythm, S1, S2. No: Murmur Respiratory: Yes: WNL, Regular, CTA Bilaterally Gastrointestinal: Yes: WNL, Normal Bowel Sounds, Soft, Distention. No: Tenderness Edema: No Labs: CBC, BMP 09/23/16 06:00 09/23/16 06:00 INR, PTT INR 1.10 (0.82-1.09) 09/22/16 14:10 Problem List - Problems (1) Fecal impaction Code(s): K56.41 - FECAL IMPACTION Assessment/Plan Microbiology 09/22/16 14:34 Blood - Peripheral Venous Blood Culture - Preliminary NO GROWTH OBTAINED AFTER 24 HOURS, INCUBATION TO CONTINUE FOR 4 DAYS. 09/22/16 14:34 Blood - Peripheral Venous Blood Culture - Preliminary NO GROWTH OBTAINED AFTER 24 HOURS, INCUBATION TO CONTINUE FOR 4 DAYS. Laboratory Tests 09/23/16 09/23/16 09/23/16 06:00 06:00 06:00 WBC 12.8 H Hgb 14.8 Hct 44.9 Plt Count 431 ESR 57 H Creatinine 1.0 D Creat Clearance w eGFR > 60 Lactic Acid 2.9 H* Assessment Currently treated for PNA ? Plan Antibiotics as ordered Claritza EISENBERG
[2016-09-24] MEDS: AMINO ACIDS/PROTEIN HYDROLYS 30 ML LIQUID.PKT PO SCH ×2 (08:45→18:10)
[2016-09-24] MEDS ORDERED: DEXTROSE 5%-WATER 100 ML IVPB ONE (09:15)
[2016-09-24] MEDS ORDERED: PT OWN MED DRAWER 7, Y5N ONE (09:15)
[2016-09-24] MEDS ORDERED: cefTRIAXone SODIUM 1 GM VIAL ONE (09:15)
[2016-09-24] MEDS ORDERED: PANTOPRAZOLE SODIUM 40 MG VIAL ONE (09:16)
[2016-09-24] MEDS ORDERED: SODIUM CHLORIDE 100 ML IVPB ONE (09:16)
[2016-09-24] MEDS: BACITRACIN 15 GM TUBE TOPICAL OINTMENT TP SCH (09:24)
[2016-09-24] MEDS: PANTOPRAZOLE SODIUM 40 MG in SODIUM CHLORIDE 100 ML IVPB SCH (09:25)
[2016-09-24] MEDS: METRONIDAZOLE 500 MG PREMIXED 100 ML IVPB SCH ×2 (09:25→18:16)
[2016-09-24] MEDS: CEFTRIAXONE 1 GM in DEXTROSE 5%-WATER 100 ML IVPB SCH (09:25)
[2016-09-24] MEDS: azaTHIOprine 50 MG TABLET GT SCH (09:26)
[2016-09-24] MEDS: LACTOBACILLUS ACIDOPHILUS 1 EACH TAB (FP) GT SCH (09:26)
[2016-09-24] MEDS: levETIRAcetam 500 MG/5 ML ORAL SOLUTION (UNIT-DOSE CUPS) GT SCH ×2 (09:27→21:09)
[2016-09-24] MEDS: ESCITALOPRAM OXALATE 5 MG/5 ML GT SCH (09:28)
[2016-09-24] MEDS: POLYETHYLENE GLYCOL 3350 119 GM BTL PO SCH (09:28)
--- NOTE | 2016-09-24 12:45 | PN ---
Progress Note, Physician Chief Complaint: AWAKE, NO DISTRESS, NONVERBAL - Current Medication List Current Medications: Active Medications Albuterol/Ipratropium (Duoneb -) 1 amp NEB TIDR [facility] Last Admin: 09/24/16 06:40 Dose: 1 amp Amino Acids (Prosource No Carb Liquid Pkt) 30 ml PO BID@0800,1730 [facility] Last Admin: 09/24/16 08:45 Dose: 30 ml Azathioprine (Imuran -) 150 mg GT DAILY [facility] Last Admin: 09/24/16 09:26 Dose: 150 mg Bacitracin (Bacitracin -) 1 applic TP DAILY [facility] Last Admin: 09/24/16 09:24 Dose: 1 applic Escitalopram Oxalate (Lexapro Oral Solution -) 10 mg GT DAILY [facility] Last Admin: 09/24/16 09:28 Dose: 10 mg Dextrose/Sodium Chloride (D5-Ns -) 1,000 mls @ 83 mls/hr IV ASDIR [facility] Last Admin: 09/23/16 17:27 Dose: 83 mls/hr Pantoprazole Sodium 40 mg/ (Sodium Chloride) 100 mls @ 200 mls/hr IVPB DAILY [facility] Last Admin: 09/24/16 09:25 Dose: 200 mls/hr Ceftriaxone Sodium 1 gm/ (Dextrose) 100 mls @ 100 mls/hr IVPB DAILY [facility] Last Admin: 09/24/16 09:25 Dose: 100 mls/hr Metronidazole (Flagyl 500mg Premixed Ivpb -) 100 mls @ 100 mls/hr IVPB Q8H-IV [facility] Last Admin: 09/24/16 09:25 Dose: 100 mls/hr Lactobacillus Acidophilus (Bacid -) 1 tab GT DAILY [facility] Last Admin: 09/24/16 09:26 Dose: 1 tab Levetiracetam (Keppra Oral Solution -) 250 mg GT BID [facility] Last Admin: 09/24/16 09:27 Dose: 250 mg Metoclopramide HCl (Reglan Injection -) 10 mg IVPB Q8H [facility] Last Admin: 09/24/16 04:00 Dose: 10 mg Polyethylene Glycol (Miralax (For Daily Use) -) 17 gm PO DAILY [facility] Last Admin: 09/24/16 09:28 Dose: 17 gm - Objective Vital Signs: Vital Signs Temperature 97.5 F L 09/24/16 11:13 Pulse Rate 96 H 09/24/16 11:13 Respiratory Rate 18 09/24/16 11:13 Blood Pressure 124/74 09/24/16 11:13 O2 Sat by Pulse Oximetry (%) 97 09/23/16 21:00 Constitutional: Yes: No Distress Eyes: Yes: WNL HENT: Yes: WNL Neck: Yes: WNL Cardiovascular: Yes: WNL Respiratory: Yes: WNL Gastrointestinal: Yes: WNL Genitourinary: Yes: Incontinence Musculoskeletal: Yes: Muscle Weakness Extremities: Yes: WNL Edema: No Peripheral Pulses WNL: Yes Integumentary: Yes: Rash Wound/Incision: Yes: Dressing Dry and Intact Neurological: Yes: Pre-Existing Deficit ...Motor Strength: LUE, LLE, RUE, RLE Psychiatric: Yes: Other Labs: CBC, BMP 09/23/16 06:00 09/23/16 06:00 INR, PTT INR 1.10 (0.82-1.09) 09/22/16 14:10 Problem List - Problems (1) Fecal impaction Code(s): K56.41 - FECAL IMPACTION (2) Vomiting Code(s): R11.10 - VOMITING, UNSPECIFIED Qualifiers: Vomiting type: unspecified Vomiting Intractability: unspecified Nausea presence: unspecified Qualified Code(s): R11.10 - Vomiting, unspecified (3) BPH (benign prostatic hypertrophy) Code(s): N40.0 - BENIGN PROSTATIC HYPERPLASIA WITHOUT LOWER URINRY TRACT SYMP Qualifiers: Lower urinary tract symptom presence: symptoms present Qualified Code(s ): N40.1 - Benign prostatic hyperplasia with lower urinary tract symptoms; R35.0 - Frequency of micturition (4) Constipation Code(s): K59.00 - CONSTIPATION, UNSPECIFIED Qualifiers: Constipation type: unspecified constipation type Qualified Code(s): K59.00 - Constipation, unspecified (5) Dehydration Code(s): E86.0 - DEHYDRATION (6) Dysphagia Code(s): R13.10 - DYSPHAGIA, UNSPECIFIED (7) Gastroparesis Code(s): K31.84 - GASTROPARESIS (8) History of ulcerative colitis Code(s): Z87.19 - PERSONAL HISTORY OF OTHER DISEASES OF THE DIGESTIVE SYSTEM (9) Lactic acid blood increased Code(s): R79.89 - OTHER SPECIFIED ABNORMAL FINDINGS OF BLOOD CHEMISTRY Assessment/Plan ASPIRATION POSSIBLE CAUSE ADDED FLAGYL IVWITH CEFTRIAXONE IVF DISIMPACTED BY DR DENNIS LAST 3 BM AFTER ENEMAS GIVEN CXR TODAY PULMONARY EVAL START FEEDS PER GI REGLAN IV
--- NOTE | 2016-09-24 15:01 | PN ---
Progress Note, Physician History of Present Illness: Pt seen and examined at bedside. He does not appear to be in distress. - Current Medication List Current Medications: Active Medications Albuterol/Ipratropium (Duoneb -) 1 amp NEB TIDR [facility] Last Admin: 09/24/16 13:46 Dose: 1 amp Amino Acids (Prosource No Carb Liquid Pkt) 30 ml PO BID@0800,1730 [facility] Last Admin: 09/24/16 08:45 Dose: 30 ml Azathioprine (Imuran -) 150 mg GT DAILY [facility] Last Admin: 09/24/16 09:26 Dose: 150 mg Bacitracin (Bacitracin -) 1 applic TP DAILY [facility] Last Admin: 09/24/16 09:24 Dose: 1 applic Escitalopram Oxalate (Lexapro Oral Solution -) 10 mg GT DAILY [facility] Last Admin: 09/24/16 09:28 Dose: 10 mg Dextrose/Sodium Chloride (D5-Ns -) 1,000 mls @ 83 mls/hr IV ASDIR [facility] Last Admin: 09/23/16 17:27 Dose: 83 mls/hr Pantoprazole Sodium 40 mg/ (Sodium Chloride) 100 mls @ 200 mls/hr IVPB DAILY [facility] Last Admin: 09/24/16 09:25 Dose: 200 mls/hr Ceftriaxone Sodium 1 gm/ (Dextrose) 100 mls @ 100 mls/hr IVPB DAILY [facility] Last Admin: 09/24/16 09:25 Dose: 100 mls/hr Metronidazole (Flagyl 500mg Premixed Ivpb -) 100 mls @ 100 mls/hr IVPB Q8H-IV [facility] Last Admin: 09/24/16 09:25 Dose: 100 mls/hr Lactobacillus Acidophilus (Bacid -) 1 tab GT DAILY [facility] Last Admin: 09/24/16 09:26 Dose: 1 tab Levetiracetam (Keppra Oral Solution -) 250 mg GT BID [facility] Last Admin: 09/24/16 09:27 Dose: 250 mg Metoclopramide HCl (Reglan Injection -) 10 mg IVPB Q8H [facility] Last Admin: 09/24/16 14:21 Dose: 10 mg Polyethylene Glycol (Miralax (For Daily Use) -) 17 gm PO DAILY [facility] Last Admin: 09/24/16 09:28 Dose: 17 gm - Objective Vital Signs: Vital Signs Temperature 97.5 F L 09/24/16 11:13 Pulse Rate 96 H 09/24/16 11:13 Respiratory Rate 18 09/24/16 11:13 Blood Pressure 124/74 09/24/16 11:13 O2 Sat by Pulse Oximetry (%) 97 09/23/16 21:00 Constitutional: Yes: Calm Neck: Yes: Supple Cardiovascular: Yes: S1, S2 Respiratory: Yes: On Nasal O2 Gastrointestinal: Yes: Other (peg) Genitourinary: Yes: Incontinence Musculoskeletal: Yes: Muscle Weakness Edema: No Neurological: Yes: Pre-Existing Deficit Labs: CBC, BMP 09/23/16 06:00 09/23/16 06:00 INR, PTT INR 1.10 (0.82-1.09) 09/22/16 14:10 Problem List - Problems (1) Fecal impaction Code(s): K56.41 - FECAL IMPACTION (2) Vomiting Code(s): R11.10 - VOMITING, UNSPECIFIED Qualifiers: Vomiting type: unspecified Vomiting Intractability: unspecified Nausea presence: unspecified Qualified Code(s): R11.10 - Vomiting, unspecified Assessment/Plan Current Medications Generic Name Dose Route Start Last Admin Trade Name Freq PRN Reason Stop Dose Admin Albuterol/Ipratropium 1 amp 09/22/16 22:00 09/24/16 13:46 Duoneb - NEB 1 amp TIDR [facility]HA Administration Amino Acids 30 ml 09/23/16 17:30 09/24/16 08:45 Prosource No Carb Liquid Pkt PO 30 ml BID@0800,1730 [facility] Administration Azathioprine 150 mg 09/24/16 10:00 09/24/16 09:26 Imuran - GT 150 mg DAILY [facility] Administration Bacitracin 1 applic 09/23/16 10:00 09/24/16 09:24 Bacitracin - TP 1 applic DAILY [facility] Administration Escitalopram Oxalate 10 mg 09/24/16 10:00 09/24/16 09:28 Lexapro Oral Solution - GT 10 mg DAILY [facility] Administration Dextrose/Sodium Chloride 1,000 mls @ 83 mls/hr 09/22/16 17:15 09/23/16 17:27 D5-Ns - IV 83 mls/hr ASDIR [facility] Administration Pantoprazole Sodium 40 mg/ 100 mls @ 200 mls/hr 09/23/16 11:45 09/24/16 09:25 Sodium Chloride IVPB 200 mls/hr DAILY [facility] Administration Ceftriaxone Sodium 1 gm/ 100 mls @ 100 mls/hr 09/23/16 18:45 09/24/16 09:25 Dextrose IVPB 100 mls/hr DAILY [facility] Administration Metronidazole 100 mls @ 100 mls/hr 09/24/16 10:00 09/24/16 09:25 Flagyl 500mg Premixed Ivpb - IVPB 100 mls/hr Q8H-IV [facility] Administration Lactobacillus Acidophilus 1 tab 09/24/16 10:00 09/24/16 09:26 Bacid - GT 1 tab DAILY [facility] Administration Levetiracetam 250 mg 09/23/16 22:00 09/24/16 09:27 Keppra Oral Solution - GT 250 mg BID [facility] Administration Metoclopramide HCl 10 mg 09/22/16 20:00 09/24/16 14:21 Reglan Injection - IVPB 10 mg Q8H [facility] Administration Polyethylene Glycol 17 gm 09/23/16 10:00 09/24/16 09:28 Miralax (For Daily Use) - PO 17 gm DAILY [facility] Administration Impression 1. fecal impaction 2. vomiting 3. parkinsons 4. ulcerative colitis 5. dementia 6. fever 7. lactic acidosis 8. dehydration Plan - check bmp - check lactic acid - monitor blood pressure - take dextrose out of fluids when feeds are started - cont current meds - will follow Dr Cardoso
--- NOTE | 2016-09-24 15:35 | PN ---
Progress Note (short form) - Note Progress Note: PULMONARY CONSULTATION DICTATED 09/24/16 IMP FECAL IMPACTION H/O ASPIRATION PNEUMONIA NO EVIDENCE OF PNEUMONIA ON CHEST X-RAY LEWY BODY DEMENTIA PARKINSONS ULCERATIVE COLITIS ELEVATED LACTATE LEVEL S/P PEG PLAN ANTIBIOTICS PER ID INHALED BRONCHODILATORS PRN ASPIRATION PRECAUTIONS O2 TREND LACTATE DR MANCILLA Problem List - Problems (1) Fecal impaction Code(s): K56.41 - FECAL IMPACTION (2) Lactic acid blood increased Code(s): R79.89 - OTHER SPECIFIED ABNORMAL FINDINGS OF BLOOD CHEMISTRY (3) Colitis Code(s): K52.9 - NONINFECTIVE GASTROENTERITIS AND COLITIS, UNSPECIFIED (4) Constipation Code(s): K59.00 - CONSTIPATION, UNSPECIFIED Qualifiers: Constipation type: unspecified constipation type Qualified Code(s): K59.00 - Constipation, unspecified (5) Dementia Code(s): F03.90 - UNSPECIFIED DEMENTIA WITHOUT BEHAVIORAL DISTURBANCE (6) History of ulcerative colitis Code(s): Z87.19 - PERSONAL HISTORY OF OTHER DISEASES OF THE DIGESTIVE SYSTEM (7) Lewy body dementia Code(s): G31.83 - DEMENTIA WITH LEWY BODIES F02.80 - DEMENTIA IN OTH DISEASES CLASSD ELSWHR W/O BEHAVRL DISTURB (8) Parkinson disease Code(s): G20 - PARKINSON'S DISEASE (9) Seizure disorder Code(s): G40.909 - EPILEPSY, UNSP, NOT INTRACTABLE, WITHOUT STATUS EPILEPTICUS
[2016-09-24] MEDS: DEXTROSE 5%-NORMAL SALINE 1,000 ML IV SCH (18:09)
[2016-09-25] MEDS: METRONIDAZOLE 500 MG PREMIXED 100 ML IVPB SCH ×3 (01:23→18:20)
[2016-09-25] MEDS: METOCLOPRAMIDE HCL INJECTION 10 MG/2 ML VIAL IVPB SCH ×3 (04:00→22:16)
[2016-09-25] MEDS: ALBUTEROL SO4 2.5/IPRATROPIUM 0.5 INH SOL 3 ML VIAL.NEB. NEB SCH ×2 (06:45→14:14)
--- NOTE | 2016-09-25 07:29 | CONS ---
DATE OF CONSULTATION: 09/24/2016 REFERRING PHYSICIAN: Isidro East MD HISTORY OF PRESENT ILLNESS: The patient is a 61-year-old white male with past medical history of Lewy body dementia, ulcerative colitis, status post GT tube, bilateral hip fractures, history of pneumonia, Parkinson, admitted to [facility] on September 22 secondary to fever, vomiting, and dehydration, rule out possible pneumonia. Patient presented to the emergency department. On admission, he was evaluated by Dr. Brewer for GI consultation who felt that the patient most likely had gastroparesis and fecal impaction. He was also evaluated by Dr. Jerry from infectious disease and placed on antibiotic therapy. No further history is available at this time. PAST MEDICAL HISTORY: Again includes Lewy body dementia, history of recurrent aspiration pneumonia, ulcerative colitis, Parkinson, bilateral hip fractures. SOCIAL HISTORY: Nonsmoker. No occupational exposures. REVIEW OF SYSTEMS: Unable to obtain. CURRENT MEDICATIONS: Include ceftriaxone 1 g q.24 hours, Flagyl, bacitracin, Keppra, Lexapro, Bacid, Duo-Neb, MiraLAX, Imuran, ProSource, Reglan, and pantoprazole. X-RAYS: The patient underwent a CT of the abdomen and pelvis which revealed fecal impaction but no evidence of acute pathology within the abdomen and pelvis. Chest x-ray revealed no infiltrates and no effusions, poor inspiratory effort. LABORATORIES: WBC is 12.8, hemoglobin 14.8, hematocrit 44.9, with a platelet count of 431,000. ESR is 57. Chemistries: BUN 16, creatinine 1.0. Lactate level is 2.9. CRP is 2.2. IMPRESSION: 1. Nausea, vomiting secondary to fecal impaction. 2. History of recurrent aspiration, no evidence, patient currently without any shortness of breath or chest congestion, and chest x-ray negative. 3. History of Lewy body dementia. 4. History of Parkinson. 5. History of bilateral hip fractures. 6. History of ulcerative colitis. 7. Elevated lactate level. PLAN: IV fluids. Antibiotics as per Infectious Disease. Inhaled bronchodilators p.r.n. Aspiration precautions. Thank you. RAVINDER MANCILLA M.D. HOSSEIN/[id number]
[2016-09-25 08:04] LABS: ANION GAP 8 (8-16); CALCIUM 8.7 mg/dL (8.5-10.1); CO2 27 mmol/L (21-32); GLUCOSE,RANDOM 105 mg/dL (74-106)
[2016-09-25 08:05] LABS: CREATININE 0.9 mg/dL (0.7-1.3)
--- NOTE | 2016-09-25 08:46 | PN ---
Progress Note, Physician History of Present Illness: IN BED NAD - Current Medication List Current Medications: Active Medications Albuterol/Ipratropium (Duoneb -) 1 amp NEB TIDR [facility] Last Admin: 09/25/16 06:45 Dose: 1 amp Amino Acids (Prosource No Carb Liquid Pkt) 30 ml PO BID@0800,1730 [facility] Last Admin: 09/24/16 18:10 Dose: 30 ml Azathioprine (Imuran -) 150 mg GT DAILY [facility] Last Admin: 09/24/16 09:26 Dose: 150 mg Bacitracin (Bacitracin -) 1 applic TP DAILY [facility] Last Admin: 09/24/16 09:24 Dose: 1 applic Escitalopram Oxalate (Lexapro Oral Solution -) 10 mg GT DAILY [facility] Last Admin: 09/24/16 09:28 Dose: 10 mg Dextrose/Sodium Chloride (D5-Ns -) 1,000 mls @ 83 mls/hr IV ASDIR [facility] Last Admin: 09/24/16 18:09 Dose: 83 mls/hr Pantoprazole Sodium 40 mg/ (Sodium Chloride) 100 mls @ 200 mls/hr IVPB DAILY [facility] Last Admin: 09/24/16 09:25 Dose: 200 mls/hr Ceftriaxone Sodium 1 gm/ (Dextrose) 100 mls @ 100 mls/hr IVPB DAILY [facility] Last Admin: 09/24/16 09:25 Dose: 100 mls/hr Metronidazole (Flagyl 500mg Premixed Ivpb -) 100 mls @ 100 mls/hr IVPB Q8H-IV [facility] Last Admin: 09/25/16 01:23 Dose: 100 mls/hr Lactobacillus Acidophilus (Bacid -) 1 tab GT DAILY [facility] Last Admin: 09/24/16 09:26 Dose: 1 tab Levetiracetam (Keppra Oral Solution -) 250 mg GT BID [facility] Last Admin: 09/24/16 21:09 Dose: 250 mg Metoclopramide HCl (Reglan Injection -) 10 mg IVPB Q8H [facility] Last Admin: 09/25/16 04:00 Dose: 10 mg Polyethylene Glycol (Miralax (For Daily Use) -) 17 gm PO DAILY [facility] Last Admin: 09/24/16 09:28 Dose: 17 gm - Objective Vital Signs: Vital Signs Temperature 97.6 F 09/25/16 05:59 Pulse Rate 56 L 09/25/16 05:59 Respiratory Rate 20 09/25/16 05:59 Blood Pressure 120/64 09/25/16 05:59 O2 Sat by Pulse Oximetry (%) 97 09/24/16 21:00 Cardiovascular: Yes: Regular Rate and Rhythm Respiratory: Yes: Regular, CTA Bilaterally Gastrointestinal: Yes: Normal Bowel Sounds, Soft Extremities: Yes: Other (CONTRACTED) Edema: No Labs: CBC, BMP 09/23/16 06:00 09/25/16 06:00 INR, PTT INR 1.10 (0.82-1.09) 09/22/16 14:10 Problem List - Problems (1) Aspiration pneumonia Assessment/Plan: CONTINUE WITH ABX--CEFTRIAXONE/FLAGYL F/U CXR Code(s): J69.0 - PNEUMONITIS DUE TO INHALATION OF FOOD AND VOMIT (2) Fecal impaction Assessment/Plan: HAD BM F/U XRAY HOLD FEEDINGS Code(s): K56.41 - FECAL IMPACTION (3) Lactic acid blood increased Assessment/Plan: NORMAL NOW AWAIT BC Code(s): R79.89 - OTHER SPECIFIED ABNORMAL FINDINGS OF BLOOD CHEMISTRY (4) Leukocytosis Assessment/Plan: NOW 12 MONITOR Code(s): D72.829 - ELEVATED WHITE BLOOD CELL COUNT, UNSPECIFIED (5) Lewy body dementia Assessment/Plan: CHRONIC Code(s): G31.83 - DEMENTIA WITH LEWY BODIES F02.80 - DEMENTIA IN OTH DISEASES CLASSD ELSWHR W/O BEHAVRL DISTURB
[2016-09-25] MEDS ORDERED: DEXTROSE 5%-WATER 100 ML IVPB ONE (08:58)
[2016-09-25] MEDS ORDERED: PT OWN MED DRAWER 7, Y5N ONE (08:58)
[2016-09-25] MEDS ORDERED: cefTRIAXone SODIUM 1 GM VIAL ONE (08:58)
[2016-09-25] MEDS ORDERED: PANTOPRAZOLE SODIUM 40 MG VIAL ONE (08:58)
[2016-09-25] MEDS ORDERED: SODIUM CHLORIDE 100 ML IVPB ONE (08:59)
[2016-09-25] MEDS: DEXTROSE 5%-NORMAL SALINE 1,000 ML IV SCH ×2 (09:30→18:20)
[2016-09-25] MEDS: AMINO ACIDS/PROTEIN HYDROLYS 30 ML LIQUID.PKT PO SCH ×2 (09:33→18:20)
[2016-09-25] MEDS: CEFTRIAXONE 1 GM in DEXTROSE 5%-WATER 100 ML IVPB SCH (09:34)
[2016-09-25] MEDS: PANTOPRAZOLE SODIUM 40 MG in SODIUM CHLORIDE 100 ML IVPB SCH (09:44)
[2016-09-25] MEDS: LACTOBACILLUS ACIDOPHILUS 1 EACH TAB (FP) GT SCH (09:46)
[2016-09-25] MEDS: BACITRACIN 15 GM TUBE TOPICAL OINTMENT TP SCH (09:46)
[2016-09-25] MEDS: azaTHIOprine 50 MG TABLET GT SCH (09:46)
[2016-09-25] MEDS: ESCITALOPRAM OXALATE 5 MG/5 ML GT SCH (09:47)
[2016-09-25] MEDS: levETIRAcetam 500 MG/5 ML ORAL SOLUTION (UNIT-DOSE CUPS) GT SCH ×2 (09:47→22:17)
[2016-09-25] MEDS: POLYETHYLENE GLYCOL 3350 119 GM BTL PO SCH (09:48)
--- NOTE | 2016-09-25 11:27 | PN ---
Progress Note (short form) - Note Progress Note: Resting in NAD on RA. No acute events overnight. For FUA. Intake & Output 09/22/16 09/23/16 09/24/16 09/25/16 23:59 23:59 23:59 23:59 Intake Total 1063 3456 Balance 1063 3456 Weight 172 lb 9 oz Last Vital Signs Temp Pulse Resp BP Pulse Ox 97.6 F 56 L 20 120/64 97 09/25/16 05:59 09/25/16 05:59 09/25/16 05:59 09/25/16 05:59 09/24/16 21:00 Active Medications Albuterol/Ipratropium (Duoneb -) 1 amp NEB TIDR [facility] Last Admin: 09/25/16 06:45 Dose: 1 amp Amino Acids (Prosource No Carb Liquid Pkt) 30 ml PO BID@0800,1730 [facility] Last Admin: 09/25/16 09:33 Dose: 30 ml Azathioprine (Imuran -) 150 mg GT DAILY [facility] Last Admin: 09/25/16 09:46 Dose: 150 mg Bacitracin (Bacitracin -) 1 applic TP DAILY [facility] Last Admin: 09/25/16 09:46 Dose: 1 applic Escitalopram Oxalate (Lexapro Oral Solution -) 10 mg GT DAILY [facility] Last Admin: 09/25/16 09:47 Dose: 10 mg Dextrose/Sodium Chloride (D5-Ns -) 1,000 mls @ 83 mls/hr IV ASDIR [facility] Last Admin: 09/25/16 09:30 Dose: 83 mls/hr Pantoprazole Sodium 40 mg/ (Sodium Chloride) 100 mls @ 200 mls/hr IVPB DAILY [facility] Last Admin: 09/25/16 09:44 Dose: 200 mls/hr Ceftriaxone Sodium 1 gm/ (Dextrose) 100 mls @ 100 mls/hr IVPB DAILY [facility] Last Admin: 09/25/16 09:34 Dose: 100 mls/hr Metronidazole (Flagyl 500mg Premixed Ivpb -) 100 mls @ 100 mls/hr IVPB Q8H-IV [facility] Last Admin: 09/25/16 09:44 Dose: 100 mls/hr Lactobacillus Acidophilus (Bacid -) 1 tab GT DAILY [facility] Last Admin: 09/25/16 09:46 Dose: 1 tab Levetiracetam (Keppra Oral Solution -) 250 mg GT BID [facility] Last Admin: 09/25/16 09:47 Dose: 250 mg Metoclopramide HCl (Reglan Injection -) 10 mg IVPB Q8H [facility] Last Admin: 09/25/16 04:00 Dose: 10 mg Polyethylene Glycol (Miralax (For Daily Use) -) 17 gm PO DAILY [facility] Last Admin: 09/25/16 09:48 Dose: 17 gm Cardiovascular: Yes: Regular Rate and Rhythm Respiratory: Yes: few basilar rhonchi Gastrointestinal: Yes: (+) BS, Soft Extremities: Yes: Other (CONTRACTED) Edema: No Labs: Laboratory Results - last 24 hr 09/25/16 09/25/16 06:00 06:00 Sodium 142 Potassium 3.7 Chloride 107 Carbon Dioxide 27 Anion Gap 8 BUN 14 Creatinine 0.9 Random Glucose 105 Lactic Acid 1.0 Calcium 8.7 Problem List - Problems (1) Fecal impaction Code(s): K56.41 - FECAL IMPACTION (2) Lactic acid blood increased Code(s): R79.89 - OTHER SPECIFIED ABNORMAL FINDINGS OF BLOOD CHEMISTRY (3) Colitis Code(s): K52.9 - NONINFECTIVE GASTROENTERITIS AND COLITIS, UNSPECIFIED (4) Constipation Code(s): K59.00 - CONSTIPATION, UNSPECIFIED Qualifiers: Constipation type: unspecified constipation type Qualified Code(s): K59.00 - Constipation, unspecified (5) Dementia Code(s): F03.90 - UNSPECIFIED DEMENTIA WITHOUT BEHAVIORAL DISTURBANCE (6) History of ulcerative colitis Code(s): Z87.19 - PERSONAL HISTORY OF OTHER DISEASES OF THE DIGESTIVE SYSTEM (7) Lewy body dementia Code(s): G31.83 - DEMENTIA WITH LEWY BODIES F02.80 - DEMENTIA IN OTH DISEASES CLASSD ELSWHR W/O BEHAVRL DISTURB (8) Parkinson disease Code(s): G20 - PARKINSON'S DISEASE (9) Seizure disorder Code(s): G40.909 - EPILEPSY, UNSP, NOT INTRACTABLE, WITHOUT STATUS EPILEPTICUS IMP FECAL IMPACTION H/O ASPIRATION PNEUMONIA NO EVIDENCE OF PNEUMONIA ON CHEST X-RAY -> BASILAR ATELECTASIS LEWY BODY DEMENTIA PARKINSONS ULCERATIVE COLITIS ELEVATED LACTATE LEVEL S/P PEG PLAN ANTIBIOTICS PER ID INHALED BRONCHODILATORS PRN ASPIRATION PRECAUTIONS O2 FOR FUA DR SALCIDO
--- NOTE | 2016-09-25 13:32 | PN ---
Progress Note, Physician History of Present Illness: Awake, not conversant Breathing non-labored No cough noted Temps down Afebrile WBC slightly elevated BC (-) - Current Medication List Current Medications: Active Medications Albuterol/Ipratropium (Duoneb -) 1 amp NEB TIDR [facility] Last Admin: 09/25/16 06:45 Dose: 1 amp Amino Acids (Prosource No Carb Liquid Pkt) 30 ml PO BID@0800,1730 [facility] Last Admin: 09/25/16 09:33 Dose: 30 ml Azathioprine (Imuran -) 150 mg GT DAILY [facility] Last Admin: 09/25/16 09:46 Dose: 150 mg Bacitracin (Bacitracin -) 1 applic TP DAILY [facility] Last Admin: 09/25/16 09:46 Dose: 1 applic Escitalopram Oxalate (Lexapro Oral Solution -) 10 mg GT DAILY [facility] Last Admin: 09/25/16 09:47 Dose: 10 mg Dextrose/Sodium Chloride (D5-Ns -) 1,000 mls @ 83 mls/hr IV ASDIR [facility] Last Admin: 09/25/16 09:30 Dose: 83 mls/hr Pantoprazole Sodium 40 mg/ (Sodium Chloride) 100 mls @ 200 mls/hr IVPB DAILY [facility] Last Admin: 09/25/16 09:44 Dose: 200 mls/hr Ceftriaxone Sodium 1 gm/ (Dextrose) 100 mls @ 100 mls/hr IVPB DAILY [facility] Last Admin: 09/25/16 09:34 Dose: 100 mls/hr Metronidazole (Flagyl 500mg Premixed Ivpb -) 100 mls @ 100 mls/hr IVPB Q8H-IV [facility] Last Admin: 09/25/16 09:44 Dose: 100 mls/hr Lactobacillus Acidophilus (Bacid -) 1 tab GT DAILY [facility] Last Admin: 09/25/16 09:46 Dose: 1 tab Levetiracetam (Keppra Oral Solution -) 250 mg GT BID [facility] Last Admin: 09/25/16 09:47 Dose: 250 mg Metoclopramide HCl (Reglan Injection -) 10 mg IVPB Q8H [facility] Last Admin: 09/25/16 04:00 Dose: 10 mg Polyethylene Glycol (Miralax (For Daily Use) -) 17 gm PO DAILY [facility] Last Admin: 09/25/16 09:48 Dose: 17 gm - Objective Vital Signs: Vital Signs Temperature 97.6 F 09/25/16 05:59 Pulse Rate 56 L 09/25/16 05:59 Respiratory Rate 20 09/25/16 05:59 Blood Pressure 120/64 09/25/16 05:59 O2 Sat by Pulse Oximetry (%) 97 09/24/16 21:00 Constitutional: Yes: No Distress Eyes: Yes: Conjunctiva Clear Cardiovascular: Yes: Regular Rate and Rhythm, S1, S2 Respiratory: Yes: Rhonchi Gastrointestinal: Yes: Normal Bowel Sounds, Soft. No: Tenderness Edema: No Labs: CBC, BMP 09/23/16 06:00 09/25/16 06:00 INR, PTT INR 1.10 (0.82-1.09) 09/22/16 14:10 Assessment/Plan Fever/ leukocytosis possible aspiration Dementia Continue empiric ceftriaxone/ flagyl
--- NOTE | 2016-09-25 14:57 | PN ---
Progress Note, Physician History of Present Illness: Pt seen and examined at bedside. He did not tolerate feeds. - Current Medication List Current Medications: Active Medications Albuterol/Ipratropium (Duoneb -) 1 amp NEB TIDR [facility] Last Admin: 09/25/16 14:14 Dose: 1 amp Amino Acids (Prosource No Carb Liquid Pkt) 30 ml PO BID@0800,1730 [facility] Last Admin: 09/25/16 09:33 Dose: 30 ml Azathioprine (Imuran -) 150 mg GT DAILY [facility] Last Admin: 09/25/16 09:46 Dose: 150 mg Bacitracin (Bacitracin -) 1 applic TP DAILY [facility] Last Admin: 09/25/16 09:46 Dose: 1 applic Escitalopram Oxalate (Lexapro Oral Solution -) 10 mg GT DAILY [facility] Last Admin: 09/25/16 09:47 Dose: 10 mg Dextrose/Sodium Chloride (D5-Ns -) 1,000 mls @ 83 mls/hr IV ASDIR [facility] Last Admin: 09/25/16 09:30 Dose: 83 mls/hr Pantoprazole Sodium 40 mg/ (Sodium Chloride) 100 mls @ 200 mls/hr IVPB DAILY [facility] Last Admin: 09/25/16 09:44 Dose: 200 mls/hr Ceftriaxone Sodium 1 gm/ (Dextrose) 100 mls @ 100 mls/hr IVPB DAILY [facility] Last Admin: 09/25/16 09:34 Dose: 100 mls/hr Metronidazole (Flagyl 500mg Premixed Ivpb -) 100 mls @ 100 mls/hr IVPB Q8H-IV [facility] Last Admin: 09/25/16 09:44 Dose: 100 mls/hr Lactobacillus Acidophilus (Bacid -) 1 tab GT DAILY [facility] Last Admin: 09/25/16 09:46 Dose: 1 tab Levetiracetam (Keppra Oral Solution -) 250 mg GT BID [facility] Last Admin: 09/25/16 09:47 Dose: 250 mg Metoclopramide HCl (Reglan Injection -) 10 mg IVPB Q8H [facility] Last Admin: 09/25/16 04:00 Dose: 10 mg Polyethylene Glycol (Miralax (For Daily Use) -) 17 gm PO DAILY [facility] Last Admin: 09/25/16 09:48 Dose: 17 gm - Objective Vital Signs: Vital Signs Temperature 97.6 F 09/25/16 05:59 Pulse Rate 56 L 09/25/16 05:59 Respiratory Rate 20 09/25/16 05:59 Blood Pressure 120/64 09/25/16 05:59 O2 Sat by Pulse Oximetry (%) 97 09/24/16 21:00 Constitutional: Yes: Calm Eyes: Yes: Conjunctiva Clear HENT: Yes: Atraumatic Cardiovascular: Yes: S1, S2 Respiratory: Yes: On Nasal O2 Gastrointestinal: Yes: Soft, Other (peg) Genitourinary: Yes: Incontinence Musculoskeletal: Yes: Muscle Weakness Edema: No Neurological: Yes: Pre-Existing Deficit Labs: CBC, BMP 09/23/16 06:00 09/25/16 06:00 INR, PTT INR 1.10 (0.82-1.09) 09/22/16 14:10 Problem List - Problems (1) Fecal impaction Code(s): K56.41 - FECAL IMPACTION (2) Vomiting Code(s): R11.10 - VOMITING, UNSPECIFIED Qualifiers: Vomiting type: unspecified Vomiting Intractability: unspecified Nausea presence: unspecified Qualified Code(s): R11.10 - Vomiting, unspecified Assessment/Plan Current Medications Generic Name Dose Route Start Last Admin Trade Name Freq PRN Reason Stop Dose Admin Albuterol/Ipratropium 1 amp 09/22/16 22:00 09/25/16 14:14 Duoneb - NEB 1 amp TIDR [facility] Administration Amino Acids 30 ml 09/23/16 17:30 09/25/16 09:33 Prosource No Carb Liquid Pkt PO 30 ml BID@0800,1730 [facility] Administration Azathioprine 150 mg 09/24/16 10:00 09/25/16 09:46 Imuran - GT 150 mg DAILY [facility] Administration Bacitracin 1 applic 09/23/16 10:00 09/25/16 09:46 Bacitracin - TP 1 applic DAILY [facility] Administration Escitalopram Oxalate 10 mg 09/24/16 10:00 09/25/16 09:47 Lexapro Oral Solution - GT 10 mg DAILY [facility] Administration Dextrose/Sodium Chloride 1,000 mls @ 83 mls/hr 09/22/16 17:15 09/25/16 09:30 D5-Ns - IV 83 mls/hr ASDIR [facility] Administration Pantoprazole Sodium 40 mg/ 100 mls @ 200 mls/hr 09/23/16 11:45 09/25/16 09:44 Sodium Chloride IVPB 200 mls/hr DAILY [facility] Administration Ceftriaxone Sodium 1 gm/ 100 mls @ 100 mls/hr 09/23/16 18:45 09/25/16 09:34 Dextrose IVPB 100 mls/hr DAILY [facility] Administration Metronidazole 100 mls @ 100 mls/hr 09/24/16 10:00 09/25/16 09:44 Flagyl 500mg Premixed Ivpb - IVPB 100 mls/hr Q8H-IV [facility] Administration Lactobacillus Acidophilus 1 tab 09/24/16 10:00 09/25/16 09:46 Bacid - GT 1 tab DAILY [facility] Administration Levetiracetam 250 mg 09/23/16 22:00 09/25/16 09:47 Keppra Oral Solution - GT 250 mg BID [facility] Administration Metoclopramide HCl 10 mg 09/22/16 20:00 09/25/16 04:00 Reglan Injection - IVPB 10 mg Q8H [facility] Administration Polyethylene Glycol 17 gm 09/23/16 10:00 09/25/16 09:48 Miralax (For Daily Use) - PO 17 gm DAILY [facility] Administration Laboratory Tests 09/25/16 09/25/16 06:00 06:00 Sodium 142 Potassium 3.7 Chloride 107 Carbon Dioxide 27 Anion Gap 8 Lactic Acid 1.0 Laboratory Tests 09/25/16 06:00 Creatinine 0.9 Impression 1. fecal impaction 2. vomiting 3. parkinsons 4. ulcerative colitis 5. dementia 6. fever 7. lactic acidosis 8. dehydration Plan - renal function stabilizing - cont fluids until feeds started - repeat labs in am - lactic acid level improved - cont current meds - will follow Dr Cardoso
[2016-09-26] MEDS: ALBUTEROL SO4 2.5/IPRATROPIUM 0.5 INH SOL 3 ML VIAL.NEB. NEB SCH ×4 (00:04→22:14)
[2016-09-26] MEDS: METRONIDAZOLE 500 MG PREMIXED 100 ML IVPB SCH ×3 (01:38→18:03)
[2016-09-26] MEDS: METOCLOPRAMIDE HCL INJECTION 10 MG/2 ML VIAL IVPB SCH ×3 (04:21→22:11)
[2016-09-26 08:04] LABS: BASOPHIL 0.6 % (0-2.0); EOSINOPHIL 1.9 % (0-4.5); MCH 28.8 pg (25.7-33.7); MEAN CELL VOLUME 87.1 fl (80-96); MEAN PLT VOLUME 9.1 fl (7.5-11.1); NEUTROPHILS 71.8 % (42.8-82.8); PLATELET COUNT 431 K/MM3 (134-434); RDW 14.8 % (11.9-15.9); WHITE BLOOD COUNT 11.2 K/mm3 (4.0-10.0)
--- NOTE | 2016-09-26 08:15 | PN ---
Progress Note, Physician History of Present Illness: IN BED NAD XRAY NOTED - Current Medication List Current Medications: Active Medications Albuterol/Ipratropium (Duoneb -) 1 amp NEB TIDR [facility] Last Admin: 09/26/16 07:35 Dose: 1 amp Amino Acids (Prosource No Carb Liquid Pkt) 30 ml PO BID@0800,1730 [facility] Last Admin: 09/25/16 18:20 Dose: 30 ml Azathioprine (Imuran -) 150 mg GT DAILY [facility] Last Admin: 09/25/16 09:46 Dose: 150 mg Bacitracin (Bacitracin -) 1 applic TP DAILY [facility] Last Admin: 09/25/16 09:46 Dose: 1 applic Escitalopram Oxalate (Lexapro Oral Solution -) 10 mg GT DAILY [facility] Last Admin: 09/25/16 09:47 Dose: 10 mg Dextrose/Sodium Chloride (D5-Ns -) 1,000 mls @ 83 mls/hr IV ASDIR [facility] Last Admin: 09/25/16 18:20 Dose: Not Given Pantoprazole Sodium 40 mg/ (Sodium Chloride) 100 mls @ 200 mls/hr IVPB DAILY [facility] Last Admin: 09/25/16 09:44 Dose: 200 mls/hr Ceftriaxone Sodium 1 gm/ (Dextrose) 100 mls @ 100 mls/hr IVPB DAILY [facility] Last Admin: 09/25/16 09:34 Dose: 100 mls/hr Metronidazole (Flagyl 500mg Premixed Ivpb -) 100 mls @ 100 mls/hr IVPB Q8H-IV [facility] Last Admin: 09/26/16 01:38 Dose: 100 mls/hr Lactobacillus Acidophilus (Bacid -) 1 tab GT DAILY [facility] Last Admin: 09/25/16 09:46 Dose: 1 tab Levetiracetam (Keppra Oral Solution -) 250 mg GT BID [facility] Last Admin: 09/25/16 22:17 Dose: 250 mg Metoclopramide HCl (Reglan Injection -) 10 mg IVPB Q8H [facility] Last Admin: 09/26/16 04:21 Dose: 10 mg Polyethylene Glycol (Miralax (For Daily Use) -) 17 gm PO DAILY [facility] Last Admin: 09/25/16 09:48 Dose: 17 gm - Objective Vital Signs: Vital Signs Temperature 99.9 F H 09/26/16 06:29 Pulse Rate 101 H 09/26/16 06:29 Respiratory Rate 20 09/26/16 06:29 Blood Pressure 132/70 09/26/16 06:29 O2 Sat by Pulse Oximetry (%) 97 09/25/16 21:00 Cardiovascular: Yes: S1, S2 Respiratory: Yes: Regular, CTA Bilaterally Gastrointestinal: Yes: Normal Bowel Sounds, Soft Labs: INR, PTT INR 1.10 (0.82-1.09) 09/22/16 14:10 Problem List - Problems (1) Aspiration pneumonia Assessment/Plan: CONTINUE WITH ABX--CEFTRIAXONE/FLAGYL F/U CXR Code(s): J69.0 - PNEUMONITIS DUE TO INHALATION OF FOOD AND VOMIT (2) Fecal impaction Assessment/Plan: HAD BM F/U XRAY HOLD FEEDINGS ENEMA Code(s): K56.41 - FECAL IMPACTION (3) Lactic acid blood increased Assessment/Plan: NORMAL NOW AWAIT BC Code(s): R79.89 - OTHER SPECIFIED ABNORMAL FINDINGS OF BLOOD CHEMISTRY (4) Leukocytosis Assessment/Plan: NOW 12 MONITOR Code(s): D72.829 - ELEVATED WHITE BLOOD CELL COUNT, UNSPECIFIED (5) Lewy body dementia Code(s): G31.83 - DEMENTIA WITH LEWY BODIES F02.80 - DEMENTIA IN OTH DISEASES CLASSD ELSWHR W/O BEHAVRL DISTURB
[2016-09-26 08:38] LABS: ANION GAP 11 (8-16); CALCIUM 8.4 mg/dL (8.5-10.1); CO2 24 mmol/L (21-32); CREATININE 0.7 mg/dL (0.7-1.3); GLUCOSE,RANDOM 106 mg/dL (74-106)
--- NOTE | 2016-09-26 08:53 | PN ---
GI Progress Note Subjective: no further nausea and vomiting, fecal impaction improved, reviewed KUB there is no ileus nor obstruction - Objective Vital Signs: Vital Signs Temperature 99.9 F H 09/26/16 06:29 Pulse Rate 101 H 09/26/16 06:29 Respiratory Rate 20 09/26/16 06:29 Blood Pressure 132/70 09/26/16 06:29 O2 Sat by Pulse Oximetry (%) 97 09/25/16 21:00 Constitutional: Well Nourished Eyes: Yes: Conjunctiva Clear HENT: Yes: Atraumatic Neck: Yes: Supple Cardiovascular: Yes: Regular Rate and Rhythm Respiratory: Yes: CTA Bilaterally ...Palpate: Yes: Soft. No: Firm/Rigid, Guarding, Hepatomegaly, Mass, Pulsatile Mass, Splenomegaly, Tenderness Labs: CBC, BMP 09/26/16 06:30 09/26/16 06:30 INR, PTT INR 1.10 (0.82-1.09) 09/22/16 14:10 Problem List - Problems (1) Fecal impaction Assessment/Plan: R> will continue to give fleet enemas will give Miralax via g-tube advance tube feeds Code(s): K56.41 - FECAL IMPACTION (2) Vomiting Code(s): R11.10 - VOMITING, UNSPECIFIED Qualifiers: Vomiting type: unspecified Vomiting Intractability: unspecified Nausea presence: unspecified Qualified Code(s): R11.10 - Vomiting, unspecified (3) Aspiration pneumonia Code(s): J69.0 - PNEUMONITIS DUE TO INHALATION OF FOOD AND VOMIT
[2016-09-26] MEDS ORDERED: POLYETHYLENE GLYCOL 3350 255 GM BTL PO ONE (08:55)
[2016-09-26] MEDS ORDERED: DEXTROSE 5%-WATER 100 ML IVPB ONE (09:06)
[2016-09-26] MEDS ORDERED: cefTRIAXone SODIUM 1 GM VIAL ONE (09:06)
[2016-09-26] MEDS ORDERED: PT OWN MED DRAWER 7, Y5N ONE (09:06)
[2016-09-26] MEDS ORDERED: PANTOPRAZOLE SODIUM 40 MG VIAL ONE (09:07)
[2016-09-26] MEDS ORDERED: SODIUM CHLORIDE 100 ML IVPB ONE (09:07)
[2016-09-26] MEDS: PANTOPRAZOLE SODIUM 40 MG in SODIUM CHLORIDE 100 ML IVPB SCH (09:11)
[2016-09-26] MEDS: CEFTRIAXONE 1 GM in DEXTROSE 5%-WATER 100 ML IVPB SCH (09:12)
[2016-09-26] MEDS: AMINO ACIDS/PROTEIN HYDROLYS 30 ML LIQUID.PKT PO SCH ×2 (09:13→18:03)
[2016-09-26] MEDS ORDERED: SODIUM PHOSPHATE/NA BIPHOS 133 ML ENEMA PR ONE (09:15)
[2016-09-26] MEDS: levETIRAcetam 500 MG/5 ML ORAL SOLUTION (UNIT-DOSE CUPS) GT SCH ×2 (09:15→22:11)
[2016-09-26] MEDS: azaTHIOprine 50 MG TABLET GT SCH (09:15)
[2016-09-26] MEDS: LACTOBACILLUS ACIDOPHILUS 1 EACH TAB (FP) GT SCH (09:16)
[2016-09-26] MEDS: BACITRACIN 15 GM TUBE TOPICAL OINTMENT TP SCH (09:16)
[2016-09-26] MEDS: DEXTROSE 5%-NORMAL SALINE 1,000 ML IV SCH (09:17)
[2016-09-26] MEDS: ESCITALOPRAM OXALATE 5 MG/5 ML GT SCH (11:30)
--- NOTE | 2016-09-26 11:53 | PN ---
Progress Note (short form) - Note Progress Note: Resting in NAD. Abdominal films noted. No acute events overnight. Intake & Output 09/23/16 09/24/16 09/25/16 09/26/16 23:59 23:59 23:59 23:59 Intake Total 1063 3456 750 1030 Balance 1063 3456 750 1030 Last Vital Signs Temp Pulse Resp BP Pulse Ox 99.9 F H 101 H 20 132/70 97 09/26/16 06:29 09/26/16 06:29 09/26/16 06:29 09/26/16 06:29 09/25/16 21:00 Active Medications Albuterol/Ipratropium (Duoneb -) 1 amp NEB TIDR [facility] Last Admin: 09/26/16 07:35 Dose: 1 amp Amino Acids (Prosource No Carb Liquid Pkt) 30 ml PO BID@0800,1730 [facility] Last Admin: 09/26/16 09:13 Dose: 30 ml Azathioprine (Imuran -) 150 mg GT DAILY [facility] Last Admin: 09/26/16 09:15 Dose: 150 mg Bacitracin (Bacitracin -) 1 applic TP DAILY [facility] Last Admin: 09/26/16 09:16 Dose: 1 applic Escitalopram Oxalate (Lexapro Oral Solution -) 10 mg GT DAILY [facility] Last Admin: 09/26/16 11:30 Dose: 10 mg Dextrose/Sodium Chloride (D5-Ns -) 1,000 mls @ 83 mls/hr IV ASDIR [facility] Last Admin: 09/26/16 09:17 Dose: 83 mls/hr Pantoprazole Sodium 40 mg/ (Sodium Chloride) 100 mls @ 200 mls/hr IVPB DAILY [facility] Last Admin: 09/26/16 09:11 Dose: 200 mls/hr Ceftriaxone Sodium 1 gm/ (Dextrose) 100 mls @ 100 mls/hr IVPB DAILY [facility] Last Admin: 09/26/16 09:12 Dose: 100 mls/hr Metronidazole (Flagyl 500mg Premixed Ivpb -) 100 mls @ 100 mls/hr IVPB Q8H-IV [facility] Last Admin: 09/26/16 09:13 Dose: 100 mls/hr Lactobacillus Acidophilus (Bacid -) 1 tab GT DAILY [facility] Last Admin: 09/26/16 09:16 Dose: 1 tab Levetiracetam (Keppra Oral Solution -) 250 mg GT BID [facility] Last Admin: 09/26/16 09:15 Dose: 250 mg Metoclopramide HCl (Reglan Injection -) 10 mg IVPB Q8H [facility] Last Admin: 09/26/16 11:33 Dose: 10 mg Cardiovascular: Yes: Regular Rate and Rhythm Respiratory: Yes: few basilar rhonchi Gastrointestinal: Yes: (+) BS, Soft Extremities: Yes: Other (CONTRACTED) Edema: No Labs: Laboratory Results - last 24 hr 09/26/16 09/26/16 06:30 06:30 WBC 11.2 H RBC 4.62 Hgb 13.3 D Hct 40.3 MCV 87.1 MCH 28.8 MCHC 33.0 RDW 14.8 Plt Count 431 MPV 9.1 Neutrophils % 71.8 Lymphocytes % 17.3 D Monocytes % 8.4 Eosinophils % 1.9 Basophils % 0.6 Sodium 139 Potassium 3.4 L Chloride 104 Carbon Dioxide 24 Anion Gap 11 BUN 11 D Creatinine 0.7 D Random Glucose 106 Calcium 8.4 L Problem List - Problems (1) Fecal impaction Code(s): K56.41 - FECAL IMPACTION (2) Lactic acid blood increased Code(s): R79.89 - OTHER SPECIFIED ABNORMAL FINDINGS OF BLOOD CHEMISTRY (3) Colitis Code(s): K52.9 - NONINFECTIVE GASTROENTERITIS AND COLITIS, UNSPECIFIED (4) Constipation Code(s): K59.00 - CONSTIPATION, UNSPECIFIED Qualifiers: Constipation type: unspecified constipation type Qualified Code(s): K59.00 - Constipation, unspecified (5) Dementia Code(s): F03.90 - UNSPECIFIED DEMENTIA WITHOUT BEHAVIORAL DISTURBANCE (6) History of ulcerative colitis Code(s): Z87.19 - PERSONAL HISTORY OF OTHER DISEASES OF THE DIGESTIVE SYSTEM (7) Lewy body dementia Code(s): G31.83 - DEMENTIA WITH LEWY BODIES F02.80 - DEMENTIA IN OTH DISEASES CLASSD ELSWHR W/O BEHAVRL DISTURB (8) Parkinson disease Code(s): G20 - PARKINSON'S DISEASE (9) Seizure disorder Code(s): G40.909 - EPILEPSY, UNSP, NOT INTRACTABLE, WITHOUT STATUS EPILEPTICUS IMP FECAL IMPACTION H/O ASPIRATION PNEUMONIA NO EVIDENCE OF PNEUMONIA ON CHEST X-RAY -> BASILAR ATELECTASIS LEWY BODY DEMENTIA PARKINSONS ULCERATIVE COLITIS ELEVATED LACTATE LEVEL S/P PEG PLAN ANTIBIOTICS PER ID INHALED BRONCHODILATORS PRN ASPIRATION PRECAUTIONS O2 GI WORK UP ONGOING DR SALCIDO
--- NOTE | 2016-09-26 17:14 | PN ---
Progress Note, Physician History of Present Illness: Pt seen and examined at bedside. No new events. - Current Medication List Current Medications: Active Medications Albuterol/Ipratropium (Duoneb -) 1 amp NEB TIDR [facility] Last Admin: 09/26/16 14:15 Dose: 1 amp Amino Acids (Prosource No Carb Liquid Pkt) 30 ml PO BID@0800,1730 [facility] Last Admin: 09/26/16 09:13 Dose: 30 ml Azathioprine (Imuran -) 150 mg GT DAILY [facility] Last Admin: 09/26/16 09:15 Dose: 150 mg Bacitracin (Bacitracin -) 1 applic TP DAILY [facility] Last Admin: 09/26/16 09:16 Dose: 1 applic Escitalopram Oxalate (Lexapro Oral Solution -) 10 mg GT DAILY [facility] Last Admin: 09/26/16 11:30 Dose: 10 mg Dextrose/Sodium Chloride (D5-Ns -) 1,000 mls @ 83 mls/hr IV ASDIR [facility] Last Admin: 09/26/16 09:17 Dose: 83 mls/hr Pantoprazole Sodium 40 mg/ (Sodium Chloride) 100 mls @ 200 mls/hr IVPB DAILY [facility] Last Admin: 09/26/16 09:11 Dose: 200 mls/hr Ceftriaxone Sodium 1 gm/ (Dextrose) 100 mls @ 100 mls/hr IVPB DAILY [facility] Last Admin: 09/26/16 09:12 Dose: 100 mls/hr Metronidazole (Flagyl 500mg Premixed Ivpb -) 100 mls @ 100 mls/hr IVPB Q8H-IV [facility] Last Admin: 09/26/16 09:13 Dose: 100 mls/hr Lactobacillus Acidophilus (Bacid -) 1 tab GT DAILY [facility] Last Admin: 09/26/16 09:16 Dose: 1 tab Levetiracetam (Keppra Oral Solution -) 250 mg GT BID [facility] Last Admin: 09/26/16 09:15 Dose: 250 mg Metoclopramide HCl (Reglan Injection -) 10 mg IVPB Q8H [facility] Last Admin: 09/26/16 11:33 Dose: 10 mg - Objective Vital Signs: Vital Signs Temperature 99.0 F 09/26/16 13:46 Pulse Rate 97 H 09/26/16 13:46 Respiratory Rate 20 09/26/16 13:46 Blood Pressure 145/82 09/26/16 13:46 O2 Sat by Pulse Oximetry (%) 97 09/25/16 21:00 Constitutional: Yes: Calm Eyes: Yes: Conjunctiva Clear Cardiovascular: Yes: S1, S2 Respiratory: Yes: CTA Bilaterally Gastrointestinal: Yes: Soft, Other (peg) Genitourinary: Yes: Incontinence Musculoskeletal: Yes: Muscle Weakness Edema: No Neurological: Yes: Pre-Existing Deficit Labs: CBC, BMP 09/26/16 06:30 09/26/16 06:30 INR, PTT INR 1.10 (0.82-1.09) 09/22/16 14:10 Problem List - Problems (1) Fecal impaction Code(s): K56.41 - FECAL IMPACTION (2) Vomiting Code(s): R11.10 - VOMITING, UNSPECIFIED Qualifiers: Vomiting type: unspecified Vomiting Intractability: unspecified Nausea presence: unspecified Qualified Code(s): R11.10 - Vomiting, unspecified Assessment/Plan Current Medications Generic Name Dose Route Start Last Admin Trade Name Basia PRN Reason Stop Dose Admin Albuterol/Ipratropium 1 amp 09/22/16 22:00 09/26/16 14:15 Duoneb - NEB 1 amp TIDR TALHA Administration Amino Acids 30 ml 09/23/16 17:30 09/26/16 09:13 Prosource No Carb Liquid Pkt PO 30 ml BID@0800,1730 TALHA Administration Azathioprine 150 mg 09/24/16 10:00 09/26/16 09:15 Imuran - GT 150 mg DAILY [facility] Administration Bacitracin 1 applic 09/23/16 10:00 09/26/16 09:16 Bacitracin - TP 1 applic DAILY [facility] Administration Escitalopram Oxalate 10 mg 09/24/16 10:00 09/26/16 11:30 Lexapro Oral Solution - GT 10 mg DAILY [facility] Administration Dextrose/Sodium Chloride 1,000 mls @ 83 mls/hr 09/22/16 17:15 09/26/16 09:17 D5-Ns - IV 83 mls/hr ASDIR TALHA Administration Pantoprazole Sodium 40 mg/ 100 mls @ 200 mls/hr 09/23/16 11:45 09/26/16 09:11 Sodium Chloride IVPB 200 mls/hr DAILY [facility] Administration Ceftriaxone Sodium 1 gm/ 100 mls @ 100 mls/hr 09/23/16 18:45 09/26/16 09:12 Dextrose IVPB 100 mls/hr DAILY [facility] Administration Metronidazole 100 mls @ 100 mls/hr 09/24/16 10:00 09/26/16 09:13 Flagyl 500mg Premixed Ivpb - IVPB 100 mls/hr Q8H-IV [facility] Administration Lactobacillus Acidophilus 1 tab 09/24/16 10:00 09/26/16 09:16 Bacid - GT 1 tab DAILY [facility] Administration Levetiracetam 250 mg 09/23/16 22:00 09/26/16 09:15 Keppra Oral Solution - GT 250 mg BID [facility]HA Administration Metoclopramide HCl 10 mg 09/22/16 20:00 09/26/16 11:33 Reglan Injection - IVPB 10 mg Q8H TALHA Administration Laboratory Tests 09/26/16 06:30 Potassium 3.4 L Impression 1. fecal impaction 2. vomiting 3. parkinsons 4. ulcerative colitis 5. dementia 6. fever 7. lactic acidosis 8. dehydration 9. hypokalemia Plan - will replace potassium - will add potassium to fluids - can stop fluids once his feeds are started - check mag level - will follow PRN Dr Cardoso
[2016-09-26] MEDS ORDERED: POTASSIUM CHLORIDE ORAL LIQUID 20 MEQ/15 ML PEG ONE (17:15)
[2016-09-26] MEDS: D5-1/2NS+20 MEQ KCL - 1,000 ML IV SCH (18:02)
[2016-09-27] MEDS: METRONIDAZOLE 500 MG PREMIXED 100 ML IVPB SCH ×3 (02:21→17:42)
[2016-09-27] MEDS: METOCLOPRAMIDE HCL INJECTION 10 MG/2 ML VIAL IVPB SCH ×3 (04:54→20:45)
[2016-09-27] MEDS: ALBUTEROL SO4 2.5/IPRATROPIUM 0.5 INH SOL 3 ML VIAL.NEB. NEB SCH ×3 (06:59→21:32)
[2016-09-27 08:21] LABS: ANION GAP 9 (8-16); CALCIUM 8.5 mg/dL (8.5-10.1); CO2 25 mmol/L (21-32); CREATININE 0.8 mg/dL (0.7-1.3); GLUCOSE,RANDOM 112 mg/dL (74-106); MAGNESIUM 1.8 mg/dL (1.8-2.4)
--- NOTE | 2016-09-27 08:56 | PN ---
Progress Note, Physician Chief Complaint: ID Day 4 antibiotics Ceftriaxone and metronidazole Low grade fevers persist unchanged by antibiotics - Current Medication List Current Medications: Active Medications Albuterol/Ipratropium (Duoneb -) 1 amp NEB TIDR [facility] Last Admin: 09/27/16 06:59 Dose: 1 amp Amino Acids (Prosource No Carb Liquid Pkt) 30 ml PO BID@0800,1730 [facility] Last Admin: 09/26/16 18:03 Dose: 30 ml Azathioprine (Imuran -) 150 mg GT DAILY [facility] Last Admin: 09/26/16 09:15 Dose: 150 mg Bacitracin (Bacitracin -) 1 applic TP DAILY [facility] Last Admin: 09/26/16 09:16 Dose: 1 applic Escitalopram Oxalate (Lexapro Oral Solution -) 10 mg GT DAILY [facility] Last Admin: 09/26/16 11:30 Dose: 10 mg Pantoprazole Sodium 40 mg/ (Sodium Chloride) 100 mls @ 200 mls/hr IVPB DAILY [facility] Last Admin: 09/26/16 09:11 Dose: 200 mls/hr Ceftriaxone Sodium 1 gm/ (Dextrose) 100 mls @ 100 mls/hr IVPB DAILY [facility] Last Admin: 09/26/16 09:12 Dose: 100 mls/hr Metronidazole (Flagyl 500mg Premixed Ivpb -) 100 mls @ 100 mls/hr IVPB Q8H-IV [facility] Last Admin: 09/27/16 02:21 Dose: 100 mls/hr Potassium Chloride/Dextrose/Sod Cl (D5-1/2ns+20 Meq Kcl -) 1,000 mls @ 75 mls/ hr IV ASDIR [facility] Last Admin: 09/26/16 18:02 Dose: 75 mls/hr Lactobacillus Acidophilus (Bacid -) 1 tab GT DAILY [facility] Last Admin: 09/26/16 09:16 Dose: 1 tab Levetiracetam (Keppra Oral Solution -) 250 mg GT BID [facility] Last Admin: 09/26/16 22:11 Dose: 250 mg Metoclopramide HCl (Reglan Injection -) 10 mg IVPB Q8H [facility] Last Admin: 09/27/16 04:54 Dose: 10 mg - Objective Vital Signs: Vital Signs Temperature 99 F 09/27/16 08:05 Pulse Rate 99 H 09/27/16 08:05 Respiratory Rate 20 09/27/16 08:05 Blood Pressure 135/92 09/27/16 08:05 O2 Sat by Pulse Oximetry (%) 97 09/26/16 21:00 Constitutional: Yes: No Distress Cardiovascular: Yes: S1, S2 Respiratory: Yes: WNL, Regular, CTA Bilaterally Gastrointestinal: Yes: Normal Bowel Sounds, Soft, Distention Edema: No Labs: CBC, BMP 09/26/16 06:30 09/27/16 06:30 INR, PTT INR 1.10 (0.82-1.09) 09/22/16 14:10 Problem List - Problems (1) Fecal impaction Code(s): K56.41 - FECAL IMPACTION Assessment/Plan Laboratory Tests 09/26/16 09/27/16 06:30 06:30 WBC 11.2 H Hgb 13.3 D Hct 40.3 Plt Count 431 BUN 9 Creatinine 0.8 Assessment Lewy Body dementia with low grade fever and concern raised for aspirations Low grade temps only whcih could be due to aspirations and /or atalectasis Plan Would advise stopping antibiotic in 72 hours Claritza EISENBERG
--- NOTE | 2016-09-27 09:46 | PN ---
Progress Note (short form) - Note Progress Note: PULMONARY Appears comfortable, no fevers recorded. Last Vital Signs Temp Pulse Resp BP Pulse Ox 99 F 99 H 20 135/92 97 09/27/16 08:05 09/27/16 08:05 09/27/16 08:05 09/27/16 08:05 09/26/16 21:00 Gen: NAD, breathing nonlabored Heart: RRR Lung: decreased breath sounds at the bases Abd: soft, nontender Ext: no edema CBC, BMP 09/26/16 06:30 09/27/16 06:30 Active Medications Albuterol/Ipratropium (Duoneb -) 1 amp NEB TIDR [facility] Last Admin: 09/27/16 06:59 Dose: 1 amp Amino Acids (Prosource No Carb Liquid Pkt) 30 ml PO BID@0800,1730 [facility] Last Admin: 09/26/16 18:03 Dose: 30 ml Azathioprine (Imuran -) 150 mg GT DAILY [facility] Last Admin: 09/26/16 09:15 Dose: 150 mg Bacitracin (Bacitracin -) 1 applic TP DAILY [facility] Last Admin: 09/26/16 09:16 Dose: 1 applic Escitalopram Oxalate (Lexapro Oral Solution -) 10 mg GT DAILY [facility] Last Admin: 09/26/16 11:30 Dose: 10 mg Pantoprazole Sodium 40 mg/ (Sodium Chloride) 100 mls @ 200 mls/hr IVPB DAILY [facility] Last Admin: 09/26/16 09:11 Dose: 200 mls/hr Ceftriaxone Sodium 1 gm/ (Dextrose) 100 mls @ 100 mls/hr IVPB DAILY [facility] Last Admin: 09/26/16 09:12 Dose: 100 mls/hr Metronidazole (Flagyl 500mg Premixed Ivpb -) 100 mls @ 100 mls/hr IVPB Q8H-IV [facility] Last Admin: 09/27/16 02:21 Dose: 100 mls/hr Potassium Chloride/Dextrose/Sod Cl (D5-1/2ns+20 Meq Kcl -) 1,000 mls @ 75 mls/ hr IV ASDIR [facility] Last Admin: 09/26/16 18:02 Dose: 75 mls/hr Lactobacillus Acidophilus (Bacid -) 1 tab GT DAILY [facility] Last Admin: 09/26/16 09:16 Dose: 1 tab Levetiracetam (Keppra Oral Solution -) 250 mg GT BID [facility] Last Admin: 09/26/16 22:11 Dose: 250 mg Metoclopramide HCl (Reglan Injection -) 10 mg IVPB Q8H [facility] Last Admin: 09/27/16 04:54 Dose: 10 mg A/P Fecal Impaction Advanced Lewy Body Dementia Atelectasis h/o Aspiration Ulcerative Colitis - antibiotics per ID - aspiration precautions - O2 to keep SpO2 >90% - inhaled bronchodilators - DVT prophylaxis
[2016-09-27] MEDS ORDERED: PANTOPRAZOLE SODIUM 40 MG VIAL ONE (10:33)
[2016-09-27] MEDS ORDERED: cefTRIAXone SODIUM 1 GM VIAL ONE (10:33)
[2016-09-27] MEDS ORDERED: PT OWN MED DRAWER 7, Y5N ONE ×6 (10:33→21:47)
[2016-09-27] MEDS ORDERED: DEXTROSE 5%-WATER 100 ML IVPB ONE (10:33)
[2016-09-27] MEDS ORDERED: SODIUM CHLORIDE 100 ML IVPB ONE (10:34)
[2016-09-27] MEDS: D5-1/2NS+20 MEQ KCL - 1,000 ML IV SCH ×2 (10:40→17:41)
[2016-09-27] MEDS: LACTOBACILLUS ACIDOPHILUS 1 EACH TAB (FP) GT SCH (10:40)
[2016-09-27] MEDS: AMINO ACIDS/PROTEIN HYDROLYS 30 ML LIQUID.PKT PO SCH ×2 (10:40→16:40)
[2016-09-27] MEDS: azaTHIOprine 50 MG TABLET GT SCH (10:41)
[2016-09-27] MEDS: levETIRAcetam 500 MG/5 ML ORAL SOLUTION (UNIT-DOSE CUPS) GT SCH ×2 (10:42→21:52)
[2016-09-27] MEDS: CEFTRIAXONE 1 GM in DEXTROSE 5%-WATER 100 ML IVPB SCH (10:43)
[2016-09-27] MEDS: ESCITALOPRAM OXALATE 5 MG/5 ML GT SCH (10:43)
[2016-09-27] MEDS: PANTOPRAZOLE SODIUM 40 MG in SODIUM CHLORIDE 100 ML IVPB SCH (10:44)
[2016-09-27] MEDS: BACITRACIN 15 GM TUBE TOPICAL OINTMENT TP SCH (10:48)
[2016-09-27] MEDS ORDERED: POTASSIUM CHLORIDE ORAL LIQUID 20 MEQ/15 ML PEG ONE (15:18)
--- NOTE | 2016-09-27 15:21 | PN ---
Progress Note, Physician History of Present Illness: Pt seen and examined at bedside. No new events. - Current Medication List Current Medications: Active Medications Albuterol/Ipratropium (Duoneb -) 1 amp NEB TIDR [facility] Last Admin: 09/27/16 13:53 Dose: 1 amp Amino Acids (Prosource No Carb Liquid Pkt) 30 ml PO BID@0800,1730 [facility] Last Admin: 09/27/16 10:40 Dose: 30 ml Azathioprine (Imuran -) 150 mg GT DAILY [facility] Last Admin: 09/27/16 10:41 Dose: 150 mg Bacitracin (Bacitracin -) 1 applic TP DAILY [facility] Last Admin: 09/27/16 10:48 Dose: 1 applic Escitalopram Oxalate (Lexapro Oral Solution -) 10 mg GT DAILY [facility] Last Admin: 09/27/16 10:43 Dose: 10 mg Pantoprazole Sodium 40 mg/ (Sodium Chloride) 100 mls @ 200 mls/hr IVPB DAILY [facility] Last Admin: 09/27/16 10:44 Dose: 200 mls/hr Ceftriaxone Sodium 1 gm/ (Dextrose) 100 mls @ 100 mls/hr IVPB DAILY [facility] Last Admin: 09/27/16 10:43 Dose: 100 mls/hr Metronidazole (Flagyl 500mg Premixed Ivpb -) 100 mls @ 100 mls/hr IVPB Q8H-IV [facility] Last Admin: 09/27/16 10:44 Dose: 100 mls/hr Potassium Chloride/Dextrose/Sod Cl (D5-1/2ns+20 Meq Kcl -) 1,000 mls @ 75 mls/ hr IV ASDIR [facility] Last Admin: 09/27/16 10:40 Dose: 75 mls/hr Lactobacillus Acidophilus (Bacid -) 1 tab GT DAILY [facility] Last Admin: 09/27/16 10:40 Dose: 1 tab Levetiracetam (Keppra Oral Solution -) 250 mg GT BID [facility] Last Admin: 09/27/16 10:42 Dose: 250 mg Metoclopramide HCl (Reglan Injection -) 10 mg IVPB Q8H [facility] Last Admin: 09/27/16 13:15 Dose: 10 mg - Objective Vital Signs: Vital Signs Temperature 99 F 09/27/16 08:05 Pulse Rate 99 H 09/27/16 08:05 Respiratory Rate 20 09/27/16 08:05 Blood Pressure 135/92 09/27/16 08:05 O2 Sat by Pulse Oximetry (%) 97 09/26/16 21:00 Constitutional: Yes: Calm Neck: Yes: Supple Cardiovascular: Yes: S1, S2 Respiratory: Yes: On Nasal O2 Gastrointestinal: Yes: Soft, Other (peg) Genitourinary: Yes: Incontinence Musculoskeletal: Yes: Muscle Weakness Edema: No Neurological: Yes: Pre-Existing Deficit Labs: CBC, BMP 09/26/16 06:30 09/27/16 06:30 INR, PTT INR 1.10 (0.82-1.09) 09/22/16 14:10 Problem List - Problems (1) Fecal impaction Code(s): K56.41 - FECAL IMPACTION (2) Vomiting Code(s): R11.10 - VOMITING, UNSPECIFIED Qualifiers: Vomiting type: unspecified Vomiting Intractability: unspecified Nausea presence: unspecified Qualified Code(s): R11.10 - Vomiting, unspecified Assessment/Plan Current Medications Generic Name Dose Route Start Last Admin Trade Name Basia PRN Reason Stop Dose Admin Albuterol/Ipratropium 1 amp 09/22/16 22:00 09/27/16 13:53 Duoneb - NEB 1 amp TIDR TALHA Administration Amino Acids 30 ml 09/23/16 17:30 09/27/16 10:40 Prosource No Carb Liquid Pkt PO 30 ml BID@0800,1730 [facility] Administration Azathioprine 150 mg 09/24/16 10:00 09/27/16 10:41 Imuran - GT 150 mg DAILY [facility] Administration Bacitracin 1 applic 09/23/16 10:00 09/27/16 10:48 Bacitracin - TP 1 applic DAILY [facility] Administration Escitalopram Oxalate 10 mg 09/24/16 10:00 09/27/16 10:43 Lexapro Oral Solution - GT 10 mg DAILY [facility] Administration Pantoprazole Sodium 40 mg/ 100 mls @ 200 mls/hr 09/23/16 11:45 09/27/16 10:44 Sodium Chloride IVPB 200 mls/hr DAILY [facility] Administration Ceftriaxone Sodium 1 gm/ 100 mls @ 100 mls/hr 09/23/16 18:45 09/27/16 10:43 Dextrose IVPB 100 mls/hr DAILY [facility] Administration Metronidazole 100 mls @ 100 mls/hr 09/24/16 10:00 09/27/16 10:44 Flagyl 500mg Premixed Ivpb - IVPB 100 mls/hr Q8H-IV [facility] Administration Potassium Chloride/Dextrose/Sod Cl 1,000 mls @ 75 mls/hr 09/26/16 17:15 10:40 D5-1/2ns+20 Meq Kcl - IV 75 mls/hr ASDIR [facility] Administration Lactobacillus Acidophilus 1 tab 09/24/16 10:00 09/27/16 10:40 Bacid - GT 1 tab DAILY [facility] Administration Levetiracetam 250 mg 09/23/16 22:00 09/27/16 10:42 Keppra Oral Solution - GT 250 mg BID [facility] Administration Metoclopramide HCl 10 mg 09/22/16 20:00 09/27/16 13:15 Reglan Injection - IVPB 10 mg Q8H [facility] Administration Potassium Chloride 40 meq 09/27/16 15:18 Potassium Chloride Oral Liquid PEG 09/27/16 15:19 ONCE ONE Laboratory Tests 09/27/16 06:30 Potassium 3.3 L Magnesium 1.8 D Impression 1. fecal impaction 2. vomiting 3. parkinsons 4. ulcerative colitis 5. dementia 6. fever 7. lactic acidosis 8. dehydration 9. hypokalemia Plan - spoke to nurse, pt is starting feeds today - will supplement potassium - decrease rate of fluids and stop them when feeds are at goal - will follow PRN Dr Cardoso
--- NOTE | 2016-09-27 16:23 | PN ---
Progress Note, Physician Chief Complaint: NO CHANGE IS MENTAL STATUS IN BED COMFORTABLE CHART AND NOTES REVIEWED - Current Medication List Current Medications: Active Medications Albuterol/Ipratropium (Duoneb -) 1 amp NEB TIDR [facility] Last Admin: 09/27/16 13:53 Dose: 1 amp Amino Acids (Prosource No Carb Liquid Pkt) 30 ml PO BID@0800,1730 [facility] Last Admin: 09/27/16 10:40 Dose: 30 ml Azathioprine (Imuran -) 150 mg GT DAILY [facility] Last Admin: 09/27/16 10:41 Dose: 150 mg Bacitracin (Bacitracin -) 1 applic TP DAILY [facility] Last Admin: 09/27/16 10:48 Dose: 1 applic Escitalopram Oxalate (Lexapro Oral Solution -) 10 mg GT DAILY [facility] Last Admin: 09/27/16 10:43 Dose: 10 mg Pantoprazole Sodium 40 mg/ (Sodium Chloride) 100 mls @ 200 mls/hr IVPB DAILY [facility] Last Admin: 09/27/16 10:44 Dose: 200 mls/hr Ceftriaxone Sodium 1 gm/ (Dextrose) 100 mls @ 100 mls/hr IVPB DAILY [facility] Last Admin: 09/27/16 10:43 Dose: 100 mls/hr Metronidazole (Flagyl 500mg Premixed Ivpb -) 100 mls @ 100 mls/hr IVPB Q8H-IV [facility] Last Admin: 09/27/16 10:44 Dose: 100 mls/hr Potassium Chloride/Dextrose/Sod Cl (D5-1/2ns+20 Meq Kcl -) 1,000 mls @ 75 mls/ hr IV ASDIR [facility] Last Admin: 09/27/16 10:40 Dose: 75 mls/hr Lactobacillus Acidophilus (Bacid -) 1 tab GT DAILY [facility] Last Admin: 09/27/16 10:40 Dose: 1 tab Levetiracetam (Keppra Oral Solution -) 250 mg GT BID [facility] Last Admin: 09/27/16 10:42 Dose: 250 mg Metoclopramide HCl (Reglan Injection -) 10 mg IVPB Q8H [facility] Last Admin: 09/27/16 13:15 Dose: 10 mg - Objective Vital Signs: Vital Signs Temperature 98.1 F 09/27/16 15:38 Pulse Rate 80 09/27/16 15:38 Respiratory Rate 18 09/27/16 15:38 Blood Pressure 139/78 09/27/16 15:38 O2 Sat by Pulse Oximetry (%) 96 09/27/16 09:00 Constitutional: Yes: No Distress Eyes: Yes: WNL HENT: Yes: WNL Neck: Yes: WNL Cardiovascular: Yes: WNL Respiratory: Yes: WNL Gastrointestinal: Yes: Distention Genitourinary: Yes: Incontinence Musculoskeletal: Yes: Muscle Weakness Extremities: Yes: WNL Edema: No Peripheral Pulses WNL: Yes Integumentary: Yes: WNL Wound/Incision: Yes: Clean/Dry Neurological: Yes: Pre-Existing Deficit, Unsteady Gait ...Motor Strength: LLE, RLE Psychiatric: Yes: Other Labs: CBC, BMP 09/26/16 06:30 09/27/16 06:30 INR, PTT INR 1.10 (0.82-1.09) 09/22/16 14:10 Problem List - Problems (1) Fecal impaction Code(s): K56.41 - FECAL IMPACTION (2) Vomiting Code(s): R11.10 - VOMITING, UNSPECIFIED Qualifiers: Vomiting type: unspecified Vomiting Intractability: unspecified Nausea presence: unspecified Qualified Code(s): R11.10 - Vomiting, unspecified (3) BPH (benign prostatic hypertrophy) Code(s): N40.0 - BENIGN PROSTATIC HYPERPLASIA WITHOUT LOWER URINRY TRACT SYMP Qualifiers: Lower urinary tract symptom presence: symptoms present Qualified Code(s ): N40.1 - Benign prostatic hyperplasia with lower urinary tract symptoms; R35.0 - Frequency of micturition (4) Constipation Code(s): K59.00 - CONSTIPATION, UNSPECIFIED Qualifiers: Constipation type: unspecified constipation type Qualified Code(s): K59.00 - Constipation, unspecified (5) Dehydration Code(s): E86.0 - DEHYDRATION (6) Dysphagia Code(s): R13.10 - DYSPHAGIA, UNSPECIFIED (7) Gastroparesis Code(s): K31.84 - GASTROPARESIS (8) History of ulcerative colitis Code(s): Z87.19 - PERSONAL HISTORY OF OTHER DISEASES OF THE DIGESTIVE SYSTEM (9) Lactic acid blood increased Code(s): R79.89 - OTHER SPECIFIED ABNORMAL FINDINGS OF BLOOD CHEMISTRY Assessment/Plan IV ABX CONTINUED FOR [address] CARVALHO KCL REPLETED ABD XRAY NO ILEUS RENAL EVAL APPRECIATED GTUBES RESTARTED TODAY
[2016-09-27] MEDS: ZINC SULFATE 220 MG CAPSULE (FP) PO SCH (16:40)
[2016-09-27] MEDS: POLYETHYLENE GLYCOL 3350 119 GM BTL PO SCH (16:41)
[2016-09-27] MEDS: ASCORBIC ACID 250 MG TABLET (FP) GT SCH (21:51)
[2016-09-28] MEDS: METRONIDAZOLE 500 MG PREMIXED 100 ML IVPB SCH ×3 (01:13→17:10)
[2016-09-28] MEDS: METOCLOPRAMIDE HCL INJECTION 10 MG/2 ML VIAL IVPB SCH ×3 (04:12→20:23)
[2016-09-28 07:57] LABS: MCH 28.8 pg (25.7-33.7); MCHC 33.4 g/dl (32.0-35.9); MEAN CELL VOLUME 86.4 fl (80-96); MEAN PLT VOLUME 8.9 fl (7.5-11.1); PLATELET COUNT 468 K/MM3 (134-434); RDW 15.3 % (11.9-15.9); WHITE BLOOD COUNT 11.9 K/mm3 (4.0-10.0)
[2016-09-28 08:00] LABS: ANION GAP 9 (8-16); CALCIUM 8.8 mg/dL (8.5-10.1); CO2 26 mmol/L (21-32); CREATININE 0.8 mg/dL (0.7-1.3); GLUCOSE,RANDOM 122 mg/dL (74-106); MAGNESIUM 2.1 mg/dL (1.8-2.4)
[2016-09-28] MEDS: AMINO ACIDS/PROTEIN HYDROLYS 30 ML LIQUID.PKT PO SCH ×2 (08:14→17:10)
[2016-09-28] MEDS ORDERED: PANTOPRAZOLE SODIUM 40 MG VIAL ONE (10:03)
[2016-09-28] MEDS ORDERED: cefTRIAXone SODIUM 1 GM VIAL ONE (10:03)
[2016-09-28] MEDS ORDERED: PT OWN MED DRAWER 7, Y5N ONE ×2 (10:03→20:18)
[2016-09-28] MEDS ORDERED: DEXTROSE 5%-WATER 100 ML IVPB ONE (10:03)
[2016-09-28] MEDS ORDERED: SODIUM CHLORIDE 100 ML IVPB ONE (10:04)
--- NOTE | 2016-09-28 10:06 | PN ---
Progress Note (short form) - Note Progress Note: PULMONARY No fevers recorded. Last Vital Signs Temp Pulse Resp BP Pulse Ox 98.2 F 105 H 20 122/85 95 09/28/16 07:16 09/28/16 07:16 09/28/16 07:16 09/28/16 07:16 09/27/16 21:00 Gen: NAD, breathing nonlabored Heart: RRR Lung: decreased breath sounds at the bases Abd: soft, nontender Ext: no edema CBC, BMP 09/28/16 06:30 09/28/16 06:30 Active Medications Amino Acids (Prosource No Carb Liquid Pkt) 30 ml PO BID@0800,1730 [facility] Last Admin: 09/28/16 08:14 Dose: 30 ml Ascorbic Acid (Vitamin C -) 250 mg GT BID [facility] Last Admin: 09/27/16 21:51 Dose: 250 mg Azathioprine (Imuran -) 150 mg GT DAILY [facility] Last Admin: 09/27/16 10:41 Dose: 150 mg Bacitracin (Bacitracin -) 1 applic TP DAILY [facility] Last Admin: 09/27/16 10:48 Dose: 1 applic Escitalopram Oxalate (Lexapro Oral Solution -) 10 mg GT DAILY [facility] Last Admin: 09/27/16 10:43 Dose: 10 mg Pantoprazole Sodium 40 mg/ (Sodium Chloride) 100 mls @ 200 mls/hr IVPB DAILY [facility] Last Admin: 09/27/16 10:44 Dose: 200 mls/hr Ceftriaxone Sodium 1 gm/ (Dextrose) 100 mls @ 100 mls/hr IVPB DAILY [facility] Last Admin: 09/27/16 10:43 Dose: 100 mls/hr Metronidazole (Flagyl 500mg Premixed Ivpb -) 100 mls @ 100 mls/hr IVPB Q8H-IV [facility] Last Admin: 09/28/16 01:13 Dose: 100 mls/hr Potassium Chloride/Dextrose/Sod Cl (D5-1/2ns+20 Meq Kcl -) 1,000 mls @ 50 mls/ hr IV ASDIR [facility] Last Admin: 09/27/16 17:41 Dose: Not Given Lactobacillus Acidophilus (Bacid -) 1 tab GT DAILY [facility] Last Admin: 09/27/16 10:40 Dose: 1 tab Levetiracetam (Keppra Oral Solution -) 250 mg GT BID [facility] Last Admin: 09/27/16 21:52 Dose: 250 mg Metoclopramide HCl (Reglan Injection -) 10 mg IVPB Q8H [facility] Last Admin: 09/28/16 04:12 Dose: 10 mg Polyethylene Glycol (Miralax (For Daily Use) -) 17 gm PO DAILY [facility] Last Admin: 09/27/16 16:41 Dose: 17 gm Zinc Sulfate (Orazinc -) 220 mg PO DAILY [facility] Last Admin: 09/27/16 16:40 Dose: 220 mg A/P Fecal Impaction Advanced Lewy Body Dementia Atelectasis h/o Aspiration Ulcerative Colitis - antibiotics per ID - aspiration precautions - O2 to keep SpO2 >90% - inhaled bronchodilators - DVT prophylaxis
[2016-09-28] MEDS: ZINC SULFATE 220 MG CAPSULE (FP) PO SCH (10:08)
[2016-09-28] MEDS: POLYETHYLENE GLYCOL 3350 119 GM BTL PO SCH (10:08)
[2016-09-28] MEDS: LACTOBACILLUS ACIDOPHILUS 1 EACH TAB (FP) GT SCH (10:13)
[2016-09-28] MEDS: azaTHIOprine 50 MG TABLET GT SCH (10:14)
[2016-09-28] MEDS: levETIRAcetam 500 MG/5 ML ORAL SOLUTION (UNIT-DOSE CUPS) GT SCH ×2 (10:15→21:26)
[2016-09-28] MEDS: ESCITALOPRAM OXALATE 5 MG/5 ML GT SCH (10:15)
[2016-09-28] MEDS: ASCORBIC ACID 250 MG TABLET (FP) GT SCH ×2 (10:16→21:26)
[2016-09-28] MEDS: BACITRACIN 15 GM TUBE TOPICAL OINTMENT TP SCH (10:16)
[2016-09-28] MEDS: CEFTRIAXONE 1 GM in DEXTROSE 5%-WATER 100 ML IVPB SCH (10:16)
[2016-09-28] MEDS: PANTOPRAZOLE SODIUM 40 MG in SODIUM CHLORIDE 100 ML IVPB SCH (10:18)
--- NOTE | 2016-09-28 15:13 | PN ---
Progress Note, Physician Chief Complaint: NON-VERBAL TOLERATING FEEDS VIA PEG - Current Medication List Current Medications: Active Medications Amino Acids (Prosource No Carb Liquid Pkt) 30 ml PO BID@0800,1730 [facility] Last Admin: 09/28/16 08:14 Dose: 30 ml Ascorbic Acid (Vitamin C -) 250 mg GT BID [facility] Last Admin: 09/28/16 10:16 Dose: 250 mg Azathioprine (Imuran -) 150 mg GT DAILY [facility] Last Admin: 09/28/16 10:14 Dose: 150 mg Bacitracin (Bacitracin -) 1 applic TP DAILY [facility] Last Admin: 09/28/16 10:16 Dose: 1 applic Escitalopram Oxalate (Lexapro Oral Solution -) 10 mg GT DAILY [facility] Last Admin: 09/28/16 10:15 Dose: 10 mg Pantoprazole Sodium 40 mg/ (Sodium Chloride) 100 mls @ 200 mls/hr IVPB DAILY [facility] Last Admin: 09/28/16 10:18 Dose: 200 mls/hr Ceftriaxone Sodium 1 gm/ (Dextrose) 100 mls @ 100 mls/hr IVPB DAILY [facility] Last Admin: 09/28/16 10:16 Dose: 100 mls/hr Metronidazole (Flagyl 500mg Premixed Ivpb -) 100 mls @ 100 mls/hr IVPB Q8H-IV [facility] Last Admin: 09/28/16 10:12 Dose: 100 mls/hr Potassium Chloride/Dextrose/Sod Cl (D5-1/2ns+20 Meq Kcl -) 1,000 mls @ 50 mls/ hr IV ASDIR [facility] Last Admin: 09/27/16 17:41 Dose: Not Given Lactobacillus Acidophilus (Bacid -) 1 tab GT DAILY [facility] Last Admin: 09/28/16 10:13 Dose: 1 tab Levetiracetam (Keppra Oral Solution -) 250 mg GT BID [facility] Last Admin: 09/28/16 10:15 Dose: 250 mg Metoclopramide HCl (Reglan Injection -) 10 mg IVPB Q8H [facility] Last Admin: 09/28/16 12:21 Dose: 10 mg Polyethylene Glycol (Miralax (For Daily Use) -) 17 gm PO DAILY [facility] Last Admin: 09/28/16 10:08 Dose: 17 gm Zinc Sulfate (Orazinc -) 220 mg PO DAILY [facility] Last Admin: 09/28/16 10:08 Dose: 220 mg - Objective Vital Signs: Vital Signs Temperature 97.7 F 09/28/16 13:56 Pulse Rate 91 H 09/28/16 13:56 Respiratory Rate 20 09/28/16 13:56 Blood Pressure 114/80 09/28/16 13:56 O2 Sat by Pulse Oximetry (%) 95 09/27/16 21:00 Constitutional: Yes: No Distress Eyes: Yes: WNL HENT: Yes: WNL Neck: Yes: WNL Cardiovascular: Yes: WNL Respiratory: Yes: WNL Gastrointestinal: Yes: WNL Genitourinary: Yes: Incontinence Musculoskeletal: Yes: Muscle Weakness Extremities: Yes: WNL Edema: No Peripheral Pulses WNL: Yes Integumentary: Yes: Other Wound/Incision: Yes: Clean/Dry Neurological: Yes: Pre-Existing Deficit ...Motor Strength: LLE, RLE Psychiatric: Yes: Other Labs: CBC, BMP 09/28/16 06:30 09/28/16 06:30 INR, PTT INR 1.10 (0.82-1.09) 09/22/16 14:10 Problem List - Problems (1) Fecal impaction Code(s): K56.41 - FECAL IMPACTION (2) Vomiting Code(s): R11.10 - VOMITING, UNSPECIFIED Qualifiers: Vomiting type: unspecified Vomiting Intractability: unspecified Nausea presence: unspecified Qualified Code(s): R11.10 - Vomiting, unspecified (3) BPH (benign prostatic hypertrophy) Code(s): N40.0 - BENIGN PROSTATIC HYPERPLASIA WITHOUT LOWER URINRY TRACT SYMP Qualifiers: Lower urinary tract symptom presence: symptoms present Qualified Code(s ): N40.1 - Benign prostatic hyperplasia with lower urinary tract symptoms; R35.0 - Frequency of micturition (4) Constipation Code(s): K59.00 - CONSTIPATION, UNSPECIFIED Qualifiers: Constipation type: unspecified constipation type Qualified Code(s): K59.00 - Constipation, unspecified (5) Dehydration Code(s): E86.0 - DEHYDRATION (6) Dysphagia Code(s): R13.10 - DYSPHAGIA, UNSPECIFIED (7) Gastroparesis Code(s): K31.84 - GASTROPARESIS (8) History of ulcerative colitis Code(s): Z87.19 - PERSONAL HISTORY OF OTHER DISEASES OF THE DIGESTIVE SYSTEM (9) Lactic acid blood increased Code(s): R79.89 - OTHER SPECIFIED ABNORMAL FINDINGS OF BLOOD CHEMISTRY Assessment/Plan ADVANCING FEEDS TOLERATING WELL LABS REVIEWED BLOOD CULTURE POSITIVE, ID TO OBSERVE ON CEFTRIAXONE/FLAGYLL FINAL DAY TODAY DC PLANNING TOMORROW
[2016-09-28] MEDS: D5-1/2NS+20 MEQ KCL - 1,000 ML IV SCH (16:21)
--- NOTE | 2016-09-28 19:43 | PN ---
GI Progress Note Subjective: Non-verbal - Objective Vital Signs: Vital Signs Temperature 98.4 F 09/28/16 17:28 Pulse Rate 85 09/28/16 17:28 Respiratory Rate 20 09/28/16 17:28 Blood Pressure 136/81 09/28/16 17:28 O2 Sat by Pulse Oximetry (%) 95 09/27/16 21:00 Constitutional: Well Nourished Cardiovascular: Yes: Regular Rate and Rhythm Respiratory: Yes: CTA Bilaterally Gastrointestinal Inspection: Yes: Distention ...Auscultate: Yes: Normoactive Bowel Sounds ...Percussion: Yes: Tympanitic Labs: CBC, BMP 09/28/16 06:30 09/28/16 06:30 INR, PTT INR 1.10 (0.82-1.09) 09/22/16 14:10 - ....Imaging X-ray: Report Reviewed (impaction resolved) Assessment/Plan Recommend outpatient management with lactulose 30 cc BID and miralax 1 tab daily to maintain regularity.
[2016-09-28] MEDS: NYSTATIN 100,000 UNIT/GM TOPICAL CREAM 15 GM TUBE TP SCH (23:19)
[2016-09-29] MEDS: METRONIDAZOLE 500 MG PREMIXED 100 ML IVPB SCH (01:12)
[2016-09-29] MEDS: METOCLOPRAMIDE HCL INJECTION 10 MG/2 ML VIAL IVPB SCH (04:30)
[2016-09-29 08:21] LABS: MCH 29.4 pg (25.7-33.7); MCHC 34.1 g/dl (32.0-35.9); MEAN CELL VOLUME 86.4 fl (80-96); MEAN PLT VOLUME 8.5 fl (7.5-11.1); PLATELET COUNT 477 K/MM3 (134-434); WHITE BLOOD COUNT 10.1 K/mm3 (4.0-10.0)
--- NOTE | 2016-09-29 09:28 | PN ---
Progress Note, Physician Chief Complaint: STILL FEBRILE CANCEL DISCHARGE CHECK CULTURES AND CXR - Current Medication List Current Medications: Active Medications Amino Acids (Prosource No Carb Liquid Pkt) 30 ml PO BID@0800,1730 [facility] Last Admin: 09/28/16 17:10 Dose: 30 ml Ascorbic Acid (Vitamin C -) 250 mg GT BID [facility] Last Admin: 09/28/16 21:26 Dose: 250 mg Azathioprine (Imuran -) 150 mg GT DAILY [facility] Last Admin: 09/28/16 10:14 Dose: 150 mg Bacitracin (Bacitracin -) 1 applic TP DAILY [facility] Last Admin: 09/28/16 10:16 Dose: 1 applic Escitalopram Oxalate (Lexapro Oral Solution -) 10 mg GT DAILY [facility] Last Admin: 09/28/16 10:15 Dose: 10 mg Pantoprazole Sodium 40 mg/ (Sodium Chloride) 100 mls @ 200 mls/hr IVPB DAILY [facility] Last Admin: 09/28/16 10:18 Dose: 200 mls/hr Ceftriaxone Sodium 1 gm/ (Dextrose) 100 mls @ 100 mls/hr IVPB DAILY [facility] Last Admin: 09/28/16 10:16 Dose: 100 mls/hr Metronidazole (Flagyl 500mg Premixed Ivpb -) 100 mls @ 100 mls/hr IVPB Q8H-IV [facility] Last Admin: 09/29/16 01:12 Dose: 100 mls/hr Potassium Chloride/Dextrose/Sod Cl (D5-1/2ns+20 Meq Kcl -) 1,000 mls @ 50 mls/ hr IV ASDIR [facility] Last Admin: 09/28/16 16:21 Dose: 50 mls/hr Lactobacillus Acidophilus (Bacid -) 1 tab GT DAILY [facility] Last Admin: 09/28/16 10:13 Dose: 1 tab Lactulose (Cephulac (Oral Use)) 20 gm GT TID PRN PRN Reason: CONSTIPATION Levetiracetam (Keppra Oral Solution -) 250 mg GT BID [facility] Last Admin: 09/28/16 21:26 Dose: 250 mg Metoclopramide HCl (Reglan Injection -) 10 mg IVPB Q8H [facility] Last Admin: 09/29/16 04:30 Dose: 10 mg Nystatin (Mycostatin Cream -) 1 applic TP BID [facility] Last Admin: 09/28/16 23:19 Dose: 1 applic Polyethylene Glycol (Miralax (For Daily Use) -) 17 gm PO DAILY [facility] Last Admin: 09/28/16 10:08 Dose: 17 gm Zinc Sulfate (Orazinc -) 220 mg PO DAILY [facility] Last Admin: 09/28/16 10:08 Dose: 220 mg - Objective Vital Signs: Vital Signs Temperature 99.1 F 09/29/16 06:00 Pulse Rate 107 H 09/29/16 06:00 Respiratory Rate 20 09/29/16 06:00 Blood Pressure 142/90 09/29/16 06:00 O2 Sat by Pulse Oximetry (%) 96 09/28/16 21:00 Constitutional: Yes: Mild Distress Eyes: Yes: WNL HENT: Yes: WNL Neck: Yes: WNL Cardiovascular: Yes: WNL Respiratory: Yes: WNL Gastrointestinal: Yes: Distention Genitourinary: Yes: Incontinence Musculoskeletal: Yes: Muscle Weakness Extremities: Yes: WNL Edema: No Peripheral Pulses WNL: Yes Integumentary: Yes: WNL Wound/Incision: Yes: Open to air Neurological: Yes: Pre-Existing Deficit ...Motor Strength: LUE, LLE, RUE, RLE Psychiatric: Yes: Other Labs: CBC, BMP 09/29/16 08:00 09/28/16 06:30 INR, PTT INR 1.10 (0.82-1.09) 09/22/16 14:10 Problem List - Problems (1) Fecal impaction Code(s): K56.41 - FECAL IMPACTION (2) Vomiting Code(s): R11.10 - VOMITING, UNSPECIFIED Qualifiers: Vomiting type: unspecified Vomiting Intractability: unspecified Nausea presence: unspecified Qualified Code(s): R11.10 - Vomiting, unspecified (3) BPH (benign prostatic hypertrophy) Code(s): N40.0 - BENIGN PROSTATIC HYPERPLASIA WITHOUT LOWER URINRY TRACT SYMP Qualifiers: Lower urinary tract symptom presence: symptoms present Qualified Code(s ): N40.1 - Benign prostatic hyperplasia with lower urinary tract symptoms; R35.0 - Frequency of micturition (4) Constipation Code(s): K59.00 - CONSTIPATION, UNSPECIFIED Qualifiers: Constipation type: unspecified constipation type Qualified Code(s): K59.00 - Constipation, unspecified (5) Dehydration Code(s): E86.0 - DEHYDRATION (6) Dysphagia Code(s): R13.10 - DYSPHAGIA, UNSPECIFIED (7) Gastroparesis Code(s): K31.84 - GASTROPARESIS (8) History of ulcerative colitis Code(s): Z87.19 - PERSONAL HISTORY OF OTHER DISEASES OF THE DIGESTIVE SYSTEM (9) Lactic acid blood increased Code(s): R79.89 - OTHER SPECIFIED ABNORMAL FINDINGS OF BLOOD CHEMISTRY Assessment/Plan BLOOD CULTURES REORDERED URINE CX CXR ON IV CEFTRIAXONE AND FLAGYLL WILL STOP
[2016-09-29] MEDS ORDERED: PT OWN MED DRAWER 7, Y5N ONE ×2 (09:49→20:19)
[2016-09-29] MEDS: AMINO ACIDS/PROTEIN HYDROLYS 30 ML LIQUID.PKT PO SCH ×2 (09:52→18:47)
[2016-09-29] MEDS: LACTULOSE 20 GM/30 ML UDC (FOR ORAL USE ONLY) GT PRN (09:52)
[2016-09-29] MEDS: LACTOBACILLUS ACIDOPHILUS 1 EACH TAB (FP) GT SCH (09:52)
[2016-09-29] MEDS: ZINC SULFATE 220 MG CAPSULE (FP) PO SCH (09:52)
[2016-09-29] MEDS: BACITRACIN 15 GM TUBE TOPICAL OINTMENT TP SCH (09:52)
[2016-09-29] MEDS: levETIRAcetam 500 MG/5 ML ORAL SOLUTION (UNIT-DOSE CUPS) GT SCH ×2 (09:53→21:37)
[2016-09-29] MEDS: azaTHIOprine 50 MG TABLET GT SCH (09:54)
[2016-09-29] MEDS: NYSTATIN 100,000 UNIT/GM TOPICAL CREAM 15 GM TUBE TP SCH ×2 (09:55→21:38)
[2016-09-29] MEDS: ASCORBIC ACID 250 MG TABLET (FP) GT SCH ×2 (09:55→21:37)
[2016-09-29] MEDS: POLYETHYLENE GLYCOL 3350 119 GM BTL PO SCH (09:58)
--- NOTE | 2016-09-29 10:09 | PN ---
Progress Note (short form) - Note Progress Note: PULMONARY Low grade temp overnight. Last Vital Signs Temp Pulse Resp BP Pulse Ox 99.1 F 107 H 20 142/90 96 09/29/16 06:00 09/29/16 06:00 09/29/16 06:00 09/29/16 06:00 09/28/16 21:00 Gen: NAD, breathing nonlabored Heart: RRR Lung: decreased breath sounds at the bases Abd: soft, nontender Ext: no edema CBC, BMP 09/29/16 08:00 09/28/16 06:30 Active Medications Amino Acids (Prosource No Carb Liquid Pkt) 30 ml PO BID@0800,1730 [facility] Last Admin: 09/29/16 09:52 Dose: 30 ml Ascorbic Acid (Vitamin C -) 250 mg GT BID [facility] Last Admin: 09/29/16 09:55 Dose: 250 mg Azathioprine (Imuran -) 150 mg GT DAILY [facility] Last Admin: 09/29/16 09:54 Dose: 150 mg Bacitracin (Bacitracin -) 1 applic TP DAILY [facility] Last Admin: 09/29/16 09:52 Dose: 1 applic Escitalopram Oxalate (Lexapro Oral Solution -) 10 mg GT DAILY [facility] Last Admin: 09/28/16 10:15 Dose: 10 mg Lactobacillus Acidophilus (Bacid -) 1 tab GT DAILY [facility] Last Admin: 09/29/16 09:52 Dose: 1 tab Lactulose (Cephulac (Oral Use)) 20 gm GT TID PRN PRN Reason: CONSTIPATION Last Admin: 09/29/16 09:52 Dose: 20 gm Levetiracetam (Keppra Oral Solution -) 250 mg GT BID [facility] Last Admin: 09/29/16 09:53 Dose: 250 mg Nystatin (Mycostatin Cream -) 1 applic TP BID [facility] Last Admin: 09/29/16 09:55 Dose: 1 applic Polyethylene Glycol (Miralax (For Daily Use) -) 17 gm PO DAILY [facility] Last Admin: 09/29/16 09:58 Dose: 17 gm Zinc Sulfate (Orazinc -) 220 mg PO DAILY [facility] Last Admin: 09/29/16 09:52 Dose: 220 mg A/P Fecal Impaction Advanced Lewy Body Dementia Atelectasis h/o Aspiration Ulcerative Colitis - f/u cultures - aspiration precautions - O2 to keep SpO2 >90% - inhaled bronchodilators - DVT prophylaxis
[2016-09-29] MEDS: ESCITALOPRAM OXALATE 5 MG/5 ML GT SCH (11:52)
[2016-09-30 07:10] VITALS: TEMP 98.2
[2016-09-30 07:58] LABS: MCH 29.7 pg (25.7-33.7); MCHC 33.8 g/dl (32.0-35.9); MEAN CELL VOLUME 87.9 fl (80-96); MEAN PLT VOLUME 9.1 fl (7.5-11.1); PLATELET COUNT 467 K/MM3 (134-434); RDW 15.1 % (11.9-15.9); WHITE BLOOD COUNT 10.3 K/mm3 (4.0-10.0)
[2016-09-30 08:06] LABS: ANION GAP 7 (8-16); CALCIUM 8.8 mg/dL (8.5-10.1); CO2 28 mmol/L (21-32); CREATININE 0.8 mg/dL (0.7-1.3); GLUCOSE,RANDOM 143 mg/dL (74-106); MAGNESIUM 2.2 mg/dL (1.8-2.4)
[2016-09-30] MEDS ORDERED: PT OWN MED DRAWER 7, Y5N ONE (09:40)
[2016-09-30] MEDS: AMINO ACIDS/PROTEIN HYDROLYS 30 ML LIQUID.PKT PO SCH (09:46)
[2016-09-30] MEDS: LACTULOSE 20 GM/30 ML UDC (FOR ORAL USE ONLY) GT PRN (09:46)
[2016-09-30] MEDS: LACTOBACILLUS ACIDOPHILUS 1 EACH TAB (FP) GT SCH (09:47)
[2016-09-30] MEDS: ZINC SULFATE 220 MG CAPSULE (FP) PO SCH (09:47)
[2016-09-30] MEDS: ASCORBIC ACID 250 MG TABLET (FP) GT SCH (09:47)
[2016-09-30] MEDS: azaTHIOprine 50 MG TABLET GT SCH (09:47)
[2016-09-30] MEDS: NYSTATIN 100,000 UNIT/GM TOPICAL CREAM 15 GM TUBE TP SCH (09:47)
[2016-09-30] MEDS: ESCITALOPRAM OXALATE 5 MG/5 ML GT SCH (09:47)
[2016-09-30] MEDS: levETIRAcetam 500 MG/5 ML ORAL SOLUTION (UNIT-DOSE CUPS) GT SCH (09:47)
--- NOTE | 2016-09-30 09:48 | PN ---
Progress Note, Physician Chief Complaint: AWAKE NON-VERBAL CXR REVIEWED - Current Medication List Current Medications: Active Medications Amino Acids (Prosource No Carb Liquid Pkt) 30 ml PO BID@0800,1730 [facility] Last Admin: 09/29/16 18:47 Dose: 30 ml Ascorbic Acid (Vitamin C -) 250 mg GT BID [facility] Last Admin: 09/29/16 21:37 Dose: 250 mg Azathioprine (Imuran -) 150 mg GT DAILY [facility] Last Admin: 09/29/16 09:54 Dose: 150 mg Bacitracin (Bacitracin -) 1 applic TP DAILY [facility] Last Admin: 09/29/16 09:52 Dose: 1 applic Escitalopram Oxalate (Lexapro Oral Solution -) 10 mg GT DAILY [facility] Last Admin: 09/29/16 11:52 Dose: 10 mg Lactobacillus Acidophilus (Bacid -) 1 tab GT DAILY [facility] Last Admin: 09/29/16 09:52 Dose: 1 tab Lactulose (Cephulac (Oral Use)) 20 gm GT TID PRN PRN Reason: CONSTIPATION Last Admin: 09/29/16 09:52 Dose: 20 gm Levetiracetam (Keppra Oral Solution -) 250 mg GT BID [facility] Last Admin: 09/29/16 21:37 Dose: 250 mg Nystatin (Mycostatin Cream -) 1 applic TP BID [facility] Last Admin: 09/29/16 21:38 Dose: 1 applic Polyethylene Glycol (Miralax (For Daily Use) -) 17 gm PO DAILY [facility] Last Admin: 09/29/16 09:58 Dose: 17 gm Zinc Sulfate (Orazinc -) 220 mg PO DAILY [facility] Last Admin: 09/29/16 09:52 Dose: 220 mg - Objective Vital Signs: Vital Signs Temperature 98.2 F 09/30/16 07:10 Pulse Rate 92 H 09/29/16 18:00 Respiratory Rate 20 09/29/16 18:00 Blood Pressure 144/96 09/29/16 18:00 O2 Sat by Pulse Oximetry (%) 94 L 09/29/16 21:00 Constitutional: Yes: Mild Distress Eyes: Yes: WNL HENT: Yes: WNL Neck: Yes: WNL, Rigid Cardiovascular: Yes: WNL Respiratory: Yes: WNL Gastrointestinal: Yes: WNL (PEG) Genitourinary: Yes: Incontinence Musculoskeletal: Yes: Muscle Weakness Extremities: Yes: Other Edema: No Peripheral Pulses WNL: Yes Integumentary: Yes: Rash Wound/Incision: Yes: Dressing Dry and Intact Neurological: Yes: Pre-Existing Deficit ...Motor Strength: LUE (RIGID), LLE, RUE, RLE Psychiatric: Yes: Other Labs: CBC, BMP 09/30/16 06:15 09/30/16 06:15 INR, PTT INR 1.10 (0.82-1.09) 09/22/16 14:10 Problem List - Problems (1) Fecal impaction Code(s): K56.41 - FECAL IMPACTION (2) Vomiting Code(s): R11.10 - VOMITING, UNSPECIFIED Qualifiers: Vomiting type: unspecified Vomiting Intractability: unspecified Nausea presence: unspecified Qualified Code(s): R11.10 - Vomiting, unspecified (3) BPH (benign prostatic hypertrophy) Code(s): N40.0 - BENIGN PROSTATIC HYPERPLASIA WITHOUT LOWER URINRY TRACT SYMP Qualifiers: Lower urinary tract symptom presence: symptoms present Qualified Code(s ): N40.1 - Benign prostatic hyperplasia with lower urinary tract symptoms; R35.0 - Frequency of micturition (4) Constipation Code(s): K59.00 - CONSTIPATION, UNSPECIFIED Qualifiers: Constipation type: unspecified constipation type Qualified Code(s): K59.00 - Constipation, unspecified (5) Dehydration Code(s): E86.0 - DEHYDRATION (6) Dysphagia Code(s): R13.10 - DYSPHAGIA, UNSPECIFIED (7) Gastroparesis Code(s): K31.84 - GASTROPARESIS (8) History of ulcerative colitis Code(s): Z87.19 - PERSONAL HISTORY OF OTHER DISEASES OF THE DIGESTIVE SYSTEM (9) Lactic acid blood increased Code(s): R79.89 - OTHER SPECIFIED ABNORMAL FINDINGS OF BLOOD CHEMISTRY Assessment/Plan LOW GRADE FEVERS LIKELY ATELECTASIS CT CHEST R/O PNA IF NORMAL CAN DC HOME
[2016-09-30] MEDS: BACITRACIN 15 GM TUBE TOPICAL OINTMENT TP SCH (09:51)
--- NOTE | 2016-09-30 09:53 | PN ---
Progress Note (short form) - Note Progress Note: PULMONARY No further fevers recorded. Last Vital Signs Temp Pulse Resp BP Pulse Ox 98.2 F 92 H 20 144/96 94 L 09/30/16 07:10 09/29/16 18:00 09/29/16 18:00 09/29/16 18:00 09/29/16 21:00 Gen: NAD, breathing nonlabored Heart: RRR Lung: decreased breath sounds at the bases Abd: soft, nontender Ext: no edema CBC, BMP 09/30/16 06:15 09/30/16 06:15 Active Medications Amino Acids (Prosource No Carb Liquid Pkt) 30 ml PO BID@0800,1730 [facility] Last Admin: 09/29/16 18:47 Dose: 30 ml Ascorbic Acid (Vitamin C -) 250 mg GT BID [facility] Last Admin: 09/29/16 21:37 Dose: 250 mg Azathioprine (Imuran -) 150 mg GT DAILY [facility] Last Admin: 09/29/16 09:54 Dose: 150 mg Bacitracin (Bacitracin -) 1 applic TP DAILY [facility] Last Admin: 09/29/16 09:52 Dose: 1 applic Escitalopram Oxalate (Lexapro Oral Solution -) 10 mg GT DAILY [facility] Last Admin: 09/29/16 11:52 Dose: 10 mg Lactobacillus Acidophilus (Bacid -) 1 tab GT DAILY [facility] Last Admin: 09/29/16 09:52 Dose: 1 tab Lactulose (Cephulac (Oral Use)) 20 gm GT TID PRN PRN Reason: CONSTIPATION Last Admin: 09/29/16 09:52 Dose: 20 gm Levetiracetam (Keppra Oral Solution -) 250 mg GT BID [facility] Last Admin: 09/29/16 21:37 Dose: 250 mg Nystatin (Mycostatin Cream -) 1 applic TP BID [facility] Last Admin: 09/29/16 21:38 Dose: 1 applic Polyethylene Glycol (Miralax (For Daily Use) -) 17 gm PO DAILY [facility] Last Admin: 09/29/16 09:58 Dose: 17 gm Zinc Sulfate (Orazinc -) 220 mg PO DAILY [facility] Last Admin: 09/29/16 09:52 Dose: 220 mg A/P Fecal Impaction Advanced Lewy Body Dementia Atelectasis h/o Aspiration Ulcerative Colitis - f/u cultures - agree with monitoring off antibiotics - aspiration precautions - O2 to keep SpO2 >90% - inhaled bronchodilators - DVT prophylaxis
[2016-09-30] MEDS: POLYETHYLENE GLYCOL 3350 119 GM BTL PO SCH (09:55)
[2016-09-30 13:17] LABS: ERYTHROCYTE SEDIMENTATION RATE 40 mm/hr (0-20)
[2016-09-30 14:05] VITALS: BP 128/83; PULSE 106
== END 2016-09-30 16:40 | disposition home health service (06) | DRG 389 ==
LOC: JER 13:09 → JERBED 17:15 → UNDOADMIN 17:33 → J8W 21:46
PROVIDERS: ADMIT Family Medicine; ATTEND Family Medicine
DX: K56.41 Fecal impaction (principal); K51.80 Other ulcerative colitis without complications; G40.802 Other epilepsy, not intractable, without status epilepticus; E87.2 Acidosis; J98.11 Atelectasis; K62.5 Hemorrhage of anus and rectum; G31.83 Neurocognitive disorder with Lewy bodies; F02.80 Dementia in other diseases classified elsewhere, unspecified severity, without behavioral disturbance, psychotic disturbance, mood disturbance, and anxiety; E86.0 Dehydration; R50.9 Fever, unspecified; N40.1 Benign prostatic hyperplasia with lower urinary tract symptoms; R35.0 Frequency of micturition; K31.84 Gastroparesis; R13.10 Dysphagia, unspecified; D72.829 Elevated white blood cell count, unspecified; E87.6 Hypokalemia; Z93.1 Gastrostomy status
CPT/HCPCS: 36415; 71010-TC; 71250-TC; 74000-TC; 74177-TC; 80048; 80053; 81003; 82272; 83605; 83735; 83880; 84484; 85025; 85027; 85610; 85651; 85730; 86140; 86850; 86900; 86901; 87040; 87077; 87086; 93005; 93010; 94640; 99284-25

== ENCOUNTER 2016-12-02 11:04 | Emergency (ER) | payer OTHER, BC ==
[2016-12-02 11:40] VITALS: BMI 25.1
[2016-12-02 11:44] VITALS: TEMP 97.9
--- NOTE | 2016-12-02 11:50 | PDOC ---
History of Present Illness - History of Present Illness Initial Comments: 12/02/16 11:58 61 y/o M with a PMHx of Alzheimers/dementia, non-verbal at baseline, presents to the ED for a G tube replacement. Per , patient has has blood and purulent drainage at the site of G tube insertion intermittently for the past couple of weeks. Patients also reports recent cough. She also reports patient has a history of constipation. Denies fever, chest pain. No other complaints. <Dasha Guzman - Last Filed: 12/02/16 13:01> <Mickey Muse - Last Filed: 12/02/16 14:41> - General Chief Complaint: G Tube Problem Stated Complaint: G TUBE INFECTION Time Seen by Provider: 12/02/16 11:13 Past History <Dasha Guzman - Last Filed: 12/02/16 13:01> - Past Medical History CVA: No Dementia: Yes (Yes; lewy-body dementia, severe parkinson's) GI Disorders: Yes (colitis) Disorders: Yes (BPH w/ urinary retention) Seizures: Yes - Surgical History Neurologic Surgery: No - Suicide/Smoking/Psychosocial Hx Smoking Status: No Smoking History: Former smoker Have you smoked in the past 12 months: No Number of Cigarettes Smoked Daily: 0 If you are a former smoker, when did you quit?: 50 years ago Information on smoking cessation initiated: No Hx Alcohol Use: No Drug/Substance Use Hx: No Substance Use Type: None Hx Substance Use Treatment: No <Mickey Muse - Last Filed: 12/02/16 14:41> - Past Medical History Allergies/Adverse Reactions: Allergies Allergy/AdvReac Type Severity Reaction Status Date / Time No Known Allergies Allergy Verified 12/02/16 11:18 Home Medications: Ambulatory Orders Albuterol 2.5/Ipratropium 0.5 [Duoneb -] 1 amp NEB QIDR amp 03/19/16 Ascorbic Acid [Vitamin C -] 250 mg GT Q2D 09/22/16 Amino Acids/Protein Hydrolys [Prosource No Carb Liquid Pkt] 30 ml PO BID@0800, 1730 #60 packet 09/30/16 Azathioprine [Imuran -] 150 mg GT DAILY #90 tablet 09/30/16 Bacitracin - [Bacitracin Topical Ointment -] 1 applic TP DAILY #90 tube Lactobacillus Acidophilus [Bacid -] 1 tab GT DAILY #30 tab 09/30/16 Levetiracetam [Keppra Oral Solution -] 250 mg GT BID #1 bottle 09/30/16 Silodosin [Rapaflo] 4 mg GT DAILY 12/02/16 Review of Systems - Review of Systems Comments:: 12/02/16 11:58 A complete review of 10 out of 10 review of systems is taken and is negative apart from what is previously mentioned below and in the HPI. Review of Systems given by , unable to obtain ROS from patient due to dementia. <Dasha Guzman - Last Filed: 12/02/16 13:01> *Physical Exam - Vital Signs Last Vital Signs Temp Pulse Resp BP Pulse Ox 97.9 F 68 20 116/79 97 12/02/16 11:19 12/02/16 11:19 12/02/16 11:19 12/02/16 11:19 12/02/16 11:19 - Physical Exam Comments: 12/02/16 11:59 Vitals: Triage Vital signs reviewed General Appearance: no acute distress, well nourished well developed Head: Atraumatic Neck: Supple; No Nucal rigidity Chest Wall: Nontender Cardiac: Regular rate and rhythm, no murmurs, no rubs, no gallops Lungs: Clear to auscultation bilateral, good air movement bilaterally Abdomen: Soft, non distended, normal bowel sounds, non tender to palpation, G tube in place very slight redness and small amount of leakage around G tube Extremities: Full range of motion to all extremities, no cyanosis, clubbing, or edema Skin: Warm and dry, no rashes or lesions, no rash, no petechiae <Dasha Guzman - Last Filed: 12/02/16 13:01> - Vital Signs Last Vital Signs Temp Pulse Resp BP Pulse Ox 97.9 F 68 20 116/79 97 12/02/16 11:19 12/02/16 11:19 12/02/16 11:19 12/02/16 11:19 12/02/16 11:19 <Mickey Muse - Last Filed: 12/02/16 14:41> ED Treatment Course - RADIOLOGY Radiograph Interpretation: 12/02/16 13:01 Chest X-Ray reported by Dr. Dillon Black Impression: Slight improvement. recent lung markings. <Dasha Guzman - Last Filed: 12/02/16 13:01> - RADIOLOGY Radiology Studies Ordered: Category Date Time Status CXRPORT [CHEST X-RAY PORTABLE*] [RAD] Stat Radiology 12/02/16 11:38 Taken G TUBE REPLACEMENT [RADS] Routine Radiology 12/02/16 11:35 Ordered <Mickey Muse - Last Filed: 12/02/16 14:41> Medical Decision Making - Medical Decision Making 12/02/16 11:59 Plan is Chest Xray to rule out pneumonia. Case discussed with Dr. Kavon Brito , will take to IR suite for G tube exchange. <Dasha Guzman - Last Filed: 12/02/16 13:01> - Medical Decision Making 12/02/16 14:40 Well appearing no apparent distress presents to the emergency department for leakage around G-tube site and a cough. No fever normal vital signs normal respiratory examination Interventional radiology consulted and recommends changing G-tube Reevaluation 2:40 PM G-tube successfully replace chest x-ray were no evidence of acute pathology vital signs stable findings discussed with Findings, the need for follow-up and strict return instructions discussed with . <Mickey Muse - Last Filed: 12/02/16 14:41> *DC/Admit/Observation/Transfer - Attestations Scribe Attestion: 12/02/16 11:59 Documentation prepared by Dasha Guzman, acting as emergency medical tech for Mickey Muse MD. <Dasha Guzman - Last Filed: 12/02/16 13:01> - Discharge Dispostion Admit: No <Mickey Muse - Last Filed: 12/02/16 14:41> Diagnosis at time of Disposition: Gastrostomy tube dependent - Discharge Dispostion Disposition: HOME Condition at time of disposition: Good - Referrals Referrals: Isidro East MD [Primary Care Provider] - - Patient Instructions Additional Instructions: Use G-tube normally. Return to ED for any severe pain severe bleeding any change in behavior or for any concerns otherwise follow up with your doctor within 1 week.
[2016-12-02 15:41] VITALS: BP 136/85; PULSE 94
== END 2016-12-02 16:30 | disposition home or self-care (01) ==
LOC: JER 11:04
PROC: 0D20XUZ Change Feeding Device in Upper Intestinal Tract, External Approach (ICD-10-PCS; principal; 2016-12-02)
DX: K94.23 Gastrostomy malfunction (principal); G20 Parkinson's disease; F02.80 Dementia in other diseases classified elsewhere, unspecified severity, without behavioral disturbance, psychotic disturbance, mood disturbance, and anxiety; G30.8 Other Alzheimer's disease; N40.1 Benign prostatic hyperplasia with lower urinary tract symptoms; R33.8 Other retention of urine; Z87.891 Personal history of nicotine dependence
CPT/HCPCS: 43760; 49450; 71010-TC; 76000-TC; 99282-25

== ENCOUNTER 2018-01-05 00:41 | Inpatient (IN) | payer OTHER, BC ==
--- NOTE | 2018-01-05 00:56 | PDOC ---
History of Present Illness - General Chief Complaint: Seizure Stated Complaint: SEIZURE Time Seen by Provider: 01/05/18 00:56 - History of Present Illness Initial Comments: 61 year old male with significant PMHx of dementia, nonverbal at baseline, post drip colitis, and seizures who presents to the ER after two seizures. EMS was called because the patient was in apparent respiratory distress according to the family. When EMS arrived on scene, he was seizing which eventually self resolved after a few minutes. When they attempted to get access in the ambulance he began seizing again (25 minutes after the first seizure) and was given 5 mg of midazolam which halted his seizures. The family, including Dr. Boss, deny any infectious symptoms at home. His baseline is nonverbal and demented so it is difficult to ascertain if he ever returned to his baseline in between his seizures. He is DNR/ DNI. 01/05/18 01:25 Past History - Past Medical History Allergies/Adverse Reactions: Allergies Allergy/AdvReac Type Severity Reaction Status Date / Time No Known Allergies Allergy Verified 01/05/18 02:22 Home Medications: Ambulatory Orders Ascorbic Acid [Vitamin C -] 250 mg GT Q2D 09/22/16 Amino Acids/Protein Hydrolys [Prosource No Carb Liquid Pkt] 30 ml PO BID@0800, 1730 #60 packet 09/30/16 Azathioprine [Imuran -] 150 mg GT DAILY #90 tablet 09/30/16 Bacitracin - [Bacitracin Topical Ointment -] 1 applic TP DAILY #90 tube Lactobacillus Acidophilus [Bacid -] 1 tab GT DAILY #30 tab 09/30/16 levETIRAcetam [Keppra Oral Solution -] 250 mg GT BID #1 bottle 09/30/16 Silodosin [Rapaflo] 4 mg GT DAILY 12/02/16 CVA: No Dementia: Yes (Yes; lewy-body dementia, severe parkinson's) GI Disorders: Yes (colitis) Disorders: Yes (BPH w/ urinary retention) Seizures: Yes - Surgical History Neurologic Surgery: No - Suicide/Smoking/Psychosocial Hx Smoking Status: No Smoking History: Former smoker Have you smoked in the past 12 months: No Number of Cigarettes Smoked Daily: 0 If you are a former smoker, when did you quit?: 50 years ago Information on smoking cessation initiated: No Hx Alcohol Use: No Drug/Substance Use Hx: No Substance Use Type: None Hx Substance Use Treatment: No Review of Systems - Review of Systems Constitutional: No: Chills, Diaphoresis Respiratory: No: Cough, Orthopnea, Shortness of Breath Cardiac (ROS): No: Edema, Irregular Heart Rate ABD/GI: No: Diarrhea, Nausea : Yes: Incontinence. No: Frequency, Hematuria Integumentary: Yes: Lesions, Other Psychiatric: Yes: Other (demented) Hematologic/Lymphatic: No: Anemia, Blood Clots *Physical Exam - Vital Signs Last Vital Signs Temp Pulse Resp BP Pulse Ox 114 H 16 129/91 94 L 01/05/18 00:50 01/05/18 00:50 01/05/18 00:50 01/05/18 00:50 - Physical Exam General Appearance: Yes: Thin, Other (somnolent). No: Apparent Distress HEENT: positive: EOMI, SHALONDA Neck: positive: Trachea midline, Normal Thyroid, Supple. negative: Tender, Rigid Respiratory/Chest: positive: Lungs Clear, Normal Breath Sounds. negative: Respiratory Distress, Accessory Muscle Use Cardiovascular: positive: Regular Rhythm, Tachycardia Gastrointestinal/Abdominal: positive: Normal Bowel Sounds, Flat, Soft, Other (G tube site C/D/I). negative: Tender Musculoskeletal: positive: Other (slightly contracted) Extremity: positive: Normal Capillary Refill. negative: Normal Inspection, Normal Range of Motion, Tender Integumentary: positive: Normal Color, Dry, Warm, Other (stage 3 left gluteal decub) Neurologic: negative: Fully Oriented, Alert (somnolent), Normal Mood/Affect ( demented) ED Treatment Course - LABORATORY CBC & Chemistry Diagram: 01/05/18 01:25 01/05/18 01:25 Medical Decision Making - Medical Decision Making 01/05/18 04:01 62 year old male with PMH of seizures, UC, and severe dementia, DNR/ DNI presenting with seizure x2. Patient appears stable after midazolam given and his VS have been roughly stable. Labs demonstrate leukocytosis however patient afebrile. CXR is clear, head CT just showing general atrophy, and UA pending. EKG showing rate 92, GA interval 150, QRS 86, QTc 442, normal axis, and no ST/ T wave changes. Unclear cause for seizure, but possibly infectious given white count. Patient signed out to Dr. Dinh pending UA and keppra level. It was decided to place the patient in tele after discussing the case with Dr. Dinh as we both agreed that the patient will need closer monitoring. 01/05/18 04:06 *DC/Admit/Observation/Transfer Diagnosis at time of Disposition: Seizure Leukocytosis Qualifiers: Leukocytosis type: unspecified Qualified Code(s): D72.829 - Elevated white blood cell count, unspecified - Discharge Dispostion Condition at time of disposition: Stable Decision to Admit order: Yes - Referrals - Patient Instructions - Post Discharge Activity
--- NOTE | 2018-01-05 01:15 | PDOC ---
Attending Attestation - Resident Resident Name: CucoAbebereynabalwinder - ED Attending Attestation I have performed the following: I have examined & evaluated the patient, The case was reviewed & discussed with the resident, I agree w/resident's findings & plan, Exceptions are as noted - HPI HPI: 01/05/18 01:54 62M pmh of lewy body dementia, parkinson's, seizure, non-verbal at baseline here after witnessed seizure. Pt returned to baseline prior to EMS arrival then had another seizure, was given IM ativan in the field. - Physicial Exam PE: 01/05/18 04:19 Agree with PE documented by resident - Medical Decision Making 01/05/18 04:19 Patient on Keppra, compliant with witnessed seizure, consider breakthrough 2/2 infectious etiology, intracranial pathology unlikely f/u infectious workup, AED levels imaging Admit to tele for further w/u and monitoring
[2018-01-05 01:39] LABS: BASO % 1.2 % (0-2.0); EOS % 0.5 % (0-4.5); HEMATOCRIT 42.6 % (35.4-49); HEMOGLOBIN 14.8 GM/dL (11.7-16.9); LYMPH % 13.6 % (8-40); MCH 30.3 pg (25.7-33.7); MCHC 34.7 g/dl (32.0-35.9); MEAN CELL VOLUME 87.3 fl (80-96); MEAN PLT VOLUME 8.9 fl (7.5-11.1); MONO % 6.7 % (3.8-10.2); PLATELET COUNT 526 K/MM3 (134-434); RBC 4.88 M/mm3 (4.00-5.60); RDW 14.6 % (11.9-15.9); WHITE BLOOD COUNT 14.7 K/mm3 (4.0-10.0)
[2018-01-05 01:51] LABS: INR 1.25 (0.83-1.09); PROTHROMBIN TIME (PATIENT) 14.8 SEC (9.7-13.0)
[2018-01-05] MEDS ORDERED: ALBUTEROL SO4 2.5/IPRATROPIUM 0.5 INH SOL 3 ML VIAL.NEB. NEB PRN (02:09)
[2018-01-05] MEDS ORDERED: ACETAMINOPHEN 650 MG/20.3 ML ORAL SOLUTION (CUPS) PO PRN (02:09)
[2018-01-05] MEDS ORDERED: LACTULOSE 20 GM/30 ML UDC (FOR RECTAL USE ONLY) PR PRN (02:10)
[2018-01-05] MEDS ORDERED: LACTULOSE 20 GM/30 ML UDC (FOR ORAL USE ONLY) PO PRN (02:10)
[2018-01-05 02:15] LABS: ALBUMIN 3.1 g/dl (3.4-5.0); ALK PHOS 75 U/L (45-117); ANION GAP 8 MMOL/L (8-16); BILIRUBIN,TOTAL 0.9 mg/dL (0.2-1); BLOOD UREA NITROGEN 22 mg/dL (7-18); CALCIUM 8.9 mg/dL (8.5-10.1); CHLORIDE 100 mmol/L (98-107); CO2 28 mmol/L (21-32); CREATININE 0.9 mg/dL (0.55-1.3); GLUCOSE,RANDOM 125 mg/dL (74-106); POTASSIUM 3.8 mmol/L (3.5-5.1); SGOT/AST 16 U/L (15-37); SGPT/ALT 24 U/L (13-61); SODIUM 136 mmol/L (136-145); TOT PROT 7.5 g/dl (6.4-8.2)
[2018-01-05] MEDS: SODIUM CHLORIDE 1,000 ML IV SCH (02:20)
[2018-01-05] MEDS ORDERED: ACETAMINOPHEN 650 MG/20.3 ML ORAL SOLUTION (CUPS) GT PRN (02:21)
[2018-01-05] MEDS ORDERED: LACTULOSE 20 GM/30 ML UDC (FOR ORAL USE ONLY) GT PRN (02:22)
--- NOTE | 2018-01-05 03:41 | HP ---
CHIEF COMPLAINT: seizure PCP: Nasir History obtained from EMR as patient is nonverbal HISTORY OF PRESENT ILLNESS: 61 year old male with significant PMHx of Lewy body dementia, Parkinsonism, UC, nonverbal at baseline, s/p PEG, and seizures presented to ER after seizure episode at home. EMS was called, seizure resolved by time EMS arrived, then started to seize again. Was given 5 mg of midazolam which halted his seizures. The family, including Dr. Boss, deny any infectious symptoms at home. He is DNR/ DNI. ER course was notable for: (1) head CT (2) IV fluid (3) Recent Travel: no PAST MEDICAL HISTORY: dementia, nonverbal at baseline, post drip colitis, and seizures PAST SURGICAL HISTORY: unknown Social History: unknown Family History: unknown Allergies No Known Allergies Allergy (Verified 01/05/18 02:22) HOME MEDICATIONS: Home Medications Medication Instructions Recorded Ascorbic Acid [Vitamin C -] 250 mg GT Q2D 09/22/16 Amino Acids/Protein Hydrolys 30 ml PO BID@0800,1730 #60 packet 09/30/16 [Prosource No Carb Liquid Pkt] Azathioprine [Imuran -] 150 mg GT DAILY #90 tablet 09/30/16 Bacitracin - [Bacitracin Topical 1 applic TP DAILY #90 tube 09/30/16 Ointment -] Lactobacillus Acidophilus [Bacid -] 1 tab GT DAILY #30 tab 09/30/16 levETIRAcetam [Keppra Oral 250 mg GT BID #1 bottle 09/30/16 Solution -] Silodosin [Rapaflo] 4 mg GT DAILY 12/02/16 REVIEW OF SYSTEMS- unable to obtain as patient is nonverbal PHYSICAL EXAMINATION Vital Signs - 24 hr 01/05/18 01/05/18 00:50 01:45 Pulse Rate 114 H Pulse Rate [ 56 L Right Radial] Respiratory 16 16 Rate Blood Pressure 129/91 Blood Pressure 121/82 [Right Arm] O2 Sat by Pulse 94 L 98 Oximetry (%) GENERAL: Awake, alert, does not follow commands HEAD: Normal with no signs of trauma. EYES: Pupils equal, round and reactive to light, extraocular movements intact, sclera anicteric, conjunctiva clear. No lid lag. EARS, NOSE, THROAT: Ears normal, nares patent, oropharynx clear without exudates. Moist mucous membranes. NECK: Normal range of motion, supple without lymphadenopathy, JVD, or masses. LUNGS: Breath sounds equal, clear to auscultation bilaterally. No wheezes, and no crackles. No accessory muscle use. HEART: Regular rate and rhythm, normal S1 and S2 ABDOMEN: Soft, nontender, not distended, normoactive bowel sounds, feeding tube in place UPPER EXTREMITIES: atrophied LOWER EXTREMITIES: atrophied PSYCHIATRIC: uncooperative, nonverbal SKIN: stage 3+ sacral decubitus ulcer- grossly does not appear infected Laboratory Results - last 24 hr 01/05/18 01/05/18 01/05/18 01:25 01:25 01:25 WBC 14.7 H RBC 4.88 Hgb 14.8 Hct 42.6 MCV 87.3 MCH 30.3 MCHC 34.7 RDW 14.6 Plt Count 526 H MPV 8.9 Absolute Neuts (auto) 11.5 H Neutrophils % 78.0 Lymphocytes % 13.6 D Monocytes % 6.7 Eosinophils % 0.5 Basophils % 1.2 Nucleated RBC % 0 PT with INR 14.80 H INR 1.25 H Sodium 136 Potassium 3.8 Chloride 100 Carbon Dioxide 28 Anion Gap 8 BUN 22 H Creatinine 0.9 Creat Clearance w eGFR > 60 Random Glucose 125 H Calcium 8.9 Total Bilirubin 0.9 AST 16 ALT 24 Alkaline Phosphatase 75 Total Protein 7.5 Albumin [address] reviewed EKG reviewed CXR - reviewed ASSESSMENT/PLAN: #Breakthrough seizure episode - head CT without acute insults on [facility] read -telemetry -neurochecks -neuro eval -c/w home dose keppra -f/u official head CT read #Leukocytosis but no focus of infection, likely leukemoid reaction -observe off antibiotics -trend cbc #UC -c/w azathioprine #decubitus ulcer -wound care -dvt ppx -heparin sc #Advanced directives DNR/DNI Visit type - Emergency Visit Emergency Visit: Yes ED Registration Date: 01/05/18 Care time: The patient presented to the Emergency Department on the above date and was hospitalized for further evaluation of their emergent condition. - New Patient This patient is new to me today: Yes Date on this admission: 01/05/18 - Critical Care Critical Care patient: No
[2018-01-05 04:05] LABS: URINE APPEARANCE CLEAR; URINE BILIRUBIN NEGATIVE (<2.0 mg/dL); URINE COLOR DKYELLOW; URINE GLUCOSE (UA) NEGATIVE (NEGATIVE); URINE KETONE NEGATIVE (NEGATIVE); URINE LEUK ESTERASE NEGATIVE (NEGATIVE); URINE NITRITE NEGATIVE (NEGATIVE); URINE PROTEIN 1+ (NEGATIVE); URINE UROBILINOGEN 4.0 E.U/dl mg/dL (0.2-1.0)
[2018-01-05 04:13] LABS: EPI CELLS RARE /HPF (FEW); URINE MUCUS RARE
[2018-01-05] MEDS ORDERED: TAMSULOSIN HCL 0.4 MG CAP PO SCH (08:30)
[2018-01-05 09:27] LABS: HEMATOCRIT 44.2 % (35.4-49); HEMOGLOBIN 14.3 GM/dL (11.7-16.9); MCH 28.7 pg (25.7-33.7); MCHC 32.4 g/dl (32.0-35.9); MEAN CELL VOLUME 88.6 fl (80-96); MEAN PLT VOLUME 8.8 fl (7.5-11.1); PLATELET COUNT 509 K/MM3 (134-434); RBC 4.99 M/mm3 (4.00-5.60); RDW 14.9 % (11.9-15.9); WHITE BLOOD COUNT 13.3 K/mm3 (4.0-10.0)
[2018-01-05 09:45] LABS: ALBUMIN 3.2 g/dl (3.4-5.0); ALK PHOS 73 U/L (45-117); ANION GAP 11 MMOL/L (8-16); BILIRUBIN,TOTAL 1.2 mg/dL (0.2-1); BLOOD UREA NITROGEN 22 mg/dL (7-18); CALCIUM 8.8 mg/dL (8.5-10.1); CHLORIDE 102 mmol/L (98-107); CO2 26 mmol/L (21-32); CREATININE 0.8 mg/dL (0.55-1.3); GLUCOSE,RANDOM 118 mg/dL (74-106); MAGNESIUM 2.4 mg/dL (1.8-2.4); SGOT/AST 15 U/L (15-37); SGPT/ALT 23 U/L (13-61); SODIUM 139 mmol/L (136-145); TOT PROT 7.4 g/dl (6.4-8.2)
[2018-01-05] MEDS: AMINO ACIDS/PROTEIN HYDROLYS 30 ML LIQUID.PKT GT SCH ×2 (10:14→17:53)
[2018-01-05] MEDS: azaTHIOprine 50 MG TABLET GT SCH (10:14)
[2018-01-05] MEDS: LACTOBACILLUS ACIDOPHILUS 1 TABLET GT SCH (10:14)
[2018-01-05] MEDS: HEPARIN NA (PORCINE) 5,000 UNITS/ML 1ML VIAL SQ SCH ×2 (10:14→22:00)
[2018-01-05] MEDS: RANITIDINE HCL 150 MG/10 ML UNIT-DOSE GT SCH ×2 (10:14→22:00)
[2018-01-05] MEDS: levETIRAcetam 500 MG/5 ML ORAL SOLUTION (UNIT-DOSE CUPS) GT SCH ×2 (10:14→22:08)
[2018-01-05] MEDS ORDERED: RANITIDINE HCL 150 MG TABLET (FP) ONE (10:40)
--- NOTE | 2018-01-05 11:42 | PN ---
Progress Note (short form) - Note Progress Note: PULMONARY CONSULTATION DICTATED 01/05/18 IMP RECURRENT SEIZURES LEWY BODY DEMENTIA H/O ASPIRATION PNEUMONIA PARKINSONS S/P PEG COLITIS H/O CVA PLAN SEIZURE MEDS PER NEUROLOGY ASPIRATION PRECAUTIONS O2 INHALED BRONCHODILATORS F/U CHEST X-RAY DVT PROPHYLAXIS DR MANCILLA Problem List - Problems (1) BPH (benign prostatic hypertrophy) Code(s): N40.0 - BENIGN PROSTATIC HYPERPLASIA WITHOUT LOWER URINRY TRACT SYMP Qualifiers: Lower urinary tract symptom presence: symptoms present Qualified Code(s): N40.1 - Benign prostatic hyperplasia with lower urinary tract symptoms (2) CVA (cerebrovascular accident) Code(s): I63.9 - CEREBRAL INFARCTION, UNSPECIFIED (3) Colitis Code(s): K52.9 - NONINFECTIVE GASTROENTERITIS AND COLITIS, UNSPECIFIED (4) Dementia Code(s): F03.90 - UNSPECIFIED DEMENTIA WITHOUT BEHAVIORAL DISTURBANCE (5) Gastrostomy tube dependent Code(s): Z93.1 - GASTROSTOMY STATUS (6) History of ulcerative colitis Code(s): Z87.19 - PERSONAL HISTORY OF OTHER DISEASES OF THE DIGESTIVE SYSTEM (7) Leukocytosis Code(s): D72.829 - ELEVATED WHITE BLOOD CELL COUNT, UNSPECIFIED (8) Lewy body dementia Code(s): G31.83 - DEMENTIA WITH LEWY BODIES; F02.80 - DEMENTIA IN OTH DISEASES CLASSD ELSWHR W/O BEHAVRL DISTURB (9) Parkinson disease Code(s): G20 - PARKINSON'S DISEASE (10) Quadriplegia Code(s): G82.50 - QUADRIPLEGIA, UNSPECIFIED (11) Seizure disorder Code(s): G40.909 - EPILEPSY, UNSP, NOT INTRACTABLE, WITHOUT STATUS EPILEPTICUS
--- NOTE | 2018-01-05 11:55 | PN ---
Progress Note, Physician - Current Medication List Current Medications: Active Medications Acetaminophen (Tylenol Oral Solution -) 650 mg GT Q6H PRN PRN Reason: PAIN OR FEVER Albuterol/Ipratropium (Duoneb -) 1 amp NEB Q6H PRN PRN Reason: SHORTNESS OF BREATH Amino Acids (Prosource No Carb Liquid Pkt) 30 ml GT BID@0800,1730 [facility] Last Admin: 01/05/18 10:14 Dose: 30 ml Ascorbic Acid (Vitamin C Oral Solution -) 250 mg GT DAILY [facility] Azathioprine (Imuran -) 150 mg GT DAILY [facility] Last Admin: 01/05/18 10:14 Dose: 150 mg Collagenase (Santyl -) 1 applic TP DAILY [facility]; Protocol Heparin Sodium (Porcine) (Heparin -) 5,000 unit SQ BID [facility] Last Admin: 01/05/18 10:14 Dose: 5,000 unit Sodium Chloride (Normal Saline -) 1,000 mls @ 75 mls/hr IV ASDIR [facility] Last Admin: 01/05/18 02:20 Dose: 75 mls/hr Lactobacillus Acidophilus (Bacid -) 1 tab GT DAILY [facility] Last Admin: 01/05/18 10:14 Dose: 1 tab Lactulose (Cephulac (Rectal Use)) 200 gm PA PRN PRN PRN Reason: CONSTIPATION Lactulose (Cephulac (Oral Use)) 20 gm GT TID PRN PRN Reason: CONSTIPATION Levetiracetam (Keppra Oral Solution -) 250 mg GT BID [facility] Last Admin: 01/05/18 10:14 Dose: 250 mg Ranitidine HCl (Zantac Oral Solution -) 150 mg GT BID [facility] Last Admin: 01/05/18 10:14 Dose: 150 mg - Objective Vital Signs: Vital Signs Temperature 99.0 F 01/05/18 04:00 Pulse Rate 85 01/05/18 10:59 Respiratory Rate 16 01/05/18 10:59 Blood Pressure 117/85 01/05/18 10:59 O2 Sat by Pulse Oximetry (%) 98 01/05/18 10:59 Cardiovascular: Yes: Regular Rate and Rhythm Respiratory: Yes: Regular, CTA Bilaterally Gastrointestinal: Yes: Normal Bowel Sounds, Soft Neurological: Yes: Pre-Existing Deficit, Other (twitching) Labs: CBC, BMP 01/05/18 09:12 01/05/18 09:12 INR, PTT INR 1.25 (0.83-1.09) H 01/05/18 01:25 Problem List - Problems (1) Seizure disorder Assessment/Plan: -Continue with home meds -Neuro consult -Follow labs Code(s): G40.909 - EPILEPSY, UNSP, NOT INTRACTABLE, WITHOUT STATUS EPILEPTICUS (2) Leukocytosis Assessment/Plan: -Maybe due to leukomoid reaction -Urine and cxr no evidence of infection -Id consult Code(s): D72.829 - ELEVATED WHITE BLOOD CELL COUNT, UNSPECIFIED (3) Parkinson disease Code(s): G20 - PARKINSON'S DISEASE (4) BPH (benign prostatic hypertrophy) Assessment/Plan: -Rapaflo Code(s): N40.0 - BENIGN PROSTATIC HYPERPLASIA WITHOUT LOWER URINRY TRACT SYMP Qualifiers: Lower urinary tract symptom presence: symptoms present Qualified Code(s): N40.1 - Benign prostatic hyperplasia with lower urinary tract symptoms (5) Colitis Assessment/Plan: -Imuran Code(s): K52.9 - NONINFECTIVE GASTROENTERITIS AND COLITIS, UNSPECIFIED
--- NOTE | 2018-01-05 11:55 | CONS ---
DATE OF CONSULTATION: 01/05/2018 REFERRING PHYSICIAN: Saranya Best MD HISTORY OF PRESENT ILLNESS: The patient is a 62-year-old white male known to me from previous hospitalization, past medical history of Lewy body dementia, Parkinson, ulcerative colitis, nonverbal, status post PEG, history of aspiration pneumonia, seizure disorder, transferred to [facility] secondary to seizure episode at home. EMS was called. Patient apparently developed a seizure at home. By the time they arrived the seizure resolved and then he started to seize again. He was given 5 mg of midazolam which stopped the seizures. There was no history of recent fever, chest congestion or recent infectious process. PAST MEDICAL HISTORY: Again incudes seizure disorder, Lewy body dementia, Parkinson disease, ulcerative colitis, status post PEG, recurrent aspiration, aspiration pneumonia. CURRENT MEDICATIONS: Include lactulose; Tylenol; heparin; Keppra; Bacid; Duo-Neb; normal saline; Zantac; Imuran; Prosource; Santyl; and vitamin C. REVIEW OF SYSTEMS: Unable to obtain. PHYSICAL EXAMINATION: General: The patient is a well-developed, well-nourished male, awake, nonverbal, currently in no acute distress. Vital Signs: He is currently afebrile, blood pressure is 117/85, respiratory rate is 16, O2 saturation is 98% on 2 L. HEENT: Normocephalic, atraumatic. Neck: Supple. Heart: Irregular, S1, S2. Chest: Diminished breath sounds bilaterally. Abdomen: Soft. Bowel sounds positive. Extremities: No cyanosis or edema. LABORATORIES: WBC is 13.3, hemoglobin 14.3, hematocrit 44.2 with a platelet count of 509,000. INR is 1.25. BUN 22, creatinine 0.8, bilirubin is 1.2. UA: Protein 1+, 1+ heme. Chest x-ray: Poor inspiratory effort but no definitive infiltrates or effusions. IMPRESSION: 1. Recurrent seizures. 2. Lewy body dementia. 3. History of aspiration pneumonia. 4. Parkinson. 5. Ulcerative colitis. PLAN: Continue seizure medications as current patient medication. Neurology consultation. Aspiration precautions. Supplemental O2. Inhaled bronchodilators. DVT prophylaxis. Thank you. RAVINDER MANCILLA M.D. HOSSEIN/[id number]
[2018-01-05] MEDS ORDERED: PT OWN MED DRAWER 7, Y5N ONE (21:56)
[2018-01-06 07:56] LABS: BASO % 0.6 % (0-2.0); EOS % 1.6 % (0-4.5); HEMATOCRIT 37.8 % (35.4-49); HEMOGLOBIN 12.5 GM/dL (11.7-16.9); LYMPH % 21.9 % (8-40); MCH 29.4 pg (25.7-33.7); MEAN PLT VOLUME 9.1 fl (7.5-11.1); MONO % 7.7 % (3.8-10.2); NEUT % 68.2 % (42.8-82.8); PLATELET COUNT 425 K/MM3 (134-434); RBC 4.25 M/mm3 (4.00-5.60); RDW 14.5 % (11.9-15.9); WHITE BLOOD COUNT 10.1 K/mm3 (4.0-10.0)
[2018-01-06 08:19] LABS: ALBUMIN 2.6 g/dl (3.4-5.0); ALK PHOS 61 U/L (45-117); ANION GAP 5 MMOL/L (8-16); BLOOD UREA NITROGEN 20 mg/dL (7-18); CALCIUM 8.2 mg/dL (8.5-10.1); CHLORIDE 104 mmol/L (98-107); CO2 31 mmol/L (21-32); CREATININE 0.9 mg/dL (0.55-1.3); GLUCOSE,RANDOM 93 mg/dL (74-106); POTASSIUM 4.1 mmol/L (3.5-5.1); SGOT/AST 19 U/L (15-37); SGPT/ALT 21 U/L (13-61); SODIUM 139 mmol/L (136-145); TOT PROT 6.2 g/dl (6.4-8.2)
--- NOTE | 2018-01-06 10:08 | PN ---
Progress Note, Physician History of Present Illness: noted with twitching - Current Medication List Current Medications: Active Medications Acetaminophen (Tylenol Oral Solution -) 650 mg GT Q6H PRN PRN Reason: PAIN OR FEVER Albuterol/Ipratropium (Duoneb -) 1 amp NEB Q6H PRN PRN Reason: SHORTNESS OF BREATH Amino Acids (Prosource No Carb Liquid Pkt) 30 ml GT BID@0800,1730 [facility] Last Admin: 01/05/18 17:53 Dose: 30 ml Ascorbic Acid (Vitamin C Oral Solution -) 250 mg GT DAILY [facility] Azathioprine (Imuran -) 150 mg GT DAILY [facility] Last Admin: 01/05/18 10:14 Dose: 150 mg Collagenase (Santyl -) 1 applic TP DAILY [facility]; Protocol Heparin Sodium (Porcine) (Heparin -) 5,000 unit SQ BID [facility] Last Admin: 01/05/18 22:00 Dose: 5,000 unit Sodium Chloride (Normal Saline -) 1,000 mls @ 75 mls/hr IV ASDIR [facility] Last Admin: 01/05/18 02:20 Dose: 75 mls/hr Lactobacillus Acidophilus (Bacid -) 1 tab GT DAILY [facility] Last Admin: 01/05/18 10:14 Dose: 1 tab Lactulose (Cephulac (Rectal Use)) 200 gm TN PRN PRN PRN Reason: CONSTIPATION Lactulose (Cephulac (Oral Use)) 20 gm GT TID PRN PRN Reason: CONSTIPATION Levetiracetam (Keppra Oral Solution -) 250 mg GT BID [facility] Last Admin: 01/05/18 22:08 Dose: 250 mg Non-Formulary Medication (Silodosin [Rapaflo]) 4 mg GT DAILY [facility] Ranitidine HCl (Zantac Oral Solution -) 150 mg GT BID [facility] Last Admin: 01/05/18 22:00 Dose: 150 mg - Objective Vital Signs: Vital Signs Temperature 98.7 F 01/06/18 06:00 Pulse Rate 82 01/06/18 06:00 Respiratory Rate 18 01/06/18 06:00 Blood Pressure 127/70 01/06/18 06:00 O2 Sat by Pulse Oximetry (%) 98 01/05/18 21:00 Cardiovascular: Yes: S1, S2 Respiratory: Yes: Regular, CTA Bilaterally Gastrointestinal: Yes: Normal Bowel Sounds, Soft Neurological: Yes: Pre-Existing Deficit, Other (twitching) Labs: CBC, BMP 01/06/18 06:40 01/06/18 06:40 INR, PTT INR 1.25 (0.83-1.09) H 01/05/18 01:25 Problem List - Problems (1) Seizure disorder Assessment/Plan: -Continue with home meds -Neuro consult -Follow labs -No further seizure reported Code(s): G40.909 - EPILEPSY, UNSP, NOT INTRACTABLE, WITHOUT STATUS EPILEPTICUS (2) Leukocytosis Assessment/Plan: -Maybe due to leukomoid reaction -Urine and cxr no evidence of infection -Id consult Laboratory Tests 01/05/18 01/05/18 01/06/18 01:25 09:12 06:40 WBC 14.7 H 13.3 H 10.1 H Code(s): D72.829 - ELEVATED WHITE BLOOD CELL COUNT, UNSPECIFIED (3) Parkinson disease Code(s): G20 - PARKINSON'S DISEASE (4) BPH (benign prostatic hypertrophy) Assessment/Plan: -Rapaflo Code(s): N40.0 - BENIGN PROSTATIC HYPERPLASIA WITHOUT LOWER URINRY TRACT SYMP Qualifiers: Lower urinary tract symptom presence: symptoms present (5) Colitis Assessment/Plan: -Imuran Code(s): K52.9 - NONINFECTIVE GASTROENTERITIS AND COLITIS, UNSPECIFIED (6) Nutritional assessment Assessment/Plan: start feeding---will check on type Code(s): Z00.8 - ENCOUNTER FOR OTHER GENERAL EXAMINATION
--- NOTE | 2018-01-06 10:10 | EKG ---
Test Reason : Blood Pressure : / mmHG Vent. Rate : 105 BPM Atrial Rate : 105 BPM P-R Int : 162 ms QRS Dur : 082 ms QT Int : 340 ms P-R-T Axes : 037 -25 -05 degrees QTc Int : 449 ms SINUS TACHYCARDIA MINIMAL VOLTAGE CRITERIA FOR LVH, MAY BE NORMAL VARIANT Confirmed by MICKEY CAMPOS MD ([id number]) on 01/06/2018 10:09:25 AM Referred By: Confirmed By:MICKEY CAMPOS MD
[2018-01-06] MEDS ORDERED: PT OWN MED DRAWER 7, Y5N ONE ×2 (10:53→21:25)
[2018-01-06] MEDS: RANITIDINE HCL 150 MG/10 ML UNIT-DOSE GT SCH ×2 (10:57→22:29)
[2018-01-06] MEDS: AMINO ACIDS/PROTEIN HYDROLYS 30 ML LIQUID.PKT GT SCH ×2 (10:57→17:16)
[2018-01-06] MEDS: HEPARIN NA (PORCINE) 5,000 UNITS/ML 1ML VIAL SQ SCH ×2 (10:57→22:29)
[2018-01-06] MEDS: LACTOBACILLUS ACIDOPHILUS 1 TABLET GT SCH (10:57)
[2018-01-06] MEDS: levETIRAcetam 500 MG/5 ML ORAL SOLUTION (UNIT-DOSE CUPS) GT SCH ×2 (10:58→22:29)
[2018-01-06] MEDS: azaTHIOprine 50 MG TABLET GT SCH (10:58)
[2018-01-06] MEDS: ASCORBIC ACID 500 MG/5 ML UNIT DOSE CUP GT SCH (11:00)
--- NOTE | 2018-01-06 11:37 | PN ---
Progress Note (short form) - Note Progress Note: PULMONARY VSS/AFEBRILE APPEARS AT BASELINE ANICTERIC DIMINISHED BUT CLEAR B/L BREATH SOUNDS S1S2 PEG NO EDEMA CBC/CHEM/RADIOGRAPH/MEDS/NOTES REVIEWED IMP RECURRENT SEIZURES LEWY BODY DEMENTIA H/O ASPIRATION PNEUMONIA PARKINSONS S/P PEG COLITIS H/O CVA PLAN SEIZURE MEDS PER NEURO/CHECK LEVEL PENDING ASPIRATION PRECAUTIONS O2 INHALED BRONCHODILATORS TOLERATED F/U CHEST X-RAY DVT PROPHYLAXIS Adam AUSTIN MD
--- NOTE | 2018-01-06 11:37 | CONSULT ---
Consult Consult Specialty:: general surgery Reason for Consultation:: decibitus ulcers - History of Present Illness Chief Complaint: seizures History of Present Illness: 61yo male with PMH dementia, non-verbal at baseline, post drip colitis, and seizures who presents to the ER after two seizures. EMS was called because the patient was in apparent respiratory distress according to the family. When EMS arrived on scene, he was seizing which eventually self resolved after a few minutes. When they attempted to get access in the ambulance he began seizing again (25 minutes after the first seizure) and was given 5 mg of midazolam which halted his seizures. The family, including Dr. Boss, deny any infectious symptoms at home. He is DNR/ DNI. We were called to assess his decubitus ulcers which are long standing. 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 Gastrointestinal: Yes: Ulcerative Colitis Musculoskeletal: Yes: Other (HISTORY IF B/L HIP FRACTURES) - Alcohol/Substance Use Hx Alcohol Use: No - Smoking History Smoking history: Former smoker Have you smoked in the past 12 months: No Aproximately how many cigarettes per day: 0 If you are a former smoker, when did you quit?: 50 years ago - Social History ADL: Support Services Home Medications - Allergies Allergies/Adverse Reactions: Allergies Allergy/AdvReac Type Severity Reaction Status Date / Time No Known Allergies Allergy Verified 01/05/18 02:22 - Home Medications Home Medications: Ambulatory Orders Ascorbic Acid [Vitamin C -] 250 mg GT Q2D 09/22/16 Amino Acids/Protein Hydrolys [Prosource No Carb Liquid Pkt] 30 ml PO BID@0800, 1730 #60 packet 09/30/16 Azathioprine [Imuran -] 150 mg GT DAILY #90 tablet 09/30/16 Bacitracin - [Bacitracin Topical Ointment -] 1 applic TP DAILY #90 tube Lactobacillus Acidophilus [Bacid -] 1 tab GT DAILY #30 tab 09/30/16 levETIRAcetam [Keppra Oral Solution -] 250 mg GT BID #1 bottle 09/30/16 Silodosin [Rapaflo] 4 mg GT DAILY 12/02/16 Review of Systems - Review of Systems Constitutional: denies: Chills, Fever Eyes: denies: Double Vision, Photophobia HENT: denies: Difficult Swallowing, Throat Pain Cardiovascular: denies: Chest Pain, Palpitations Respiratory: denies: Cough, SOB Gastrointestinal: denies: Abdominal Pain, Constipation, Diarrhea Genitourinary: denies: Discharge, Dysuria Breasts: reports: No Symptoms Reported. denies: Pain Musculoskeletal: reports: Muscle Weakness. denies: Back Pain Integumentary: denies: Erythema, Rash Neurological: reports: Seizure, Tremors, Weakness. denies: Syncope Endocrine: denies: Unexplained Weight Gain, Unexplained Weight Loss Hematology/Lymphatic: denies: Easily Bruised, Excessive Bleeding Psychiatric: denies: Anxiety, Depression Physical Exam Vital Signs: Vital Signs Temperature 98.7 F 01/06/18 06:00 Pulse Rate 82 01/06/18 06:00 Respiratory Rate 18 01/06/18 06:00 Blood Pressure 127/70 01/06/18 06:00 O2 Sat by Pulse Oximetry (%) 98 01/05/18 21:00 Constitutional: Yes: Well Nourished, No Distress, Calm, Thin Eyes: Yes: Conjunctiva Clear, EOM Intact HENT: Yes: Atraumatic, Normocephalic Neck: Yes: Supple, Trachea Midline Cardiovascular: Yes: Regular Rate and Rhythm, S1, S2 Respiratory: Yes: Regular, CTA Bilaterally Gastrointestinal: Yes: Normal Bowel Sounds, Soft, Other (PEG LUQ). No: Ascites , Distention, Tenderness Renal/: No: CVA Tenderness - Left, CVA Tenderness - Right Breast(s): Yes: Gynecomastia. No: Mass Musculoskeletal: Yes: Joint Stiffness, Muscle Weakness Extremities: Yes: Other (contracted). No: Cool, Cyanosis Integumentary: Yes: Pressure Ulcer (Left ischial ulcer 2X2cm wih heaped up hypertropic dermis rim, coverd in collagenase center of granulation. explored locally no undermining, no darinage, no flutuance. Sacral ulcer shallow ulcer in dermis) Wound/Incision: Yes: Clean/Dry, Well Approximated. No: Draining, Reddened, Bleeding Neurological: Yes: Alert, Oriented, Seizure, Tremors, Other (non-verbal) Psychiatric: Yes: Alert, Oriented Labs: CBC, BMP 01/06/18 06:40 01/06/18 06:40 Imaging - Results EKG: Report Reviewed, Image Reviewed Problem List - Problems (1) Pressure injury of left perineal ischial region, stage 2 Assessment/Plan: 62yo with MMP and pressure ulcers secondary to being immobile. left ischial pressure ulcer, stage 2 and sacral pressure ulcer, stage 1 - neither appears to be grossly acutely infected. No indication for surgical intervention. f/u deep wound culture - left ischial ulcer pressure relief q2 hours optimize nutrition local wound care skin protectant onall skin left ischial ulcer - santyl on the ulcer will follow peripherally Thank you for the opportunity to participate in the care of this patient. Code(s): L89.322 - PRESSURE ULCER OF LEFT BUTTOCK, STAGE 2 (2) Decubitus ulcer, stage 1 Code(s): L89.91 - PRESSURE ULCER OF UNSPECIFIED SITE, STAGE 1 Qualifiers: Pressure injury location: sacral region Qualified Code(s): L89.151 - Pressure ulcer of sacral region, stage 1 (3) CVA (cerebrovascular accident) Code(s): I63.9 - CEREBRAL INFARCTION, UNSPECIFIED (4) Constipation Code(s): K59.00 - CONSTIPATION, UNSPECIFIED Qualifiers: Constipation type: unspecified constipation type Qualified Code(s): K59.00 - Constipation, unspecified (5) Dehydration Code(s): E86.0 - DEHYDRATION (6) Gastroparesis Code(s): K31.84 - GASTROPARESIS (7) Parkinson disease Code(s): G20 - PARKINSON'S DISEASE (8) Quadriplegia Code(s): G82.50 - QUADRIPLEGIA, UNSPECIFIED (9) Seizure disorder Code(s): G40.909 - EPILEPSY, UNSP, NOT INTRACTABLE, WITHOUT STATUS EPILEPTICUS
--- NOTE | 2018-01-06 12:13 | CON.ID ---
Consult Consult Specialty:: infectious disease Referred by:: giuliana Reason for Consultation:: leukocytosis. 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: Dementia, Parkinson's, Seizure Pulmonary: Yes: Pneumonia (aspiration in the past) Gastrointestinal: Yes: Ulcerative Colitis Musculoskeletal: Yes: Other (HISTORY IF B/L HIP FRACTURES) - Past Surgical History Additional Surgical History: gtube - Alcohol/Substance Use Hx Alcohol Use: No - Smoking History Smoking history: Former smoker Have you smoked in the past 12 months: No Aproximately how many cigarettes per day: 0 If you are a former smoker, when did you quit?: 50 years ago - Social History Usual Living Arrangement: With Spouse ADL: Family Assistance History of Recent Travel: No Home Medications - Allergies Allergies/Adverse Reactions: Allergies Allergy/AdvReac Type Severity Reaction Status Date / Time No Known Allergies Allergy Verified 01/05/18 02:22 - Home Medications Home Medications: Ambulatory Orders Ascorbic Acid [Vitamin C -] 250 mg GT Q2D 09/22/16 Amino Acids/Protein Hydrolys [Prosource No Carb Liquid Pkt] 30 ml PO BID@0800, 1730 #60 packet 09/30/16 Azathioprine [Imuran -] 150 mg GT DAILY #90 tablet 09/30/16 Bacitracin - [Bacitracin Topical Ointment -] 1 applic TP DAILY #90 tube Lactobacillus Acidophilus [Bacid -] 1 tab GT DAILY #30 tab 09/30/16 levETIRAcetam [Keppra Oral Solution -] 250 mg GT BID #1 bottle 09/30/16 Silodosin [Rapaflo] 4 mg GT DAILY 12/02/16 Family Disease History - Family Disease History Family History: Unable to Obtain Review of Systems Unable to obtain ROS, reason: unable to obtain - Review of Systems Constitutional: reports: No Symptoms. denies: Chills, Fever Physical Exam Vital Signs: Vital Signs Temperature 98.7 F 01/06/18 06:00 Pulse Rate 82 01/06/18 06:00 Respiratory Rate 18 01/06/18 06:00 Blood Pressure 127/70 01/06/18 06:00 O2 Sat by Pulse Oximetry (%) 98 01/05/18 21:00 Constitutional: Yes: Well Nourished, No Distress, Calm Eyes: Yes: Conjunctiva Clear HENT: Yes: Atraumatic, Normocephalic Cardiovascular: Yes: Regular Rate and Rhythm Respiratory: Yes: CTA Bilaterally Gastrointestinal: Yes: Normal Bowel Sounds, Soft, Other (+GT) Extremities: Yes: WNL Edema: No Wound/Incision: Yes: Other (left buttock stage 2 ulcer- 1 cm, no drainage sacrum with stage 1 erythema, no drainage) Labs: CBC, BMP 01/06/18 06:40 01/06/18 06:40 Microbiology 01/05/18 03:40 Urine - Urine - Catheterized Urine Culture - Final NO GROWTH OBTAINED 01/05/18 01:25 Blood - Peripheral Venous Blood Culture - Preliminary NO GROWTH OBTAINED AFTER 24 HOURS, INCUBATION TO CONTINUE FOR 4 DAYS. 01/05/18 01:20 Blood - Peripheral Venous Blood Culture - Preliminary NO GROWTH OBTAINED AFTER 24 HOURS, INCUBATION TO CONTINUE FOR 4 DAYS. Imaging - Results Chest X-ray: Report Reviewed, Image Reviewed Cat Scan: Report Reviewed Problem List - Problems (1) Leukocytosis Code(s): D72.829 - ELEVATED WHITE BLOOD CELL COUNT, UNSPECIFIED (2) Seizure disorder Code(s): G40.909 - EPILEPSY, UNSP, NOT INTRACTABLE, WITHOUT STATUS EPILEPTICUS (3) Lewy body dementia Code(s): G31.83 - DEMENTIA WITH LEWY BODIES; F02.80 - DEMENTIA IN OTH DISEASES CLASSD ELSWHR W/O BEHAVRL DISTURB Assessment/Plan suspect leukocytosis secondary to seizures, ?breakthrough? cultures negative would continue to observe off antiibotics
[2018-01-06] MEDS: SODIUM CHLORIDE 1,000 ML IV SCH (12:17)
--- NOTE | 2018-01-06 14:06 | CONSULT ---
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 Maintained at home by his family but has developed contractures and decubitae. On: Ascorbic Acid; Amino Acids/Protein; Azathioprine 150 mg GT; Bacitracin; levETIRAcetam 250 mg GT BID; and Rapaflo. Now admitted with recurrent seizures. Keppra level pending. Dr. Marks's consultation read and appreciated. Being observed off antibiotics. CT of head (reviewed): Severe, diffuse atrophy with ex vacuo hydrocephalus. No acute changes. YOBANY: Stage 2 ischial decubitae. No bruits. No head trauma. Contractures both knees. NEURO: Awake, staring. Follows no commands/no speech. ++ GLabella, snout CN: Blinks to threat all ambrosio. Motor: Rigid tone, Symmetrically. Withdraws all 4's to pinch. Diffuse myoclonic jerks. Normal [employer]. Areflexic in legs. B/L Babinskis. Coord: impossible to test Sensory: Grimaces and withdraws. IMP: Severe B/L cerebral dysfunction (OMS/chronic) C/W advanced Alzheimers or LBD. SUGGEST: R/O occult infection. Await blood and wound cultures Increase levetiracetam to 500 mg Elixor q 12 hrs. Thank you very much, Tee Macias MD
[2018-01-06] MEDS: ALBUTEROL SO4 2.5/IPRATROPIUM 0.5 INH SOL 3 ML VIAL.NEB. NEB SCH ×2 (15:05→20:20)
[2018-01-06] MEDS: COLLAGENASE CLOSTRIDIUM HIST. 30 GRAMS TUBE TP SCH (17:15)
[2018-01-07] MEDS: ALBUTEROL SO4 2.5/IPRATROPIUM 0.5 INH SOL 3 ML VIAL.NEB. NEB SCH ×3 (08:43→20:51)
--- NOTE | 2018-01-07 10:18 | PN ---
Progress Note, Physician History of Present Illness: noted with twitching - Current Medication List Current Medications: Active Medications Acetaminophen (Tylenol Oral Solution -) 650 mg GT Q6H PRN PRN Reason: PAIN OR FEVER Albuterol/Ipratropium (Duoneb -) 1 amp NEB RTID [facility] Last Admin: 01/07/18 08:43 Dose: 1 amp Amino Acids (Prosource No Carb Liquid Pkt) 30 ml GT BID@0800,1730 [facility] Last Admin: 01/06/18 17:16 Dose: 30 ml Ascorbic Acid (Vitamin C Oral Solution -) 250 mg GT DAILY [facility] Last Admin: 01/06/18 11:00 Dose: 250 mg Azathioprine (Imuran -) 150 mg GT DAILY [facility] Last Admin: 01/06/18 10:58 Dose: 150 mg Collagenase (Santyl -) 1 applic TP DAILY [facility]; Protocol Last Admin: 01/06/18 17:15 Dose: 1 applic Heparin Sodium (Porcine) (Heparin -) 5,000 unit SQ BID [facility] Last Admin: 01/06/18 22:29 Dose: 5,000 unit Sodium Chloride (Normal Saline -) 1,000 mls @ 75 mls/hr IV ASDIR [facility] Last Admin: 01/06/18 12:17 Dose: Not Given Lactobacillus Acidophilus (Bacid -) 1 tab GT DAILY [facility] Last Admin: 01/06/18 10:57 Dose: 1 tab Lactulose (Cephulac (Rectal Use)) 200 gm ND PRN PRN PRN Reason: CONSTIPATION Lactulose (Cephulac (Oral Use)) 20 gm GT TID PRN PRN Reason: CONSTIPATION Levetiracetam (Keppra Oral Solution -) 500 mg GT BID [facility] Last Admin: 01/06/18 22:29 Dose: 500 mg Non-Formulary Medication (Silodosin [Rapaflo]) 4 mg GT DAILY [facility] Ranitidine HCl (Zantac Oral Solution -) 150 mg GT BID [facility] Last Admin: 01/06/18 22:29 Dose: 150 mg - Objective Vital Signs: Vital Signs Temperature 98.4 F 01/07/18 07:54 Pulse Rate 77 01/07/18 07:54 Respiratory Rate 20 01/07/18 07:54 Blood Pressure 112/79 01/07/18 07:54 O2 Sat by Pulse Oximetry (%) 98 01/06/18 09:00 Cardiovascular: Yes: S1, S2 Respiratory: Yes: Regular, CTA Bilaterally Gastrointestinal: Yes: Normal Bowel Sounds, Soft Neurological: Yes: Other (twitching) Labs: CBC, BMP 01/06/18 06:40 01/06/18 06:40 INR, PTT INR 1.25 (0.83-1.09) H 01/05/18 01:25 Problem List - Problems (1) Seizure disorder Assessment/Plan: -Continue with home meds -Neuro consult noted--meds adjusted -Follow labs -No further seizure reported Code(s): G40.909 - EPILEPSY, UNSP, NOT INTRACTABLE, WITHOUT STATUS EPILEPTICUS (2) Leukocytosis Assessment/Plan: -Maybe due to leukomoid reaction -Urine and cxr no evidence of infection -Id consult Laboratory Tests 01/05/18 01/05/18 01/06/18 01:25 09:12 06:40 WBC 14.7 H 13.3 H 10.1 H Microbiology 01/06/18 14:13 Gram Stain - Final Buttock - Left Wound Culture - Preliminary Non Lactose Fermenting Gnb Non Lactose Fermenting Gnb#2 Lactose Fermenting Neg Bacilli Pending Organism Pending Organism#2 01/05/18 01:25 Blood Culture - Preliminary Blood - Peripheral Venous NO GROWTH OBTAINED AFTER 48 HOURS, INCUBATION TO CONTINUE FOR 3 DAYS. 01/05/18 01:20 Blood Culture - Preliminary Blood - Peripheral Venous NO GROWTH OBTAINED AFTER 48 HOURS, INCUBATION TO CONTINUE FOR 3 DAYS. 01/05/18 03:40 Urine Culture - Final Urine - Urine - Catheterized NO GROWTH OBTAINED Code(s): D72.829 - ELEVATED WHITE BLOOD CELL COUNT, UNSPECIFIED (3) Parkinson disease Code(s): G20 - PARKINSON'S DISEASE (4) BPH (benign prostatic hypertrophy) Assessment/Plan: -Rapaflo Code(s): N40.0 - BENIGN PROSTATIC HYPERPLASIA WITHOUT LOWER URINRY TRACT SYMP Qualifiers: Lower urinary tract symptom presence: symptoms present (5) Colitis Assessment/Plan: -Imuran Code(s): K52.9 - NONINFECTIVE GASTROENTERITIS AND COLITIS, UNSPECIFIED (6) Nutritional assessment Assessment/Plan: start feeding---will check on type Code(s): Z00.8 - ENCOUNTER FOR OTHER GENERAL EXAMINATION
[2018-01-07] MEDS ORDERED: PT OWN MED DRAWER 7, Y5N ONE ×2 (10:28→21:10)
[2018-01-07] MEDS: AMINO ACIDS/PROTEIN HYDROLYS 30 ML LIQUID.PKT GT SCH ×2 (10:37→18:26)
[2018-01-07] MEDS: RANITIDINE HCL 150 MG/10 ML UNIT-DOSE GT SCH ×2 (10:37→21:19)
[2018-01-07] MEDS: HEPARIN NA (PORCINE) 5,000 UNITS/ML 1ML VIAL SQ SCH ×2 (10:38→21:19)
[2018-01-07] MEDS: LACTOBACILLUS ACIDOPHILUS 1 TABLET GT SCH (10:38)
[2018-01-07] MEDS: ASCORBIC ACID 500 MG/5 ML UNIT DOSE CUP GT SCH (10:38)
[2018-01-07] MEDS: levETIRAcetam 500 MG/5 ML ORAL SOLUTION (UNIT-DOSE CUPS) GT SCH ×2 (10:39→21:19)
[2018-01-07] MEDS: SODIUM CHLORIDE 1,000 ML IV SCH ×2 (10:39→23:32)
[2018-01-07] MEDS: azaTHIOprine 50 MG TABLET GT SCH (10:39)
--- NOTE | 2018-01-07 11:43 | PN ---
Progress Note (short form) - Note Progress Note: PULMONARY Per family at bedside, pt at baseline. No fevers recorded. Vital Signs Period Temp Pulse Resp BP Sys/Martinez Pulse Ox Last 24 Hr 98.0 F-99.3 F 77-82 18-20 105-112/65-79 Gen: occasional twitching Heart: RRR Lung: decreased breath sounds at the bases Abd: soft, nontender Ext: no edema CBC, BMP 01/06/18 06:40 01/06/18 06:40 Active Medications Acetaminophen (Tylenol Oral Solution -) 650 mg GT Q6H PRN PRN Reason: PAIN OR FEVER Albuterol/Ipratropium (Duoneb -) 1 amp NEB RTID [facility] Last Admin: 01/07/18 08:43 Dose: 1 amp Amino Acids (Prosource No Carb Liquid Pkt) 30 ml GT BID@0800,1730 [facility] Last Admin: 01/07/18 10:37 Dose: 30 ml Ascorbic Acid (Vitamin C Oral Solution -) 250 mg GT DAILY [facility] Last Admin: 01/07/18 10:38 Dose: 250 mg Azathioprine (Imuran -) 150 mg GT DAILY [facility] Last Admin: 01/07/18 10:39 Dose: 150 mg Collagenase (Santyl -) 1 applic TP DAILY [facility]; Protocol Last Admin: 01/06/18 17:15 Dose: 1 applic Heparin Sodium (Porcine) (Heparin -) 5,000 unit SQ BID [facility] Last Admin: 01/07/18 10:38 Dose: 5,000 unit Sodium Chloride (Normal Saline -) 1,000 mls @ 75 mls/hr IV ASDIR [facility] Last Admin: 01/07/18 10:39 Dose: 75 mls/hr Lactobacillus Acidophilus (Bacid -) 1 tab GT DAILY [facility] Last Admin: 01/07/18 10:38 Dose: 1 tab Lactulose (Cephulac (Rectal Use)) 200 gm [place] PRN PRN PRN Reason: CONSTIPATION Lactulose (Cephulac (Oral Use)) 20 gm GT TID PRN PRN Reason: CONSTIPATION Levetiracetam (Keppra Oral Solution -) 500 mg GT BID [facility] Last Admin: 01/07/18 10:39 Dose: 500 mg Non-Formulary Medication (Silodosin [Rapaflo]) 4 mg GT DAILY [facility] Ranitidine HCl (Zantac Oral Solution -) 150 mg GT BID [facility] Last Admin: 01/07/18 10:37 Dose: 150 mg A/P Recurrent Seizures Lewy Body Dementia Parkinsons h/o CVA - antiepileptics per neuro - aspiration precautions - enteral feeds - DVT prophylaxis
[2018-01-07] MEDS: COLLAGENASE CLOSTRIDIUM HIST. 30 GRAMS TUBE TP SCH (13:28)
[2018-01-07 16:12] VITALS: BMI 25.9
[2018-01-07] MEDS: BACITRACIN 15 GM TUBE TOPICAL OINTMENT TP SCH (18:26)
[2018-01-07] MEDS ORDERED: PATIENT'S OWN MEDICATION (NON-FORMULARY) (Silodosin [Rapaflo] 8 MG) GT SCH (19:45)
[2018-01-08] MEDS ORDERED: PT OWN MED DRAWER 7, Y5N ONE ×3 (04:55→20:44)
[2018-01-08] MEDS: ALBUTEROL SO4 2.5/IPRATROPIUM 0.5 INH SOL 3 ML VIAL.NEB. NEB SCH ×3 (07:46→20:23)
[2018-01-08 08:44] LABS: BASO % 0.6 % (0-2.0); EOS % 2.9 % (0-4.5); HEMATOCRIT 39.6 % (35.4-49); HEMOGLOBIN 12.9 GM/dL (11.7-16.9); LYMPH % 23.3 % (8-40); MCH 29.1 pg (25.7-33.7); MCHC 32.6 g/dl (32.0-35.9); MEAN CELL VOLUME 89.2 fl (80-96); MONO % 7.5 % (3.8-10.2); NEUT % 65.7 % (42.8-82.8); PLATELET COUNT 445 K/MM3 (134-434); RBC 4.44 M/mm3 (4.00-5.60); RDW 14.5 % (11.9-15.9); WHITE BLOOD COUNT 8.6 K/mm3 (4.0-10.0)
--- NOTE | 2018-01-08 08:46 | PN ---
Progress Note, Physician - Current Medication List Current Medications: Active Medications Acetaminophen (Tylenol Oral Solution -) 650 mg GT Q6H PRN PRN Reason: PAIN OR FEVER Albuterol/Ipratropium (Duoneb -) 1 amp NEB RTID [facility] Last Admin: 01/08/18 07:46 Dose: 1 amp Amino Acids (Prosource No Carb Liquid Pkt) 30 ml GT BID@0800,1730 [facility] Last Admin: 01/07/18 18:26 Dose: 30 ml Ascorbic Acid (Vitamin C Oral Solution -) 250 mg GT DAILY [facility] Last Admin: 01/07/18 10:38 Dose: 250 mg Azathioprine (Imuran -) 150 mg GT DAILY [facility] Last Admin: 01/07/18 10:39 Dose: 150 mg Bacitracin (Bacitracin -) 1 applic TP DAILY [facility] Last Admin: 01/07/18 18:26 Dose: 1 applic Collagenase (Santyl -) 1 applic TP DAILY [facility]; Protocol Last Admin: 01/07/18 13:28 Dose: 1 applic Heparin Sodium (Porcine) (Heparin -) 5,000 unit SQ BID [facility] Last Admin: 01/07/18 21:19 Dose: 5,000 unit Sodium Chloride (Normal Saline -) 1,000 mls @ 75 mls/hr IV ASDIR [facility] Last Admin: 01/07/18 23:32 Dose: 75 mls/hr Lactobacillus Acidophilus (Bacid -) 1 tab GT DAILY [facility] Last Admin: 01/07/18 10:38 Dose: 1 tab Lactulose (Cephulac (Rectal Use)) 200 gm MS PRN PRN PRN Reason: CONSTIPATION Lactulose (Cephulac (Oral Use)) 20 gm GT TID PRN PRN Reason: CONSTIPATION Levetiracetam (Keppra Oral Solution -) 500 mg GT BID [facility] Last Admin: 01/07/18 21:19 Dose: 500 mg Patient's Own Medication (Non- Formulary) ( Silodosin [Rapaflo] 8 Mg) 0 mg GT DAILY [facility] Ranitidine HCl (Zantac Oral Solution -) 150 mg GT BID [facility] Last Admin: 01/07/18 21:19 Dose: 150 mg - Objective Vital Signs: Vital Signs Temperature 99.1 F 01/08/18 06:09 Pulse Rate 74 01/08/18 06:09 Respiratory Rate 20 01/08/18 06:09 Blood Pressure 101/64 01/08/18 06:09 O2 Sat by Pulse Oximetry (%) 98 01/07/18 20:20 Cardiovascular: Yes: Regular Rate and Rhythm Respiratory: Yes: Regular, CTA Bilaterally Gastrointestinal: Yes: Normal Bowel Sounds, Soft Neurological: No: Tremors Labs: INR, PTT INR 1.25 (0.83-1.09) H 01/05/18 01:25 Problem List - Problems (1) Seizure disorder Assessment/Plan: -Continue with home meds -Neuro consult noted--meds adjusted -Follow labs -No further seizure reported Code(s): G40.909 - EPILEPSY, UNSP, NOT INTRACTABLE, WITHOUT STATUS EPILEPTICUS (2) Leukocytosis Assessment/Plan: -Maybe due to leukomoid reaction -Urine and cxr no evidence of infection -Id consult Laboratory Tests 01/05/18 01/05/18 01/06/18 01:25 09:12 06:40 WBC 14.7 H 13.3 H 10.1 H Microbiology 01/06/18 14:13 Gram Stain - Final Buttock - Left Wound Culture - Preliminary Non Lactose Fermenting Gnb Non Lactose Fermenting Gnb#2 Lactose Fermenting Neg Bacilli Pending Organism Pending Organism#2 01/05/18 01:25 Blood Culture - Preliminary Blood - Peripheral Venous NO GROWTH OBTAINED AFTER 48 HOURS, INCUBATION TO CONTINUE FOR 3 DAYS. 01/05/18 01:20 Blood Culture - Preliminary Blood - Peripheral Venous NO GROWTH OBTAINED AFTER 48 HOURS, INCUBATION TO CONTINUE FOR 3 DAYS. 01/05/18 03:40 Urine Culture - Final Urine - Urine - Catheterized NO GROWTH OBTAINED Code(s): D72.829 - ELEVATED WHITE BLOOD CELL COUNT, UNSPECIFIED (3) Parkinson disease Code(s): G20 - PARKINSON'S DISEASE (4) BPH (benign prostatic hypertrophy) Assessment/Plan: -Rapaflo Code(s): N40.0 - BENIGN PROSTATIC HYPERPLASIA WITHOUT LOWER URINRY TRACT SYMP Qualifiers: Lower urinary tract symptom presence: symptoms present (5) Colitis Assessment/Plan: -Imuran Code(s): K52.9 - NONINFECTIVE GASTROENTERITIS AND COLITIS, UNSPECIFIED (6) Nutritional assessment Assessment/Plan: start feeding---will check on type
[2018-01-08 09:15] LABS: ALBUMIN 2.8 g/dl (3.4-5.0); ALK PHOS 68 U/L (45-117); ANION GAP 9 MMOL/L (8-16); BILIRUBIN,TOTAL 0.5 mg/dL (0.2-1); BLOOD UREA NITROGEN 12 mg/dL (7-18); CALCIUM 8.5 mg/dL (8.5-10.1); CHLORIDE 105 mmol/L (98-107); CO2 29 mmol/L (21-32); CREATININE 0.8 mg/dL (0.55-1.3); GLUCOSE,RANDOM 95 mg/dL (74-106); POTASSIUM 3.8 mmol/L (3.5-5.1); SGOT/AST 19 U/L (15-37); SGPT/ALT 23 U/L (13-61); SODIUM 143 mmol/L (136-145); TOT PROT 6.5 g/dl (6.4-8.2)
[2018-01-08] MEDS: HEPARIN NA (PORCINE) 5,000 UNITS/ML 1ML VIAL SQ SCH ×2 (10:51→20:59)
[2018-01-08] MEDS: RANITIDINE HCL 150 MG/10 ML UNIT-DOSE GT SCH ×2 (10:51→20:59)
[2018-01-08] MEDS: AMINO ACIDS/PROTEIN HYDROLYS 30 ML LIQUID.PKT GT SCH ×2 (10:51→17:26)
[2018-01-08] MEDS: levETIRAcetam 500 MG/5 ML ORAL SOLUTION (UNIT-DOSE CUPS) GT SCH ×2 (10:52→20:59)
[2018-01-08] MEDS: ASCORBIC ACID 500 MG/5 ML UNIT DOSE CUP GT SCH (10:52)
[2018-01-08] MEDS: PATIENT'S OWN MEDICATION (NON-FORMULARY) (Silodosin [Rapaflo] 8 MG) GT SCH (10:53)
[2018-01-08] MEDS: azaTHIOprine 50 MG TABLET GT SCH (10:53)
[2018-01-08] MEDS: LACTOBACILLUS ACIDOPHILUS 1 TABLET GT SCH (10:56)
[2018-01-08] MEDS: SODIUM CHLORIDE 1,000 ML IV SCH (11:02)
[2018-01-08] MEDS: BACITRACIN 15 GM TUBE TOPICAL OINTMENT TP SCH (11:03)
[2018-01-08] MEDS: COLLAGENASE CLOSTRIDIUM HIST. 30 GRAMS TUBE TP SCH (11:04)
--- NOTE | 2018-01-08 13:00 | PN ---
Progress Note (short form) - Note Progress Note: PULMONARY Appears comfortable. No fevers recorded. Vital Signs Period Temp Pulse Resp BP Sys/Martinez Pulse Ox Last 24 Hr 98.2 F-99.4 F 74-94 18-20 101-146/64-97 98 Gen: occasional twitching Heart: RRR Lung: decreased breath sounds at the bases Abd: soft, nontender Ext: no edema CBC, BMP 01/08/18 07:40 01/08/18 07:40 Active Medications Acetaminophen (Tylenol Oral Solution -) 650 mg GT Q6H PRN PRN Reason: PAIN OR FEVER Albuterol/Ipratropium (Duoneb -) 1 amp NEB RTID [facility] Last Admin: 01/08/18 07:46 Dose: 1 amp Amino Acids (Prosource No Carb Liquid Pkt) 30 ml GT BID@0800,1730 [facility] Last Admin: 01/08/18 10:51 Dose: 30 ml Ascorbic Acid (Vitamin C Oral Solution -) 250 mg GT DAILY [facility] Last Admin: 01/08/18 10:52 Dose: 250 mg Azathioprine (Imuran -) 150 mg GT DAILY [facility] Last Admin: 01/08/18 10:53 Dose: 150 mg Bacitracin (Bacitracin -) 1 applic TP DAILY [facility] Last Admin: 01/08/18 11:03 Dose: 1 applic Collagenase (Santyl -) 1 applic TP DAILY [facility]; Protocol Last Admin: 01/08/18 11:04 Dose: 1 applic Heparin Sodium (Porcine) (Heparin -) 5,000 unit SQ BID [facility] Last Admin: 01/08/18 10:51 Dose: 5,000 unit Sodium Chloride (Normal Saline -) 1,000 mls @ 75 mls/hr IV ASDIR [facility] Last Admin: 01/08/18 11:02 Dose: 75 mls/hr Lactobacillus Acidophilus (Bacid -) 1 tab GT DAILY [facility] Last Admin: 01/08/18 10:56 Dose: 1 tab Lactulose (Cephulac (Rectal Use)) 200 gm [place] PRN PRN PRN Reason: CONSTIPATION Lactulose (Cephulac (Oral Use)) 20 gm GT TID PRN PRN Reason: CONSTIPATION Levetiracetam (Keppra Oral Solution -) 500 mg GT BID [facility] Last Admin: 01/08/18 10:52 Dose: 500 mg Patient's Own Medication (Non- Formulary) ( Silodosin [Rapaflo] 8 Mg) 0 mg GT DAILY [facility] Last Admin: 01/08/18 10:53 Dose: 1 mg Ranitidine HCl (Zantac Oral Solution -) 150 mg GT BID [facility] Last Admin: 01/08/18 10:51 Dose: 150 mg A/P Recurrent Seizures Lewy Body Dementia Parkinsons h/o CVA - antiepileptics per neuro - aspiration precautions - enteral feeds - DVT prophylaxis
[2018-01-09] MEDS: SODIUM CHLORIDE 1,000 ML IV SCH ×2 (00:45→16:39)
[2018-01-09] MEDS: ALBUTEROL SO4 2.5/IPRATROPIUM 0.5 INH SOL 3 ML VIAL.NEB. NEB SCH ×3 (07:15→20:27)
[2018-01-09] MEDS: AMINO ACIDS/PROTEIN HYDROLYS 30 ML LIQUID.PKT GT SCH ×2 (08:14→16:39)
--- NOTE | 2018-01-09 09:30 | PN ---
Progress Note, Physician Chief Complaint: PATIENT IN BED REVIEWED NOTES AND EVENTS PATIENT WITH FREQUENT ASPIRATIONS WITH DYSPHAGIA PATIENT WITH MULTIPLE DECUBITI ULCERS CHRONICALLY TREATING WITH OFFLOADING AND TURNING. WILL NEED AIR MATTRESS AT HOME - Current Medication List Current Medications: Active Medications Acetaminophen (Tylenol Oral Solution -) 650 mg GT Q6H PRN PRN Reason: PAIN OR FEVER Albuterol/Ipratropium (Duoneb -) [address] [facility] Last Admin: 01/09/18 07:15 Dose: 1 amp Amino Acids (Prosource No Carb Liquid Pkt) 30 ml GT BID@0800,1730 [facility] Last Admin: 01/09/18 08:14 Dose: 30 ml Ascorbic Acid (Vitamin C Oral Solution -) [address] [facility] Last Admin: 01/08/18 10:52 Dose: 250 mg Azathioprine (Imuran -) [address] [facility] Last Admin: 01/08/18 10:53 Dose: 150 mg Bacitracin (Bacitracin -) [address] [facility] Last Admin: 01/08/18 11:03 Dose: 1 applic Collagenase (Santyl -) [address] [facility]; Protocol Last Admin: 01/08/18 11:04 Dose: 1 applic Heparin Sodium (Porcine) (Heparin -) 5,[address] [facility] Last Admin: 01/08/18 20:59 Dose: 5,000 unit Sodium Chloride (Normal Saline -) 1,000 mls @ 75 mls/hr IV ASDIR [facility] Last Admin: 01/09/18 00:45 Dose: 75 mls/hr Lactobacillus Acidophilus (Bacid -) [address] [facility] Last Admin: 01/08/18 10:56 Dose: 1 tab Lactulose (Cephulac (Rectal Use)) 200 gm [place] PRN PRN PRN Reason: CONSTIPATION Lactulose (Cephulac (Oral Use)) 20 gm GT TID PRN PRN Reason: CONSTIPATION Levetiracetam (Keppra Oral Solution -) [address] [facility] Last Admin: 01/08/18 20:59 Dose: 500 mg Patient's Own Medication (Non- Formulary) ( Silodosin [Rapaflo] 8 Mg) [address] [facility] Last Admin: 01/08/18 10:53 Dose: 1 mg Ranitidine HCl (Zantac Oral Solution -) [address] [facility] Last Admin: 01/08/18 20:59 Dose: 150 mg - Objective Vital Signs: Vital Signs Temperature 98.4 F 01/09/18 06:38 Pulse Rate 77 01/09/18 06:38 Respiratory Rate 16 01/09/18 06:38 Blood Pressure 156/92 01/09/18 06:38 O2 Sat by Pulse Oximetry (%) 95 01/08/18 23:03 Constitutional: Yes: Mild Distress Eyes: Yes: Other HENT: Yes: Other Neck: Yes: WNL Cardiovascular: Yes: Regular Rate and Rhythm Respiratory: Yes: On Nasal O2, Rhonchi Gastrointestinal: Yes: Distention (SOFT. GTUBE IN PLACE), Other Genitourinary: Yes: Incontinence Musculoskeletal: Yes: Joint Stiffness, Muscle Weakness Extremities: Yes: Other (CONTRACTED) Edema: No Integumentary: Yes: Pressure Ulcer, Skin Tear, Other Wound/Incision: Yes: Dressing Dry and Intact (STAGE 2-3 SACRAL ULCERS) ...Motor Strength: LLE, RLE Psychiatric: Yes: Other Labs: CBC, BMP 01/08/18 07:40 01/08/18 07:40 INR, PTT INR 1.25 (0.83-1.09) H 01/05/18 01:25 Problem List - Problems (1) Functional quadriplegia Code(s): R53.2 - FUNCTIONAL QUADRIPLEGIA (2) Nutritional assessment Code(s): Z00.8 - ENCOUNTER FOR OTHER GENERAL EXAMINATION (3) Pressure injury of left perineal ischial region, stage 2 Code(s): L89.322 - PRESSURE ULCER OF LEFT BUTTOCK, STAGE 2 (4) Aspiration pneumonia Code(s): J69.0 - PNEUMONITIS DUE TO INHALATION OF FOOD AND VOMIT (5) BPH (benign prostatic hypertrophy) Code(s): N40.0 - BENIGN PROSTATIC HYPERPLASIA WITHOUT LOWER URINRY TRACT SYMP Qualifiers: Lower urinary tract symptom presence: symptoms present (6) Colitis Code(s): K52.9 - NONINFECTIVE GASTROENTERITIS AND COLITIS, UNSPECIFIED (7) Dysphagia Code(s): R13.10 - DYSPHAGIA, UNSPECIFIED (8) History of ulcerative colitis Code(s): Z87.19 - PERSONAL HISTORY OF OTHER DISEASES OF THE DIGESTIVE SYSTEM (9) Lewy body dementia Code(s): G31.83 - DEMENTIA WITH LEWY BODIES; F02.80 - DEMENTIA IN OTH DISEASES CLASSD ELSWHR W/O BEHAVRL DISTURB (10) Quadriplegia Code(s): G82.50 - QUADRIPLEGIA, UNSPECIFIED Assessment/Plan PATIENT WILL NEED ORAL SUCTIONING 4 X DAY AIR MATTRESS TO HELP AND AVOID DECUBITI ULCERS WOUND CARE ON [place] LABS REVIEWED SIEZURE PRECATIONS RESTART FEEDS GT
[2018-01-09] MEDS ORDERED: PT OWN MED DRAWER 7, Y5N ONE ×4 (09:32→20:36)
[2018-01-09] MEDS: HEPARIN NA (PORCINE) 5,000 UNITS/ML 1ML VIAL SQ SCH ×2 (09:33→21:10)
[2018-01-09] MEDS: PATIENT'S OWN MEDICATION (NON-FORMULARY) (Silodosin [Rapaflo] 8 MG) GT SCH (09:33)
[2018-01-09] MEDS: LACTOBACILLUS ACIDOPHILUS 1 TABLET GT SCH (09:33)
[2018-01-09] MEDS: levETIRAcetam 500 MG/5 ML ORAL SOLUTION (UNIT-DOSE CUPS) GT SCH ×2 (09:33→21:10)
[2018-01-09] MEDS: RANITIDINE HCL 150 MG/10 ML UNIT-DOSE GT SCH ×2 (09:33→21:10)
[2018-01-09] MEDS: azaTHIOprine 50 MG TABLET GT SCH (09:34)
--- NOTE | 2018-01-09 10:10 | PN ---
Progress Note (short form) - Note Progress Note: Appears comfortable on RA. No fevers recorded. Intake & Output 01/06/18 01/07/18 01/08/18 01/09/18 23:59 23:59 23:59 23:59 Intake Total 1430 0 1210 1860 Balance 1430 2059 1210 1860 Weight 176 lb Last Vital Signs Temp Pulse Resp BP Pulse Ox 98.4 F 77 16 156/92 95 01/09/18 06:38 01/09/18 06:38 01/09/18 06:38 01/09/18 06:38 01/08/18 23:03 Active Medications Acetaminophen (Tylenol Oral Solution -) 650 mg GT Q6H PRN PRN Reason: PAIN OR FEVER Albuterol/Ipratropium (Duoneb -) 1 amp NEB RTID [facility] Last Admin: 01/09/18 07:15 Dose: 1 amp Amino Acids (Prosource No Carb Liquid Pkt) 30 ml GT BID@0800,1730 [facility] Last Admin: 01/09/18 08:14 Dose: 30 ml Ascorbic Acid (Vitamin C Oral Solution -) 250 mg GT DAILY [facility] Last Admin: 01/08/18 10:52 Dose: 250 mg Azathioprine (Imuran -) 150 mg GT DAILY [facility] Last Admin: 01/09/18 09:34 Dose: 150 mg Bacitracin (Bacitracin -) 1 applic TP DAILY [facility] Last Admin: 01/08/18 11:03 Dose: 1 applic Collagenase (Santyl -) 1 applic TP DAILY [facility]; Protocol Last Admin: 01/08/18 11:04 Dose: 1 applic Heparin Sodium (Porcine) (Heparin -) 5,000 unit SQ BID [facility] Last Admin: 01/09/18 09:33 Dose: 5,000 unit Sodium Chloride (Normal Saline -) 1,000 mls @ 75 mls/hr IV ASDIR [facility] Last Admin: 01/09/18 00:45 Dose: 75 mls/hr Lactobacillus Acidophilus (Bacid -) 1 tab GT DAILY [facility] Last Admin: 01/09/18 09:33 Dose: 1 tab Lactulose (Cephulac (Rectal Use)) 200 gm [place] PRN PRN PRN Reason: CONSTIPATION Lactulose (Cephulac (Oral Use)) 20 gm GT TID PRN PRN Reason: CONSTIPATION Levetiracetam (Keppra Oral Solution -) 500 mg GT BID [facility] Last Admin: 01/09/18 09:33 Dose: 500 mg Patient's Own Medication (Non- Formulary) ( Silodosin [Rapaflo] 8 Mg) 0 mg GT DAILY [facility] Last Admin: 01/09/18:33 Dose: 1 mg Ranitidine HCl (Zantac Oral Solution -) 150 mg GT BID [facility] Last Admin: 01/09/18:33 Dose: 150 mg Gen: occasional twitching Heart: RRR Lung: decreased breath sounds at the bases, few basilar rhonchi Abd: soft, nontender Ext: no edema A/P Recurrent Seizures Lewy Body Dementia Parkinsons h/o CVA - antiepileptics per neuro - aspiration precautions - enteral feeds - DVT prophylaxis Dr Vitale
[2018-01-09] MEDS: BACITRACIN 15 GM TUBE TOPICAL OINTMENT TP SCH (10:33)
[2018-01-09] MEDS: COLLAGENASE CLOSTRIDIUM HIST. 30 GRAMS TUBE TP SCH (10:33)
[2018-01-09] MEDS: ASCORBIC ACID 500 MG/5 ML UNIT DOSE CUP GT SCH (11:24)
[2018-01-10] MEDS: ALBUTEROL SO4 2.5/IPRATROPIUM 0.5 INH SOL 3 ML VIAL.NEB. NEB SCH (08:51)
[2018-01-10] MEDS: AMINO ACIDS/PROTEIN HYDROLYS 30 ML LIQUID.PKT GT SCH (09:51)
[2018-01-10] MEDS: LACTOBACILLUS ACIDOPHILUS 1 TABLET GT SCH (09:51)
[2018-01-10] MEDS: azaTHIOprine 50 MG TABLET GT SCH (09:52)
[2018-01-10] MEDS: BACITRACIN 15 GM TUBE TOPICAL OINTMENT TP SCH (09:52)
[2018-01-10] MEDS: HEPARIN NA (PORCINE) 5,000 UNITS/ML 1ML VIAL SQ SCH (09:52)
[2018-01-10] MEDS: ASCORBIC ACID 500 MG/5 ML UNIT DOSE CUP GT SCH (09:53)
[2018-01-10] MEDS: PATIENT'S OWN MEDICATION (NON-FORMULARY) (Silodosin [Rapaflo] 8 MG) GT SCH (09:53)
[2018-01-10] MEDS: levETIRAcetam 500 MG/5 ML ORAL SOLUTION (UNIT-DOSE CUPS) GT SCH (09:54)
[2018-01-10] MEDS: RANITIDINE HCL 150 MG/10 ML UNIT-DOSE GT SCH (09:55)
[2018-01-10] MEDS: COLLAGENASE CLOSTRIDIUM HIST. 30 GRAMS TUBE TP SCH (09:55)
[2018-01-10] MEDS ORDERED: PT OWN MED DRAWER 7, Y5N ONE ×2 (10:29→14:06)
--- NOTE | 2018-01-10 11:42 | PN ---
Progress Note (short form) - Note Progress Note: Appears comfortable on RA. No fevers recorded. No acute events overnight. Intake & Output 01/07/18 01/08/18 01/09/18 01/10/18 23:59 23:59 23:59 23:59 Intake Total 2059 1210 4020 0 Balance 2059 1210 4020 0 Weight 176 lb Last Vital Signs Temp Pulse Resp BP Pulse Ox 98.7 F 71 20 128/73 96 01/10/18 06:00 01/10/18 06:00 01/10/18 06:00 01/10/18 06:00 01/09/18 21:00 Active Medications Acetaminophen (Tylenol Oral Solution -) 650 mg GT Q6H PRN PRN Reason: PAIN OR FEVER Albuterol/Ipratropium (Duoneb -) 1 amp NEB RTID [facility] Last Admin: 01/10/18 08:51 Dose: 1 amp Amino Acids (Prosource No Carb Liquid Pkt) 30 ml GT BID@0800,1730 [facility] Last Admin: 01/10/18 09:51 Dose: 30 ml Ascorbic Acid (Vitamin C Oral Solution -) 250 mg GT DAILY [facility] Last Admin: 01/10/18 09:53 Dose: 250 mg Azathioprine (Imuran -) 150 mg GT DAILY [facility] Last Admin: 01/10/18 09:52 Dose: 150 mg Bacitracin (Bacitracin -) 1 applic TP DAILY [facility] Last Admin: 01/10/18 09:52 Dose: 1 applic Collagenase (Santyl -) 1 applic TP DAILY [facility]; Protocol Last Admin: 01/10/18 09:55 Dose: 1 applic Heparin Sodium (Porcine) (Heparin -) 5,000 unit SQ BID [facility] Last Admin: 01/10/18 09:52 Dose: 5,000 unit Sodium Chloride (Normal Saline -) 1,000 mls @ 75 mls/hr IV ASDIR [facility] Last Admin: 01/09/18 16:39 Dose: 75 mls/hr Lactobacillus Acidophilus (Bacid -) 1 tab GT DAILY [facility] Last Admin: 01/10/18 09:51 Dose: 1 tab Lactulose (Cephulac (Rectal Use)) 200 gm [place] PRN PRN PRN Reason: CONSTIPATION Lactulose (Cephulac (Oral Use)) 20 gm GT TID PRN PRN Reason: CONSTIPATION Levetiracetam (Keppra Oral Solution -) 500 mg GT BID [facility] Last Admin: 01/10/18 09:54 Dose: 500 mg Patient's Own Medication (Non- Formulary) ( Silodosin [Rapaflo] 8 Mg) 0 mg GT DAILY [facility] Last Admin: 01/10/18 09:53 Dose: 8 mg Ranitidine HCl (Zantac Oral Solution -) 150 mg GT BID [facility] Last Admin: 01/10/18 09:55 Dose: 150 mg Gen: occasional twitching Heart: RRR Lung: decreased breath sounds at the bases, few basilar rhonchi Abd: soft, nontender Ext: no edema A/P Recurrent Seizures Lewy Body Dementia Parkinsons h/o CVA - antiepileptics per neuro - aspiration precautions - enteral feeds - DVT prophylaxis Dr Vitale
--- NOTE | 2018-01-10 12:55 | DS ---
Physical Examination Vital Signs: Vital Signs Temperature 98.7 F 01/10/18 06:00 Pulse Rate 71 01/10/18 06:00 Respiratory Rate 20 01/10/18 06:00 Blood Pressure 128/73 01/10/18 06:00 O2 Sat by Pulse Oximetry (%) 96 01/09/18 21:00 Constitutional: Yes: No Distress Cardiovascular: Yes: Regular Rate and Rhythm Respiratory: Yes: Regular Gastrointestinal: Yes: Other (GT) Renal/: Yes: Incontinence Extremities: Yes: Deformity Integumentary: Yes: Other Neurological: Yes: Pre-Existing Deficit, Unresponsive Labs: CBC, BMP 01/08/18 07:40 01/08/18 07:40 Discharge Summary Reason For Visit: SEIZURE DISORDER Current Active Problems Decubitus ulcer, stage 1 (Acute) Functional quadriplegia (Acute) Nutritional assessment (Acute) Pressure injury of left perineal ischial region, stage 2 (Acute) Procedures: Principal: CT SCAN HEAD Hospital Course: ADMITTED ASPIRATION, SEIZURE, CHECKED WOUND CULTURES, BLOOD CULTURES, NEURO WORKUP, ID F/U Condition: Guarded - Instructions Diet, Activity, Other Instructions: GTUBE 50CC HOUR JEVITY Disposition: VNS/HOME HEALTH CARE - Home Medications Comprehensive Discharge Medication List: Ambulatory Orders Ascorbic Acid [Vitamin C -] 250 mg GT Q2D 09/22/16 Amino Acids/Protein Hydrolys [Prosource No Carb Liquid Pkt] 30 ml PO BID@0800, 1730 #60 packet 09/30/16 Azathioprine [Imuran -] 150 mg GT DAILY #90 tablet 09/30/16 Bacitracin - [Bacitracin Topical Ointment -] 1 applic TP DAILY #90 tube Lactobacillus Acidophilus [Bacid -] 1 tab GT DAILY #30 tab 09/30/16 Silodosin [Rapaflo] 8 mg GT DAILY 12/02/16 Albuterol 2.5/Ipratropium 0.5 [Duoneb -] 1 amp NEB RTID amp 01/10/18 Amino Acids/Protein Hydrolys [Prosource No Carb Liquid Pkt] 30 ml GT BID@0800, 1730 #60 packet 01/10/18 Azathioprine [Imuran -] 150 mg GT DAILY tablet 01/10/18 Bacitracin - [Bacitracin Topical Ointment -] 1 applic TP DAILY tube 01/10/18 Collagenase Clostridium Hist. [Santyl -] 1 applic TP DAILY #90 tube 01/10/18 Lactobacillus Acidophilus [Bacid -] 1 tab GT DAILY tab 01/10/18 Lactulose (Oral Use) [Cephulac -] 20 gm GT TID PRN udc 01/10/18 Ranitidine Oral Solution [Zantac Oral Solution -] 150 mg GT BID #600 cup levETIRAcetam [Keppra Oral Solution -] 500 mg GT BID 90 Days #900 cup 01/10/18
[2018-01-10 15:22] VITALS: BP 124/66; PULSE 76; TEMP 98
--- NOTE | 2018-01-10 15:56 | PN ---
Progress Note (short form) - Note Progress Note: ADDENDUM DIAGNOSIS: FUNCTIONAL QUADRIPLEGIA REQUIRING TOTAL CARE Problem List - Problems (1) Functional quadriplegia Code(s): R53.2 - FUNCTIONAL QUADRIPLEGIA (2) Nutritional assessment Code(s): Z00.8 - ENCOUNTER FOR OTHER GENERAL EXAMINATION (3) Pressure injury of left perineal ischial region, stage 2 Code(s): L89.322 - PRESSURE ULCER OF LEFT BUTTOCK, STAGE 2 (4) Aspiration pneumonia Code(s): J69.0 - PNEUMONITIS DUE TO INHALATION OF FOOD AND VOMIT (5) BPH (benign prostatic hypertrophy) Code(s): N40.0 - BENIGN PROSTATIC HYPERPLASIA WITHOUT LOWER URINRY TRACT SYMP Qualifiers: Lower urinary tract symptom presence: symptoms present (6) Colitis Code(s): K52.9 - NONINFECTIVE GASTROENTERITIS AND COLITIS, UNSPECIFIED (7) Dysphagia Code(s): R13.10 - DYSPHAGIA, UNSPECIFIED (8) History of ulcerative colitis Code(s): Z87.19 - PERSONAL HISTORY OF OTHER DISEASES OF THE DIGESTIVE SYSTEM (9) Lewy body dementia Code(s): G31.83 - DEMENTIA WITH LEWY BODIES; F02.80 - DEMENTIA IN OTH DISEASES CLASSD ELSWHR W/O BEHAVRL DISTURB (10) Quadriplegia Code(s): G82.50 - QUADRIPLEGIA, UNSPECIFIED
== END 2018-01-10 14:53 | disposition home health service (06) | DRG 100 ==
LOC: JER 00:41 → JERBED 01:17 → J8W 14:29
PROVIDERS: ADMIT Family Medicine; ATTEND Family Medicine
DX: G40.909 Epilepsy, unspecified, not intractable, without status epilepticus (principal); R53.2 Functional quadriplegia; G31.83 Neurocognitive disorder with Lewy bodies; F02.80 Dementia in other diseases classified elsewhere, unspecified severity, without behavioral disturbance, psychotic disturbance, mood disturbance, and anxiety; D72.829 Elevated white blood cell count, unspecified; N40.0 Benign prostatic hyperplasia without lower urinary tract symptoms; K52.9 Noninfective gastroenteritis and colitis, unspecified; L89.151 Pressure ulcer of sacral region, stage 1; K59.00 Constipation, unspecified; K31.84 Gastroparesis; L89.222 Pressure ulcer of left hip, stage 2; Z86.73 Personal history of transient ischemic attack (TIA), and cerebral infarction without residual deficits; Z93.1 Gastrostomy status; Z87.19 Personal history of other diseases of the digestive system; Z00.8 Encounter for other general examination; Z66 Do not resuscitate; Z87.891 Personal history of nicotine dependence
CPT/HCPCS: 36415; 70450-TC; 71045-TC-FY; 80053; 80177; 81003; 81015; 83735; 84100; 85025; 85027; 85610; 87040; 87070; 87086; 87186; 87205; 93005; 93010; 94640; 99285-25; E0186; J1644; J7030

== ENCOUNTER 2018-07-18 12:00 | Inpatient (IN) | payer OTHER, BC | END 2018-07-27 12:44 | disposition home or self-care (01) | LOC: J4W 07-19 04:17 → JER 12:00 → JERBED 22:29 ==

== ENCOUNTER 2020-05-06 23:45 | Emergency (ER) | payer OTHER, BC ==
[2020-05-07 00:05] VITALS: BP 149/74; PULSE 76; TEMP 98.1; BMI 25.1
== END 2020-05-07 05:38 | disposition home or self-care (01) ==
LOC: JER 23:45
DX: K94.23 Gastrostomy malfunction (principal)
CPT/HCPCS: 74018-TC-FY; 99283-25

== ENCOUNTER 2021-01-15 00:13 | Emergency (ER) | payer OTHER, BC ==
[2021-01-15 01:15] VITALS: BP 162/99; PULSE 82; TEMP 97.8; BMI 24.3
[2021-01-15] MEDS ORDERED: levETIRAcetam 500 MG/5 ML ORAL SOLUTION (UNIT-DOSE CUPS) PEG ONE (10:20)
== END 2021-01-15 18:16 | disposition home or self-care (01) ==
LOC: JER 00:13
DX: T85.528A Displacement of other gastrointestinal prosthetic devices, implants and grafts, initial encounter (principal)
CPT/HCPCS: 74018-TC-FY; 99284-25

== ENCOUNTER 2021-05-18 09:17 | Inpatient (IN) | payer OTHER, BC ==
[2021-05-18 10:36] VITALS: BMI 28.0
[2021-05-18 11:11] LABS: BASO % 1.1 % (0-2.0); EOS % 0.8 % (0-4.5); HEMATOCRIT 45.6 % (35.4-49); HEMOGLOBIN 15.9 GM/dL (11.7-16.9); LYMPH % 15.9 % (8-40); MCH 31.3 pg (25.7-33.7); MCHC 34.9 g/dl (32.0-35.9); MEAN CELL VOLUME 89.7 fl (80-96); MEAN PLT VOLUME 8.1 fl (7.5-11.1); MONO % 6.6 % (3.8-10.2); NEUT % 75.6 % (42.8-82.8); PLATELET COUNT 442 10^3/uL (134-434); RBC 5.09 M/mm3 (4.00-5.60); RDW 15.2 % (11.9-15.9); WHITE BLOOD COUNT 10.7 K/mm3 (4.0-10.0)
[2021-05-18 11:32] LABS: ALBUMIN 3.2 g/dl (3.4-5.0); BLOOD UREA NITROGEN 16.1 mg/dL (7-18)
[2021-05-18 11:34] LABS: CREATININE 0.8 mg/dL (0.55-1.3)
[2021-05-18 11:36] LABS: BILIRUBIN,TOTAL 1.1 mg/dL (0.2-1); TOT PROT 7.6 g/dl (6.4-8.2)
[2021-05-18] MEDS ORDERED: LORazepam 2 MG/ML SDV VIAL IVPUSH PRN (12:08)
[2021-05-18] MEDS ORDERED: morphine SULFATE 4 MG/ML VIAL IVPUSH PRN (12:11)
[2021-05-18] MEDS ORDERED: SCOPOLAMINE HYDROBROMIDE 1 PATCH PATCH.TD72 TD SCH (12:15)
[2021-05-18] MEDS: SODIUM CHLORIDE 1,000 ML IV SCH (12:38)
[2021-05-18 14:02] VITALS: BP 146/89; PULSE 90; TEMP 98.9
[2021-05-18] MEDS ORDERED: MORPHINE SULFATE/0.9% NACL/PF 100 MG/100 ML BAG IVPB SCH (16:45)
[2021-05-19] MEDS: SODIUM CHLORIDE 1,000 ML IV SCH ×2 (02:18→15:26)
[2021-05-19] MEDS ORDERED: MORPHINE SULFATE/0.9% NACL/PF 100 MG/100 ML BAG IVPB SCH ×2 (08:42→09:44)
[2021-05-19] MEDS ORDERED: LORazepam 2 MG/ML SDV VIAL IVPUSH ONE ×2 (09:45→10:34)
[2021-05-19] MEDS: MORPHINE SULFATE/0.9% NACL/PF 100 MG/100 ML BAG IVPB SCH ×3 (12:20→23:13)
[2021-05-19] MEDS ORDERED: morphine SULFATE 4 MG/ML VIAL IVPUSH ONE ×2 (13:16→22:32)
[2021-05-19 16:09] LABS: SARS-CoV-2 NAA Not Detected (Not Detected)
[2021-05-19] MEDS: LORazepam 2 MG/ML SDV VIAL IVPUSH PRN ×2 (17:03→23:15)
[2021-05-20] MEDS: MORPHINE SULFATE/0.9% NACL/PF 100 MG/100 ML BAG IVPB SCH ×4 (00:56→21:05)
[2021-05-20] MEDS: LORazepam 2 MG/ML SDV VIAL IVPUSH PRN ×2 (06:53→17:07)
[2021-05-20] MEDS: SODIUM CHLORIDE 1,000 ML IV SCH (14:35)
== END 2021-05-21 01:54 | disposition expired | DRG 177 ==
LOC: JER 09:17 → JERBED 11:01 → J4S 11:59
PROVIDERS: ADMIT Family Medicine; ATTEND Family Medicine
DX: J69.0 Pneumonitis due to inhalation of food and vomit (principal); R53.2 Functional quadriplegia; J96.90 Respiratory failure, unspecified, unspecified whether with hypoxia or hypercapnia; R47.01 Aphasia; Z74.01 Bed confinement status; G40.909 Epilepsy, unspecified, not intractable, without status epilepticus; R13.10 Dysphagia, unspecified; N40.0 Benign prostatic hyperplasia without lower urinary tract symptoms; Z93.1 Gastrostomy status; G20 Parkinson's disease; G31.83 Neurocognitive disorder with Lewy bodies; F02.80 Dementia in other diseases classified elsewhere, unspecified severity, without behavioral disturbance, psychotic disturbance, mood disturbance, and anxiety; Z66 Do not resuscitate
CPT/HCPCS: 36415; 71045-TC-FY; 80053; 85025; 93005; 93010; 99285-25; C9803-CS; U0003; U0005